=== PATIENT | female | born 1940 | race Caucasian/White ===

== ENCOUNTER 2019-12-18 13:32 | Outpatient (REF) | payer OTHER, SELFPAY ==
--- NOTE | 2019-12-18 13:56 | XR_ITS ---
EXAMINATION: XR HIP, RIGHT CLINICAL INFORMATION: Right hip pain. Unilateral primary osteoarthritis. COMPARISON: Pelvis x-ray September 2019 TECHNIQUE: Two views of the right hip and one view of the pelvis. FINDINGS: There is a superior lateral subluxation of the right femoral head with respect to the acetabulum. The right femoral head and lateral femoral neck appears fragmented. This has progressed compared to September 2019 exam.. There is severe arthritis at the right hip joint with obliteration of the joint space and subchondral cyst formation. There is a left hip replacement. There is a cerclage wire in the left femoral intertrochanteric region. Bones of the pelvis are unremarkable. Soft tissues are unremarkable. IMPRESSION: Superior lateral subluxation of the right femoral head with respect to the femoral neck. Fragmentation of the right lateral femoral head and neck and severe arthritis. These findings have progressed from September 2019 exam.
== END 2019-12-18 13:33 | disposition home or self-care (01) ==
LOC: HO.XRAY 13:32
PROVIDERS: PCP Physician Assistant; Visit Provider Physician Assistant
DX: M16.11 Unilateral primary osteoarthritis, right hip (principal)
CPT/HCPCS: 73502

== ENCOUNTER 2019-12-24 06:54 | Inpatient (IN) | payer OTHER, SELFPAY ==
[2019-12-08 10:55] VITALS: BMI 29.2
--- NOTE | 2019-12-23 10:21 | P.CONAN_ITS ---
Documented by User: Mery Meneses 12/23/19 10:26 HPI - Anesthesia Eval Consult details Narrative: 79yo F for R ROBERT PCP cleared, Cardiac cleared [facility] Past Medical History Medical History Aortic valvular disease Elevated cholesterol HTN (hypertension) Hx of osteomyelitis Iron deficiency anemia Osteoarthritis Thyroid disease Family History Family History Father Myocardial infarction CVD (cardiovascular disease) Mother No problems noted. Surgical History Surgical History History of History of total left hip arthroplasty History of total left knee replacement Hx of colonoscopy Social History Social History Are you a primary behavioral health care coordinator to a significant other at home: No Do you presently have visiting nurse or other home services: No Smoking Status: Never smoker Second Hand Smoke Exposure: No Use of substances other than those prescribed or required for medical reasons: No Have you been hit, kicked, punched, or otherwise hurt by someone within the past year? If so, by whom?: No Advance Directives: No Advance Directives Information Provided: No Advance Directives on File: No Recently lost weight without trying: No Narrative Narrative: No recent illness Activity limited to pain. No CP/SOB with rest. Meds Allergies Allergy/AdvReac Type Severity Reaction Status Date / Time No Known Drug Allergies Allergy Unknown NONE Verified 12/18/19 13:37 [NO KNOWN DRUG ALLERGIES] Home Medications Medication Instructions Recorded Confirmed Type acetaminophen 650 mg PO Q6H PRN 12/08/19 12/08/19 History amlodipine-benazepril 1 cap PO DAILY 12/08/19 12/08/19 History atorvastatin 1 tab PO DAILY 12/08/19 12/08/19 History ferrous sulfate 1 tab PO BID 12/08/19 12/08/19 History hydrochlorothiazide 1 cap PO QAM 12/08/19 12/08/19 History levothyroxine 1 tab PO QAM 12/08/19 12/08/19 History meloxicam 1 tab PO DAILY 12/08/19 12/08/19 History Exam Exam Date and Time: 12/09/19 @ 1309 Height,Weight and Vital Signs: Height 5 ft 3 in Weight 74.843 kg 143/64, 84, 20, 98%RA Pertinent Lab Results Pertinent Lab Results: Laboratory Tests Laboratory Tests 11/20/19 11/20/19 10:35 10:35 WBC 8.0 Hgb 10.7 L Hct 32.7 L Plt Count 415 H Sodium 135 Potassium 4.6 Chloride 100 BUN 25 H Creatinine 0.73 12/09/19 13:30 Blood Type O Positive Antibody Screen NEGATIVE Narrative Narrative: EKG 10/20/19: NSR @ 85 Echo 09/2019: nml LV sys function, LVEF 60-65%, mild LAE, -mod MIBI 10/28/19: likely nml perfusion, gated EF 69%, no transient ischemic dilation Airway Mallampati Class: I TM Dist: >3cm Neck ROM: Full Partial: Upper and Lower Heart: RRR Lungs: CTA bilat Assessment and Plan Assessment Anesthesia Assessment: Anesthesia Plan Discussed and PAT Visit Documented by User: Trenton Toney MD 12/24/19 08:11 PMF Past Medical History Medical History Aortic valvular disease Elevated cholesterol HTN (hypertension) Hx of osteomyelitis Iron deficiency anemia Osteoarthritis Thyroid disease Family History Family History Father Myocardial infarction CVD (cardiovascular disease) Mother No problems noted. Surgical History Surgical History History of History of total left hip arthroplasty History of total left knee replacement Hx of colonoscopy Social History Social History Are you a primary behavioral health care coordinator to a significant other at home: No Do you presently have visiting nurse or other home services: No Smoking Status: Never smoker Second Hand Smoke Exposure: No Use of substances other than those prescribed or required for medical reasons: No Have you been hit, kicked, punched, or otherwise hurt by someone within the past year? If so, by whom?: No Advance Directives: No Advance Directives Information Provided: No Advance Directives on File: No Recently lost weight without trying: No Meds Allergies Allergy/AdvReac Type Severity Reaction Status Date / Time No Known Drug Allergies Allergy Unknown NONE Verified 12/18/19 13:37 [NO KNOWN DRUG ALLERGIES] Home Medications Medication Instructions Recorded Confirmed Type acetaminophen 650 mg PO Q6H PRN 12/08/19 12/08/19 History amlodipine-benazepril 1 cap PO DAILY 12/08/19 12/08/19 History atorvastatin 1 tab PO DAILY 12/08/19 12/08/19 History ferrous sulfate 1 tab PO BID 12/08/19 12/08/19 History hydrochlorothiazide 1 cap PO QAM 12/08/19 12/08/19 History levothyroxine 1 tab PO QAM 12/08/19 12/08/19 History meloxicam 1 tab PO DAILY 12/08/19 12/08/19 History Exam Airway Mallampati Class: II TM Dist: >3cm Neck ROM: Full Loose/Missing/Broken Teeth: No Heart: rrr Lungs: nl Other: ao3 Assessment and Plan Assessment Anesthesia Assessment: Anesthesia Plan Discussed, PAT Visit and Chart Reviewed Final Anesthetic Review NPO: Yes ASA Class: III Final Preanesthetic Review: No Changes in Pt Med Stat, Meds/Allgs Chart Reviewed, Consent Obtained/Reviewed and Anes Risks/Benef Reviewed Patient Risk: Intermediate Procedure Risk: Intermediate Anesthetic Plan Anesthetic Plan: GA Disposition: Standard PACU
[2019-12-24] VITALS (12 sets, daily range): BP systolic 99–141; BP diastolic 43–60; PULSE 75–111; RESP 12–18; TEMP 35.8–36.8; O2SAT 94–100
[2019-12-24] MEDS: Lactated Ringers 1,000 ML 100 ML IVCONT (06:45)
[2019-12-24] MEDS: oxyCODONE HCl ER 10 MG TAB.ER.12H PO (06:57)
[2019-12-24] MEDS: Gabapentin 600 MG TABLET PO (06:58)
[2019-12-24 07:05] LABS: SARS COV2 PCR INHOUSE NEGATIVE (Negative)
[2019-12-24] MEDS: ceFAZolin Sodium/Dextrose,Iso 2 GM/50 ML PIGGYBACK IV ×2 (07:06→13:49)
--- NOTE | 2019-12-24 07:13 | XR_ITS ---
EXAMINATION: XR HIP, RIGHT CLINICAL INFORMATION: Status post right total hip replacement. COMPARISON: Pelvic and right hip x-rays of 12/18/2019 TECHNIQUE: 2 views of the right hip. FINDINGS: Right total hip arthroplasty hardware is in place with 2 acetabular screws. On the submitted AP supine portable views, the more lateral screw appears to be along the edge of the cortex of the iliac bone. Expected postsurgical changes of soft tissue edema and air are seen in the right hip. Cutaneous dionicio are noted on the lateral aspect of the hip. No evidence of associated acute osseous fracture. Left total hip arthroplasty hardware is unchanged in appearance. Symphysis pubis is intact. Degenerative changes are noted in the lower lumbar spine. IMPRESSION: Expected postsurgical changes of right total hip arthroplasty. No evidence of associated acute osseous fracture. The arthroplasty is in satisfactory position with 2 acetabular fixation screws. The more lateral screw appears to be along the edge of the iliac bone on the submitted views.
--- NOTE | 2019-12-24 07:25 | MHC.SHP ---
Pre-Procedural Eval Section A The patient is an INPATIENT: No Changes since office visit: Yes Patient answered all questions; No Cold of Flu in the past 2 weeks, No New Medical Problems and No Changes in Medication The History & Physical has been completed within 30 days and I have reviewed it.: Yes Section B Chief Complaint: osteoarthritis right hip Allergies: Allergies Allergy/AdvReac Type Severity Reaction Status Date / Time No Known Drug Allergies Allergy Unknown NONE Verified 12/18/19 13:37 [NO KNOWN DRUG ALLERGIES] Plan Patient has been examined and remains a candidate for the planned procedure
--- NOTE | 2019-12-24 10:04 | PC.NURSE ---
INTIAL CLOSE TIME OF 940, XRAY INTO OR2 FOR HIP XRAY. MD DECIDED TO REVISE. PT PREPPED, AND DRAPED A SECOND TIME.
--- NOTE | 2019-12-24 10:10 | XR_ITS ---
EXAMINATION: XR PELVIS CLINICAL INFORMATION: Post right hip replacement COMPARISON: Previous x-ray 12/18/2019 TECHNIQUE: AP view of the pelvis. FINDINGS: There is a new right hip replacement. No fracture or dislocation is seen. There is a left hip replacement in satisfactory position. Bones of the pelvis are unremarkable. There are postsurgical changes to the soft tissues over the right hip. IMPRESSION: Satisfactory appearance of right hip replacement.
--- NOTE | 2019-12-24 10:46 | PM.OP ---
Brief Operative Note Date of procedure: 12/24/19 Pre-op diagnosis: right hip OA Post-op diagnosis: same Procedure: right ROBERT Implants: gunner 54/#5/-5 CoCr Surgeon: Miguel Landry MD Anesthesia: GETA and local Reinstatement Clerk: Ivana Alexander Estimated blood loss (mL): 300 IV fluids (mL): 1,200 Pathology: other (femoral head, right) Condition: stable Disposition: PACU
[2019-12-24] MEDS: Dextrose 5 % and 0.45 % NaCl 1,000 ML 80 ML IVCONT (11:56)
[2019-12-24] MEDS: oxyCODONE HCl Immed Release 5 MG TABLET PO (18:56)
[2019-12-24] MEDS: Celecoxib 200 MG CAPSULE PO (21:17)
[2019-12-25] VITALS (7 sets, daily range): BP systolic 107–142; BP diastolic 49–58; PULSE 84–106; RESP 16–20; TEMP 36.3–37; O2SAT 96–98
[2019-12-25] MEDS: Dextrose 5 % and 0.45 % NaCl 1,000 ML 80 ML IVCONT ×2 (01:03→12:39)
[2019-12-25] MEDS: HYDROmorphone HCl 0.5 MG/0.5 ML SYRINGE 0.25 MG IVPUSH ×3 (01:16→10:30)
[2019-12-25] MEDS: oxyCODONE HCl Immed Release 5 MG TABLET PO ×3 (03:59→17:08)
[2019-12-25] MEDS: Acetaminophen 325 MG TABLET 650 MG PO ×3 (04:07→17:10)
[2019-12-25] MEDS: Levothyroxine Sodium 112 MCG TABLET PO (06:21)
[2019-12-25] MEDS: Levothyroxine Sodium 25 MCG TABLET PO (06:21)
[2019-12-25 06:33] LABS: MANUAL DIFF FLAG NO
[2019-12-25 06:54] LABS: Basophils Percent Auto 0.2 % (0-2); Eosinophils Percent Auto 0.1 % (0-4); Hematocrit 23.9 % (37-47); Imm Gran Abs Auto 0.06 X10*3/uL (0.00-0.03); Imm Gran Pct Auto 0.4 % (0.0-0.4); Lymphocytes Absolute Auto 1.9 X10*3/uL (1.2-4.9); Lymphocytes Percent Auto 13.7 % (20-40); Mean Corpuscular HGB Conc 33.5 g/dl (31.0-35.0); Mean Corpuscular Hemoglobin 30.4 pg (27.0-33.0); Mean Corpuscular Volume 90.9 fL (80-98); Mean Platelet Volume 8.3 fL (9.4-12.3); Neutrophils Absolute Auto 10.8 X10*3/uL (2.0-8.3); Neutrophils Percent Auto 78.6 % (45-73); Platelet Count 288 X10*3/uL (160-400); Red Blood Count 2.63 X10*6/uL (4.20-5.50); Red Cell Distribution Width 12.5 % (11.0-16.0); White Blood Count 13.7 X10*3/uL (4.8-10.8)
[2019-12-25 07:10] LABS: Anion Gap 11 (12-20); Blood Urea Nitrogen 30 mg/dL (9-16); Carbon Dioxide 25 mmol/L (22-29); Chloride 103 mmol/L (96-108); Creatinine Clr Calc Pharmacy 59.2; Estimated Glomerular Filt Rate > 60; Glucose Fasting 126 mg/dL (60-99); Potassium 3.5 mmol/l (3.3-5.1); Sodium 135 mmol/L (135-145)
--- NOTE | 2019-12-25 07:21 | HO.POSTANES ---
Post Anesthesia Evaluation Post Anesthesia Evaluation Vital Signs: Vital Signs Temp Pulse Resp BP Pulse Ox 12/25/19 03:00 98.3 F 106 H 16 142/58 H 96 12/24/19 23:00 98.3 F 111 H 16 108/51 L 98 Anesthesia: General Mental Status: Awake Pain Control: Satisfactory Nausea/Vomiting: None Hydration: Adequate Anesthesia-Related Issues: No Anes. Related Issues
[2019-12-25] MEDS: Celecoxib 200 MG CAPSULE PO ×2 (09:03→21:24)
--- NOTE | 2019-12-25 09:31 | P.PNOP_ITS ---
Subjective Subjective Principal diagnosis: status post right total hip arthroplasty Interval history: postop day 1 status post right total hip arthroplasty no overnight events. She is resting in chair. She states she has been up and ambulating with a walker. She has some discomfort in the anterior portion of her thigh. Denies shortness of breath, chest pain, dizziness. Physical Exam Vital Signs: Vital Signs: Vital Signs Temp Pulse Resp BP Pulse Ox 12/25/19 07:00 97.7 F 105 H 19 138/55 L 98 12/25/19 03:00 98.3 F 106 H 16 142/58 H 96 12/24/19 23:00 98.3 F 111 H 16 108/51 L 98 12/24/19 18:56 96.5 F L 100 126/52 L 97 12/24/19 15:09 96.7 F L 79 18 99/55 L 95 12/24/19 11:58 80 17 131/53 L 12/24/19 11:53 97.2 F 76 14 126/60 94 12/24/19 11:43 76 16 115/45 L 98 12/24/19 11:26 78 18 133/50 L 100 12/24/19 11:11 75 16 141/54 H 100 12/24/19 11:06 78 16 121/43 L 100 12/24/19 11:01 75 16 122/48 L 100 12/24/19 10:56 97.4 F 81 12 130/50 L Body Mass Index 29.2 Const: General: cooperative, healthy appearing and no acute distress Resp: Effort & Inspection: normal respiratory effort and able to speak in complete sentences Cardio: Rate: regular rate Peripheral pulses: Peripheral pulses 2+ throughout GI: Inspection: Yes normal to inspection Palpation (GI): Soft to palpation Skin: General skin exam: no rashes or lesions noted Extrem: Other: Right hip bandage clean dry and intact. No drainage. No erythema. Mild tenderness to palpation. Progress Note: A&P Assessment and plan (1) Status post total hip replacement, right: Status: Acute Assessment and Plan: Begin Physical Therapy continue Pain management aspirin and pneumatic devices for DVT prophylaxis Fall Risk Details Current Medications: Current Medications Generic Name Dose Route Start Last Admin Trade Name Freq PRN Reason Stop Dose Admin Acetaminophen 650 mg 12/24/19 11:53 12/25/19 04:07 Acetaminophen 325 Mg Tablet PO 650 mg Q6H PRN Administration Pain, Mild (Pain Scale 1-3) Celecoxib 200 mg 12/24/19 21:00 12/25/19 09:03 Celecoxib 200 Mg Capsule PO 200 mg BID JOE Administration Hydromorphone HCl 0.25 mg 12/24/19 11:53 12/25/19 06:23 Hydromorphone Hcl 0.5 Mg/0.5 Ml Syringe IVPUSH 0.25 mg Q4H PRN Administration Pain, Severe (Pain Scale 7-10) Dextrose/Sodium Chloride 1,000 mls @ 80 mls/hr 12/24/19 11:53 12/25/19 01:03 D51/2ns IVCONT 80 mls/hr .[id number] JOE Administration Cefazolin Sodium/Dextrose 2 gm in 50 mls @ 100 mls/hr 12/24/19 13:30 12/24/19 17:06 Ancef IV Infused ONCE@1330 [facility] Infusion Levothyroxine Sodium 112 mcg 12/25/19 06:00 12/25/19 06:21 Levothyroxine Sodium 112 Mcg Tablet PO 112 mcg DAILY@0600 [facility] Administration Levothyroxine Sodium 25 mcg 12/25/19 06:00 12/25/19 06:21 Levothyroxine Sodium 25 Mcg Tablet PO 25 mcg DAILY@0600 [facility] Administration Naloxone HCl 0.2 mg 12/24/19 11:53 Naloxone Hcl 0.4 Mg/Ml Vial IVPUSH Q2M PRN Excessive sedation or RR < 8 Ondansetron HCl 4 mg 12/24/19 11:53 Ondansetron Hcl 4 Mg/2 Ml Vial IVPUSH Q8H PRN Nausea and Vomiting Oxycodone HCl 5 mg 12/24/19 11:53 12/25/19 09:06 Oxycodone Hcl Immed Release 5 Mg Tablet PO 5 mg Q4H PRN Administration Pain, Moderate (Pain Scale 4-6 Senna 17.2 mg 12/24/19 11:53 Sennosides 8.6 Mg Tablet PO BEDTIME PRN Constipation Sodium Chloride 3 ml 12/24/19 16:00 12/25/19 09:00 0.9 % Sodium Chloride Flush 3 Ml Syringe IVFLUSH Not Given QSHIFT [facility] Time Spent With Patient Time: Total time spent is greater than 50% in coordination of care (as documented) at patient's floor/unit and/or counseling patient: Time with patient: less than 15 minutes
[2019-12-25] MEDS: Aspirin 325 MG TABLET PO ×2 (10:30→21:23)
--- NOTE | 2019-12-25 13:32 | MHC.CM.PN ---
Pt reports she lives alone and her son and daughter in law come by regularly. Pt reports she has no services and is not interested in VNA if recommended. Pt has a walker at home she typically uses. Pt does not have a HCP and declines to complete one today. pt requests a referral to [facility] as she is interested in Meals on Wheels. Referral placed. [facility] delivered current DC plan is home with [facility] referral pts son will transport
--- NOTE | 2019-12-25 13:41 | MHC.CM.PN ---
Pt reported her PCP as Brien Weller, CM contacted [facility] and confirmed pts PCP is Thomas Weller.
--- NOTE | 2019-12-25 16:32 | P.CONIM_ITS ---
History of Present Illness Data of Consult Service Date: 12/25/19 Requesting physician: Ivana Alexander Primary Care Provider: Thomas Weller PA-C [facility] Reason for consult: medical management this is a 79-year-old female with a history of hypertension, hyperlipidemia, hypothyroidism and osteoarthritis who presents for elective right total hip arthroplasty. She underwent surgery yesterday and the hospitalists were asked to see her in consultation for medical management. She has no specific complaints at this time she is tolerating a regular diet, voiding without issue. She denies any chest pain, shortness of breath, fever, chills. She has a history anemia which she states is related to iron deficiency. Her H/H on 11/20/2019 was 10.7/32.7, today it is 8.0/23.9. she states that she required a blood transfusion after her left hip replacement. She denies any shortness of breath, dizziness. Review of Systems Review of Systems: Yes all other systems are reviewed and are negative Constitutional: Constitutional: Denies chills and Denies fever(s) Cardiovascular: Cardiovascular: Denies chest pain Respiratory: Respiratory: Denies cough Gastrointestinal: Gastrointestinal: Denies abdominal pain [facility] Medical History (Updated 12/25/19 @ 09:33 by Ivana Alexander PA-C) Aortic valvular disease Elevated cholesterol HTN (hypertension) Hx of osteomyelitis Hypothyroid Iron deficiency anemia Osteoarthritis Primary osteoarthritis of right hip Thyroid disease Functional capacity: uses cane/walker Family History Father Myocardial infarction CVD (cardiovascular disease) Mother No problems noted. Surgical History (Updated 12/25/19 @ 09:33 by Ivana Alexander PA-C) History of History of total left hip arthroplasty History of total left knee replacement Hx of colonoscopy Social History (Updated 12/25/19 @ 16:38 by SALINA Ruffin) Household Members: None Housing: House Are you a primary career information specialist to a significant other at home: No Do you presently have visiting nurse or other home services: No Smoking Status: Never smoker Second Hand Smoke Exposure: No Use of substances other than those prescribed or required for medical reasons: No Currently Displaying Signs/Symptoms of Drug Intoxication Withdrawal: No Have you been hit, kicked, punched, or otherwise hurt by someone within the past year? If so, by whom?: No Advance Directives: No Advance Directives Information Provided: No Advance Directives on File: No Do you have thoughts of harming others: None Do you have a plan to hurt others: No Plan Recently lost weight without trying: No service: No Current occupational status: retired Meds Allergies Allergy/AdvReac Type Severity Reaction Status Date / Time No Known Drug Allergies Allergy Unknown NONE Verified 12/18/19 13:37 [NO KNOWN DRUG ALLERGIES] Home Medications Medication Instructions Recorded Confirmed Type acetaminophen 650 mg PO Q6H PRN 12/08/19 12/08/19 History amlodipine-benazepril 1 cap PO DAILY 12/08/19 12/08/19 History atorvastatin 1 tab PO DAILY 12/08/19 12/08/19 History ferrous sulfate 1 tab PO BID 12/08/19 12/08/19 History hydrochlorothiazide 1 cap PO QAM 12/08/19 12/08/19 History levothyroxine 1 tab PO QAM 12/08/19 12/08/19 History meloxicam 1 tab PO DAILY 12/08/19 12/08/19 History Physical Exam Vital Signs and Narrative: Vital Signs: Last Vital Signs Temp 98.5 F 12/25/19 15:00 Pulse 92 12/25/19 15:00 Resp 17 12/25/19 15:00 BP 110/49 L 12/25/19 15:00 Pulse Ox 97 12/25/19 15:00 Body Mass Index 29.2 Const: Nutritional Appearance: well nourished Orientation/consciousness: patient oriented x3 HENMT: Head: Yes normocephalic and Yes atraumatic Eyes: Sclerae: sclerae normal Chest: Chest palpation & inspection: normal inspection of the chest Resp: Effort & Inspection: normal respiratory effort and no respiratory distress Auscultation: clear to auscultation bilaterally Cardio: Rate: regular rate Heart sounds: Murmur heart sound present systolic GI: Palpation (GI): Soft to palpation and nontender Skin: General skin exam: no rashes or lesions noted Neuro: General: patient oriented x3 Cranial nerves: Yes CN's II-XII intact bilaterally and Yes Bilaterally intact EOM present Extrem: Other: right hip dressing wihout staing General: Yes normal to inspection Results Labs Labs: Laboratory Tests 12/09/19 12/24/19 12/25/19 13:30 05:43 06:17 WBC 13.7 H RBC 2.63 L Hgb 8.0 L Hct 23.9 L MCV 90.9 MCH 30.4 MCHC 33.5 RDW 12.5 Plt Count 288 MPV 8.3 L Immature Gran % (Auto) 0.4 Neut % (Auto) 78.6 H Lymph % (Auto) 13.7 L Bell % (Auto) 7.0 Eos % (Auto) 0.1 Baso % (Auto) 0.2 Lymph # (Auto) 1.9 Bell # (Auto) 1.0 Eos # (Auto) 0.0 Baso # (Auto) 0.0 Abs Immat Gran (auto) 0.06 H Absolute Neuts (auto) 10.8 H Absolute Nucleated RBC 0.000 Nucleated RBC % (auto) 0.0 Sodium Potassium Chloride Carbon Dioxide Anion Gap BUN Creatinine Estim Creat Clear Calc Estimated GFR Fasting Glucose Calcium Coronavirus (PCR) NEGATIVE Blood Type O Positive Antibody Screen NEGATIVE 12/25/19 06:17 WBC RBC Hgb Hct MCV MCH MCHC RDW Plt Count MPV Immature Gran % (Auto) Neut % (Auto) Lymph % (Auto) Bell % (Auto) Eos % (Auto) Baso % (Auto) Lymph # (Auto) Bell # (Auto) Eos # (Auto) Baso # (Auto) Abs Immat Gran (auto) Absolute Neuts (auto) Absolute Nucleated RBC Nucleated RBC % (auto) Sodium 135 Potassium 3.5 Chloride 103 Carbon Dioxide 25 Anion Gap 11 L BUN 30 H Creatinine 0.77 Estim Creat Clear Calc 59.2 Estimated GFR > 60 Fasting Glucose 126 H Calcium 8.0 L Coronavirus (PCR) Blood Type Antibody Screen Assessment and Plan (1) Status post total hip replacement, right: Status: Acute this is a 79-year-old female with history of hypertension, dyslipidemia, hypothyroidism, anemia, osteoarthritis who presents for elective right total hip arthroplasty. POD #1 s/p R ROBERT Management per orthopedic team acute on chronic anemia asymptomatic h/o iron deficiency per report, although MCV 90 & iron studies wnl in past. r/t blood loss from surgery and dilution from IVF -follow CBC HTN blood pressure on lower side - hold Norvasc, benazepril, HCTZ HLD - continue statin hypothyroidism - continue Synthroid thank you for allowing us to participate in the care of this patient. We will follow along with you. this case was discussed with Dr. Wharton
--- NOTE | 2019-12-25 17:07 | PM.EVENT ---
Event Note Event Note: addendum to consultation by SALINA Leonard 12/25/19 I interviewed and examined the patient I discussed her presentation and management with SALINA Leonard I reviewed her consultation and agree with the documentation with the following additions and changes 79yo F with HTN, HLD, hypothyroidism, OA POD #0 elective R ROBERT Hospitalist consultation for management of comorbid medical conditions Had L ROBERT in past and had transfusion with that Pain well-controlled No chest pain or dyspnea vitals reviewed pt in NAD, pain well-controlled lungs clear CV RRR 2/6 <> at base abd soft/NT ext no C/C/E neuro non focal labs Hb 8 hospital d#2 79yo F POD#1 ROBERT # HTN - hold antihypertensives: amlodipine, benazepril, HCTZ # HLD - continue statin # hypothyroidism - continue LT4 # postop anemia - recheck CBC in am # postop ROBERT - VTE ppx as per orthopedic team
[2019-12-26] VITALS (14 sets, daily range): BP systolic 102–142; BP diastolic 44–61; PULSE 86–114; RESP 18–20; TEMP 36.1–36.8; O2SAT 96–99
[2019-12-26] MEDS: Dextrose 5 % and 0.45 % NaCl 1,000 ML 80 ML IVCONT (00:03)
[2019-12-26] MEDS: Acetaminophen 325 MG TABLET 650 MG PO ×3 (00:07→20:35)
[2019-12-26] MEDS: oxyCODONE HCl Immed Release 5 MG TABLET PO ×3 (00:08→20:32)
[2019-12-26] MEDS: Levothyroxine Sodium 25 MCG TABLET PO (05:50)
[2019-12-26] MEDS: Levothyroxine Sodium 112 MCG TABLET PO (05:50)
[2019-12-26 06:33] LABS: MANUAL DIFF FLAG NO
[2019-12-26 06:51] LABS: Basophils Percent Auto 0.3 % (0-2); Eosinophils Absolute Auto 0.1 X10*3/uL (0.0-0.4); Eosinophils Percent Auto 0.7 % (0-4); Hemoglobin 7.3 g/dl (12.0-16.0); Imm Gran Pct Auto 0.7 % (0.0-0.4); Lymphocytes Absolute Auto 2.4 X10*3/uL (1.2-4.9); Lymphocytes Percent Auto 16.9 % (20-40); Mean Corpuscular HGB Conc 33.2 g/dl (31.0-35.0); Mean Corpuscular Hemoglobin 30.4 pg (27.0-33.0); Mean Corpuscular Volume 91.7 fL (80-98); Mean Platelet Volume 8.6 fL (9.4-12.3); Monocytes Absolute Auto 0.7 X10*3/uL (0.1-1.2); Monocytes Percent Auto 4.7 % (2-11); Neutrophils Absolute Auto 10.8 X10*3/uL (2.0-8.3); Neutrophils Percent Auto 76.7 % (45-73); Platelet Count 281 X10*3/uL (160-400); Red Cell Distribution Width 12.3 % (11.0-16.0); White Blood Count 14.1 X10*3/uL (4.8-10.8)
[2019-12-26 07:22] LABS: Anion Gap 9 (12-20); Blood Urea Nitrogen 29 mg/dL (9-16); Calcium 7.8 mg/dL (8.4-10.2); Carbon Dioxide 24 mmol/L (22-29); Chloride 105 mmol/L (96-108); Creatinine Clr Calc Pharmacy 61.6; Estimated Glomerular Filt Rate > 60; Glucose Fasting 121 mg/dL (60-99); Potassium 3.4 mmol/l (3.3-5.1); Sodium 135 mmol/L (135-145)
[2019-12-26] MEDS: Aspirin 325 MG TABLET PO ×2 (08:49→20:31)
[2019-12-26] MEDS: Atorvastatin Calcium 10 MG TABLET PO (08:49)
[2019-12-26] MEDS: Celecoxib 200 MG CAPSULE PO ×2 (08:49→20:31)
[2019-12-26] MEDS: 0.9 % Sodium Chloride Flush 3 ML SYRINGE IVFLUSH (08:50)
[2019-12-26] MEDS: Sennosides 8.6 MG TABLET 17.2 MG PO (08:56)
--- NOTE | 2019-12-26 09:49 | PM.IMPN ---
Subjective Subjective Date of Service: 12/26/19 Interval History: Postop pain well-controlled Anemic, willing to undergo transfusion Denies fever, chills, lightheadedness, chest pain, or dyspnea Review of Systems Review of Systems: Yes all other systems are reviewed and are negative Physical Exam Vital Signs: Vital Signs: Vital Signs Temp Pulse Resp BP Pulse Ox 12/26/19 07:00 97.3 F 86 18 121/53 L 96 12/26/19 02:47 97.6 F 90 18 131/60 96 12/25/19 23:00 98.6 F 92 20 131/54 L 98 12/25/19 19:00 97.4 F 91 17 107/55 L 96 12/25/19 15:00 98.5 F 92 17 110/49 L 97 12/25/19 11:00 97.3 F 84 18 126/50 L 98 12/25/19 10:30 17 Body Mass Index 29.2 gen- NAD neck- supple lungs- CTAB CV- RRR 2/6 systolic <> murmur at base abd- soft/NT ext- no C/C/E neuro- nonfocal Objective Data Current Medications Generic Name Dose Route Start Last Admin Trade Name Freq PRN Reason Stop Dose Admin Acetaminophen 650 mg 12/24/19 11:53 12/26/19 08:50 Acetaminophen 325 Mg Tablet PO 650 mg Q6H PRN Administration Pain, Mild (Pain Scale 1-3) Aspirin 325 mg 12/25/19 09:35 12/26/19 08:49 Aspirin 325 Mg Tablet PO 325 mg BID JOE Administration Atorvastatin Calcium 10 mg 12/26/19 09:00 12/26/19 08:49 Atorvastatin Calcium 10 Mg Tablet PO 10 mg DAILY JOE Administration Celecoxib 200 mg 12/24/19 21:00 12/26/19 08:49 Celecoxib 200 Mg Capsule PO 200 mg BID JOE Administration Hydromorphone HCl 0.25 mg 12/24/19 11:53 12/25/19 10:30 Hydromorphone Hcl 0.5 Mg/0.5 Ml Syringe IVPUSH 0.25 mg Q4H PRN Administration Pain, Severe (Pain Scale 7-10) Dextrose/Sodium Chloride 1,000 mls @ 80 mls/hr 12/24/19 11:53 12/26/19 00:03 D51/2ns IVCONT 80 mls/hr .[id number] JOE Administration Levothyroxine Sodium 112 mcg 12/25/19 06:00 12/26/19 05:50 Levothyroxine Sodium 112 Mcg Tablet PO 112 mcg DAILY@0600 JOE Administration Levothyroxine Sodium 25 mcg 12/25/19 06:00 12/26/19 05:50 Levothyroxine Sodium 25 Mcg Tablet PO 25 mcg DAILY@0600 [facility] Administration Naloxone HCl 0.2 mg 12/24/19 11:53 Naloxone Hcl 0.4 Mg/Ml Vial IVPUSH Q2M PRN Excessive sedation or RR < 8 Ondansetron HCl 4 mg 12/24/19 11:53 Ondansetron Hcl 4 Mg/2 Ml Vial IVPUSH Q8H PRN Nausea and Vomiting Oxycodone HCl 5 mg 12/24/19 11:53 12/26/19 08:49 Oxycodone Hcl Immed Release 5 Mg Tablet PO 5 mg Q4H PRN Administration Pain, Moderate (Pain Scale 4-6 Senna 17.2 mg 12/24/19 11:53 12/26/19 08:56 Sennosides 8.6 Mg Tablet PO 17.2 mg BEDTIME PRN Administration Constipation Sodium Chloride 3 ml 12/24/19 16:00 12/26/19 08:50 0.9 % Sodium Chloride Flush 3 Ml Syringe IVFLUSH 3 ml QSHIFT [facility] Administration Labs CBC & Chem 7: 12/26/19 06:16 12/26/19 06:16 Labs: Laboratory Results - last 24 hr 12/26/19 12/26/19 12/26/19 06:16 06:16 08:03 MCV 91.7 MCH 30.4 MCHC 33.2 RDW 12.3 Plt Count 281 MPV 8.6 L Immature Gran % (Auto) 0.7 H Neut % (Auto) 76.7 H Lymph % (Auto) 16.9 L [place] % (Auto) 4.7 Eos % (Auto) 0.7 Baso % (Auto) 0.3 Lymph # (Auto) 2.4 [place] # (Auto) 0.7 Eos # (Auto) 0.1 Baso # (Auto) 0.0 Abs Immat Gran (auto) 0.10 H Absolute Neuts (auto) 10.8 H Absolute Nucleated RBC 0.000 Nucleated RBC % (auto) 0.0 Anion Gap 9 L Estim Creat Clear Calc 61.6 Estimated GFR > 60 Fasting Glucose 121 H Calcium 7.8 L Blood Type O Positive Antibody Screen NEGATIVE Progress Note: A&P (1) Status post total hip replacement, right: Status: Acute Assessment and Plan: hospital d#3 79yo F POD#2 ROBERT # HTN - holding antihypertensives for soft BP [amlodipine, benazepril, HCTZ] # HLD - continue statin # hypothyroidism - continue LT4 # postop anemia - recommend transfusing 2u pRBCs and rechecking H+H in am # postop ROBERT - VTE ppx as per orthopedic team
--- NOTE | 2019-12-26 13:52 | MHC.CM.PN ---
DC PLAN CONTINUES TO BE HOME, PT REFUSING ANY VNA SERVICES AND WILL ARRANGE HER OWN TRANSPORT
--- NOTE | 2019-12-26 15:25 | MHC.CM.PN ---
discharge planned for this evening. Home with no services
--- NOTE | 2019-12-26 15:30 | PC.NURSE ---
Addendum entered by Virgen Syed RN 12/26/19 22:30: E-Patient tolerated Blood transfusion well,no reaction noted Original Note: P-patient very anxious and angry ,stating she will refuse second unit of PRBC because she wants to go home and it is taking to long,first unit of PRBC is infusing I-importance of transfusion explained and SALINA Aragon notified,Margo stated patient would have to leave AMA ,explained this to patient E-patient decided to stay and accept 2-nd unit of PRBc
--- NOTE | 2019-12-26 17:05 | P.DS_ITS ---
DS: Providers Provider Date of admission: 12/24/19 06:54 Primary care physician: Unknown Physician Consults: 12/24/19 11:53 Consult to Hospitalist Routine Consulting Provider: Hospitalist Reason for consultation: medical managment DS: Diagnosis Discharge Diagnosis (1) Status post total hip replacement, right: Status: Acute Problem details: Miss St is a 79-year-old female who presented to her office with ongoing right hip pain. She continues to have difficulty with daily activity and ambulation therefore she Consented to move forward with right total hip arthroplasty. DS: Summary Hospital Course Hospital Course: Miss St under when I successful right total hip arthroplasty. She was transferred to PACU and then to the floor wish she recovered. During her stay her vitals wereStable a febrile at 97.9. Labs POD 1 h/h 8.0,23.9. POD 2 they dropped to 7.3, 22.0. She was transfused with 2 Units PRBCs. POD 1 she was started on ASA 325 mg tabs PO bid for dvt ppx and she received PT/OT svs twice a day. Prior to discharge her aquacel dressing was changes, incision clean, dry and intact. New aquacel dressing applied and the plan is to be d/c home. Time Spent with Patient Time attestation: Total time spent providing and/or coordinating discharge services: Physical Exam Vital Signs: Vital Signs: Vital Signs Temp Pulse Resp BP Pulse Ox 12/26/19 16:57 99 12/26/19 16:54 97.9 F 100 20 138/54 L 12/26/19 15:13 93 103/44 L 98 12/26/19 15:00 98.1 F 108 H 19 128/50 L 98 12/26/19 13:52 97.2 F 93 20 103/44 L 12/26/19 13:36 97.0 F 103 H 20 102/61 12/26/19 11:00 98.2 F 97 18 123/51 L 98 12/26/19 09:25 86 121/53 L 96 12/26/19 07:00 97.3 F 86 18 121/53 L 96 12/26/19 02:47 97.6 F 90 18 131/60 96 12/25/19 23:00 98.6 F 92 20 131/54 L 98 12/25/19 19:00 97.4 F 91 17 107/55 L 96 Body Mass Index 29.2 Extrem: Other: Right hip incision c/d/i. No erythema or drainge. Sensation intact DS: Data Data Completed and Pending Pending studies at discharge: Pending at discharge 12/24/19 09:33 Surgical [PTH] Routine Labs on day of discharge: Labs from last 24 hours 12/26/19 12/26/19 12/26/19 08:03 06:16 06:16 WBC 14.1 H RBC 2.40 L Hgb 7.3 L Hct 22.0 L MCV 91.7 MCH 30.4 MCHC 33.2 RDW 12.3 Plt Count 281 MPV 8.6 L Immature Gran % (Auto) 0.7 H Neut % (Auto) 76.7 H Lymph % (Auto) 16.9 L [place] % (Auto) 4.7 Eos % (Auto) 0.7 Baso % (Auto) 0.3 Lymph # (Auto) 2.4 [place] # (Auto) 0.7 Eos # (Auto) 0.1 Baso # (Auto) 0.0 Abs Immat Gran (auto) 0.10 H Absolute Neuts (auto) 10.8 H Absolute Nucleated RBC 0.000 Nucleated RBC % (auto) 0.0 Sodium 135 Potassium 3.4 Chloride 105 Carbon Dioxide 24 Anion Gap 9 L BUN 29 H Creatinine 0.74 Estim Creat Clear Calc 61.6 Estimated GFR > 60 Fasting Glucose 121 H Calcium 7.8 L Blood Type O Positive Antibody Screen NEGATIVE Crossmatch See Detail Discharge Plan Discharge Patient Disposition: Home Health Service Referrals: Physician,Unknown [Primary Care Provider] - Discharge Medications: New acetaminophen 325 mg Tablet 650 mg PO Q6H PRN (Reason: Pain, Mild (Pain Scale 1-3)) 30 Days Qty: 240 RF: 0 aspirin 325 mg Tablet 325 mg PO BID 14 Days Qty: 28 RF: 0 oxycodone 5 mg Tablet 5 mg PO Q4H PRN (Reason: Pain, Moderate (Pain Scale 4-6) 7 Days Qty: 42 RF: 0 Continued levothyroxine 137 mcg tablet 1 tab PO QAM RF: 0 atorvastatin 10 mg tablet 1 tab PO DAILY RF: 0 amlodipine-benazepril 5-20 mg capsule 1 cap PO DAILY RF: 0 ferrous sulfate 325 mg (65 mg iron) tablet 1 tab PO BID RF: 0 hydrochlorothiazide 12.5 mg capsule 1 cap PO QAM RF: 0 Discontinued acetaminophen 325 mg Tablet 650 mg PO Q6H PRN (Reason: Pain) RF: 0 meloxicam 15 mg tablet 1 tab PO DAILY RF: 0 Discharge Orders: Discharge Order (Routine); Ordered 12/26/19 Ordered By: Ivana Alexander Diet: regular diet Activity on Discharge: Use cane or walker Discharge Date/Time: 12/26/19 22:00 Activity Restrictions/Additional Instructions: * Physical Therapy for Total hip arthroplasty: posterior precautions, gait training, ROM, strength * Limit stair climbing * No showering, no tub bath-keep dressing clean, dry and intact * No driving x6 weeks * Continue Lovenox tabs once a day x 4 weeks * Follow up with [facility] in 2 weeks Visit Report Forms: Patient Portal Discharge page Care Plan Goals: Restore function of right hip Health Concerns: None Plan of Treatment: Physical Therapy Pain management DVT prophylaxis
--- NOTE | 2019-12-26 18:26 | PC.NURSE ---
patient refused chair alarm,encouraged to ask for assistance
--- NOTE | 2019-12-26 21:32 | MHC.INPTTRAN ---
Patient alert and oriented,s/p Total Hi psurgery ,surgical drsg intacttolerated 2 units of PRBC ,second unit done at 210,ambulates with walker and assist,steady
--- NOTE | 2019-12-31 11:57 | OP_ITS ---
SURGEON: Miguel Landry MD INDICATIONS: This is a 79-year-old woman with severe osteoarthritis of the right hip, consented to undergo a right hip arthroplasty. PREOPERATIVE DIAGNOSIS: Right hip arthritis. POSTOPERATIVE DIAGNOSIS: Right hip arthritis. PROCEDURE PERFORMED: Right total hip arthroplasty. ESTIMATED BLOOD LOSS: 300 mL. COMPLICATIONS: None. ANESTHESIA: ASSISTANTS: SPECIMENS: FLUIDS: 1200. CONDITION: Stable. PROCEDURE IN DETAIL: The patient was brought to the operating room, placed in the left lateral decubitus position. All bony prominences were well padded. She was prepped and draped in standard sterile fashion. Time-out was called to identify proper site, proper procedure, and proper surgeon. IV antibiotics per weight was administered. I began by making a curvilinear incision over the posterolateral aspect of the greater trochanter. Dissection was taken down to the tensor fascia, which was incised in line with the incision. I placed my Charnley retractor and identified the piriformis. A hockey stick capsulotomy with external rotator layer was developed starting at the piriformis and extending down just proximal to the lesser trochanter. The head was then dislocated, and a neck cut was made 1 cm proximal lesser trochanter. A deformed femoral head was removed, and anterior-posterior acetabular retractors were placed. There was not much of a teres to debride, and we were already down to the medial wall. Therefore, I began to sequentially ream from a 44 to a 54, and a 54 cup was placed in approximately 20 degrees of anteversion and 45 degrees of inclination. At this time, the cup fell stable and a 20-degree posterior lip liner was placed. I then turned my attention to the femur, where a cookie cutter was used to lateralize and I sequentially broached up to a 5. I then trialed a 5, +0 and while locating the hip, I felt the acetabular component . Therefore, I removed all instrumentation from the femur and removed the lip liner. I repositioned the cup in 20 degrees of anteversion and 45 degrees of inclination and then placed 2 screws into the acetabulum. One had excellent purchase. The other less so, but felt that it was in the lateral aspect of the ileum. I then placed a second liner and returned to the femur. I placed my #5 broach and then trialed again with a -2.5 and a -5. I was happiest with a -5. I then placed my final femoral implant and again retrialed and was happiest with -5 and -5 was placed. I then irrigated copiously and performed a layered closure. Sterile dressing was applied, and the back table was kept sterile, and final radiographs revealed one of the screws appeared to be in an extraosseous position just adjacent to the superior acetabulum. Therefore, I repositioned the patient and re-sterilized the leg and under sterile conditions, removed the dionicio and entered the hip joint through the same incision. I then removed the lip liner and removed the screw and repositioned a shorter screw that was just really through the superior wall and would help prevent any rotation. The remaining screw had excellent purchase. The cup was stable at all times. A 10-degree lip liner was then placed, and the hip was located, and I again irrigated copiously and closed in a layered fashion with dionicio on the skin. The patient was placed in sterile dressing. Radiographs were then taken in a supine position, and I was happy with the positioning of the hardware. The patient was then extubated and brought to recovery room in stable condition. There were no known complications. GRAFT OR IMPLANTS: Implants used; Britton 54 cup with a #5 Accolate, 2 femoral implant and -5, 36 cobalt chrome femoral head. MD MARIBEL Osborne/KARON / [id number] MTDD
== END 2019-12-26 22:00 | disposition home health service (06) | DRG 470 ==
LOC: HO.SSSA 06:55 → HO.S3 12:12
PROVIDERS: Physician Assistant; Admitting Provider Orthopaedic Surgery; Visit Provider Family Medicine
PROC: 0SR90JA Replacement of Right Hip Joint with Synthetic Substitute, Uncemented, Open Approach (ICD-10-PCS; CPT 27130; principal; 2019-12-24 07:30)
DX: M16.11 Unilateral primary osteoarthritis, right hip (principal); E03.9 Hypothyroidism, unspecified; E78.5 Hyperlipidemia, unspecified; D64.9 Anemia, unspecified; Z20.828 Contact with and (suspected) exposure to other viral communicable diseases; Z79.890 Hormone replacement therapy; Z79.899 Other long term (current) drug therapy
CPT/HCPCS: 36415; 72170; 73501; 80048; 85025; 86850; 86900; 86901; 86920; 86923; 87635; 88304; 88311; 97110; 97116; 97162; 97166; 97530; 97535; C1713; C1776; J0690; J1170; J2405; J3010; P9016

== ENCOUNTER → 2020-01-09 12:59 | Outpatient (BNVA) | payer OTHER, SELFPAY | PROVIDERS: PCP Physician Assistant; Visit Provider Physician Assistant | DX: Z76.89 Persons encountering health services in other specified circumstances (principal) ==

== ENCOUNTER 2020-02-09 08:43 | Outpatient (REF) | payer OTHER, SELFPAY ==
--- NOTE | 2020-02-09 08:46 | XR_ITS ---
EXAMINATION: XR PELVIS CLINICAL INFORMATION: Hip pain. COMPARISON: AP pelvis 12/24/2019 TECHNIQUE: AP view of the pelvis. FINDINGS: There are bilateral hip prostheses with prosthetic components in satisfactory alignment. No visible fracture seen. The soft tissues are normal. Cross-table lateral view of the right hip reveals no displacement of the right hip prosthesis. The soft tissues are unremarkable. XR/XR pelvis 1-2V IMPRESSION: Total bilateral hip prostheses in satisfactory alignment. No prosthetic loosening seen especially right hip. No acute fracture seen.
== END 2020-02-09 08:44 | disposition home or self-care (01) ==
LOC: HO.HOSX 08:43
PROVIDERS: Visit Provider Orthopaedic Surgery
DX: M25.559 Pain in unspecified hip (principal); Z96.641 Presence of right artificial hip joint
CPT/HCPCS: 72170

== ENCOUNTER → 2020-03-03 11:10 | Outpatient (BNVA) | payer OTHER, SELFPAY | PROVIDERS: PCP Internal Medicine; Referring Provider Internal Medicine; Visit Provider Student in an Organized Health Care Education/Training Program | DX: M17.11 Unilateral primary osteoarthritis, right knee (principal); M19.042 Primary osteoarthritis, left hand; M19.041 Primary osteoarthritis, right hand | CPT/HCPCS: 20610 ==

== ENCOUNTER 2020-03-09 08:00 | Outpatient (RCR) | payer OTHER, SELFPAY ==
[2020-01-16 07:53] VITALS: BP 148/69; PULSE 80; O2SAT 97
--- NOTE | 2020-01-16 09:51 | MHC.PT.EP ---
[facility] [place] Office [place] Office [place] Office [address] Dino Pastor [address] [phone] F: [phone] F: [phone] F: [phone] F: [phone] Physical Therapy Plan of Care Date of Evaluation: 01/16/20 Date of Surgery: 12/24/19 Diagnosis: RIGHT ARTIFICAL HIP JOINT Assessment: 79 YO FEMALE REF TO PT S/P RIGHT THR AT [facility] Dec W DR JONES- SHE WAS D/C'D HOME AND REFUSED VNA SERVICES. Pt RESIDES ALONE IN A 1ST FLOOR APT W 2 CATS AND 2 DOGS- SHE IS MOTIVATED TO IMPROVE HER FUNCTIONAL MOB AND RTW IN MAR 2020. Pt CURRENTLY AMB W A W/WALKER OUTSIDE OF HER HOME AND SHE USES A CANE IN HER APT. SHE HAS A H/O LEFT THR AND LEFT TKR. OBJECTIVELY, Pt HAS DECR STRENGTH IN LEs, ROM DEFICITS IN LEs, FLUCTUATING PAIN/ SORENESS IN RIGHT THIGH. FUNCTIONALLY, Pt IS INDEP W TRANSFERS AND BED MOBILITY- Pt IS AMB W A W/WALKER SHORT DISTANCES, SHE HAS 3 STEPS INTO HER APT W INCR EFFORT, AND HER GOAL IS TO ADV AMB/ DYNAMIC BALANCE TO REDUCE HER NEED FOR A W/WALKER. SHE WOULD BENEFIT FROM PT TO ADDRESS THE ABOVE FUNCTIONAL DEFICITS. Frequency and Duration: The patient will be seen 2x WK x 5 WKS Short Term Goals: Pt'S RIGHT HIP PAIN DECR TO 2/10 W REG ADLs IN 3 WKS Pt DEMON IMPROVED POSTURE AND GAIT MECH ON LEVEL GROUND AND STAIR MGMT IN 3 WKS Correction Goals: Pt RETURN TO REG ADLs AND HER GOAL OF RTW BY MAR 12, 2020, EVIDENT W IMPROVED LEFT SCORE BY 12 POINTS IN 5 WKS Pt INDEP W HEP ADDRESSING STRENGTH AND MOBILITY AND SELF-SX MGMT IN 5 WKS Treatment Plan: Modalities to reduce pain, spasms and effusion. Manual therapy to restore motion and function. Therapeutic exercise to improve strength and flexibility. Neuromuscular re-education for posture and balance. Therapeutic activities to return to functional activities of daily living. Please sign and return to therapist. Thank you for your referral.
--- NOTE | 2020-02-03 09:21 | MHC.PT.PR ---
[facility] [place] Office [place] Office [place] Office [address] Dino Pastor [address] [phone] F: [phone] F: [phone] F: [phone] F: [phone] Physical Therapy Progress Note Diagnosis: RIGHT ARTIFICAL HIP JOINT Date of Surgery: 12/24/19 Date of Evaluation: 01/16/20 Treatments to Date: 6 Cancellations to Date: 0 No Shows to Date: 0 Subjective: Ortho f/u on Sunday. Her knee hurts more than her hip and she has injections scheduled for 03/03. Also reports she feels 'good overall. Pain Score and Location: 3 RIGHT THIGH/ HIP Objective Measures: R AROM in supine: hip abd 18, hip flexion 74 Assessment: Added resistance to standing hip abd/ext as well as initiated step ups-downs to improve stair negotiation. Pt tends to compensate with trunk flexion or extension with seated and standing ther-ex, therefore cues throughout for hip movement only. Pt would like to ambulate without an AD however significant increased forward flexion, B foot flat initial contact, decreased nell, and arms held in slight abduction - with gait training, cues and practice of heel strike, arm swing and step through patterning with minimal carryover. She is making progress with strength and HEP - will focus on more functional strengthening. PT Plan: Continue with PT for 2x/week for 3 weeks Treatment Plan: Therapeutic Exercise, Dynamic Therapeutic Activities, Neuromuscular Re-ed, Manual Therapies, Gait, Home Exercise Program, Patient Education Thank you once again for your referral.
--- NOTE | 2020-03-09 09:22 | MHC.PT.DC ---
[facility] [place] Office [place] Office [place] Office [address] Dino Pastor [address] [phone] F: [phone] F: [phone] F: [phone] F: [phone] Physical Therapy Discharge Report Diagnosis: RIGHT ARTIFICAL HIP JOINT Date of Surgery: 12/24/19 Date of Evaluation: 01/16/20 Date of Discharge: 03/09/20 Treatments to Date: 14 Cancellations to Date: 0 No Shows to Date: 0 Discharge Status: Achieved Goals Improved Function Visit Non-compliance Discharge Summary: 79 YO FEMALE REF TO PT S/P R THR- SHE HAS PROGRESSED WELL IN PT- SHE IS INDEP W HEP, DEMON OVERALL IMRPOVED FUNCT MOB- GAIT W W/WALKER OR CANE INDEP, HOWEVER, Pt'S GOAL IS TO RTW IN MARCH 2020 AND SHE IS NOT ALLOWED TO USE ANY AD IN THE WORKPLACE- SHE CAN AMB W/O AD, HOWEVER, I HAVE STRONGLY URGED AND EDUC HER RE THE IMPROVED MECH W AT LEAST A SPC. Pt MET HER PT GOALS TO MAX POTENTIAL AT THIS TIME- SHE IS MOTIVATED AND INDEP W HEP, 0 PAIN, IMRPOVED STRENGTH , AND IMPROVED DYNAMIC BALANCE W SIMUL ADLs. SHE IS READY FOR D/C FROM PT AT THIS TIME, WITH HER HEP. Electronically signed by: Anabelle Kevin,PT Please sign and return to therapist. Thank you for your referral.
== END 2020-03-09 09:23 | disposition other institution (70) ==
LOC: HO.PT 08:00
PROVIDERS: Visit Provider Physician Assistant
DX: Z47.1 Aftercare following joint replacement surgery (principal); Z96.641 Presence of right artificial hip joint
CPT/HCPCS: 97110; 97112; 97116; 97162; 97530

== ENCOUNTER 2020-03-20 03:39 | Emergency (ER) | payer OTHER, SELFPAY ==
[2020-03-20 05:44] VITALS: BP 165/53; PULSE 75; RESP 15; TEMP 37; O2SAT 98; BMI 28.3
--- NOTE | 2020-03-20 06:45 | ED.EXTPRO ---
HPI - Extremity Problem General Chief complaint: Extremity Problem Stated complaint: ARM PAIN Time Seen by Provider: 03/20/20 06:44 Source: patient Mode of arrival: ambulatory Limitations: no limitations History of Present Illness HPI Narrative: Patient has history of chronic arthritis and right shoulder pain which is getting worse for last 1 week while working today she noticed increased pain especially on lifting up right shoulder. Patient denies any recent trauma to the right shoulder Related Data Previous Rx's Medication Instructions Recorded acetaminophen 650 mg PO Q6H PRN 30 Days #240 tab 12/26/19 hydrochlorothiazide 12.5 mg capsule 12.5 mg PO QAM #30 cap 01/12/20 amlodipine 5 mg-benazepril 20 mg 1 cap PO DAILY #30 cap 01/14/20 capsule atorvastatin 10 mg tablet 10 mg PO DAILY #30 cap 01/14/20 ferrous sulfate 325 mg (65 mg 325 mg PO BID #60 cap 01/14/20 iron) tablet levothyroxine 137 mcg tablet 137 mcg PO QAM #60 cap 03/14/20 tramadol 50 mg PO Q6H PRN #20 tab 03/20/20 Allergies Allergy/AdvReac Type Severity Reaction Status Date / Time No Known Allergies Allergy Verified 03/03/20 11:16 Review of Systems Review of Systems: Yes all other systems are reviewed and are negative PMFSH Past Medical History Medical History Aortic valvular disease Elevated cholesterol HTN (hypertension) Hx of osteomyelitis Hypothyroid Iron deficiency anemia Osteoarthritis Primary osteoarthritis of hands, bilateral Primary osteoarthritis of right hip Primary osteoarthritis of right knee Thyroid disease Surgical History History of History of hip replacement History of total left hip arthroplasty History of total left knee replacement Hx of colonoscopy Family History Family History Father Myocardial infarction CVD (cardiovascular disease) Mother No problems noted. Brother Bladder cancer Daughter Cervical cancer Social History Social History Household Members: None Housing: House Alcohol intake: current Alcohol intake frequency: does not drink Alcohol type: wine Smoking Status: Never smoker Second Hand Smoke Exposure: No Use of substances other than those prescribed or required for medical reasons: No Advance Directives: No service: No Current occupational status: retired Physical Exam Vital Signs: Vital Signs: Last Vital Signs Temp 98.6 F 03/20/20 05:44 Pulse 75 03/20/20 05:44 Resp 15 03/20/20 05:44 BP 165/53 H 03/20/20 05:44 Pulse Ox 98 03/20/20 05:44 Body Mass Index 28.3 Appearance: Alert. Oriented X3. No acute distress. Eyes: Pupils equal, round and reactive to light. ENT: Pharynx normal. Neck: Normal inspection. Neck supple. CVS: Normal heart rate and rhythm. Pulses normal. Respiratory: No respiratory distress. Breath sounds normal. Abdomen: Soft and nontender. Bowel sounds are present, no mass palpable, no CVA tenderness Skin: Skin warm and dry. Normal skin color. Normal skin turgor. Extremities: No lower extremity edema. Right shoulder: Diffuse rotator cuff tenderness especially on abduction of shoulder above 90 degrees and external rotation no deformity neurovascular intact Neuro: Oriented X 3. No motor deficit. No sensory deficit. MDM - Extremity (Nontraumatic) MDM Narrative Medical decision making narrative: Patient with right shoulder pain with chronic arthritis and rotator cuff tendinitis ,x-ray of the shoulder is negative for any acute fracture will advise patient take Tylenol physical therapy follow-up as outpatient Discharge Plan Discharge Clinical Impression: Right rotator cuff tendinitis Patient Disposition: Home, Self-Care Instructions: Rotator Cuff Tendinitis (ED) Additional Instructions: Rest your right shoulder avoid lifting it above the head. Tylenol for pain Tramadol for severe pain Prescriptions: New tramadol 50 mg tablet 50 mg PO Q6H PRN (Reason: pain) Qty: 20 RF: 0 No Action hydrochlorothiazide 12.5 mg capsule 12.5 mg PO QAM Qty: 30 RF: 3 ferrous sulfate 325 mg (65 mg iron) tablet 325 mg PO BID Qty: 60 RF: 5 amlodipine-benazepril 5-20 mg capsule 1 cap PO DAILY Qty: 30 RF: 3 atorvastatin 10 mg tablet 10 mg PO DAILY Qty: 30 RF: 5 levothyroxine 137 mcg tablet 137 mcg PO QAM Qty: 60 RF: 1 acetaminophen 325 mg Tablet 650 mg PO Q6H PRN (Reason: Pain, Mild (Pain Scale 1-3)) 30 Days Qty: 240 RF: 0
--- NOTE | 2020-03-20 06:49 | XR_ITS ---
EXAMINATION: XR SHOULDER, RIGHT CLINICAL INFORMATION: Arthritic pain COMPARISON: May 10, 2015 TECHNIQUE: AP external rotation, Grashey, scapular Y, and axillary views of the right shoulder. FINDINGS: There is no evidence of acute fracture or dislocation of the right shoulder. There is prominent spurring about the glenohumeral joint with some mild joint space narrowing. Subchondral cysts with erosions are seen about the humeral head. Inferior acromial spur is present. There is some narrowing of the acromioclavicular joint with some superior soft tissue calcification. Findings are similar to previous examination of May 10, 2015. XR/XR shoulder RT min 2V IMPRESSION: Moderate degenerative change of the right shoulder without fracture or dislocation as described which is similar to previous examination of May 10, 2015.
== END 2020-03-20 07:57 | disposition home or self-care (01) ==
PROVIDERS: Emergency Provider Internal Medicine; PCP Physician Assistant
DX: M75.81 Other shoulder lesions, right shoulder (principal); I10 Essential (primary) hypertension
CPT/HCPCS: 73030; 99283; 99284

== ENCOUNTER 2020-03-26 07:15 | Outpatient (REF) | payer OTHER, SELFPAY ==
[2020-03-26 08:28] LABS: MANUAL DIFF FLAG NO
[2020-03-26 08:42] LABS: Basophils Absolute Auto 0.1 X10*3/uL (0.0-0.2); Basophils Percent Auto 0.7 % (0-2); Eosinophils Absolute Auto 0.1 X10*3/uL (0.0-0.4); Eosinophils Percent Auto 0.8 % (0-4); Hematocrit 35.2 % (37-47); Hemoglobin 11.6 g/dl (12.0-16.0); Imm Gran Abs Auto 0.03 X10*3/uL (0.00-0.03); Imm Gran Pct Auto 0.3 % (0.0-0.4); Lymphocytes Absolute Auto 2.3 X10*3/uL (1.2-4.9); Lymphocytes Percent Auto 25.4 % (20-40); Mean Corpuscular Hemoglobin 29.9 pg (27.0-33.0); Mean Corpuscular Volume 90.7 fL (80-98); Mean Platelet Volume 8.5 fL (9.4-12.3); Monocytes Absolute Auto 0.5 X10*3/uL (0.1-1.2); Monocytes Percent Auto 5.7 % (2-11); Neutrophils Absolute Auto 6.1 X10*3/uL (2.0-8.3); Neutrophils Percent Auto 67.1 % (45-73); Platelet Count 458 X10*3/uL (160-400); Red Blood Count 3.88 X10*6/uL (4.20-5.50); Red Cell Distribution Width 13.8 % (11.0-16.0); White Blood Count 9.1 X10*3/uL (4.8-10.8)
[2020-03-26 09:04] LABS: Alanine Aminotransferase 18 U/L (0-31); Albumin Level 4.8 g/dL (3.5-5.0); Alkaline Phosphatase 88 U/L (39-117); Anion Gap 18 (12-20); Aspartate Amino Transferase 24 U/L (5-31); Bilirubin Total 0.5 mg/dL (0.0-1.0); Blood Urea Nitrogen 53 mg/dL (9-16); Calcium 9.2 mg/dL (8.4-10.2); Carbon Dioxide 23 mmol/L (22-29); Chloride 104 mmol/L (96-108); Cholesterol 173 mg/dL; Creatinine Urine 224.85 mg/dL; Estimated Glomerular Filt Rate 27; Glucose Fasting 102 mg/dL (60-99); HDL Cholesterol 83 mg/dL; Iron 56 mcg/dL (30-160); LDL Cholesterol Calculated 78 mg/dl; Microalbum/Creatinine Ratio Ur 7.5 ug/mg cr; Percent Iron Saturation 17 % (15-50); Sodium 140 mmol/L (135-145); Total Iron Binding Capacity 326 mcg/dL (228-428); Total Protein 7.6 g/dL (6.5-8.0); Triglycerides 64 mg/dL; Unsaturated Iron Binding 270 ug/dL
== END 2020-03-26 07:16 | disposition home or self-care (01) ==
LOC: HO.LAB 07:15
PROVIDERS: Visit Provider Physician Assistant
DX: E03.9 Hypothyroidism, unspecified (principal); D50.9 Iron deficiency anemia, unspecified; I10 Essential (primary) hypertension; E78.2 Mixed hyperlipidemia
CPT/HCPCS: 36415; 80053; 80061; 82043; 83540; 84443; 85025

== ENCOUNTER 2020-03-30 08:00 | Outpatient (RCR) | payer OTHER, SELFPAY ==
--- NOTE | 2020-04-05 16:28 | MHC.OT.DC ---
[address] [phone] F: [phone] Occupational Therapy Discharge Note Provider: DR NICE Diagnosis: BILATERAL PAIN OA Date of Surgery: Date of Evaluation: 03/09/20 Date of Discharge: Treatments to Date: 4 Cancellations to Date: 0 No Shows to Date: 0 Discharge Status: Patient Elected to Stop Recommend MD Follow-up Discharge Summary: Pt SEEN WITH C/O WORSENING LEFT HAND CONTRACTURE > RIGHT. SHE WAS SEEN 4 TIMES FOR NIGHT SPLINTS FOR DIGIT EXT. A DAY HAND BASED SPLINT MCPJ EXT BLOCK FOR INC PIPJ EXT, PRACTICE WITH SELF ROM AND SKIN CARE. SHE DEMOSTRATES DEC STRENGTH ,JT CONTRACTURES AND DIMINISHED PROTECTIVE SENSATION CONSISTANT WITH A DX OF MEDIAN AND ULNA N. NEUROPATHIES. SHE REPORTS MILD DIFFICULTY WITH DAILY ACTIVITES DUE TO HER HANDS, HOWEVER ON THE FUNCTIONAL DEXTERITY TEST SHE SCORES MINIMALLY FUNCTIONAL ON THE RIGHT AND NON FUNCTIONAL ON THE LEFT SHE HAS SOME DIFFICULTY WITH PROPER DONNING SPLINT AND TECH WITH SELF ROM EX. SHE DEMONSTRATES DIMINISHED PROTECTIVE SENSATION ON BILATERAL HANDS D1-5. Electronically Signed By: SPENCER FERMIN OT CHT CLT Reviewed/agree with student documentation: N/A Therapist: Please Sign and return to therapist, thank you for your referral.
== END 2020-04-05 16:26 | disposition other institution (70) ==
LOC: HO.OT 08:00
PROVIDERS: Visit Provider Student in an Organized Health Care Education/Training Program
DX: M19.041 Primary osteoarthritis, right hand (principal); M19.042 Primary osteoarthritis, left hand
CPT/HCPCS: 29125; 29130; 97110; 97166; 97760

== ENCOUNTER → 2020-05-03 09:59 | Outpatient (BNVA) | payer OTHER, SELFPAY | PROVIDERS: PCP Physician Assistant; Visit Provider Internal Medicine ==

== ENCOUNTER → 2020-08-27 08:13 | Outpatient (REF) | payer OTHER, SELFPAY ==
--- NOTE | 2020-08-27 08:16 | CA_ITS ---
Transthoracic Echocardiogram Patient (Last, First, Middle): MacielAugust, Gender: Female Date of : 1940 Age: 79 Procedure Date: 08/27/2020 Procedure Type: Transthoracic Echocardiogram Location: OP Height: 162.56 cm Weight: 72.58 kg BSA: 1.78 m2 Heart Rate: bpm BP: 162 / 78 mmHg Dulite Machine Bluer: KATHY Referring MD: Tolu Davis MD Symptoms: I35.0 - Nonrheumatic aortic (valve) stenosis Study Quality: Fair ECG Rhythm: Sinus Conclusions: - The left ventricular systolic function is normal. The visually estimated ejection fraction is between 60-65%. - There is moderate aortic valve stenosis. Findings Left Ventricle Normal left ventricular cavity size. There is normal left ventricular wall thickness. The left ventricular systolic function is normal. The visually estimated ejection fraction is between 60-65%. The calculated ejection fraction is 64% by biplane method. There is no evidence of regional wall motion abnormalities. Diastolic function is normal for age. Right Ventricle Normal right ventricular cavity size and systolic function. Atria Both atria are normal in size. Aortic Valve There is moderate calcification of the aortic valve. There is moderate aortic valve stenosis. The peak aortic velocity is 3.24 m/s with a calculated peak gradient of 42 mmHg. The mean gradient is 25 mmHg. The aortic valve area is 1.15 cm2. There is mild aortic valve regurgitation. Mitral Valve The mitral valve appears normal. There is trace mitral valve regurgitation. There is no mitral valve stenosis. Pulmonic Valve The pulmonic valve was not well visualized. Tricuspid Valve Normal tricuspid valve structure. There is mild tricuspid valve regurgitation. The pulmonary artery systolic pressure is normal. Great Vessels The aortic annulus, sinuses of valsalva, asc aorta, and aortic arch are normal in size. Venous The inferior vena cava is normal in size and collapses greater than 50% with inspiration. Pericardium/Pleural There is no evidence of pericardial effusion. Prior Study Comparison No significant change compared to prior study dated: 10/10/2019. Measurements M-Mode Liner Measurements Normals - Women/Men AOV Cusps: 1.40 1.5-2.6 cm/m2 2D Linear Measurements IVSd: 0.75 0.6-0.9/0.6-1.0 cm LVIDd: 4.87 3.9-5.3/4.2-5.9 cm LVIDd Index: 2.74 2.4-3.2/2.2-3.1 cm/m2 LVIDs: 2.78 2.0-3.6 cm LVPWd: 0.99 0.7-1.1 cm Ao Root: 2.90 2.1-3.5 cm LA Diam: 3.30 2.7-3.8/3.0-4.0 cm LAIDs Index: 1.85 1.5-2.3 cm/m2 LV Mass: 180.51 67-162/88-224 g LV Mass Index: 101.41 43-95/49-115 g/m2 LVOT Diam: 2.00 3.0+(-)1.3 cm 2D Systolic Function EF 4C: 64.60 >55% EF 2C: 64.30 >55% EF BiP: 63.60 >55% Mitral Valve MV Pk E: 0.78 MV PK A: 0.74 MV Decel Time: 285.00 E/A: 1.00 E'Lateral: 10.60 E'Medial: 7.07 E/E' Med: 11.00 E/E' Lat: 7.30 PHT: 83.00 MVA PHT: 2.65 Decel Evangeline: 2.73 Aortic Valve AoV Pk Ricky: 3.24 AoV Mn Ricky: 2.32 AoV VTI: 0.83 AoV Pk Grad: 42.00 Aov Mn Grad: 25.00 RENA Cont.VTI: 1.15 AI Pk Ricky: 3.57 AI Evangeline: 1.95 LVOT LVOT Pk Ricky: 1.18 LVOT Mn Ricky: 0.87 LVOT VTI: 0.31 LVOT Pk Grad: 6.00 LVOT Mn Grad: 4.00 LVOT Diam: 2.00 LVOT Area: 3.14 Diastolic Function MV Pk E: 0.78 MV Pk A: 0.74 E/A: 1.00 E'Medial: 7.07 E/E' Med: 11.00 E' Laterial: 10.60 E/E' Lat: 7.30 Tricuspid Valve TR Pk Ricky: 2.35 TR Pk Grad: 22.00 RA Press: 3.00 RVSP: 25.00 Great Vessels Aorta Ao Root-2D: 2.90 2.0-3.7 cm Ao Asc: 2.80 2.1-3.4 cm Ao Arch: 2.60 Pulmonary Valve PV Pk Ricky: 0.99 Peak PV Grad: 4.00 Updated in Other Vendor System with Status of Final Tolu Davis MD electronically signed on 08/28/2020 3:02:00 PM with status of Final
== END ==
LOC: HO.CARD 08:13
PROVIDERS: Visit Provider Internal Medicine
DX: I35.0 Nonrheumatic aortic (valve) stenosis (principal)
CPT/HCPCS: 93306

== ENCOUNTER 2020-10-11 06:45 | Outpatient (REF) | payer OTHER, SELFPAY ==
[2020-10-11 08:26] LABS: Hematocrit 35.4 % (37-47); Hemoglobin 11.5 g/dl (12.0-16.0); Mean Corpuscular HGB Conc 32.5 g/dl (31.0-35.0); Mean Corpuscular Volume 92.4 fL (80-98); Mean Platelet Volume 8.5 fL (9.4-12.3); Platelet Count 396 X10*3/uL (160-400); Red Blood Count 3.83 X10*6/uL (4.20-5.50); Red Cell Distribution Width 12.2 % (11.0-16.0); White Blood Count 8.2 X10*3/uL (4.8-10.8)
[2020-10-11 09:05] LABS: Alanine Aminotransferase 13 U/L (0-31); Albumin Level 4.2 g/dL (3.5-5.0); Alkaline Phosphatase 73 U/L (39-117); Anion Gap 15 (12-20); Aspartate Amino Transferase 20 U/L (5-31); Bilirubin Total 0.4 mg/dL (0.0-1.0); Blood Urea Nitrogen 27 mg/dL (9-16); Calcium 9.3 mg/dL (8.4-10.2); Carbon Dioxide 23 mmol/L (22-29); Chloride 108 mmol/L (96-108); Cholesterol 164 mg/dL; Estimated Glomerular Filt Rate > 60; Glucose Fasting 97 mg/dL (60-99); HDL Cholesterol 64 mg/dL; LDL Cholesterol Calculated 90 mg/dl; Potassium 5.3 mmol/L (3.3-5.1); Sodium 141 mmol/L (135-145); Total Protein 6.9 g/dL (6.5-8.0); Triglycerides 53 mg/dL
[2020-10-11 09:17] LABS: TSH reflex Free T4 0.25 uIU/mL (0.32-4.0)
[2020-10-11 10:20] LABS: Free T4 (Free Thyroxine) 1.04 ng/dL (0.71-1.85)
[2020-10-11 11:08] LABS: Creatinine Urine 34.86 mg/dL; Microalbumin Urine < 5.0 mg/L
== END 2020-10-11 06:46 | disposition home or self-care (01) ==
LOC: HO.LAB 06:45
PROVIDERS: PCP Physician Assistant; Visit Provider Physician Assistant
DX: I10 Essential (primary) hypertension (principal); R79.89 Other specified abnormal findings of blood chemistry
CPT/HCPCS: 36415; 80053; 80061; 82043; 84439; 84443; 85027

== ENCOUNTER → 2020-12-14 12:06 | Outpatient (BNVA) | payer OTHER, SELFPAY | PROVIDERS: PCP Physician Assistant; Referring Provider Physician Assistant; Visit Provider Internal Medicine | DX: I35.0 Nonrheumatic aortic (valve) stenosis (principal); I10 Essential (primary) hypertension; E78.5 Hyperlipidemia, unspecified; E78.00 Pure hypercholesterolemia, unspecified; D50.9 Iron deficiency anemia, unspecified; M19.042 Primary osteoarthritis, left hand; M19.041 Primary osteoarthritis, right hand; M16.11 Unilateral primary osteoarthritis, right hip; M17.11 Unilateral primary osteoarthritis, right knee; Z79.899 Other long term (current) drug therapy | CPT/HCPCS: 93005 ==

== ENCOUNTER 2020-12-29 06:46 | Outpatient (REF) | payer OTHER, SELFPAY ==
[2020-12-29 07:50] LABS: Anion Gap 15 (12-20); Blood Urea Nitrogen 30 mg/dL (9-16); Calcium 9.6 mg/dL (8.4-10.2); Carbon Dioxide 26 mmol/L (22-29); Chloride 107 mmol/L (96-108); Estimated Glomerular Filt Rate 60; Glucose Random 85 mg/dL (60-115); Potassium 4.7 mmol/L (3.3-5.1); Sodium 143 mmol/L (135-145)
[2020-12-29 08:54] LABS: Free T4 (Free Thyroxine) 0.84 ng/dL (0.71-1.85)
== END 2020-12-29 06:47 | disposition home or self-care (01) ==
LOC: HO.LAB 06:46
PROVIDERS: PCP Physician Assistant; Visit Provider Physician Assistant
DX: R07.89 Other chest pain (principal); E03.9 Hypothyroidism, unspecified
CPT/HCPCS: 36415; 80048; 84439; 84443

== ENCOUNTER 2021-01-12 11:29 | Outpatient (REF) | payer OTHER, SELFPAY ==
--- NOTE | ~2021-01-12 | MM_ITS ---
EXAMINATION: MM SCREENING DIGITAL BREAST TOMOSYNTHESIS, BILATERAL CLINICAL INFORMATION: Screening. Asymptomatic. The lifetime risk of breast cancer based on the Tyrer-Cuzick Model is 2%. COMPARISON: Mammography: 03/11/2019, 07/30/2017, 07/27/2016 TECHNIQUE: Digital breast tomosynthesis is performed in both the craniocaudal and mediolateral oblique views along with computer-aided detection (CAD). Synthesized 2D images are generated from the tomosynthesis. Additional exaggerated right CC view is provided. FINDINGS: There are scattered areas of fibroglandular density (ACR BI-RADS breast composition Category b). There are no significant masses, abnormal calcifications, or other abnormalities. MM/MM tomosynthesis screening BI IMPRESSION: There are no significant changes from prior study. ASSESSMENT: BI-RADS 1: Negative RECOMMENDATION: Routine annual mammography screening. This patient's information was entered into a reminder system with a target due date for their next mammogram.
== END 2021-01-12 11:30 | disposition home or self-care (01) ==
LOC: HO.MAMMO 11:29
PROVIDERS: Visit Provider Physician Assistant
DX: Z12.31 Encounter for screening mammogram for malignant neoplasm of breast (principal)
CPT/HCPCS: 77063; 77067

== ENCOUNTER → 2021-06-09 07:27 | Outpatient (REF) | payer OTHER, SELFPAY ==
--- NOTE | 2021-06-09 07:30 | CA_ITS ---
Transthoracic Echocardiogram Patient (Last, First, Middle): MacielAugust, Gender: Female Date of : 1940 Age: 80 Procedure Date: 06/09/2021 Procedure Type: Transthoracic Echocardiogram Location: OP Height: 162.56 cm Weight: 72.58 kg BSA: 1.78 m2 Heart Rate: bpm BP: 140 / 70 mmHg Operator Technician: DAVID Referring MD: Tolu Davis MD Symptoms: I35.0 - Nonrheumatic aortic (valve) stenosis Study Quality: Fair ECG Rhythm: Sinus Conclusions: - The left ventricular systolic function is normal. The calculated ejection fraction is 62% by biplane method. - There is moderate aortic valve stenosis. Findings Left Ventricle Normal left ventricular cavity size. There is mildly increased left ventricular wall thickness. The left ventricular systolic function is normal. The calculated ejection fraction is 62% by biplane method. There is no evidence of regional wall motion abnormalities. Diastolic function is normal for age. Right Ventricle Normal right ventricular cavity size and systolic function. Atria Both atria are normal in size. Aortic Valve There is moderate calcification of the aortic valve. There is moderate aortic valve stenosis. The peak aortic velocity is 3.43 m/s with a calculated peak gradient of 47 mmHg. The mean gradient is 27 mmHg. The aortic valve area is 1.05 cm2. There is trace (trivial) aortic valve regurgitation. Dimensionless index 0.29. Mitral Valve There is mild mitral annular calcification. There is trace mitral valve regurgitation. There is no mitral valve stenosis. Pulmonic Valve The pulmonic valve was not well visualized. Tricuspid Valve Normal tricuspid valve structure. There is mild tricuspid valve regurgitation. The pulmonary artery systolic pressure is normal. Great Vessels The aortic annulus, sinuses of valsalva, asc aorta, and aortic arch are normal in size. Venous The inferior vena cava is normal in size and collapses greater than 50% with inspiration. Pericardium/Pleural There is no evidence of pericardial effusion. Prior Study Comparison No significant change compared to prior study dated: 08/27/2020. Measurements 2D Linear Measurements IVSd: 1.07 0.6-0.9/0.6-1.0 cm LVIDd: 4.44 3.9-5.3/4.2-5.9 cm LVIDd Index: 2.49 2.4-3.2/2.2-3.1 cm/m2 LVIDs: 3.06 2.0-3.6 cm LVPWd: 1.00 0.7-1.1 cm LA Diam: 3.70 2.7-3.8/3.0-4.0 cm LAIDs Index: 2.08 1.5-2.3 cm/m2 LV Mass: 195.90 67-162/88-224 g LV Mass Index: 110.06 43-95/49-115 g/m2 LVOT Diam: 2.00 3.0+(-)1.3 cm 2D Systolic Function EF 4C: 60.50 >55% EF 2C: 62.40 >55% EF BiP: 62.00 >55% Mitral Valve MV Pk E: 0.76 MV PK A: 0.96 MV Decel Time: 312.00 E/A: 0.80 E'Lateral: 7.83 E'Medial: 6.53 E/E' Med: 11.60 E/E' Lat: 9.70 PHT: 91.00 MVA PHT: 2.42 Decel Trigg: 2.43 Aortic Valve AoV Pk Ricky: 3.43 AoV Mn Ricky: 2.39 AoV VTI: 0.80 AoV Pk Grad: 47.00 Aov Mn Grad: 27.00 RENA Cont.VTI: 1.05 AI Pk Ricky: 2.80 AI Trigg: 1.59 LVOT LVOT Pk Ricky: 1.01 LVOT Mn Ircky: 0.70 LVOT VTI: 0.27 LVOT Pk Grad: 4.00 LVOT Mn Grad: 2.00 LVOT Diam: 2.00 LVOT Area: 3.14 Diastolic Function MV Pk E: 0.76 MV Pk A: 0.96 E/A: 0.80 E'Medial: 6.53 E/E' Med: 11.60 E' Laterial: 7.83 E/E' Lat: 9.70 Right Ventricle TAPSE (mm): 20.30 TVS' Ricky: 10.80 Tricuspid Valve TR Pk Ricky: 2.67 TR Pk Grad: 29.00 RA Press: 3.00 RVSP: 32.00 Great Vessels Aorta Sinus of Valsalva: 3.12 2.0-3.[address] [place]: 2.92 1.7-3.4 cm Ao Asc: 3.40 2.1-3.4 cm Ao Arch: 2.60 Updated in Other Vendor System with Status of Final Tolu Davis MD electronically signed on 06/11/2021 1:06:04 PM with status of Final
[2021-06-09 09:28] LABS: Hemoglobin 10.9 g/dl (12.0-16.0); Mean Corpuscular Hemoglobin 29.8 pg (27.0-33.0); Mean Corpuscular Volume 90.2 fL (80.0-98.0); Mean Platelet Volume 8.3 fL (9.4-12.3); Platelet Count 375 X10*3/uL (160-400); Red Blood Count 3.66 X10*6/uL (4.20-5.50); Red Cell Distribution Width 13.1 % (11.0-16.0)
[2021-06-09 09:43] LABS: Estimated Average Glucose 111 mg/dL; Hemoglobin A1c % 5.5 %
[2021-06-09 10:02] LABS: Alanine Aminotransferase 14 U/L (0-31); Albumin Level 4.3 g/dL (3.5-5.0); Alkaline Phosphatase 73 U/L (39-117); Anion Gap 14 (12-20); Aspartate Amino Transferase 21 U/L (5-31); Bilirubin Total 0.4 mg/dL (0.0-1.0); Blood Urea Nitrogen 27 mg/dL (9-16); Calcium 9.6 mg/dL (8.4-10.2); Carbon Dioxide 26 mmol/L (22-29); Chloride 105 mmol/L (96-108); Cholesterol 151 mg/dL; Estimated Glomerular Filt Rate 51; Glucose Fasting 92 mg/dL (60-99); HDL Cholesterol 66 mg/dL; Iron 66 mcg/dL (30-160); LDL Cholesterol Calculated 71 mg/dl; Percent Iron Saturation 25 % (15-50); Potassium 4.3 mmol/L (3.3-5.1); Sodium 141 mmol/L (135-145); Total Iron Binding Capacity 267 mcg/dL (228-428); Total Protein 7.1 g/dL (6.5-8.0); Triglycerides 72 mg/dL; Unsaturated Iron Binding 201 ug/dL
[2021-06-09 10:12] LABS: Creatinine Urine 80.13 mg/dL; Microalbum/Creatinine Ratio Ur 7.4 ug/mg cr
[2021-06-09 10:25] LABS: TSH reflex Free T4 0.31 uIU/mL (0.32-4.0)
[2021-06-09 11:16] LABS: Free T4 (Free Thyroxine) 1.32 ng/dL (0.71-1.85)
== END ==
LOC: HO.CARD 07:27
PROVIDERS: PCP Physician Assistant; Visit Provider Internal Medicine
DX: I35.0 Nonrheumatic aortic (valve) stenosis (principal); I10 Essential (primary) hypertension; D50.9 Iron deficiency anemia, unspecified; E03.9 Hypothyroidism, unspecified; E78.2 Mixed hyperlipidemia
CPT/HCPCS: 36415; 80053; 80061; 82043; 83036; 83540; 84439; 84443; 85027; 93306

== ENCOUNTER 2021-10-14 07:56 | Outpatient (REF) | payer OTHER, SELFPAY ==
[2021-10-14 08:33] LABS: Hematocrit 33.3 % (37.0-47.0); Hemoglobin 11.2 g/dl (12.0-16.0); Mean Corpuscular HGB Conc 33.6 g/dl (31.0-35.0); Mean Corpuscular Hemoglobin 31.1 pg (27.0-33.0); Mean Corpuscular Volume 92.5 fL (80.0-98.0); Mean Platelet Volume 8.1 fL (9.4-12.3); Platelet Count 410 X10*3/uL (160-400); Red Cell Distribution Width 13.1 % (11.0-16.0); White Blood Count 6.8 X10*3/uL (4.8-10.8)
[2021-10-14 09:06] LABS: Rheumatoid Factor < 15.0 IU/mL (<15.0)
[2021-10-14 09:08] LABS: Alanine Aminotransferase 15 U/L (0-31); Albumin Level 4.6 g/dL (3.5-5.0); Alkaline Phosphatase 67 U/L (39-117); Anion Gap 16 (12-20); Aspartate Amino Transferase 21 U/L (5-31); Bilirubin Total 0.5 mg/dL (0.0-1.0); Blood Urea Nitrogen 44 mg/dL (9-16); Carbon Dioxide 25 mmol/L (22-29); Chloride 107 mmol/L (96-108); Cholesterol 167 mg/dL; Estimated Glomerular Filt Rate 33; Glucose Fasting 98 mg/dL (60-99); HDL Cholesterol 72 mg/dL; LDL Cholesterol Calculated 85 mg/dl; Potassium 4.5 mmol/L (3.3-5.1); Sodium 143 mmol/L (135-145); Total Protein 7.4 g/dL (6.5-8.0); Triglycerides 54 mg/dL
[2021-10-14 09:16] LABS: Erythrocyte Sedimentation Rate 30 MM/HR (0-20)
[2021-10-14 09:32] LABS: TSH reflex Free T4 0.35 uIU/mL (0.32-4.0)
[2021-10-21 12:32] LABS: Anti Nuclear Antibody Pattern Nuclear, Homogeneous; Anti Nuclear Antibody Screen POSITIVE (NEGATIVE)
== END 2021-10-14 07:57 | disposition home or self-care (01) ==
LOC: HO.LAB 07:56
PROVIDERS: Absent Provider Psychiatry & Neurology Neurology; PCP Physician Assistant; Visit Provider Physician Assistant
DX: M19.90 Unspecified osteoarthritis, unspecified site (principal); I10 Essential (primary) hypertension
CPT/HCPCS: 36415; 80053; 80061; 84443; 85027; 85652; 86038; 86039; 86431

== ENCOUNTER 2021-10-21 07:44 | Outpatient (REF) | payer OTHER, SELFPAY ==
[2021-10-21 08:22] LABS: Anion Gap 17 (12-20); Blood Urea Nitrogen 29 mg/dL (9-16); Calcium 9.4 mg/dL (8.4-10.2); Carbon Dioxide 23 mmol/L (22-29); Chloride 105 mmol/L (96-108); Estimated Glomerular Filt Rate 44; Glucose Random 97 mg/dL (60-115); Potassium 4.2 mmol/L (3.3-5.1); Sodium 141 mmol/L (135-145)
== END 2021-10-21 07:45 | disposition home or self-care (01) ==
LOC: HO.LAB 07:44
PROVIDERS: PCP Physician Assistant; Visit Provider Physician Assistant
DX: R79.89 Other specified abnormal findings of blood chemistry (principal)
CPT/HCPCS: 36415; 80048

== ENCOUNTER 2021-12-22 09:41 | Outpatient (REF) | payer OTHER, SELFPAY ==
[2021-12-22 10:39] LABS: MANUAL DIFF FLAG NO
[2021-12-22 10:44] LABS: Basophils Absolute Auto 0.1 X10*3/uL (0.0-0.2); Eosinophils Absolute Auto 0.2 X10*3/uL (0.0-0.4); Eosinophils Percent Auto 2.3 % (0-4); Hematocrit 33.1 % (37.0-47.0); Hemoglobin 10.9 g/dl (12.0-16.0); Imm Gran Abs Auto 0.03 X10*3/uL (0.00-0.03); Imm Gran Pct Auto 0.4 % (0.0-0.4); Lymphocytes Absolute Auto 2.9 X10*3/uL (1.2-4.9); Lymphocytes Percent Auto 36.3 % (20-40); Mean Corpuscular HGB Conc 32.9 g/dl (31.0-35.0); Mean Corpuscular Hemoglobin 30.6 pg (27.0-33.0); Mean Platelet Volume 8.3 fL (9.4-12.3); Monocytes Absolute Auto 0.6 X10*3/uL (0.1-1.2); Monocytes Percent Auto 7.1 % (2-11); Neutrophils Absolute Auto 4.2 x10*3/uL (2.0-8.3); Neutrophils Percent Auto 52.9 % (45-73); Platelet Count 405 X10*3/uL (160-400); Red Blood Count 3.56 X10*6/uL (4.20-5.50); Red Cell Distribution Width 12.3 % (11.0-16.0); White Blood Count 7.9 X10*3/uL (4.8-10.8)
[2021-12-22 11:39] LABS: Anion Gap 15 (12-20); Blood Urea Nitrogen 24 mg/dL (9-16); Calcium 9.1 mg/dL (8.4-10.2); Carbon Dioxide 26 mmol/L (22-29); Chloride 105 mmol/L (96-108); Estimated Glomerular Filt Rate > 60; Glucose Random 97 mg/dL (60-115); Potassium 4.4 mmol/L (3.3-5.1); Sodium 142 mmol/L (135-145)
== END 2021-12-22 09:42 | disposition home or self-care (01) ==
LOC: HO.10HDL 09:41
PROVIDERS: Visit Provider Orthopaedic Surgery
DX: Z01.812 Encounter for preprocedural laboratory examination (principal)
CPT/HCPCS: 36415; 80048; 85025

== ENCOUNTER → 2021-12-28 06:55 | Outpatient (REF) | payer OTHER, SELFPAY ==
--- NOTE | 2021-12-28 06:58 | CA_ITS ---
Transthoracic Echocardiogram Patient (Last, First, Middle): MacielAugust, Gender: Female Date of : 1940 Age: 81 Procedure Date: 12/28/2021 Procedure Type: Transthoracic Echocardiogram Location: OP Height: 160.02 cm Weight: 81.65 kg BSA: 1.85 m2 Heart Rate: bpm BP: 140 / 72 mmHg Shipping & Receiving Lead: TO Referring MD: Tolu Davis MD Symptoms: I35.0 - Nonrheumatic aortic (valve) stenosis Study Quality: Fair ECG Rhythm: Sinus Conclusions: - The left ventricular systolic function is normal. The calculated ejection fraction is 56% by biplane method. - There is moderate to severe aortic valve stenosis. Findings Left Ventricle Normal left ventricular cavity size. The left ventricular systolic function is normal. The calculated ejection fraction is 56% by biplane method. There is no evidence of regional wall motion abnormalities. Diastolic function is normal for age. There is mild septal and mild basal asymmetric hypertrophy. Right Ventricle Normal right ventricular cavity size and systolic function. Atria Both atria are normal in size. Aortic Valve There is moderate calcification of the aortic valve. There is moderate to severe aortic valve stenosis. The mean gradient is 27 mmHg. The aortic valve area is 0.88 cm2. There is trace (trivial) aortic valve regurgitation. Dimensionless index 0.28. Stroke volume index 39ml/m2. Mitral Valve The mitral valve appears normal. There is no mitral valve regurgitation. There is no mitral valve stenosis. Pulmonic Valve The pulmonic valve is likely normal. Tricuspid Valve Normal tricuspid valve structure. There is trace tricuspid valve regurgitation. There is no evidence of pulmonary hypertension. Great Vessels The aortic annulus, sinuses of valsalva, and asc aorta are normal in size. Venous The inferior vena cava is normal in size and collapses greater than 50% with inspiration. Pericardium/Pleural There is no evidence of pericardial effusion. Prior Study Comparison Changes noted compared to prior study dated: 06/09/2021. Slight increase in severity of aortic stenosis. Measurements 2D Linear Measurements IVSd: 1.01 0.6-0.9/0.6-1.0 cm LVIDd: 4.07 3.9-5.3/4.2-5.9 cm LVIDd Index: 2.20 2.4-3.2/2.2-3.1 cm/m2 LVIDs: 2.96 2.0-3.6 cm LVPWd: 0.93 0.7-1.1 cm LA Diam: 3.20 2.7-3.8/3.0-4.0 cm LAIDs Index: 1.73 1.5-2.3 cm/m2 LV Mass: 155.54 67-162/88-224 g LV Mass Index: 84.07 43-95/49-115 g/m2 LVOT Diam: 2.00 3.0+(-)1.3 cm 2D Systolic Function EF 4C: 57.80 >55% EF 2C: 57.00 >55% EF BiP: 56.30 >55% Mitral Valve MV Pk E: 0.63 MV PK A: 0.82 MV Decel Time: 255.00 E/A: 0.80 E'Lateral: 8.81 E'Medial: 6.31 E/E' Med: 10.00 E/E' Lat: 7.20 PHT: 75.00 MVA PHT: 2.93 Decel [place]: 2.47 Aortic Valve AoV Pk Ricky: 3.44 AoV Mn Ricky: 2.44 AoV VTI: 0.83 AoV Pk Grad: 47.00 Aov Mn Grad: 27.00 RENA Cont.VTI: 0.88 AI Pk Ricky: 3.74 AI [place]: 3.08 LVOT LVOT Pk Ricky: 0.88 LVOT Mn Ricky: 0.67 LVOT VTI: 0.23 LVOT Pk Grad: 3.00 LVOT Mn Grad: 2.00 LVOT Diam: 2.00 LVOT Area: 3.14 Diastolic Function MV Pk E: 0.63 MV Pk A: 0.82 E/A: 0.80 E'Medial: 6.31 E/E' Med: 10.00 E' Laterial: 8.81 E/E' Lat: 7.20 Right Ventricle TAPSE (mm): 24.00 TVS' Ricky: 11.00 Tricuspid Valve TR Pk Ricky: 2.24 TR Pk Grad: 20.00 RA Press: 3.00 RVSP: 23.00 Great Vessels Aorta Sinus of Valsalva: 3.14 2.0-3.[address] Ridge: 2.35 1.7-3.4 cm Ao Asc: 3.30 2.1-3.4 cm Updated in Other Vendor System with Status of Final Tolu Davis MD electronically signed on 12/28/2021 11:52:20 AM with status of Final
== END ==
LOC: HO.CARD 06:55
PROVIDERS: PCP Physician Assistant; Visit Provider Internal Medicine
DX: I35.0 Nonrheumatic aortic (valve) stenosis (principal)
CPT/HCPCS: 93005; 93306

== ENCOUNTER 2022-01-19 12:29 | Outpatient (REF) | payer OTHER, SELFPAY ==
--- NOTE | ~2022-01-19 | XR_ITS ---
EXAMINATION: CR X-RAY KNEES BILATERAL STANDING, RIGHT KNEE 2 VIEWS CLINICAL INFORMATION: Knee pain. COMPARISON: None TECHNIQUE: Standing bilateral AP views of the knees as well as lateral and axial views of the right knee were obtained. FINDINGS: Moderate to severe tricompartmental degenerative joint changes are seen most pronounced in the medial femoral-tibial compartment. There is no acute fracture dislocation. Small suprapatellar joint effusion. Status post left knee arthroplasty without abnormality. XR/XR knee standing BI IMPRESSION: 1. Moderate to severe tricompartmental degenerative joint changes in the right knee. No overt acute abnormality. 2. No overt left knee hardware abnormality.
--- NOTE | ~2022-01-19 | XR_ITS ---
EXAMINATION: CR X-RAY KNEES BILATERAL STANDING, RIGHT KNEE 2 VIEWS CLINICAL INFORMATION: Knee pain. COMPARISON: None TECHNIQUE: Standing bilateral AP views of the knees as well as lateral and axial views of the right knee were obtained. FINDINGS: Moderate to severe tricompartmental degenerative joint changes are seen most pronounced in the medial femoral-tibial compartment. There is no acute fracture dislocation. Small suprapatellar joint effusion. Status post left knee arthroplasty without abnormality. XR/XR knee RT 2V IMPRESSION: 1. Moderate to severe tricompartmental degenerative joint changes in the right knee. No overt acute abnormality. 2. No overt left knee hardware abnormality.
== END 2022-01-19 12:30 | disposition home or self-care (01) ==
LOC: HO.HOSX 12:29
PROVIDERS: Visit Provider Physician Assistant
DX: M25.561 Pain in right knee (principal); M25.562 Pain in left knee
CPT/HCPCS: 73560; 73565

== ENCOUNTER 2022-01-24 05:57 | Inpatient (IN) | payer OTHER, SELFPAY ==
[2022-01-10 13:05] VITALS: BMI 32.2
[2022-01-10 13:10] VITALS: BP 162/71; PULSE 85; RESP 20; O2SAT 95
--- NOTE | 2022-01-10 13:17 | P.CONAN_ITS ---
Documented by User: Mery Meneses NP 01/23/22 10:12 HPI - Anesthesia Eval Consult details Narrative: 81yo F for Right Knee Replacement Total Mod to Severe Aortic Stenosis. RENA = 0.88. No overt symptoms per cardiac clearance. Pt aware of surgical and anesthetic risks and wants to proceed. 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 (Acute) Preoperative cardiovascular examination (Acute) Other and unspecified hyperlipidemia (Acute) Essential hypertension (Acute) Non-rheumatic aortic stenosis (Acute) Primary osteoarthritis of right knee (Acute) Primary osteoarthritis of hands, bilateral (Acute) HTN (hypertension) (Acute) Hypothyroid (Acute) Past Medical History Medical History Aortic valvular disease Elevated cholesterol Essential hypertension HTN (hypertension) Hx of osteomyelitis Hypothyroid Iron deficiency anemia Non-rheumatic aortic stenosis Osteoarthritis Other and unspecified hyperlipidemia Primary osteoarthritis of hands, bilateral Primary osteoarthritis of right hip Primary osteoarthritis of right knee Thyroid disease Family History Family History Father Myocardial infarction CVD (cardiovascular disease) Mother No problems noted. Brother Bladder cancer Daughter Cervical cancer Son Knee pain Family history of problems with anesthesia: No Surgical History Surgical History Amputation of finger of left hand History of History of hip replacement History of total left hip arthroplasty History of total left knee replacement History of total right hip replacement Hx of colonoscopy Hx of surgical amputation of finger History of Problems with Anesthesia: No Social History Social History Household Members: None Housing: House Are you a primary skin care consultant to a significant other at home: No Do you presently have visiting nurse or other home services: No Unable to assess alcohol history related to: Unknown Alcohol intake: current Alcohol intake frequency: holidays/special occasions only Alcohol type: wine Patient Tobacco Use Status: Never used Tobacco e-Cigarette/Vaping Use: Never Used Second Hand Smoke Exposure: No Use of substances other than those prescribed or required for medical reasons: No Currently Displaying Signs/Symptoms of Drug Intoxication Withdrawal: No Any prior treatment program specific to substance use: No Have you been hit, kicked, punched, or otherwise hurt by someone within the past year? If so, by whom?: No Do you feel safe in your current relationship?: No Current Relationship Is there a partner from a previous relationship who is making you feel unsafe now?: No Are you made to feel afraid or neglected: No Are you DNR?: No Advance Directives: No Advance Directives Information Provided: Yes (Given at PAT appointment) Advance Directives on File: No Do you have thoughts of harming others: None Recently lost weight without trying: No How much weight loss: Not applicable Eating poorly because of decreased appetite: No Nutrition screen score: 0 Nutrition Risks: No Nutritional Risk Patient : No : No Poor oral hygiene: No service: No Current occupational status: retired Cognitive needs: No Hearing needs: Yes (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) Vision needs: Yes Narrative Narrative: No recent illness No chest pain or sob within limits of pain Meds Allergies Allergy/AdvReac Type Severity Reaction Status Date / Time No Known Allergies Allergy Verified 01/19/22 12:45 Exam Exam Date and Time: January 10, 2022 1317 Height,Weight and Vital Signs: Height 5 ft 3 in Weight 82.554 kg Last Vital Signs Pulse 85 01/10/22 13:10 Resp 20 01/10/22 13:10 BP 162/71 H 01/10/22 13:10 Pulse Ox 95 01/10/22 13:10 O2 Del Method 01/10/22 13:10 Pertinent Lab Results Pertinent Lab Results: Laboratory Tests 12/22/21 12/22/21 09:50 09:50 WBC 7.9 Hgb 10.9 L Hct 33.1 L Plt Count 405 H Sodium 142 Potassium 4.4 Chloride 105 Carbon Dioxide 26 BUN 24 H Creatinine 0.81 Narrative Narrative: ECHO 12/2021 Left Ventricle Normal left ventricular cavity size.? The left ventricular systolic function is normal.? The calculated ejection fraction is 56% by biplane method.? There is no evidence of regional wall motion abnormalities.? Diastolic function is normal for age.? There is mild septal and mild basal asymmetric hypertrophy. Right Ventricle Normal right ventricular cavity size and systolic function. Atria Both atria are normal in size. Aortic Valve There is moderate calcification of the aortic valve.? There is moderate to severe aortic valve stenosis.? The mean gradient is 27 mmHg.? The aortic valve area is 0.88 cm2.? There is trace (trivial) aortic valve regurgitation. ?Dimensionless index 0.28. Stroke volume index 39ml/m2. EKG 12/2021 sinus rhythm at 81/Min; no significant ST-T changes and otherwise unremarkable.? Normal ME and corrected QT. Airway Mallampati Class: I TM Dist: >3cm Neck ROM: Full Partial: Upper and Lower Heart: RRR Lungs: CTAB Assessment and Plan Assessment Anesthesia Assessment: Anesthesia Plan Discussed (GA with block. Discussed spinal is not an option d/t aortic stenosis.) and PAT Visit Final Anesthetic Review Family History of Problems with Anesthesia: No History of Problems with Anesthesia: No Documented by User: Fracisco Hernández MD 01/24/22 17:21 [facility] Past Medical History Medical History Aortic valvular disease Elevated cholesterol Essential hypertension HTN (hypertension) Hx of osteomyelitis Hypothyroid Iron deficiency anemia Non-rheumatic aortic stenosis Osteoarthritis Other and unspecified hyperlipidemia Primary osteoarthritis of hands, bilateral Primary osteoarthritis of right hip Primary osteoarthritis of right knee Thyroid disease Functional capacity: uses cane/walker Family History Family History Father Myocardial infarction CVD (cardiovascular disease) Mother No problems noted. Brother Bladder cancer Daughter Cervical cancer Son Knee pain Surgical History Surgical History Amputation of finger of left hand History of History of hip replacement History of total left hip arthroplasty History of total left knee replacement History of total right hip replacement Hx of colonoscopy Hx of surgical amputation of finger Social History Social History Household Members: None Housing: House Are you a primary skin care consultant to a significant other at home: No Do you presently have visiting nurse or other home services: No Unable to assess alcohol history related to: Unknown Alcohol intake: current Alcohol intake frequency: holidays/special occasions only Alcohol type: wine Patient Tobacco Use Status: Never used Tobacco e-Cigarette/Vaping Use: Never Used Second Hand Smoke Exposure: No Use of substances other than those prescribed or required for medical reasons: No Currently Displaying Signs/Symptoms of Drug Intoxication Withdrawal: No Any prior treatment program specific to substance use: No Have you been hit, kicked, punched, or otherwise hurt by someone within the past year? If so, by whom?: No Do you feel safe in your current relationship?: No Current Relationship Is there a partner from a previous relationship who is making you feel unsafe now?: No Are you made to feel afraid or neglected: No Are you DNR?: No Advance Directives: No Advance Directives Information Provided: Yes (Given at PAT appointment) Advance Directives on File: No Do you have thoughts of harming others: None Recently lost weight without trying: No How much weight loss: Not applicable Eating poorly because of decreased appetite: No Nutrition screen score: 0 Nutrition Risks: No Nutritional Risk Patient : No : No Poor oral hygiene: No service: No Current occupational status: retired Cognitive needs: No Hearing needs: Yes (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) Vision needs: Yes Meds Allergies Allergy/AdvReac Type Severity Reaction Status Date / Time No Known Allergies Allergy Verified 01/19/22 12:45 Exam Airway Loose/Missing/Broken Teeth: Yes (Chipped multiple ) Assessment and Plan Final Anesthetic Review NPO: Yes ASA Class: IV Final Preanesthetic Review: Meds/Allgs Chart Reviewed, Consent Obtained/Reviewed and Anes Risks/Benef Reviewed Patient Risk: High Procedure Risk: Intermediate Anesthetic Plan Anesthetic Plan: GA and Regional Block Disposition: Inp. Admit - Standard Bed
[2022-01-10 16:38] LABS: MRSA Nasal PCR NEGATIVE (Negative); SA Nasal PCR NEGATIVE (Negative)
[2022-01-24] VITALS (20 sets, daily range): BP systolic 137–166; BP diastolic 51–78; PULSE 73–109; RESP 12–18; TEMP 36.6–37.2; O2SAT 90–100
--- NOTE | ~2022-01-24 | XR_ITS ---
EXAMINATION: XR KNEE, RIGHT CLINICAL INFORMATION: Post knee replacement COMPARISON: Previous x-ray 01/19/2022 TECHNIQUE: Two views of the right knee. FINDINGS: There is a new 3 component right knee replacement in satisfactory position. No fracture or dislocation. There are postoperative changes to the soft tissues XR/XR knee RT 2V IMPRESSION: Satisfactory appearance of right knee replacement.
[2022-01-24 06:32] LABS: COVID-19 Test Negative (Negative)
[2022-01-24] MEDS: Lactated Ringers 1,000 ML 100 ML IVCONT ×2 (06:58→16:02)
[2022-01-24 07:00] LABS: Hematocrit 34.6 % (37.0-47.0); Hemoglobin 11.5 g/dl (12.0-16.0)
--- NOTE | 2022-01-24 07:34 | MHC.SHP ---
Pre-Procedural Eval Section A Date of Service: 01/24/22 The patient is an INPATIENT: No Changes since office visit: No Cold of Flu in the past 2 weeks, No New Medical Problems, No Changes in Medication and No Patient answered all questions The History & Physical has been completed within 30 days and I have reviewed it.: Yes Section B Chief Complaint: Unilateral primary osteoarthritis; RT TKA Allergies: Allergies Allergy/AdvReac Type Severity Reaction Status Date / Time No Known Allergies Allergy Verified 01/19/22 12:45 Plan I have reviewed the history and physical and performed a pertinent physical examination on my patient. No changes have occurred unless specified.
--- NOTE | 2022-01-24 07:35 | PHA.MEDREC ---
Pharmacy Consult ? Medication Reconciliation Pharmacy has reviewed the medication reconciliation done by Rubi.
[2022-01-24] MEDS: ceFAZolin Sodium/Dextrose,Iso 2 GM/50 ML PIGGYBACK IV ×2 (08:01→14:29)
--- NOTE | 2022-01-24 09:32 | P.BOP_ITS ---
Brief Operative Note Date of Service: 01/24/22 Pre-op diagnosis: Right knee OA Post-op diagnosis: same Procedure: Right TKA Implants: [place] Triathalon press fir posterior stabilized 06/13/13 Surgeon: Miguel Lnadry MD Anesthesia: regional and spinal Was an Crm Dynamics Developer used for this Procedure?: Yes Crm [employer] Developer: Ivana Alexander Estimated blood loss (mL): 150 IV fluids (mL): 1,000 Pathology: other Condition: stable Disposition: PACU
[2022-01-24] MEDS: Midazolam HCl/PF 2 MG/2 ML VIAL 1 MG IVPUSH (10:20)
--- NOTE | 2022-01-24 12:05 | P.OP_ITS ---
Operative Note Operative Note Date of Service: 01/24/22 Narrative: Date of Service: 01/24/22 Pre-op diagnosis: Right knee OA Post-op diagnosis: same Procedure: Right TKA Implants: [place] Triathalon press fir posterior stabilized 06/13/13 Surgeon: Miguel Landry MD Anesthesia: regional and spinal Was an Senior Medical Transcriptionist used for this Procedure?: Yes Senior Medical Transcriptionist: Ivana Alexander Estimated blood loss (mL): 150 IV fluids (mL): 1,000 Pathology: other Condition: stable Disposition: PACU Procedure in detail: The patient was brought to the operating room and prepped and draped in standard sterile fashion. A time-out was called to identify proper site proper procedure proper surgeon and IV antibiotics were administered. 1 g of IV tranexamic acid was administered. I began by making a midline incision to the retinaculum and performed a medial parapatellar arthrotomy. The patella was translated laterally and the knee was flexed up.The medial compartment was severely eburnated. I performed a small medial peel and resected the infrapatellar fat pad. Nickie's line was then used to drill my intramedullary femoral guide and my distal femur cut of 12 mm was made in 5 degrees of valgus while protecting the soft tissues. I then measured a # 4 femur and placed my cutting guide and made my anterior posterior and chamfer cuts protecting the soft tissues at all times. I then made my box but removing the PCL. Once I was satisfied with my cuts I turned my attention to the tibia. I removed the meniscus medially and laterally and , using an external cutting guide, in line with the tibial crest and the third ray, I made my distal tibial cut in 0 deg slope of while protecting the posterior soft tissues at all times. An extension block was used to confirm appropriate amount of bony resection. I then sized a #4 tibia and once I was satisfied that there was complete tibial coverage I placed my trial and with the trial femur in place took the knee through range of motion. I was satisfied with the extension and flexion as well as the stability at 0, 30 and 90 degrees. I then turned my attention to the patella where I removed 1 cm from the undersurface of the patella and then trialed a 32a patellar button. Again the knee was taken through range of motion I was satisfied with the tracking. I then returned to the femur and drilled my femoral lug holes and prepared the tibia. A femoral bone plug was placed and the knee was irrigated copiously. I then press fit the patella, tibia and femur in standard fashion. I trialed different inserts until I selected a #14 insert. The final insert was placed and a 3 minutes iodine soak with local TXA was performed. The knee was then closed with a running Quill suture, a 3 0 Vicryl and dionicio on the skin. Patient was then placed in sterile dressing and brought to recovery room in stable condition there were no known complications.
[2022-01-24] MEDS: HYDROmorphone HCl 0.5 MG/0.5 ML SYRINGE 0.25 MG IVPUSH (13:04)
[2022-01-24] MEDS: Acetaminophen 325 MG TABLET 650 MG PO (16:02)
--- NOTE | 2022-01-24 17:11 | PM.IMCN ---
History of Present Illness Data of Consult Service Date: 01/24/22 Primary Care Provider: Thomas Weller PA-C HPI Reason for consult: htn 81F pmh MATEO, OA, HLD, HTN, hypothyroid, mod-severe , presented for elective right knee arthroplasy. patient is feeling well postoperatively, pain controlled, no chest pain or sob. Review of Systems Review of Systems: Yes all other systems are reviewed and are negative [facility] Medical History Aortic valvular disease Elevated cholesterol Essential hypertension HTN (hypertension) Hx of osteomyelitis Hypothyroid Iron deficiency anemia Non-rheumatic aortic stenosis Osteoarthritis Other and unspecified hyperlipidemia Primary osteoarthritis of hands, bilateral Primary osteoarthritis of right hip Primary osteoarthritis of right knee Thyroid disease Functional capacity: uses cane/walker Family History Father Myocardial infarction CVD (cardiovascular disease) Mother No problems noted. Brother Bladder cancer Daughter Cervical cancer Son Knee pain Surgical History Amputation of finger of left hand History of History of hip replacement History of total left hip arthroplasty History of total left knee replacement History of total right hip replacement Hx of colonoscopy Hx of surgical amputation of finger Social History Household Members: None Housing: House Are you a primary palliative care nurse to a significant other at home: No Do you presently have visiting nurse or other home services: No Unable to assess alcohol history related to: Unknown Alcohol intake: current Alcohol intake frequency: holidays/special occasions only Alcohol type: wine Patient Tobacco Use Status: Never used Tobacco e-Cigarette/Vaping Use: Never Used Second Hand Smoke Exposure: No Use of substances other than those prescribed or required for medical reasons: No Currently Displaying Signs/Symptoms of Drug Intoxication Withdrawal: No Any prior treatment program specific to substance use: No Have you been hit, kicked, punched, or otherwise hurt by someone within the past year? If so, by whom?: No Do you feel safe in your current relationship?: No Current Relationship Is there a partner from a previous relationship who is making you feel unsafe now?: No Are you made to feel afraid or neglected: No Are you DNR?: No Advance Directives: No Advance Directives Information Provided: Yes (Given at PAT appointment) Advance Directives on File: No Do you have thoughts of harming others: None Recently lost weight without trying: No How much weight loss: Not applicable Eating poorly because of decreased appetite: No Nutrition screen score: 0 Nutrition Risks: No Nutritional Risk Patient : No : No Poor oral hygiene: No service: No Current occupational status: retired Cognitive needs: No Hearing needs: Yes (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) Vision needs: Yes Meds Allergies Allergy/AdvReac Type Severity Reaction Status Date / Time No Known Allergies Allergy Verified 01/19/22 12:45 Active Medications: Current Medications Acetaminophen (Acetaminophen 325 Mg Tablet) 650 mg PO Q6H PRN PRN Reason: Pain, Mild (Pain Scale 1-3) Last Admin: 01/24/22 16:02 Dose: 650 mg Aspirin (Aspirin 325 Mg Tablet) 325 mg PO BID [facility] Docusate Sodium (Docusate Sodium 100 Mg Capsule) 100 mg PO BID [facility] Last Admin: 01/24/22 16:02 Dose: Not Given Fentanyl (Fentanyl Citrate/Pf 100 Mcg/2 Ml Vial) 25 mcg IVPUSH Q5M PRN; Protocol PRN Reason: Pain, Moderate (Pain Scale 4-6 Ferrous Sulfate (Ferrous Sulfate 324 Mg Tablet.Dr) 324 mg PO BID [facility] Hydromorphone HCl (Hydromorphone Hcl 0.5 Mg/0.5 Ml Syringe) 0.25 mg IVPUSH Q5M PRN; Protocol PRN Reason: Pain, Severe (Pain Scale 7-10) Last Admin: 01/24/22 13:04 Dose: 0.25 mg Lactated Ringer's (Lr) 1,000 mls @ 100 mls/hr IVCONT .Q10H JOE Stop: 01/25/22 15:45 Last Admin: 01/24/22 16:02 Dose: 100 mls/hr Levothyroxine Sodium (Levothyroxine Sodium 125 Mcg Tablet) 125 mcg PO DAILY@0600 [facility] Non-Formulary Medication (Amlodipine-Benazepril) 1 cap PO DAILY [facility] Ondansetron HCl (Ondansetron Hcl 4 Mg/2 Ml Vial) 4 mg IVPUSH ONCE PRN PRN Reason: Nausea and Vomiting Ondansetron HCl (Ondansetron Hcl 4 Mg/2 Ml Vial) 4 mg IVPUSH Q8H PRN PRN Reason: Nausea and Vomiting Sodium Chloride (0.9 % Sodium Chloride Flush 3 Ml Syringe) 3 ml IVFLUSH QSHIFT JOE Last Admin: 01/24/22 16:03 Dose: Not Given Physical Exam Vital Signs and Narrative: Vital Signs: Last Vital Signs Temp 98.6 F 01/24/22 15:47 Pulse 95 01/24/22 15:47 Resp 18 01/24/22 15:47 BP 162/76 H 01/24/22 15:47 Pulse Ox 97 01/24/22 15:47 O2 Del Method 01/24/22 15:47 O2 Flow Rate 2 01/24/22 14:45 BMI result Body Mass Index 32.2 General: AO X 3, no acute distress Resp: CTA bilateral, no accessory muscles used CVS: S1,S2,RRR GI: soft, non tender, non distended Neuro: motor grossly intact, alert Psych: appropriate affect, appropriate insight Results Labs CBC and Chem 7: 01/24/22 06:28 Labs: Laboratory Results - last 24 hr 01/24/22 06:10 COVID-19 (SUSI) Negative COVID-19 Clin Com See Note Imaging Radiologist's Impressions: Impressions Knee X-Ray 01/24/22 11:08 IMPRESSION: Satisfactory appearance of right knee replacement. Assessment and Plan (1) Iron deficiency anemia: Qualifiers: Iron deficiency anemia type: unspecified iron deficiency Qualified Code(s): D50.9 - Iron deficiency anemia, unspecified Status: Acute Plan 81F pmh [place]ATE[place], OA, HLD, HTN, hypothyroid, mod-severe , presented for elective right knee arthroplasy elective right knee arthroplasty 01/24/22 MATEO continue iron supplements monitor cbc mod-severe asymptomatic, avoid volume overload HTN elevated bps, can restart antihypertensives if elevated hypothyroid synthroid DVT prophylaxis with aspirin 325 b.i.d.
[2022-01-24] MEDS: oxyCODONE HCl Immed Release 5 MG TABLET 10 MG PO ×2 (18:45→23:30)
[2022-01-24] MEDS: Ferrous Sulfate 324 MG TABLET.DR PO (21:27)
[2022-01-24] MEDS: Docusate Sodium 100 MG CAPSULE PO (21:27)
[2022-01-24] MEDS: oxyCODONE HCl ER 10 MG TAB.ER.12H PO (21:27)
[2022-01-24] MEDS: Celecoxib 100 MG CAPSULE PO (21:28)
[2022-01-24] MEDS: 0.9 % Sodium Chloride Flush 3 ML SYRINGE IVFLUSH (21:32)
[2022-01-24] MEDS: traZODone HCL 50 MG TABLET PO (23:31)
[2022-01-25 03:06] VITALS: BP 158/76; PULSE 94; RESP 16; TEMP 36.1; O2SAT 95
[2022-01-25] MEDS: oxyCODONE HCl Immed Release 5 MG TABLET 10 MG PO ×2 (05:54→13:11)
[2022-01-25] MEDS: Levothyroxine Sodium 125 MCG TABLET PO (05:55)
[2022-01-25 07:09] VITALS: BP 128/62; PULSE 93; RESP 19; TEMP 35.5; O2SAT 93
[2022-01-25 07:26] LABS: MANUAL DIFF FLAG NO
--- NOTE | 2022-01-25 07:36 | P.PNOP_ITS ---
Subjective Subjective Date of Service: 01/25/22 Interval history: POD 1 s/p RT TKA No overnight events She is not tolerating pain well, has not been out of bed, no PT yet denies sob, cp, palpitations Physical Exam Vital Signs: Vital Signs: Last Vital Signs Temp 96 F L 01/25/22 07:09 Pulse 93 01/25/22 07:09 Resp 19 01/25/22 07:09 BP 128/62 01/25/22 07:09 Pulse Ox 93 01/25/22 07:09 O2 Del Method 01/25/22 07:09 O2 Flow Rate 2 01/24/22 14:45 BMI result Body Mass Index 32.2 Const: General: cooperative, healthy appearing and no acute distress Resp: Effort & Inspection: normal respiratory effort and able to speak in complete sentences Cardio: Rate: regular rate Peripheral pulses: Peripheral pulses 2+ throughout GI: Palpation (GI): Soft to palpation Skin: General skin exam: no rashes or lesions noted Extrem: Other: bandage clean dry and intact. Toi intact. No erythema or joint effusion. Calf supple nontender. Neurovascularly intact. Procedures Date of Service Date of Service: 01/25/22 Progress Note: A&P Assessment and plan (1) Status post total right knee replacement: Status: Acute Assessment and Plan: * Continue pain mgmnt * Begin Aspirin for dvt ppx * begin PT for RT TKA * Dispo planning-Pending PT eval, pain mgmnt Time Spent With Patient Time: Total time spent is greater than 50% in coordination of care (as documented) at patient's floor/unit and/or counseling patient: Quality Stroke Does the patient have a stroke diagnosis?: No VTE Prior VTE?: No VTE Risk Level:: Surgical - very high VTE Device Contraindication: N/A - Device Ordered VTE Drug Contraindication: N/A - Med Ordered
[2022-01-25 07:47] LABS: Basophils Percent Auto 0.2 % (0-2); Hematocrit 28.7 % (37.0-47.0); Hemoglobin 9.4 g/dl (12.0-16.0); Imm Gran Abs Auto 0.08 X10*3/uL (0.00-0.03); Imm Gran Pct Auto 0.7 % (0.0-0.4); Lymphocytes Absolute Auto 1.2 X10*3/uL (1.2-4.9); Lymphocytes Percent Auto 10.3 % (20-40); Mean Corpuscular HGB Conc 32.8 g/dl (31.0-35.0); Mean Corpuscular Hemoglobin 30.3 pg (27.0-33.0); Mean Corpuscular Volume 92.6 fL (80.0-98.0); Mean Platelet Volume 8.5 fL (9.4-12.3); Monocytes Absolute Auto 1.2 X10*3/uL (0.1-1.2); Monocytes Percent Auto 10.1 % (2-11); Neutrophils Absolute Auto 9.2 x10*3/uL (2.0-8.3); Neutrophils Percent Auto 78.7 % (45-73); Platelet Count 322 X10*3/uL (160-400); Red Cell Distribution Width 12.2 % (11.0-16.0); White Blood Count 11.7 X10*3/uL (4.8-10.8)
[2022-01-25 07:48] LABS: Anion Gap 14 (12-20); Blood Urea Nitrogen 24 mg/dL (9-16); Calcium 8.6 mg/dL (8.4-10.2); Carbon Dioxide 26 mmol/L (22-29); Chloride 102 mmol/L (96-108); Estimated Glomerular Filt Rate > 60; Glucose Fasting 139 mg/dL (60-99); Potassium 4.3 mmol/L (3.3-5.1); Sodium 138 mmol/L (135-145)
[2022-01-25] MEDS: amLODIPine Besylate 5 MG TABLET PO (09:30)
[2022-01-25] MEDS: Celecoxib 100 MG CAPSULE PO ×2 (09:30→20:27)
[2022-01-25] MEDS: oxyCODONE HCl ER 10 MG TAB.ER.12H PO ×2 (09:31→20:27)
[2022-01-25] MEDS: Docusate Sodium 100 MG CAPSULE PO ×2 (09:31→20:28)
[2022-01-25] MEDS: lisinopriL 20 MG TABLET PO (09:31)
[2022-01-25] MEDS: Aspirin 325 MG TABLET PO ×2 (09:31→20:26)
[2022-01-25] MEDS: Ferrous Sulfate 324 MG TABLET.DR PO ×2 (09:31→20:27)
[2022-01-25] MEDS: 0.9 % Sodium Chloride Flush 3 ML SYRINGE IVFLUSH ×3 (09:32→20:26)
--- NOTE | 2022-01-25 10:13 | MHC.CM.PN ---
this chief underwriter meet with patient. She lives alone @ home. No services prior to admission. Plans to return home and declined services. She is still currently working. Declined offer to complete HCP. Vax'd and boosted. Son to transport @ d/c.
[2022-01-25 10:57] VITALS: BP 116/52; PULSE 90; RESP 18; TEMP 36.6; O2SAT 96
--- NOTE | 2022-01-25 11:12 | PC.NURSE ---
Cefazolin IV antibiotics bag was found laying on the patient's bed o 01/25 at 08:00 unclamped and uncapped. The antibiotic bag had been primed with LR IV fluids both unclamped. LR was hanging while the antibiotic bag was laying in bed full of fluids. It is unsure whether the antibiotic or LR had filled the bag from the the backflow.
[2022-01-25 15:43] VITALS: BP 119/57; PULSE 83; RESP 18; TEMP 37; O2SAT 98
--- NOTE | 2022-01-25 16:15 | HO.POSTANES ---
Post Anesthesia Evaluation Post Anesthesia Evaluation Vital Signs: Vital Signs Temp Pulse Resp BP Pulse Ox O2 Del Method 01/25/22 15:43 98.6 F 83 18 119/57 L 98 Room Air 01/25/22 10:57 98 F 90 18 116/52 L 96 Room Air 01/25/22 07:09 96 F L 93 19 128/62 93 Room Air Anesthesia: Nerve Block and General Mental Status: Awake Pain Control: Satisfactory Nausea/Vomiting: None Hydration: Adequate Anesthesia-Related Issues: No Anes. Related Issues
[2022-01-25 19:54] VITALS: BP 128/58; PULSE 91; RESP 18; TEMP 37.1; O2SAT 98
[2022-01-26] VITALS (14 sets, daily range): BP systolic 98–149; BP diastolic 6–72; PULSE 76–110; RESP 16–20; TEMP 36.2–37.1; O2SAT 91–97
[2022-01-26] MEDS: oxyCODONE HCl Immed Release 5 MG TABLET 10 MG PO ×2 (02:52→08:52)
[2022-01-26] MEDS: traZODone HCL 50 MG TABLET PO (02:52)
[2022-01-26] MEDS: Levothyroxine Sodium 125 MCG TABLET PO (06:10)
[2022-01-26 07:07] LABS: MANUAL DIFF FLAG NO
[2022-01-26 07:11] LABS: Basophils Percent Auto 0.2 % (0-2); Eosinophils Percent Auto 0.1 % (0-4); Hematocrit 24.8 % (37.0-47.0); Hemoglobin 8.3 g/dl (12.0-16.0); Imm Gran Abs Auto 0.08 X10*3/uL (0.00-0.03); Imm Gran Pct Auto 0.6 % (0.0-0.4); Lymphocytes Absolute Auto 1.3 X10*3/uL (1.2-4.9); Lymphocytes Percent Auto 8.9 % (20-40); Mean Corpuscular HGB Conc 33.5 g/dl (31.0-35.0); Mean Corpuscular Hemoglobin 31.3 pg (27.0-33.0); Mean Corpuscular Volume 93.6 fL (80.0-98.0); Mean Platelet Volume 8.7 fL (9.4-12.3); Monocytes Absolute Auto 0.9 X10*3/uL (0.1-1.2); Monocytes Percent Auto 6.5 % (2-11); Neutrophils Absolute Auto 12.1 x10*3/uL (2.0-8.3); Neutrophils Percent Auto 83.7 % (45-73); Platelet Count 286 X10*3/uL (160-400); Red Blood Count 2.65 X10*6/uL (4.20-5.50); Red Cell Distribution Width 12.6 % (11.0-16.0); White Blood Count 14.5 X10*3/uL (4.8-10.8)
[2022-01-26 07:29] LABS: Anion Gap 13 (12-20); Blood Urea Nitrogen 38 mg/dL (9-16); Calcium 8.3 mg/dL (8.4-10.2); Carbon Dioxide 26 mmol/L (22-29); Chloride 102 mmol/L (96-108); Creatinine Clr Calc Pharmacy 28.8; Estimated Glomerular Filt Rate 31; Glucose Fasting 112 mg/dL (60-99); Potassium 4.4 mmol/L (3.3-5.1); Sodium 137 mmol/L (135-145)
--- NOTE | 2022-01-26 08:12 | P.PNOP_ITS ---
Subjective Subjective Date of Service: 01/26/22 Interval history: POD 2 s/p RT TKA No overnight events pain is more controlled, denies sob, cp, palpitations Physical Exam Vital Signs: Vital Signs: Last Vital Signs Temp 98.4 F 01/26/22 07:39 Pulse 110 H 01/26/22 07:39 Resp 18 01/26/22 07:39 BP 138/6 L 01/26/22 07:39 Pulse Ox 97 01/26/22 07:39 O2 Del Method 01/26/22 07:39 O2 Flow Rate 2 01/24/22 14:45 BMI result Body Mass Index 32.2 Const: General: cooperative, healthy appearing and no acute distress Resp: Effort & Inspection: normal respiratory effort and able to speak in complete sentences Cardio: Rate: regular rate Peripheral pulses: Peripheral pulses 2+ throughout GI: Palpation (GI): Soft to palpation Skin: General skin exam: no rashes or lesions noted Extrem: Other: bandage clean dry and intact. [place] intact. No erythema or joint effusion. Calf supple nontender. Neurovascularly intact. Procedures Date of Service Date of Service: 01/26/22 Progress Note: A&P Assessment and plan (1) Status post total right knee replacement: Status: Acute Assessment and Plan: * Continue pain mgmnt * continue Aspirin for dvt ppx * continue PT for RT TKA * transfuse 2units prbc's-monitor h/h * Dispo planning-Pending PT eval, pain mgmnt Time Spent With Patient Time: Total time spent is greater than 50% in coordination of care (as documented) at patient's floor/unit and/or counseling patient: Quality Stroke Does the patient have a stroke diagnosis?: No VTE Prior VTE?: No VTE Risk Level:: Surgical - very high VTE Device Contraindication: N/A - Device Ordered VTE Drug Contraindication: N/A - Med Ordered
[2022-01-26] MEDS: oxyCODONE HCl ER 10 MG TAB.ER.12H PO ×2 (08:50→20:11)
[2022-01-26] MEDS: Celecoxib 100 MG CAPSULE PO ×2 (08:51→20:11)
[2022-01-26] MEDS: Docusate Sodium 100 MG CAPSULE PO ×2 (08:51→20:11)
[2022-01-26] MEDS: Aspirin 325 MG TABLET PO ×2 (08:51→20:10)
[2022-01-26] MEDS: Ferrous Sulfate 324 MG TABLET.DR PO ×2 (08:51→20:11)
[2022-01-26] MEDS: lisinopriL 20 MG TABLET PO (08:51)
[2022-01-26] MEDS: 0.9 % Sodium Chloride Flush 3 ML SYRINGE IVFLUSH ×2 (08:52→21:06)
[2022-01-26] MEDS: amLODIPine Besylate 5 MG TABLET PO (08:52)
[2022-01-27 03:35] VITALS: BP 138/72; PULSE 98; RESP 18; TEMP 36.8; O2SAT 96
[2022-01-27] MEDS: Levothyroxine Sodium 125 MCG TABLET PO (05:23)
[2022-01-27 06:01] LABS: MANUAL DIFF FLAG NO
[2022-01-27 06:48] LABS: Basophils Percent Auto 0.2 % (0-2); Eosinophils Absolute Auto 0.1 X10*3/uL (0.0-0.4); Eosinophils Percent Auto 0.4 % (0-4); Hematocrit 27.6 % (37.0-47.0); Hemoglobin 9.3 g/dl (12.0-16.0); Imm Gran Abs Auto 0.07 X10*3/uL (0.00-0.03); Imm Gran Pct Auto 0.5 % (0.0-0.4); Lymphocytes Absolute Auto 1.1 X10*3/uL (1.2-4.9); Lymphocytes Percent Auto 7.9 % (20-40); Mean Corpuscular HGB Conc 33.7 g/dl (31.0-35.0); Mean Corpuscular Hemoglobin 31.2 pg (27.0-33.0); Mean Corpuscular Volume 92.6 fL (80.0-98.0); Mean Platelet Volume 8.7 fL (9.4-12.3); Monocytes Absolute Auto 0.8 X10*3/uL (0.1-1.2); Monocytes Percent Auto 6.3 % (2-11); Neutrophils Absolute Auto 11.2 x10*3/uL (2.0-8.3); Neutrophils Percent Auto 84.7 % (45-73); Platelet Count 262 X10*3/uL (160-400); Red Blood Count 2.98 X10*6/uL (4.20-5.50); White Blood Count 13.3 X10*3/uL (4.8-10.8)
[2022-01-27 06:57] LABS: Anion Gap 17 (12-20); Blood Urea Nitrogen 57 mg/dL (9-16); Carbon Dioxide 21 mmol/L (22-29); Chloride 102 mmol/L (96-108); Creatinine Clr Calc Pharmacy 22.6; Estimated Glomerular Filt Rate 23; Glucose Fasting 122 mg/dL (60-99); Potassium 3.7 mmol/L (3.3-5.1); Sodium 136 mmol/L (135-145)
[2022-01-27] MEDS: Ferrous Sulfate 324 MG TABLET.DR PO (07:31)
[2022-01-27] MEDS: oxyCODONE HCl ER 10 MG TAB.ER.12H PO (07:31)
[2022-01-27] MEDS: amLODIPine Besylate 5 MG TABLET PO (07:31)
[2022-01-27] MEDS: Aspirin 325 MG TABLET PO (07:31)
[2022-01-27] MEDS: Celecoxib 100 MG CAPSULE PO (07:31)
[2022-01-27] MEDS: 0.9 % Sodium Chloride Flush 3 ML SYRINGE IVFLUSH (07:32)
[2022-01-27] MEDS: Docusate Sodium 100 MG CAPSULE PO (07:32)
[2022-01-27] MEDS: lisinopriL 20 MG TABLET PO (07:32)
[2022-01-27 07:40] VITALS: BP 130/80; PULSE 88; RESP 18; TEMP 36.3; O2SAT 98
--- NOTE | 2022-01-27 08:26 | P.DS_ITS ---
DS: Providers Provider Date of Service: 01/27/22 Date of admission: 01/24/22 05:57 Primary care physician: Thomas Weller PA-C Consults: 01/24/22 15:46 Consult to Hospitalist Routine Consulting Provider: Hospitalist Reason For Exam: medical management, htn, h/o transfusions DS: Diagnosis Discharge Diagnosis (1) Status post total right knee replacement: Status: Acute DS: Summary Hospital Course Hospital Course: The patient underwent a successful right total knee arthroplasty, was transferred to PACU and then to the floor to recover. During their stay, their vitals were stable, afebrile at 97.3. Labs were unremarkable, H/H 9.3/27.6. POD 1 she was started on ASA for DVT ppx, they also received PT services twice a day. Prior to discharge, their dressing was change, incision clean dry and i ntact, new Aquacel dressing applied and the plan was to be discharged home with VNA services. Time Spent with Patient Time attestation: Total time spent providing and/or coordinating discharge services: Discharge coordination time: Less than 30 minutes Quality: Safe Use of Opioids Does Pt have an Active Cancer Diagnosis on the Problem List?: No Quality: Stroke Does the patient have a stroke diagnosis?: No Physical Exam Vital Signs: Vital Signs: Last Vital Signs Temp 97.3 F 01/27/22 07:40 Pulse 88 01/27/22 07:40 Resp 18 01/27/22 07:40 BP 130/80 01/27/22 07:40 Pulse Ox 98 01/27/22 07:40 O2 Del Method 01/27/22 07:40 O2 Flow Rate 2 01/24/22 14:45 BMI result Body Mass Index 32.2 Const: General: cooperative, healthy appearing and no acute distress Resp: Effort & Inspection: normal respiratory effort and able to speak in complete sentences Cardio: Rate: regular rate Peripheral pulses: Peripheral pulses 2+ throughout GI: Palpation (GI): Soft to palpation Skin: General skin exam: no rashes or lesions noted Extrem: Other: incision clean dry and intact. [place] intact. No erythema or joint effusion. Calf supple nontender. Neurovascularly intact. DS: Data Data Completed and Pending Completed studies during hospitalization [Text1]: Pending at discharge 01/24/22 09:00 Surgical [PTH] Routine Procedures Replacement of Right Hip Joint with Synthetic Substitute, Uncemented, Open Approach (12/24/19) Transfusion of Nonautologous Red Blood Cells into Peripheral Vein, Percutaneous Approach (12/24/19) Labs on day of discharge: Laboratory Results - last 24 hr 01/26/22 01/27/22 01/27/22 09:20 05:09 05:09 WBC 13.3 H RBC 2.98 L Hgb 9.3 L Hct 27.6 L MCV 92.6 MCH 31.2 MCHC 33.7 RDW 13.0 Plt Count 262 MPV 8.7 L Immature Gran % (Auto) 0.5 H Neut % (Auto) 84.7 H Lymph % (Auto) 7.9 L [place] % (Auto) 6.3 Eos % (Auto) 0.4 Baso % (Auto) 0.2 Lymph # (Auto) 1.1 L [place] # (Auto) 0.8 Eos # (Auto) 0.1 Baso # (Auto) 0.0 Abs Immat Gran (auto) 0.07 H Absolute Neuts (auto) 11.2 H Absolute Nucleated RBC 0.000 Nucleated RBC % (auto) 0.0 Sodium 136 Potassium 3.7 Chloride 102 Carbon Dioxide 21 L Anion Gap 17 BUN 57 H Creatinine 2.05 H Estim Creat Clear Calc 22.6 Estimated GFR 23 Fasting Glucose 122 H Calcium 8.0 L Blood Type O Positive Antibody Screen NEGATIVE Crossmatch See Detail Discharge Plan Discharge Anticipated Discharge Date/Time: 01/27/22 08:20 Patient Disposition: Home Health Service Discharge Diagnosis: RT TKA Referrals: Ivana Alexander PA-C [Physician [employer]] - 2 Weeks (02/09/22 11:30 [facility] [place] [facility] Surgeons Ivana Alexander PA-C) Discharge Medications: New docusate sodium 100 mg Capsule 100 mg PO BID 14 Days Qty: 28 0RF aspirin 325 mg Tablet 325 mg PO BID 42 Days Qty: 84 0RF celecoxib 100 mg Capsule 100 mg PO BID 30 Days Qty: 60 0RF oxycodone 5 mg Tablet 5 mg PO Q6H PRN (Reason: Pain, Moderate (Pain Scale 4-6) 7 Days Qty: 42 0RF Rx Instructions: Partial Fill upon patient request. acetaminophen 325 mg Tablet 650 mg PO Q6H PRN (Reason: Pain, Mild (Pain Scale 1-3)) 30 Days Qty: 240 0RF Continued atorvastatin 10 mg tablet 10 mg PO DAILY Qty: 30 6RF hydrochlorothiazide 12.5 mg capsule 12.5 mg PO QAM Qty: 30 6RF levothyroxine 125 mcg tablet 125 mcg PO DAILY 30 Days Qty: 30 6RF amlodipine-benazepril 5-20 mg capsule 1 cap PO DAILY Qty: 30 6RF ferrous sulfate 325 mg (65 mg iron) tablet 325 mg PO BID Qty: 60 6RF diclofenac sodium [Arthritis Pain (diclofenac)] 1 % gel 2 g topical QID PRN (Reason: pain) Qty: 100 0RF Rx Instructions: apply to single elbow, wrist or hand; for hand includes palm/fingers/back of hand Discontinued acetaminophen 650 mg tablet extended release 650 mg PO Q12H 30 Days Qty: 60 4RF Discharge Orders: Discharge Order (Routine); Ordered 01/27/22 Ordered By: Ivana Alexander Diet: Regular diet Activity on Discharge: Use cane or walker Stand Alone Forms: Patient Portal Discharge page Care Plan Goals: Restore function of joint Health Concerns: none Plan of Treatment: Physical Therapy Pain management DVT prophylaxis Assessment: Physical Therapy for Total knee arthroplasty: WBAT, gait training, ROM 0-12, quad strength * Limit stair climbing * No showering, no tub bath-keep dressing clean, dry and intact * No driving x6 weeks * Continue Aspirin twice a day x 6 weeks * Follow up with [facility] [place] Orthopedics in 2 weeks: * --you will also have your first out patient PT eval on the day of your post op appt-so please plan on being in the office that day for an extended period of time.
--- NOTE | 2022-01-27 09:20 | MHC.CM.PN ---
PATIENT IS DC HOME SHE IS REFUSING ANY SERVICES, SHE PLANS TO RETURN TO WORK. SON TO TRANSPORT. RN AWARE OF PLAN
[2022-01-27 09:52] VITALS: BP 130/80; PULSE 88; O2SAT 98
== END 2022-01-27 11:30 | disposition home or self-care (01) | DRG 470 ==
LOC: HO.SSSA 06:00 → HO.S3 14:46
PROVIDERS: Physician Assistant; Admitting Provider Orthopaedic Surgery; PCP Physician Assistant; Visit Provider Orthopaedic Surgery
PROC: 0SRC0JA Replacement of Right Knee Joint with Synthetic Substitute, Uncemented, Open Approach (ICD-10-PCS; CPT 27447; principal; 2022-01-24 07:30)
DX: M17.11 Unilateral primary osteoarthritis, right knee (principal); I35.0 Nonrheumatic aortic (valve) stenosis; D50.9 Iron deficiency anemia, unspecified; E03.9 Hypothyroidism, unspecified; Z20.822 Contact with and (suspected) exposure to COVID-19; Z96.643 Presence of artificial hip joint, bilateral; Z96.652 Presence of left artificial knee joint; Z79.82 Long term (current) use of aspirin; Z79.890 Hormone replacement therapy; Z79.899 Other long term (current) drug therapy
CPT/HCPCS: 36415; 73560; 80048; 85014; 85018; 85025; 86850; 86900; 86901; 86923; 87635; 87640; 87641; 88305; 88311; 97110; 97116; 97162; 97530; C1776; J0131; J0690; J1100; J1170; J2250; J2370; J2405; J2795; J3010; P9016

== ENCOUNTER 2022-02-27 10:00 | Outpatient (RCR) | payer OTHER, SELFPAY ==
--- NOTE | 2022-04-27 16:50 | MHC.PT.DC ---
[facility] [place] Office [place] Office [place] Office [address] Dino Pastor [address] [phone] F: [phone] F: [phone] F: [phone] F: [phone] Physical Therapy Discharge Report Diagnosis: S/P TKA Date of Surgery: 01/24/22 Date of Evaluation: 02/09/22 Date of Discharge: 04/27/22 Treatments to Date: 5 Cancellations to Date: 5 No Shows to Date: 0 Discharge Status: Discharge Summary: Pt was seen for PT from 02/09/22-02/27/22. Her last attended PT appointment was 02/27/22. She was placed on hold for PT due to inpatient hospitalization from 03/04/22-03/07/22 due to anemia and GI bleed. She was cleared to come back to PT and was scheduled for a re-evaluation however she cancelled that appointment. At this time pt is being D/C from this PT POC as she has not attended in 58 days. She did see ortho today, 04/27/22 and has a new referral to PT. She is scheduled for a new PT evaluation on 05/03/22 and will be evaluated with a new POC at that time. Electronically signed by: Kassie Condon, PT, DPT Please sign and return to therapist. Thank you for your referral.
== END 2022-04-27 16:50 | disposition home or self-care (01) ==
LOC: HO.PT 10:00
PROVIDERS: Visit Provider Orthopaedic Surgery
DX: Z96.651 Presence of right artificial knee joint (principal)
CPT/HCPCS: 97110; 97161

== ENCOUNTER 2022-03-04 19:20 | Inpatient (IN) | payer OTHER, SELFPAY ==
[2022-03-04] VITALS (9 sets, daily range): BP systolic 113–155; BP diastolic 45–68; PULSE 86–103; RESP 12–18; TEMP 36.1–37.1; O2SAT 97–100; BMI 28.3
--- NOTE | 2022-03-04 19:43 | PC.NURSE ---
Pt aox3 with son at the bedside. Pt reports feeling dizzy since Sunday, worsening throughout. Hx of blood transfusion. Last transfused 01/27/2022.
--- NOTE | 2022-03-04 20:36 | ED.DIZZY ---
HPI - Dizziness General Chief Complaint: Dizziness Stated Complaint: dizziness, unable to walk, blood transfusion? Time Seen by Provider: 03/04/22 20:01 Source: patient Mode of arrival: ambulatory Limitations: no limitations History of Present Illness HPI Narrative: Patient has severe osteoarthritis status post right knee replacement and 01/24/22 on iron tablets no history of GI bleed in the past comes here for 1 week of weakness dyspnea on ambulation no chest pain no palpitation feel dizzy lightheaded on standing patient taking iron tablets daily and stool is dark in color as usual Related Data Previous Rx's Medication Instructions Recorded amlodipine 5 mg-benazepril 20 mg 1 cap PO DAILY #30 caps 01/03/22 capsule atorvastatin 10 mg tablet 10 mg PO DAILY #30 tabs 01/03/22 ferrous sulfate 325 mg (65 mg 325 mg PO BID #60 tabs 01/03/22 iron) tablet hydrochlorothiazide 12.5 mg capsule 12.5 mg PO QAM #30 caps 01/03/22 levothyroxine 125 mcg tablet 125 mcg PO DAILY 30 days #30 tabs 01/03/22 acetaminophen 325 mg tablet 650 mg PO Q6H PRN Pain, Mild (Pain 01/27/22 Scale 1-3) 30 days #240 tabs aspirin 325 mg tablet 325 mg PO BID 42 days #84 tabs 01/27/22 celecoxib 100 mg capsule 100 mg PO BID 30 days #60 caps 01/27/22 docusate sodium 100 mg capsule 100 mg PO BID 14 days #28 caps 01/27/22 oxycodone 5 mg tablet 5 mg PO Q6H PRN Pain, Moderate 02/21/22 (Pain Scale 4-6 7 days #42 tabs Allergies Allergy/AdvReac Type Severity Reaction Status Date / Time No Known Allergies Allergy Verified 03/04/22 19:26 Review of Systems Review of Systems: Yes all other systems are reviewed and are negative [facility] Past Medical History Medical History Aortic valvular disease Elevated cholesterol Essential hypertension HTN (hypertension) Hx of osteomyelitis Hypothyroid Iron deficiency anemia Non-rheumatic aortic stenosis Osteoarthritis Other and unspecified hyperlipidemia Primary osteoarthritis of hands, bilateral Primary osteoarthritis of right hip Primary osteoarthritis of right knee Thyroid disease Surgical History Amputation of finger of left hand History of History of hip replacement History of total left hip arthroplasty History of total left knee replacement History of total right hip replacement Hx of colonoscopy Hx of surgical amputation of finger Family History Family History Father Myocardial infarction CVD (cardiovascular disease) Mother No problems noted. Brother Bladder cancer Daughter Cervical cancer Son Knee pain Social History Social History Household Members: None Housing: House Are you a primary special needs child caregiver to a significant other at home: No Do you presently have visiting nurse or other home services: No Unable to assess alcohol history related to: Unknown Alcohol intake: current Alcohol intake frequency: does not drink Alcohol type: wine Patient Tobacco Use Status: Never used Tobacco Smoked in Last 30 Days: No e-Cigarette/Vaping Use: Never Used Second Hand Smoke Exposure: No Use of substances other than those prescribed or required for medical reasons: No Advance Directives: No Advance Directives Information Provided: No service: No Current occupational status: employed Cognitive needs: No Hearing needs: Yes (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 Oriented X3. No acute distress. Eyes: Pallor++ ENT: Pharynx normal. Oral Mucosa moist Neck: Normal inspection. Neck supple. CVS: Normal heart rate and rhythm. Pulses normal. Respiratory: No respiratory distress. Equal air entry bilateral, no wheezing/rales/rhonchi Abdomen: Soft and nontender. Bowel sounds are present, no mass palpable, no CVA tenderness rectal: dark stool Skin: Skin warm and dry. Normal skin color. Normal skin turgor. Extremities: No lower extremity edema. No calf tenderness Neuro: Oriented X 3. No motor deficit. No sensory deficit.No cerebellar signs , cranial nerves II-XII intact Medications Administered Generic Name Dose Route Start Last Admin Trade Name Freq PRN Reason Stop Dose Admin Sodium Chloride 3 ml 03/05/22 00:00 03/05/22 00:26 0.9 % Sodium Chloride Flush 3 Ml Syringe IVFLUSH Not Given QSHIFT JOE Discontinued Medications Generic Name Dose Route Start Last Admin Trade Name Rina PRN Reason Stop Dose Admin Oxycodone HCl 5 mg 03/04/22 23:54 03/05/22 00:17 Oxycodone Hcl Immed Release 5 Mg Tablet PO 03/04/22 23:55 5 mg ONCE ONE Administration Pantoprazole Sodium 40 mg 03/04/22 22:55 03/04/22 23:35 Pantoprazole Sodium 40 Mg/10 Ml Vial IVPUSH 03/04/22 22:56 40 mg ONCE ONE Administration Medical Decision Making Medical Decision Making [facility] Narrative: Patient with significant anemia at H and Hct 4.8/15.2 today previously 01/27 was 9.3/27.6 guaiac is positive MCV 102.7 with normal iron profile slightly low B12 level abdomen soft nontender etiology of significant anemia is not very clear will admit patient for further evaluation started on IV Protonix Lab Data [facility] Lab Attestation statement: I reviewed the patient's lab results. Result Diagrams: 03/04/22 21:07 03/04/22 21:07 Labs: Lab Results 03/04/22 03/04/22 03/04/22 Range/Units 21:06 21:07 21:07 WBC 12.4 H (4.8-10.8) X10*3/uL RBC 1.48 L D (4.20-5.50) X10*6/uL Hgb 4.8 L* D (12.0-16.0) g/dl Hct 15.2 L* D (37.0-47.0) % MCV 102.7 H (80.0-98.0) fL MCH 32.4 (27.0-33.0) pg MCHC 31.6 (31.0-35.0) g/dl RDW 18.4 H (11.0-16.0) % Plt Count 380 D (160-400) X10*3/uL MPV 8.2 L (9.4-12.3) fL Immature Gran % (Auto) 1.5 H (0.0-0.4) % Neut % (Auto) 76.6 H (45-73) % Lymph % (Auto) 15.0 L (20-40) % [place] % (Auto) 5.1 (2-11) % Eos % (Auto) 1.4 (0-4) % Baso % (Auto) 0.4 (0-2) % Lymph # (Auto) 1.9 (1.2-4.9) X10*3/uL [place] # (Auto) 0.6 (0.1-1.2) X10*3/uL Eos # (Auto) 0.2 (0.0-0.4) X10*3/uL Baso # (Auto) 0.1 (0.0-0.2) X10*3/uL Abs Immat Gran (auto) 0.18 H (0.00-0.03) X10*3/uL Absolute Neuts (auto) 9.5 H (2.0-8.3) x10*3/uL Absolute Nucleated RBC 0.040 H (0.0-0.012) X10*3/uL Nucleated RBC % (auto) 0.3 H (0.0-0.2) /100WBC D-Dimer High Sensitivty 1042 NG/ML Sodium (135-145) mmol/L Potassium (3.3-5.1) mmol/L Chloride (96-108) mmol/L Carbon Dioxide (22-29) mmol/L Anion Gap (12-20) BUN (9-16) mg/dL Creatinine (0.5-1.4) mg/dL Estim Creat Clear Calc Estimated GFR Random Glucose (60-115) mg/dL Calcium (8.4-10.2) mg/dL Iron (30-160) mcg/dL TIBC (228-428) mcg/dL % Saturation (15-50) % Unsat Iron Binding ug/dL Total Bilirubin (0.0-1.0) mg/dL AST (5-31) U/L ALT (0-31) U/L Alkaline Phosphatase (39-117) U/L Troponin I High Sens (<3.5-17.0) ng/L B-Natriuretic Peptide (<100) pg/mL Total Protein (6.5-8.0) g/dL Albumin (3.5-5.0) g/dL Vitamin B12 (200-900) pg/mL Folate (> or = 4.0) ng/mL Stool Occult Blood (NEGATIVE) Influenza Type A (PCR) NEGATIVE (Negative) Influenza Type B (PCR) NEGATIVE (Negative) RSV RNA Qual (PCR) NEGATIVE (Negative) SARS-CoV-2 RNA (RT-PCR) NEGATIVE (Negative) Blood Type Antibody Screen Crossmatch 03/04/22 03/04/22 03/04/22 Range/Units 21:07 21:07 21:07 WBC (4.8-10.8) X10*3/uL RBC (4.20-5.50) X10*6/uL Hgb (12.0-16.0) g/dl Hct (37.0-47.0) % MCV (80.0-98.0) fL MCH (27.0-33.0) pg MCHC (31.0-35.0) g/dl RDW (11.0-16.0) % Plt Count (160-400) X10*3/uL MPV (9.4-12.3) fL Immature Gran % (Auto) (0.0-0.4) % Neut % (Auto) (45-73) % Lymph % (Auto) (20-40) % [place] % (Auto) (2-11) % Eos % (Auto) (0-4) % Baso % (Auto) (0-2) % Lymph # (Auto) (1.2-4.9) X10*3/uL [place] # (Auto) (0.1-1.2) X10*3/uL Eos # (Auto) (0.0-0.4) X10*3/uL Baso # (Auto) (0.0-0.2) X10*3/uL Abs Immat Gran (auto) (0.00-0.03) X10*3/uL Absolute Neuts (auto) (2.0-8.3) x10*3/uL Absolute Nucleated RBC (0.0-0.012) X10*3/uL Nucleated RBC % (auto) (0.0-0.2) /100WBC D-Dimer High Sensitivty NG/ML Sodium 140 (135-145) mmol/L Potassium 3.7 (3.3-5.1) mmol/L Chloride 108 (96-108) mmol/L Carbon Dioxide 23 (22-29) mmol/L Anion Gap 13 (12-20) BUN 39 H D (9-16) mg/dL Creatinine 0.83 (0.5-1.4) mg/dL Estim Creat Clear Calc 52.4 Estimated GFR > 60 Random Glucose 142 H (60-115) mg/dL Calcium 8.6 D (8.4-10.2) mg/dL Iron 78 (30-160) mcg/dL TIBC 278 (228-428) mcg/dL % Saturation 28 (15-50) % Unsat Iron Binding 200 ug/dL Total Bilirubin 0.2 (0.0-1.0) mg/dL AST 14 (5-31) U/L ALT 11 (0-31) U/L Alkaline Phosphatase 72 (39-117) U/L Troponin I High Sens 27.5 H (<3.5-17.0) ng/L B-Natriuretic Peptide 110 H (<100) pg/mL Total Protein 5.8 L D (6.5-8.0) g/dL Albumin 3.7 (3.5-5.0) g/dL Vitamin B12 (200-900) pg/mL Folate (> or = 4.0) ng/mL Stool Occult Blood (NEGATIVE) Influenza Type A (PCR) (Negative) Influenza Type B (PCR) (Negative) RSV RNA Qual (PCR) (Negative) SARS-CoV-2 RNA (RT-PCR) (Negative) Blood Type Antibody Screen Crossmatch 03/04/22 03/04/22 03/04/22 Range/Units 21:07 21:45 22:16 WBC (4.8-10.8) X10*3/uL RBC (4.20-5.50) X10*6/uL Hgb (12.0-16.0) g/dl Hct (37.0-47.0) % MCV (80.0-98.0) fL MCH (27.0-33.0) pg MCHC (31.0-35.0) g/dl RDW (11.0-16.0) % Plt Count (160-400) X10*3/uL MPV (9.4-12.3) fL Immature Gran % (Auto) (0.0-0.4) % Neut % (Auto) (45-73) % Lymph % (Auto) (20-40) % [place] % (Auto) (2-11) % Eos % (Auto) (0-4) % Baso % (Auto) (0-2) % Lymph # (Auto) (1.2-4.9) X10*3/uL [place] # (Auto) (0.1-1.2) X10*3/uL Eos # (Auto) (0.0-0.4) X10*3/uL Baso # (Auto) (0.0-0.2) X10*3/uL Abs Immat Gran (auto) (0.00-0.03) X10*3/uL Absolute Neuts (auto) (2.0-8.3) x10*3/uL Absolute Nucleated RBC (0.0-0.012) X10*3/uL Nucleated RBC % (auto) (0.0-0.2) /100WBC D-Dimer High Sensitivty NG/ML Sodium (135-145) mmol/L Potassium (3.3-5.1) mmol/L Chloride (96-108) mmol/L Carbon Dioxide (22-29) mmol/L Anion Gap (12-20) BUN (9-16) mg/dL Creatinine (0.5-1.4) mg/dL Estim Creat Clear Calc Estimated GFR Random Glucose (60-115) mg/dL Calcium (8.4-10.2) mg/dL Iron (30-160) mcg/dL TIBC (228-428) mcg/dL % Saturation (15-50) % Unsat Iron Binding ug/dL Total Bilirubin (0.0-1.0) mg/dL AST (5-31) U/L ALT (0-31) U/L Alkaline Phosphatase (39-117) U/L Troponin I High Sens (<3.5-17.0) ng/L B-Natriuretic Peptide (<100) pg/mL Total Protein (6.5-8.0) g/dL Albumin (3.5-5.0) g/dL Vitamin B12 182 L (200-900) pg/mL Folate 15.8 (> or = 4.0) ng/mL Stool Occult Blood POSITIVE (NEGATIVE) Influenza Type A (PCR) (Negative) Influenza Type B (PCR) (Negative) RSV RNA Qual (PCR) (Negative) SARS-CoV-2 RNA (RT-PCR) (Negative) Blood Type O Positive Antibody Screen NEGATIVE Crossmatch See Detail Independent Interpretation I performed an independent interpretation of an: EKG Interpretation: Normal sinus rhythm heart rate 86 beats per minute normal interval normal axis no acute ST shift no acute ischemia Discharge Plan Discharge Clinical Impression: Severe anemia, GI bleed Patient Disposition: Admitted As Inpatient
--- NOTE | 2022-03-04 21:16 | ECG_ITS ---
Test Reason : DIZZINESS Blood Pressure : / mmHG Vent. Rate : 086 BPM Atrial Rate : 086 BPM P-R Int : 166 ms QRS Dur : 084 ms QT Int : 376 ms P-R-T Axes : 045 031 025 degrees QTc Int : 449 ms Normal sinus rhythm Nonspecific ST abnormality Abnormal ECG No previous ECGs available Referred By: Mac Tapia Electronically Signed By:Jose Young
[2022-03-04 21:18] LABS: MANUAL DIFF FLAG NO
[2022-03-04 21:21] LABS: Basophils Absolute Auto 0.1 X10*3/uL (0.0-0.2); Basophils Percent Auto 0.4 % (0-2); Eosinophils Absolute Auto 0.2 X10*3/uL (0.0-0.4); Eosinophils Percent Auto 1.4 % (0-4); Imm Gran Abs Auto 0.18 X10*3/uL (0.00-0.03); Imm Gran Pct Auto 1.5 % (0.0-0.4); Lymphocytes Absolute Auto 1.9 X10*3/uL (1.2-4.9); Mean Corpuscular HGB Conc 31.6 g/dl (31.0-35.0); Mean Corpuscular Hemoglobin 32.4 pg (27.0-33.0); Mean Corpuscular Volume 102.7 fL (80.0-98.0); Mean Platelet Volume 8.2 fL (9.4-12.3); Monocytes Absolute Auto 0.6 X10*3/uL (0.1-1.2); Monocytes Percent Auto 5.1 % (2-11); NRBC Pct Auto 0.3 /100WBC (0.0-0.2); Neutrophils Absolute Auto 9.5 x10*3/uL (2.0-8.3); Neutrophils Percent Auto 76.6 % (45-73); Platelet Count 380 X10*3/uL (160-400); Red Blood Count 1.48 X10*6/uL (4.20-5.50); Red Cell Distribution Width 18.4 % (11.0-16.0); White Blood Count 12.4 X10*3/uL (4.8-10.8)
[2022-03-04 21:24] LABS: Hematocrit 15.2 % (37.0-47.0); Hemoglobin 4.8 g/dl (12.0-16.0)
[2022-03-04 21:32] LABS: D Dimer High Sensitivity 1042 NG/ML
[2022-03-04 21:40] LABS: Alanine Aminotransferase 11 U/L (0-31); Albumin Level 3.7 g/dL (3.5-5.0); Alkaline Phosphatase 72 U/L (39-117); Anion Gap 13 (12-20); Aspartate Amino Transferase 14 U/L (5-31); Bilirubin Total 0.2 mg/dL (0.0-1.0); Blood Urea Nitrogen 39 mg/dL (9-16); Calcium 8.6 mg/dL (8.4-10.2); Carbon Dioxide 23 mmol/L (22-29); Chloride 108 mmol/L (96-108); Creatinine Clr Calc Pharmacy 52.4; Estimated Glomerular Filt Rate > 60; Glucose Random 142 mg/dL (60-115); Potassium 3.7 mmol/L (3.3-5.1); Sodium 140 mmol/L (135-145); Total Protein 5.8 g/dL (6.5-8.0)
[2022-03-04 21:42] LABS: B Type Natriuretic Peptide 110 pg/mL (<100)
[2022-03-04 21:43] LABS: Troponin-I High Sensitivity 27.5 ng/L (<3.5-17.0)
[2022-03-04 21:57] LABS: Influenza A PCR NEGATIVE (Negative); Influenza B PCR NEGATIVE (Negative); Resp Syncy Virus RNA Qual PCR NEGATIVE (Negative); SARS COV2 PCR INHOUSE NEGATIVE (Negative)
[2022-03-04 22:36] LABS: OBS Int Ctl Valid YES; OBS1 POSITIVE (NEGATIVE)
--- NOTE | 2022-03-04 22:45 | PC.NURSE ---
Pt aox4. Breaths are even and unlabored. NSR on monitor with HR 86.VSS Pt resting at the bedside in no apparent distress. 20G IV line on L AC established. Pending first unit of blood to be transfused. Pt is aware and agrees with plan of care.
[2022-03-04 22:54] LABS: Iron 78 mcg/dL (30-160); Percent Iron Saturation 28 % (15-50); Total Iron Binding Capacity 278 mcg/dL (228-428); Unsaturated Iron Binding 200 ug/dL
--- NOTE | 2022-03-04 23:13 | PC.NURSE ---
Pt aox4. First unit of blood started at 2256. VSS Breaths are even and unlabored. Pt reports no sob or chest pain. No transfusion reactions noted. Pt aware of plan of care. Will continue to monitor.
--- NOTE | 2022-03-04 23:47 | PC.NURSE ---
First unit of RBC transfused. VSS Pt aox4. Breaths are even and unlabored. Pt in no apparent distress. 2nd unit of RBC due. Pt aware of plan of care.
[2022-03-04 23:59] LABS: Folate 15.8 ng/mL (> or = 4.0); Vitamin B12 182 pg/mL (200-900)
[2022-03-05] VITALS (13 sets, daily range): BP systolic 97–155; BP diastolic 42–68; PULSE 69–91; RESP 12–20; TEMP 36.2–37.2; O2SAT 96–100
--- NOTE | 2022-03-05 00:15 | PM.IMHP ---
History of Present Illness Date of Service: 03/05/22 Chief Complaint: dizziness this is a 81-year-old female with past medical history of hypertension, hypothyroidism, aortic valvular disease, hyperlipidemia, hypothyroidism, chronic iron deficiency anemia, presents to the hospital with complaints of dizziness, shortness of breath on exertion. Patient reports that her symptoms worsened over the past 3-4 days. She has significant shortness of breath on exertion, as well as dizziness. Patient denies any chest pain, no palpitations, denies any abdominal pain no nausea or vomiting, no urinary symptoms and no lower extremity edema. Patient reports that she takes iron supplement chronically and her stools are always tarry /black with no new change. On arrival to the ED patient hemodynamically stable with no significant abnormal vitals labs are significant for WBC count of 12.4, hemoglobin of 4.8 which dropped from 9.3 in January 27, medical 15.2, troponin of 27.5, 19.4 on repeat, BNP of 110, UA positive for nitrites but negative for leukocyte Estrace and small amount of WBC Stool occult blood positive Review of Systems Review of Systems: Yes all other systems are reviewed and are negative COUNTS INCLUDE 234 BEDS AT THE [facility] Medical History Aortic valvular disease Elevated cholesterol Essential hypertension HTN (hypertension) Hx of osteomyelitis Hypothyroid Iron deficiency anemia Non-rheumatic aortic stenosis Osteoarthritis Other and unspecified hyperlipidemia Primary osteoarthritis of hands, bilateral Primary osteoarthritis of right hip Primary osteoarthritis of right knee Thyroid disease Family History Father Myocardial infarction CVD (cardiovascular disease) Mother No problems noted. Brother Bladder cancer Daughter Cervical cancer Son Knee pain Surgical History Amputation of finger of left hand History of History of hip replacement History of total left hip arthroplasty History of total left knee replacement History of total right hip replacement Hx of colonoscopy Hx of surgical amputation of finger Social History Household Members: None Housing: Apartment Are you a primary home care giver to a significant other at home: No Do you presently have visiting nurse or other home services: No Unable to assess alcohol history related to: Unknown Alcohol intake: current Alcohol intake frequency: does not drink Alcohol type: wine Patient Tobacco Use Status: Never used Tobacco Smoked in Last 30 Days: No e-Cigarette/Vaping Use: Never Used Second Hand Smoke Exposure: No Use of substances other than those prescribed or required for medical reasons: No Have you been hit, kicked, punched, or otherwise hurt by someone within the past year? If so, by whom?: No Do you feel safe in your current relationship?: No Current Relationship Is there a partner from a previous relationship who is making you feel unsafe now?: No Are you made to feel afraid or neglected: No Advance Directives: No Advance Directives Information Provided: No Do you have thoughts of harming others: None Do you have a plan to hurt others: No Plan Recently lost weight without trying: No Eating poorly because of decreased appetite: No Nutrition Risks: No Nutritional Risk Patient : No : No Poor oral hygiene: No service: No Current occupational status: employed Cognitive needs: No Hearing needs: Yes (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) Vision needs: Yes Meds Allergies Allergy/AdvReac Type Severity Reaction Status Date / Time No Known Allergies Allergy Verified 03/04/22 19:26 Active Medications: Current Medications Acetaminophen (Acetaminophen 325 Mg Tablet) 650 mg PO Q6H PRN PRN Reason: Pain, Mild (Pain Scale 1-3) Docusate Sodium (Docusate Sodium 100 Mg Capsule) 100 mg PO DAILY PRN PRN Reason: Constipation Ondansetron HCl (Ondansetron Hcl 4 Mg/2 Ml Vial) 4 mg IVPUSH Q8H PRN PRN Reason: Nausea and Vomiting Sodium Chloride (0.9 % Sodium Chloride Flush 3 Ml Syringe) 3 ml IVFLUSH QSHIFT [facility] Physical Exam Vital Signs and Narrative: Vital Signs: Last Vital Signs Temp 98.5 F 03/05/22 00:03 Pulse 89 03/05/22 00:03 Resp 12 03/05/22 00:03 BP 155/68 H 03/05/22 00:03 Pulse Ox 99 03/04/22 23:58 O2 Del Method 03/04/22 23:58 BMI result Body Mass Index 28.3 Const: General: cooperative and no acute distress Orientation/consciousness: patient oriented x3 Eyes: General: appearance normal, both eyes and all related structures Resp: Effort & Inspection: normal respiratory effort Auscultation: clear to auscultation bilaterally Cardio: Rate: regular rate Rhythm: regular rhythm GI: Palpation (GI): Soft to palpation Auscultation: normal bowel sounds Skin: General skin exam: no rashes or lesions noted Neuro: General: patient oriented x3 Cognition (Neuro): normal cognition Extrem: General: Yes normal to inspection and Yes no pedal edema Results Labs CBC and Chem 7: 03/04/22 21:07 03/04/22 21:07 Labs: Laboratory Results - last 24 hr 03/04/22 03/04/22 03/04/22 21:06 21:07 21:07 MCV 102.7 H MCH 32.4 MCHC 31.6 RDW 18.4 H Plt Count 380 D MPV 8.2 L Immature Gran % (Auto) 1.5 H Neut % (Auto) 76.6 H Lymph % (Auto) 15.0 L [place] % (Auto) 5.1 Eos % (Auto) 1.4 Baso % (Auto) 0.4 Lymph # (Auto) 1.9 [place] # (Auto) 0.6 Eos # (Auto) 0.2 Baso # (Auto) 0.1 Abs Immat Gran (auto) 0.18 H Absolute Neuts (auto) 9.5 H Absolute Nucleated RBC 0.040 H Nucleated RBC % (auto) 0.3 H D-Dimer High Sensitivty 1042 Anion Gap Estim Creat Clear Calc Estimated GFR Random Glucose Calcium Iron TIBC % Saturation Unsat Iron Binding Total Bilirubin AST ALT Alkaline Phosphatase Troponin I High Sens B-Natriuretic Peptide Total Protein Albumin Vitamin B12 Folate Stool Occult Blood Influenza Type A (PCR) NEGATIVE Influenza Type B (PCR) NEGATIVE RSV RNA Qual (PCR) NEGATIVE SARS-CoV-2 RNA (RT-PCR) NEGATIVE Blood Type Antibody Screen Crossmatch 03/04/22 03/04/22 03/04/22 21:07 21:07 21:07 MCV MCH MCHC RDW Plt Count MPV Immature Gran % (Auto) Neut % (Auto) Lymph % (Auto) [place] % (Auto) Eos % (Auto) Baso % (Auto) Lymph # (Auto) [place] # (Auto) Eos # (Auto) Baso # (Auto) Abs Immat Gran (auto) Absolute Neuts (auto) Absolute Nucleated RBC Nucleated RBC % (auto) D-Dimer High Sensitivty Anion Gap 13 Estim Creat Clear Calc 52.4 Estimated GFR > 60 Random Glucose 142 H Calcium 8.6 D Iron 78 TIBC 278 % Saturation 28 Unsat Iron Binding 200 Total Bilirubin 0.2 AST 14 ALT 11 Alkaline Phosphatase 72 Troponin I High Sens 27.5 H B-Natriuretic Peptide 110 H Total Protein 5.8 L D Albumin 3.7 Vitamin B12 Folate Stool Occult Blood Influenza Type A (PCR) Influenza Type B (PCR) RSV RNA Qual (PCR) SARS-CoV-2 RNA (RT-PCR) Blood Type Antibody Screen Crossmatch 03/04/22 03/04/22 03/04/22 21:07 21:45 22:16 MCV MCH MCHC RDW Plt Count MPV Immature Gran % (Auto) Neut % (Auto) Lymph % (Auto) [place] % (Auto) Eos % (Auto) Baso % (Auto) Lymph # (Auto) [place] # (Auto) Eos # (Auto) Baso # (Auto) Abs Immat Gran (auto) Absolute Neuts (auto) Absolute Nucleated RBC Nucleated RBC % (auto) D-Dimer High Sensitivty Anion Gap Estim Creat Clear Calc Estimated GFR Random Glucose Calcium Iron TIBC % Saturation Unsat Iron Binding Total Bilirubin AST ALT Alkaline Phosphatase Troponin I High Sens B-Natriuretic Peptide Total Protein Albumin Vitamin B12 182 L Folate 15.8 Stool Occult Blood POSITIVE Influenza Type A (PCR) Influenza Type B (PCR) RSV RNA Qual (PCR) SARS-CoV-2 RNA (RT-PCR) Blood Type O Positive Antibody Screen NEGATIVE Crossmatch See Detail Imaging Radiologist's Impressions: Impressions Chest X-Ray 03/04/22 21:39 IMPRESSION: No radiographic evidence of pneumonia or pulmonary edema. No acute pulmonary process. Assessment and Plan (1) Acute on chronic anemia: Status: Acute (2) Symptomatic anemia: Status: Acute (3) GI bleed: Status: Acute Plan this is a 81-year-old female with past medical history of iron deficiency anemia on iron supplement presents to the hospital with dizziness, and dyspnea on exertion found to have acute on chronic anemia # acute on chronic microcytic anemia - hemoglobin dropped from 9.3 in January to 4.8 today with hematocrit 15.2 - likely secondary to GI bleed - positive occult stool - being transfused 2 unit of PRBC - follow H&H post transfusion - GI consulted - clear liquid diet # GI bleed anemia - positive occult stool - denies using [id number] NSAIDs, denies using aspirin although it is on her med list - patient also on Celecoxib - will hold - GI consulted # hyperlipidemia - continue statin # hypertension - BP slightly on the lower end - will hold antihypertensives until BP more stable # hypothyroidism - continue levothyroxine DVT prophylaxis: SCDs Time Spent With Patient Time: Total time managing care of this patient today ____ minutes. Quality Stroke Does the patient have a stroke diagnosis?: No VTE Prior VTE?: No VTE Risk Level:: Medical - moderate - high VTE Device Contraindication: N/A - Device Ordered VTE Drug Contraindication: Treatment Not Indicated
--- NOTE | 2022-03-05 00:22 | PC.NURSE ---
Second unit of RBC started. Pt aox4 in no apparent distress. No reaction noted. Pt denies sob or chest pain. Will continue to monitor.
--- NOTE | 2022-03-05 00:57 | PC.NURSE ---
Second unit of RBC completely transfused. No reactions noted. Pt aox4 in no apparent distress. Denies sob/chest pain. Will continue to monitor.
[2022-03-05 01:14] LABS: Troponin-I High Sensitivity 19.4 ng/L (<3.5-17.0)
[2022-03-05 01:47] LABS: Appearance Urine Clear; Color Urine Yellow; Glucose Urine UA Negative (Negative); Leukocyte Esterase Urine Negative (Negative); Nitrite Urine Positive (Negative); PH 5.5 (5.0-9.0); UMIC TRIGGER UACC YES; Urine Blood Negative (Negative); Urine Ketones Negative (Negative); Urine Protein Negative (Neg-Trace)
[2022-03-05 01:52] LABS: Bacteria Urine 2+ (None Seen); Hyaline Casts Urine 0-2 /LPF (0-2); RBC Urine 0-2 /HPF (0-2); Squamous Epithelial Cell Urine 0-2 /HPF (0-2); UACC Culture Trigger YES; WBC Urine 0-5 /HPF (0-5)
--- NOTE | 2022-03-05 02:39 | PC.NURSE ---
RN to RN report given to HINA Walker. Pt to be transferred to room 46-1. Pt aware of plan.
[2022-03-05 08:03] LABS: MANUAL DIFF FLAG NO
--- NOTE | 2022-03-05 08:05 | MHC.CM.PN ---
CM met with Patient at bedside. Patient lives alone in a 3 family house on the first floor and she uses a cane to assist with mobility. Patient receives outpatient PT here at [facility] and home/resume said services is the goal. CM has initiated and will follow for dc planning. Patient is still working in [employer]. Patient has received Pfizer/CovMediTAP vax x4 and her PCP/HUB LEAD is Thomas Weller.
[2022-03-05 08:19] LABS: Basophils Absolute Auto 0.1 X10*3/uL (0.0-0.2); Basophils Percent Auto 0.5 % (0-2); Eosinophils Absolute Auto 0.3 X10*3/uL (0.0-0.4); Eosinophils Percent Auto 2.3 % (0-4); Hematocrit 21.3 % (37.0-47.0); Imm Gran Abs Auto 0.23 X10*3/uL (0.00-0.03); Imm Gran Pct Auto 1.8 % (0.0-0.4); Lymphocytes Absolute Auto 2.3 X10*3/uL (1.2-4.9); Lymphocytes Percent Auto 18.3 % (20-40); Mean Corpuscular HGB Conc 32.4 g/dl (31.0-35.0); Mean Corpuscular Hemoglobin 31.7 pg (27.0-33.0); Mean Corpuscular Volume 97.7 fL (80.0-98.0); Mean Platelet Volume 8.4 fL (9.4-12.3); Monocytes Absolute Auto 0.8 X10*3/uL (0.1-1.2); Monocytes Percent Auto 6.5 % (2-11); NRBC Pct Auto 0.7 /100WBC (0.0-0.2); Neutrophils Absolute Auto 8.9 x10*3/uL (2.0-8.3); Neutrophils Percent Auto 70.6 % (45-73); Platelet Count 348 X10*3/uL (160-400); Red Blood Count 2.18 X10*6/uL (4.20-5.50); Red Cell Distribution Width 19.6 % (11.0-16.0); White Blood Count 12.5 X10*3/uL (4.8-10.8)
[2022-03-05 08:21] LABS: Hemoglobin 6.9 g/dl (12.0-16.0)
[2022-03-05 08:41] LABS: Anion Gap 12 (12-20); Blood Urea Nitrogen 31 mg/dL (9-16); Calcium 8.4 mg/dL (8.4-10.2); Carbon Dioxide 23 mmol/L (22-29); Chloride 108 mmol/L (96-108); Creatinine Clr Calc Pharmacy 60.4; Estimated Glomerular Filt Rate > 60; Glucose Random 99 mg/dL (60-115); Potassium 3.7 mmol/L (3.3-5.1); Sodium 139 mmol/L (135-145)
[2022-03-05] MEDS: Levothyroxine Sodium 125 MCG TABLET PO (09:20)
[2022-03-05] MEDS: lisinopriL 20 MG TABLET PO (09:20)
[2022-03-05] MEDS: Docusate Sodium 100 MG CAPSULE PO ×2 (09:20→21:17)
[2022-03-05] MEDS: amLODIPine Besylate 5 MG TABLET PO (09:20)
[2022-03-05] MEDS: Ferrous Sulfate 324 MG TABLET.DR PO ×2 (09:20→21:17)
[2022-03-05] MEDS: oxyCODONE HCl Immed Release 5 MG TABLET PO ×3 (09:22→22:44)
--- NOTE | 2022-03-05 10:36 | HO.PM.IMPN ---
Subjective Subjective Date of Service: 03/05/22 Interval History: Seen in follow up for symptomatic anemia with GI bleed Interval history: Denies abd pain, n,v, hematochezia. States stool is always dark d/t iron supplements. Requests to advance diet. H/H improved to 6.9/21.3. No lightheadedness, sob, cp. Feels stronger when ambulating to bathroom with walker. Review of Systems General: No fevers, malaise, unintentional weight loss Cardiovascular: No chest pain, palpitations, or leg edema Respiratory: No shortness of breath, wheezing, cough GI: No abdominal pain, nausea, vomiting, diarrhea, constipation, melena, hematochezia MSK: No myalgia, back pain Neuro: No headaches, weakness, paresthesias Skin: No rashes or lesions Physical Exam Vital Signs: Vital Signs: Last Vital Signs Temp 98.3 F 03/05/22 08:00 Pulse 84 03/05/22 08:00 Resp 16 03/05/22 08:00 BP 125/60 03/05/22 04:00 Pulse Ox 99 03/04/22 23:58 O2 Del Method 03/05/22 08:00 BMI result Body Mass Index 28.3 Constitutional - Awake and Alert, No apparent distress Eyes - PERRLA, EOMI Cardiovascular - S1S2, RRR, No edema Respiratory - Normal lung expansion, Normal respiratory effort, No respiratory distress, CTA bilaterally Gastrointestinal - NT / ND; +BS; No rebound or guarding Extremities - no calf tenderness bilaterally, no swelling Skin - Warm/Dry Neurological - Alert & oriented x3 Psychological - Appropriate affect Objective Data Active Medications Acetaminophen (Acetaminophen 325 Mg Tablet) 650 mg PO Q6H PRN PRN Reason: Pain, Mild (Pain Scale 1-3) Amlodipine Besylate (Amlodipine Besylate 5 Mg Tablet) 5 mg PO DAILY [facility] Last Admin: 03/05/22 09:20 Dose: 5 mg Documented By: KANDY Atorvastatin Calcium (Atorvastatin Calcium 10 Mg Tablet) 10 mg PO BEDTIME [facility] Docusate Sodium (Docusate Sodium 100 Mg Capsule) 100 mg PO DAILY PRN PRN Reason: Constipation Docusate Sodium (Docusate Sodium 100 Mg Capsule) 100 mg PO BID [facility] Last Admin: 03/05/22 09:20 Dose: 100 mg Documented By: KANDY Ferrous Sulfate (Ferrous Sulfate 324 Mg Tablet.) 324 mg PO BID [facility] Last Admin: 03/05/22 09:20 Dose: 324 mg Documented By: KANDY Levothyroxine Sodium (Levothyroxine Sodium 125 Mcg Tablet) 125 mcg PO DAILY@0600 [facility] Last Admin: 03/05/22 09:20 Dose: 125 mcg Documented By: KANDY Lisinopril (Lisinopril 20 Mg Tablet) 20 mg PO DAILY [facility] Last Admin: 03/05/22 09:20 Dose: 20 mg Documented By: KANDY Ondansetron HCl (Ondansetron Hcl 4 Mg/2 Ml Vial) 4 mg IVPUSH Q8H PRN PRN Reason: Nausea and Vomiting Oxycodone HCl (Oxycodone Hcl Immed Release 5 Mg Tablet) 5 mg PO Q6H PRN PRN Reason: Pain, Moderate (Pain Scale 4-6 Last Admin: 03/05/22 09:22 Dose: 5 mg Documented By: KANDY Sodium Chloride (0.9 % Sodium Chloride Flush 3 Ml Syringe) 3 ml IVFLUSH QSHIFT [facility] Last Admin: 03/05/22 09:20 Dose: 3 ml Documented By: KANDY Labs CBC & Chem 7: 03/05/22 07:18 03/05/22 07:18 Labs: Laboratory Results - last 24 hr 03/04/22 03/04/22 03/04/22 21:06 21:07 21:07 MCV 102.7 H MCH 32.4 MCHC 31.6 RDW 18.4 H Plt Count 380 D MPV 8.2 L Immature Gran % (Auto) 1.5 H Neut % (Auto) 76.6 H Lymph % (Auto) 15.0 L [place] % (Auto) 5.1 Eos % (Auto) 1.4 Baso % (Auto) 0.4 Lymph # (Auto) 1.9 [place] # (Auto) 0.6 Eos # (Auto) 0.2 Baso # (Auto) 0.1 Abs Immat Gran (auto) 0.18 H Absolute Neuts (auto) 9.5 H Absolute Nucleated RBC 0.040 H Nucleated RBC % (auto) 0.3 H D-Dimer High Sensitivty 1042 Anion Gap Estim Creat Clear Calc Estimated GFR Random Glucose Calcium Iron TIBC % Saturation Unsat Iron Binding Total Bilirubin AST ALT Alkaline Phosphatase Troponin I High Sens B-Natriuretic Peptide Total Protein Albumin Vitamin B12 Folate Urine Color Urine Appearance Urine pH Ur Specific [place] Urine Protein Urine Glucose (UA) Urine Ketones Urine Blood Urine Nitrite Ur Leukocyte Esterase Urine RBC Urine WBC Ur Squamous Epith Cells Urine Bacteria Hyaline Casts Stool Occult Blood Influenza Type A (PCR) NEGATIVE Influenza Type B (PCR) NEGATIVE RSV RNA Qual (PCR) NEGATIVE SARS-CoV-2 RNA (RT-PCR) NEGATIVE Blood Type Antibody Screen Crossmatch 03/04/22 03/04/22 03/04/22 21:07 21:07 21:07 MCV MCH MCHC RDW Plt Count MPV Immature Gran % (Auto) Neut % (Auto) Lymph % (Auto) [place] % (Auto) Eos % (Auto) Baso % (Auto) Lymph # (Auto) [place] # (Auto) Eos # (Auto) Baso # (Auto) Abs Immat Gran (auto) Absolute Neuts (auto) Absolute Nucleated RBC Nucleated RBC % (auto) D-Dimer High Sensitivty Anion Gap 13 Estim Creat Clear Calc 52.4 Estimated GFR > 60 Random Glucose 142 H Calcium 8.6 D Iron 78 TIBC 278 % Saturation 28 Unsat Iron Binding 200 Total Bilirubin 0.2 AST 14 ALT 11 Alkaline Phosphatase 72 Troponin I High Sens 27.5 H B-Natriuretic Peptide 110 H Total Protein 5.8 L D Albumin 3.7 Vitamin B12 Folate Urine Color Urine Appearance Urine pH Ur Specific [place] Urine Protein Urine Glucose (UA) Urine Ketones Urine Blood Urine Nitrite Ur Leukocyte Esterase Urine RBC Urine WBC Ur Squamous Epith Cells Urine Bacteria Hyaline Casts Stool Occult Blood Influenza Type A (PCR) Influenza Type B (PCR) RSV RNA Qual (PCR) SARS-CoV-2 RNA (RT-PCR) Blood Type Antibody Screen Crossmatch 03/04/22 03/04/22 03/04/22 21:07 21:45 22:16 MCV MCH MCHC RDW Plt Count MPV Immature Gran % (Auto) Neut % (Auto) Lymph % (Auto) [place] % (Auto) Eos % (Auto) Baso % (Auto) Lymph # (Auto) [place] # (Auto) Eos # (Auto) Baso # (Auto) Abs Immat Gran (auto) Absolute Neuts (auto) Absolute Nucleated RBC Nucleated RBC % (auto) D-Dimer High Sensitivty Anion Gap Estim Creat Clear Calc Estimated GFR Random Glucose Calcium Iron TIBC % Saturation Unsat Iron Binding Total Bilirubin AST ALT Alkaline Phosphatase Troponin I High Sens B-Natriuretic Peptide Total Protein Albumin Vitamin B12 182 L Folate 15.8 Urine Color Urine Appearance Urine pH Ur Specific [place] Urine Protein Urine Glucose (UA) Urine Ketones Urine Blood Urine Nitrite Ur Leukocyte Esterase Urine RBC Urine WBC Ur Squamous Epith Cells Urine Bacteria Hyaline Casts Stool Occult Blood POSITIVE Influenza Type A (PCR) Influenza Type B (PCR) RSV RNA Qual (PCR) SARS-CoV-2 RNA (RT-PCR) Blood Type O Positive Antibody Screen NEGATIVE Crossmatch See Detail 03/05/22 03/05/22 03/05/22 00:41 01:26 07:18 MCV 97.7 D MCH 31.7 MCHC 32.4 RDW 19.6 H Plt Count 348 MPV 8.4 L Immature Gran % (Auto) 1.8 H Neut % (Auto) 70.6 Lymph % (Auto) 18.3 L [place] % (Auto) 6.5 Eos % (Auto) 2.3 Baso % (Auto) 0.5 Lymph # (Auto) 2.3 [place] # (Auto) 0.8 Eos # (Auto) 0.3 Baso # (Auto) 0.1 Abs Immat Gran (auto) 0.23 H Absolute Neuts (auto) 8.9 H Absolute Nucleated RBC 0.090 H Nucleated RBC % (auto) 0.7 H D-Dimer High Sensitivty Anion Gap Estim Creat Clear Calc Estimated GFR Random Glucose Calcium Iron TIBC % Saturation Unsat Iron Binding Total Bilirubin AST ALT Alkaline Phosphatase Troponin I High Sens 19.4 H B-Natriuretic Peptide Total Protein Albumin Vitamin B12 Folate Urine Color Yellow Urine Appearance Clear Urine pH 5.5 Ur Specific [place] 1.020 Urine Protein Negative Urine Glucose (UA) Negative Urine Ketones Negative Urine Blood Negative Urine Nitrite Positive H Ur Leukocyte Esterase Negative Urine RBC 0-2 Urine WBC 0-5 Ur Squamous Epith Cells 0-2 Urine Bacteria 2+ Hyaline Casts 0-2 Stool Occult Blood Influenza Type A (PCR) Influenza Type B (PCR) RSV RNA Qual (PCR) SARS-CoV-2 RNA (RT-PCR) Blood Type Antibody Screen Crossmatch 03/05/22 07:18 MCV MCH MCHC RDW Plt Count MPV Immature Gran % (Auto) Neut % (Auto) Lymph % (Auto) [place] % (Auto) Eos % (Auto) Baso % (Auto) Lymph # (Auto) [place] # (Auto) Eos # (Auto) Baso # (Auto) Abs Immat Gran (auto) Absolute Neuts (auto) Absolute Nucleated RBC Nucleated RBC % (auto) D-Dimer High Sensitivty Anion Gap 12 Estim Creat Clear Calc 60.4 Estimated GFR > 60 Random Glucose 99 Calcium 8.4 Iron TIBC % Saturation Unsat Iron Binding Total Bilirubin AST ALT Alkaline Phosphatase Troponin I High Sens B-Natriuretic Peptide Total Protein Albumin Vitamin B12 Folate Urine Color Urine Appearance Urine pH Ur Specific [place] Urine Protein Urine Glucose (UA) Urine Ketones Urine Blood Urine Nitrite Ur Leukocyte Esterase Urine RBC Urine WBC Ur Squamous Epith Cells Urine Bacteria Hyaline Casts Stool Occult Blood Influenza Type A (PCR) Influenza Type B (PCR) RSV RNA Qual (PCR) SARS-CoV-2 RNA (RT-PCR) Blood Type Antibody Screen Crossmatch Assessment and Plan (1) Symptomatic anemia: Status: Acute (2) GI bleed: Status: Acute Plan ?this is a 81-year-old female with past medical history of iron deficiency anemia on iron supplement presents to the hospital with dizziness,? and dyspnea on exertion found to have acute on chronic anemia #? acute on chronic microcytic anemia- symptoms improved -? H/H improved to 6.9/21.3% following 2 units PRBC in ED last night - Transfuse addl 1 unit PRBC - Iron, TIBC normal. Ferritin pending -? likely secondary to GI bleed -? positive occult stool -? GI consulted #? GI bleed anemia -? positive occult stool - Initiate IV PPI- unclear if upper or lower GIB. Reports dark stool chronically states related to iron supplement. Add IV PPI -? denies using [id number] NSAIDs, denies using aspirin? although it is on her med list -? patient also on? Celecoxib -? will hold -? GI consulted #? hyperlipidemia -? continue statin #? hypertension -? BP slightly on the lower end -? will hold antihypertensives until? BP more stable #? hypothyroidism -? continue levothyroxine ?DVT prophylaxis: SCDs Pt requires ongoing inpt stay for management of symptomatic anemia, requiring blood transfusions and close monitoring of blood counts and telemetry that cannot be achieved outpt. Quality Stroke Does the patient have a stroke diagnosis?: No VTE Prior VTE?: No VTE Risk Level:: Medical - moderate - high VTE Device Contraindication: N/A - Device Ordered VTE Drug Contraindication: Treatment Not Indicated
[2022-03-05 11:15] LABS: Ferritin 176 ng/mL (10-250)
--- NOTE | 2022-03-05 11:40 | PM.GICN ---
History of Present Illness Data of Consult Service Date: 03/05/22 Requesting physician: Aman Waters Primary Care Provider: Thomas Weller PA-C HPI Reason for consult: Anemia This is a 81-year-old female past medical history of moderate to severe aortic stenosis, hypothyroidism, hypertension, dyslipidemia, recent R TKA in January who presented to the hospital for symptomatic iron deficiency anemia. History was obtained from the patient, who states that almost 10 days ago, she started noticing increased fatigue, with worsening shortness of breath on exertion, to the point where she could not even go to her bathroom before stopping multiple times to catch her breath. This was also associated with dizziness, especially when walking. Would feel better on lying down. Denies any chest pain, palpitations. Also does not report any abdominal pain, nausea, vomiting, changes in bowel habits, unintentional weight loss. States has always had black stools she insists she has been on iron supplements for many years now. Does not notice any loose stools or maroon stools. Had recent knee surgery, is on high-dose aspirin for dvt prophylaxis and celecoxib + tylenol for pain control. On arrival the hospital, she was noted to be tachycardic in the 100s within normal blood pressure. Labs were significant for hemoglobin 4.8 with a wide MCV. Chem 7 with normal ferritin, albeit checked this morning after the patient had gotten transfusion. Hemoglobin this morning is 6.9 appropriately increased after 2 units of transfusion. Previous endoscopy: Colonoscopy 2012: Mild diverticular disease. Has never had an upper endoscopy per her report. Patient otherwise lives at home by herself, cooks her own food. Son helps her with groceries as she cannot drive for a few weeks after her knee surgery. Review of Systems Review of Systems: Yes all other systems are reviewed and are negative PMFSH Past Medical History Medical History Aortic valvular disease Elevated cholesterol Essential hypertension HTN (hypertension) Hx of osteomyelitis Hypothyroid Iron deficiency anemia Non-rheumatic aortic stenosis Osteoarthritis Other and unspecified hyperlipidemia Primary osteoarthritis of hands, bilateral Primary osteoarthritis of right hip Primary osteoarthritis of right knee Thyroid disease Family History Family History Father Myocardial infarction CVD (cardiovascular disease) Mother No problems noted. Brother Bladder cancer Daughter Cervical cancer Son Knee pain Surgical History Surgical History Amputation of finger of left hand History of History of hip replacement History of total left hip arthroplasty History of total left knee replacement History of total right hip replacement Hx of colonoscopy Hx of surgical amputation of finger Social History Social History Household Members: None Housing: Apartment Are you a primary director of patient care to a significant other at home: No Do you presently have visiting nurse or other home services: No Unable to assess alcohol history related to: Unknown Alcohol intake: current Alcohol intake frequency: does not drink Alcohol type: wine Patient Tobacco Use Status: Never used Tobacco Smoked in Last 30 Days: No e-Cigarette/Vaping Use: Never Used Second Hand Smoke Exposure: No Use of substances other than those prescribed or required for medical reasons: No Have you been hit, kicked, punched, or otherwise hurt by someone within the past year? If so, by whom?: No Do you feel safe in your current relationship?: No Current Relationship Is there a partner from a previous relationship who is making you feel unsafe now?: No Are you made to feel afraid or neglected: No Advance Directives: No Advance Directives Information Provided: No Do you have thoughts of harming others: None Do you have a plan to hurt others: No Plan Recently lost weight without trying: No Eating poorly because of decreased appetite: No Nutrition Risks: No Nutritional Risk Patient : No : No Poor oral hygiene: No service: No Current occupational status: employed Cognitive needs: No Hearing needs: Yes (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) Vision needs: Yes Meds Allergies Allergy/AdvReac Type Severity Reaction Status Date / Time No Known Allergies Allergy Verified 03/04/22 19:26 Active Medications: Current Medications Acetaminophen (Acetaminophen 325 Mg Tablet) 650 mg PO Q6H PRN PRN Reason: Pain, Mild (Pain Scale 1-3) Amlodipine Besylate (Amlodipine Besylate 5 Mg Tablet) 5 mg PO DAILY [facility] Last Admin: 03/05/22 09:20 Dose: 5 mg Atorvastatin Calcium (Atorvastatin Calcium 10 Mg Tablet) 10 mg PO BEDTIME [facility] Docusate Sodium (Docusate Sodium 100 Mg Capsule) 100 mg PO DAILY PRN PRN Reason: Constipation Docusate Sodium (Docusate Sodium 100 Mg Capsule) 100 mg PO BID [facility] Last Admin: 03/05/22 09:20 Dose: 100 mg Ferrous Sulfate (Ferrous Sulfate 324 Mg Tablet.Dr) 324 mg PO BID [facility] Last Admin: 03/05/22 09:20 Dose: 324 mg Levothyroxine Sodium (Levothyroxine Sodium 125 Mcg Tablet) 125 mcg PO DAILY@0600 [facility] Last Admin: 03/05/22 09:20 Dose: 125 mcg Lisinopril (Lisinopril 20 Mg Tablet) 20 mg PO DAILY [facility] Last Admin: 03/05/22 09:20 Dose: 20 mg Ondansetron HCl (Ondansetron Hcl 4 Mg/2 Ml Vial) 4 mg IVPUSH Q8H PRN PRN Reason: Nausea and Vomiting Oxycodone HCl (Oxycodone Hcl Immed Release 5 Mg Tablet) 5 mg PO Q6H PRN PRN Reason: Pain, Moderate (Pain Scale 4-6 Last Admin: 03/05/22 09:22 Dose: 5 mg Pantoprazole Sodium (Pantoprazole Sodium 40 Mg/10 Ml Vial) 40 mg IVPUSH BID@0630,1630 [facility] Sodium Chloride (0.9 % Sodium Chloride Flush 3 Ml Syringe) 3 ml IVFLUSH QSHIFT [facility] Last Admin: 03/05/22 09:20 Dose: 3 ml Physical Exam Vital Signs: Vital Signs: Last Vital Signs Temp 98.3 F 03/05/22 08:00 Pulse 84 03/05/22 08:00 Resp 16 03/05/22 08:00 BP 125/60 03/05/22 04:00 Pulse Ox 99 03/04/22 23:58 O2 Del Method 03/05/22 08:00 BMI result Body Mass Index 28.3 Gen appear: No acute distress, well nourished HEENT: no icterus, no cervical lymphadenopathy Chest: No overt resp distress CVS: S1/S2, systolic murmur Abd: soft, nontender, nondistended Psych: Stable affect, answering questions appropriately Neuro: A/Ox3 noted to move all extremities spontaneously Ext: no peripheral edema Results Labs CBC & Chem 7: 03/05/22 07:18 03/05/22 07:18 Labs: Short CBC 03/04/22 03/05/22 Range/Units 21:07 07:18 WBC 12.4 H 12.5 H (4.8-10.8) X10*3/uL Hgb 4.8 L* D 6.9 L* D (12.0-16.0) g/dl Hct 15.2 L* D 21.3 L D (37.0-47.0) % Plt Count 380 D 348 (160-400) X10*3/uL BMP 03/04/22 03/05/22 21:07 07:18 Sodium 140 139 Potassium 3.7 3.7 Chloride 108 108 Carbon Dioxide 23 23 BUN 39 H D 31 H Creatinine 0.83 0.72 Calcium 8.6 D 8.4 Liver Function 03/04/22 Range/Units 21:07 Total Bilirubin 0.2 (0.0-1.0) mg/dL AST 14 (5-31) U/L ALT 11 (0-31) U/L Alkaline Phosphatase 72 (39-117) U/L Albumin 3.7 (3.5-5.0) g/dL Urine 03/05/22 Range/Units 01:26 Urine Color Yellow Urine Appearance Clear Urine pH 5.5 (5.0-9.0) Ur Specific [place] 1.020 (1.005-1.025) Urine Protein Negative (Neg-Trace) mg/dL Urine Glucose (UA) Negative (Negative) mg/dL Assessment and Plan (1) Severe anemia: Status: Acute (2) GI bleed: Status: Acute (3) Non-rheumatic aortic stenosis: Status: Acute Plan Presents with worsening of her chronic anemia. Differentials include PUD specially with high-dose aspirin use, AVMs specifically as part of Heyde's syndrome given , malignancy. We will schedule her for a bidirectional endoscopy for complete evaluation. If negative, low threshold to proceed small-bowel evaluation through video capsule endoscopy. Will tentatively schedule this for tomorrow. Clear liquid diet today PEG orders placed Was recently seen by Cardiology for preop clearance for knee replacement, have requested primary team to reach out to them again for any further testing needed prior to the endoscopy. Thank you for allowing me to participate in her care. Please do not hesitate to reach out for any questions or concerns Time Spent With Patient Time: Total time managing care of this patient today ____ minutes. Procedures Date of Service Date of Service: 03/05/22
[2022-03-05] MEDS: Pantoprazole Sodium 40 MG/10 ML VIAL IVPUSH (16:09)
[2022-03-05] MEDS: Atorvastatin Calcium 10 MG TABLET PO (21:17)
[2022-03-06] VITALS (9 sets, daily range): BP systolic 90–123; BP diastolic 40–68; PULSE 60–111; RESP 16–20; TEMP 36.3–37.3; O2SAT 92–99
[2022-03-06] MEDS: Acetaminophen 325 MG TABLET 650 MG PO ×2 (03:30→23:39)
[2022-03-06] MEDS: Pantoprazole Sodium 40 MG/10 ML VIAL IVPUSH ×2 (05:19→15:44)
[2022-03-06] MEDS: oxyCODONE HCl Immed Release 5 MG TABLET PO ×3 (05:19→20:31)
[2022-03-06] MEDS: Levothyroxine Sodium 125 MCG TABLET PO (05:19)
[2022-03-06 08:29] LABS: MANUAL DIFF FLAG NO
[2022-03-06 08:36] LABS: Basophils Absolute Auto 0.1 X10*3/uL (0.0-0.2); Basophils Percent Auto 0.5 % (0-2); Eosinophils Absolute Auto 0.2 X10*3/uL (0.0-0.4); Eosinophils Percent Auto 2.2 % (0-4); Hematocrit 22.1 % (37.0-47.0); Hemoglobin 7.4 g/dl (12.0-16.0); Imm Gran Abs Auto 0.13 X10*3/uL (0.00-0.03); Imm Gran Pct Auto 1.3 % (0.0-0.4); Lymphocytes Absolute Auto 1.7 X10*3/uL (1.2-4.9); Lymphocytes Percent Auto 16.4 % (20-40); Mean Corpuscular HGB Conc 33.5 g/dl (31.0-35.0); Mean Corpuscular Hemoglobin 32.5 pg (27.0-33.0); Mean Corpuscular Volume 96.9 fL (80.0-98.0); Mean Platelet Volume 8.3 fL (9.4-12.3); Monocytes Absolute Auto 0.7 X10*3/uL (0.1-1.2); Monocytes Percent Auto 6.5 % (2-11); NRBC Pct Auto 0.2 /100WBC (0.0-0.2); Neutrophils Absolute Auto 7.5 x10*3/uL (2.0-8.3); Neutrophils Percent Auto 73.1 % (45-73); Platelet Count 292 X10*3/uL (160-400); Red Blood Count 2.28 X10*6/uL (4.20-5.50); White Blood Count 10.2 X10*3/uL (4.8-10.8)
[2022-03-06 08:51] LABS: Anion Gap 13 (12-20); Blood Urea Nitrogen 31 mg/dL (9-16); Calcium 8.2 mg/dL (8.4-10.2); Carbon Dioxide 22 mmol/L (22-29); Chloride 108 mmol/L (96-108); Creatinine Clr Calc Pharmacy 55.8; Estimated Glomerular Filt Rate > 60; Glucose Random 96 mg/dL (60-115); Potassium 3.7 mmol/L (3.3-5.1); Sodium 139 mmol/L (135-145)
[2022-03-06] MEDS: lisinopriL 20 MG TABLET PO (09:24)
[2022-03-06] MEDS: Ferrous Sulfate 324 MG TABLET.DR PO ×2 (09:24→20:30)
[2022-03-06] MEDS: amLODIPine Besylate 5 MG TABLET PO (09:24)
[2022-03-06] MEDS: Docusate Sodium 100 MG CAPSULE PO (09:24)
--- NOTE | 2022-03-06 12:30 | MHC.SHP ---
Pre-Procedural Eval Section A Date of Service: 03/06/22 The patient is an INPATIENT: Yes Section B Chief Complaint: Acute symptomatic anemia Details of Present Illness: Initial plan was for upper endoscopy and colonoscopy as noted in previous discussion. However, despite completing the prep, patient continues to have semi-solid opaque stool. Reviewed with the patient the option to repeat colonoscopy prep today and to do EGD/colonoscopy tomorrow versus doing upper endoscopy today and reviewing indication for colonoscopy depending on the findings on EGD. We also reviewed that due to her moderate to severe aortic stenosis, she is at risk for maggie-procedure complications. Both the options of i) prolonged anesthesia once (EGD/colo) vs ii) administering anesthesia twice (EGD today and colo later) have their own set of pros and cons. She verbalises understanding and chooses to proceed with doing an upper endoscopy only today. This discussion was done in presence of the anesthesia provider. Allergies: Allergies Allergy/AdvReac Type Severity Reaction Status Date / Time No Known Allergies Allergy Verified 03/04/22 19:26 Plan Diagnosis/Plan: Change I have reviewed the history and physical and performed a pertinent physical examination on my patient. No changes have occurred unless specified. Time Spent With Patient Time: Total time managing care of this patient today ____ minutes.
--- NOTE | 2022-03-06 12:54 | W.PM.OPN ---
Operative Note Operative Note Date of Service: 03/06/22 Narrative: Procedure: Esophagogastroduodenoscopy Endoscopist: Zee Barksdale MD Indication: Anemia Anesthesia Provider: Dr Trenton Toney Anesthesia Type: MAC ?? EGD Procedure:?? The procedure, indications, preparation and potential complications were reviewed with the patient, who indicated understanding and gave written informed consent to proceed. A physical exam was performed. The endoscope was introduced through the mouth, and advanced to the second part of duodenum. The mucosa was carefully examined on slow withdrawal of the endoscope. The patient tolerated the procedure well. There were no immediate complications.? ? EGD Findings:? Esophagus:?Normal mucosa noted in the entire esophagus. The Z line was at 38 cm and irregular. Small hiatal hernia was noted with the diaphragmatic pinch at 40 cm. Stomach:?Normal mucosa was noted in the stomach. Retroflexion in the cardia confirmed the size and morphology of the hiatal hernia. Duodenum:?Normal mucosa was noted in the whole of the examined duodenum. ? EGD Impressions:? Normal esophagus Normal stomach Normal duodenum ?? Recommendations:?? Normal EGD. Will need a colonoscopy. Will discuss with patient to schedule it tentatively for tomorrow. Continue clear liquid diet.
--- NOTE | 2022-03-06 13:07 | HO.ANESPROP2 ---
HPI - Anesthesia Eval Consult details Narrative: 81Female presenting for upper endoscopy. Patient was originally scheduled for both colonoscopy and upper endoscopy but her bowel prep has been poor. Given severe symptomatic anemia, we will proceed with upper endoscopy today to rule out any ulcerative source. Patient is on board with this plan. I had a discussion with the patient regarding risks of anesthesia In setting of moderate to severe aortic stenosis with a valve area of 0.88. I informed her she is high risk for cardiac complications given symptomatic anemia and severe . Patient understands and is willing to proceed. 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 (Acute) Preoperative cardiovascular examination (Acute) Other and unspecified hyperlipidemia (Acute) Essential hypertension (Acute) Non-rheumatic aortic stenosis (Acute) Primary osteoarthritis of right knee (Acute) Primary osteoarthritis of hands, bilateral (Acute) HTN (hypertension) (Acute) Hypothyroid (Acute) Past Medical History Medical History Aortic valvular disease Elevated cholesterol Essential hypertension HTN (hypertension) Hx of osteomyelitis Hypothyroid Iron deficiency anemia Non-rheumatic aortic stenosis Osteoarthritis Other and unspecified hyperlipidemia Primary osteoarthritis of hands, bilateral Primary osteoarthritis of right hip Primary osteoarthritis of right knee Thyroid disease Family History Family History Father Myocardial infarction CVD (cardiovascular disease) Mother No problems noted. Brother Bladder cancer Daughter Cervical cancer Son Knee pain Family history of problems with anesthesia: No Surgical History Surgical History Amputation of finger of left hand History of History of hip replacement History of total left hip arthroplasty History of total left knee replacement History of total right hip replacement Hx of colonoscopy Hx of surgical amputation of finger History of Problems with Anesthesia: No Social History Social History Household Members: None Housing: Apartment Are you a primary pet caretaker to a significant other at home: No Do you presently have visiting nurse or other home services: No Unable to assess alcohol history related to: Unknown Alcohol intake: current Alcohol intake frequency: does not drink Alcohol type: wine Patient Tobacco Use Status: Never used Tobacco Smoked in Last 30 Days: No e-Cigarette/Vaping Use: Never Used Second Hand Smoke Exposure: No Use of substances other than those prescribed or required for medical reasons: No Currently Displaying Signs/Symptoms of Drug Intoxication Withdrawal: No Have you been hit, kicked, punched, or otherwise hurt by someone within the past year? If so, by whom?: No Do you feel safe in your current relationship?: No Current Relationship Is there a partner from a previous relationship who is making you feel unsafe now?: No Are you made to feel afraid or neglected: No Advance Directives: No Advance Directives Information Provided: No Do you have thoughts of harming others: None Do you have a plan to hurt others: No Plan Recently lost weight without trying: No Eating poorly because of decreased appetite: No Nutrition Risks: No Nutritional Risk Patient : No : No Poor oral hygiene: No service: No Current occupational status: employed Cognitive needs: No Hearing needs: Yes (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) Vision needs: Yes Meds Allergies Allergy/AdvReac Type Severity Reaction Status Date / Time No Known Allergies Allergy Verified 03/04/22 19:26 Active Medications: Current Medications Acetaminophen (Acetaminophen 325 Mg Tablet) 650 mg PO Q6H PRN PRN Reason: Pain, Mild (Pain Scale 1-3) Last Admin: 03/06/22 03:30 Dose: 650 mg Amlodipine Besylate (Amlodipine Besylate 5 Mg Tablet) 5 mg PO DAILY JOE Last Admin: 03/06/22 09:24 Dose: 5 mg Atorvastatin Calcium (Atorvastatin Calcium 10 Mg Tablet) 10 mg PO BEDTIME JOE Last Admin: 03/05/22 21:17 Dose: 10 mg Docusate Sodium (Docusate Sodium 100 Mg Capsule) 100 mg PO DAILY PRN PRN Reason: Constipation Docusate Sodium (Docusate Sodium 100 Mg Capsule) 100 mg PO BID [facility] Last Admin: 03/06/22 09:24 Dose: 100 mg Ferrous Sulfate (Ferrous Sulfate 324 Mg Tablet.Dr) 324 mg PO BID [facility] Last Admin: 03/06/22 09:24 Dose: 324 mg Levothyroxine Sodium (Levothyroxine Sodium 125 Mcg Tablet) 125 mcg PO DAILY@0600 [facility] Last Admin: 03/06/22 05:19 Dose: 125 mcg Lisinopril (Lisinopril 20 Mg Tablet) 20 mg PO DAILY [facility] Last Admin: 03/06/22 09:24 Dose: 20 mg Ondansetron HCl (Ondansetron Hcl 4 Mg/2 Ml Vial) 4 mg IVPUSH Q8H PRN PRN Reason: Nausea and Vomiting Oxycodone HCl (Oxycodone Hcl Immed Release 5 Mg Tablet) 5 mg PO Q6H PRN PRN Reason: Pain, Moderate (Pain Scale 4-6 Last Admin: 03/06/22 05:19 Dose: 5 mg Pantoprazole Sodium (Pantoprazole Sodium 40 Mg/10 Ml Vial) 40 mg IVPUSH BID@0630,1630 [facility] Last Admin: 03/06/22 05:19 Dose: 40 mg Sodium Biphosphate/Sodium Phosphate (Sodium Phosphate,[place]-Dibasic 133 Ml Enema) 133 ml [place] ONCE PRN PRN Reason: Constipation Last Admin: 03/06/22 11:09 Dose: 133 ml Sodium Chloride (0.9 % Sodium Chloride Flush 3 Ml Syringe) 3 ml IVFLUSH QSHIFT [facility] Last Admin: 03/06/22 09:24 Dose: 3 ml Exam Exam Date and Time: March 06, 2022 1307 Height,Weight and Vital Signs: Height 5 ft 3 in Weight 160 lb Last Vital Signs Temp 97.4 F 03/06/22 11:46 Pulse 82 03/06/22 11:46 Resp 18 03/06/22 11:46 BP 123/55 L 03/06/22 11:46 Pulse Ox 99 03/06/22 11:46 O2 Del Method 03/06/22 11:46 Pertinent Lab Results Pertinent Lab Results: Laboratory Tests 03/04/22 03/04/22 03/04/22 21:06 21:07 21:07 WBC 12.4 H RBC 1.48 L D Hgb 4.8 L* D Hct 15.2 L* D MCV 102.7 H MCH 32.4 MCHC 31.6 RDW 18.4 H Plt Count 380 D MPV 8.2 L Immature Gran % (Auto) 1.5 H Neut % (Auto) 76.6 H Lymph % (Auto) 15.0 L [place] % (Auto) 5.1 Eos % (Auto) 1.4 Baso % (Auto) 0.4 Lymph # (Auto) 1.9 [place] # (Auto) 0.6 Eos # (Auto) 0.2 Baso # (Auto) 0.1 Abs Immat Gran (auto) 0.18 H Absolute Neuts (auto) 9.5 H Absolute Nucleated RBC 0.040 H Nucleated RBC % (auto) 0.3 H D-Dimer High Sensitivty 1042 Sodium Potassium Chloride Carbon Dioxide Anion Gap BUN Creatinine Estim Creat Clear Calc Estimated GFR Random Glucose Calcium Iron TIBC % Saturation Unsat Iron Binding Ferritin Total Bilirubin AST ALT Alkaline Phosphatase Troponin I High Sens B-Natriuretic Peptide Total Protein Albumin Vitamin B12 Folate Urine Color Urine Appearance Urine pH Ur Specific [place] Urine Protein Urine Glucose (UA) Urine Ketones Urine Blood Urine Nitrite Ur Leukocyte Esterase Urine RBC Urine WBC Ur Squamous Epith Cells Urine Bacteria Hyaline Casts Stool Occult Blood Influenza Type A (PCR) NEGATIVE Influenza Type B (PCR) NEGATIVE RSV RNA Qual (PCR) NEGATIVE SARS-CoV-2 RNA (RT-PCR) NEGATIVE Blood Type Antibody Screen Crossmatch 03/04/22 03/04/22 03/04/22 21:07 21:07 21:07 WBC RBC Hgb Hct MCV MCH MCHC RDW Plt Count MPV Immature Gran % (Auto) Neut % (Auto) Lymph % (Auto) [place] % (Auto) Eos % (Auto) Baso % (Auto) Lymph # (Auto) [place] # (Auto) Eos # (Auto) Baso # (Auto) Abs Immat Gran (auto) Absolute Neuts (auto) Absolute Nucleated RBC Nucleated RBC % (auto) D-Dimer High Sensitivty Sodium 140 Potassium 3.7 Chloride 108 Carbon Dioxide 23 Anion Gap 13 BUN 39 H D Creatinine 0.83 Estim Creat Clear Calc 52.4 Estimated GFR > 60 Random Glucose 142 H Calcium 8.6 D Iron 78 TIBC 278 % Saturation 28 Unsat Iron Binding 200 Ferritin Total Bilirubin 0.2 AST 14 ALT 11 Alkaline Phosphatase 72 Troponin I High Sens 27.5 H B-Natriuretic Peptide 110 H Total Protein 5.8 L D Albumin 3.7 Vitamin B12 Folate Urine Color Urine Appearance Urine pH Ur Specific [place] Urine Protein Urine Glucose (UA) Urine Ketones Urine Blood Urine Nitrite Ur Leukocyte Esterase Urine RBC Urine WBC Ur Squamous Epith Cells Urine Bacteria Hyaline Casts Stool Occult Blood Influenza Type A (PCR) Influenza Type B (PCR) RSV RNA Qual (PCR) SARS-CoV-2 RNA (RT-PCR) Blood Type Antibody Screen Crossmatch 03/04/22 03/04/22 03/04/22 21:07 21:45 22:16 WBC RBC Hgb Hct MCV MCH MCHC RDW Plt Count MPV Immature Gran % (Auto) Neut % (Auto) Lymph % (Auto) [place] % (Auto) Eos % (Auto) Baso % (Auto) Lymph # (Auto) [place] # (Auto) Eos # (Auto) Baso # (Auto) Abs Immat Gran (auto) Absolute Neuts (auto) Absolute Nucleated RBC Nucleated RBC % (auto) D-Dimer High Sensitivty Sodium Potassium Chloride Carbon Dioxide Anion Gap BUN Creatinine Estim Creat Clear Calc Estimated GFR Random Glucose Calcium Iron TIBC % Saturation Unsat Iron Binding Ferritin Total Bilirubin AST ALT Alkaline Phosphatase Troponin I High Sens B-Natriuretic Peptide Total Protein Albumin Vitamin B12 182 L Folate 15.8 Urine Color Urine Appearance Urine pH Ur Specific [place] Urine Protein Urine Glucose (UA) Urine Ketones Urine Blood Urine Nitrite Ur Leukocyte Esterase Urine RBC Urine WBC Ur Squamous Epith Cells Urine Bacteria Hyaline Casts Stool Occult Blood POSITIVE Influenza Type A (PCR) Influenza Type B (PCR) RSV RNA Qual (PCR) SARS-CoV-2 RNA (RT-PCR) Blood Type O Positive Antibody Screen NEGATIVE Crossmatch See Detail 03/05/22 03/05/22 03/05/22 00:41 01:26 07:18 WBC 12.5 H RBC 2.18 L D Hgb 6.9 L* D Hct 21.3 L D MCV 97.7 D MCH 31.7 MCHC 32.4 RDW 19.6 H Plt Count 348 MPV 8.4 L Immature Gran % (Auto) 1.8 H Neut % (Auto) 70.6 Lymph % (Auto) 18.3 L [place] % (Auto) 6.5 Eos % (Auto) 2.3 Baso % (Auto) 0.5 Lymph # (Auto) 2.3 [place] # (Auto) 0.8 Eos # (Auto) 0.3 Baso # (Auto) 0.1 Abs Immat Gran (auto) 0.23 H Absolute Neuts (auto) 8.9 H Absolute Nucleated RBC 0.090 H Nucleated RBC % (auto) 0.7 H D-Dimer High Sensitivty Sodium Potassium Chloride Carbon Dioxide Anion Gap BUN Creatinine Estim Creat Clear Calc Estimated GFR Random Glucose Calcium Iron TIBC % Saturation Unsat Iron Binding Ferritin Total Bilirubin AST ALT Alkaline Phosphatase Troponin I High Sens 19.4 H B-Natriuretic Peptide Total Protein Albumin Vitamin B12 Folate Urine Color Yellow Urine Appearance Clear Urine pH 5.5 Ur Specific [place] 1.020 Urine Protein Negative Urine Glucose (UA) Negative Urine Ketones Negative Urine Blood Negative Urine Nitrite Positive H Ur Leukocyte Esterase Negative Urine RBC 0-2 Urine WBC 0-5 Ur Squamous Epith Cells 0-2 Urine Bacteria 2+ Hyaline Casts 0-2 Stool Occult Blood Influenza Type A (PCR) Influenza Type B (PCR) RSV RNA Qual (PCR) SARS-CoV-2 RNA (RT-PCR) Blood Type Antibody Screen Crossmatch 03/05/22 03/06/22 03/06/22 07:18 08:11 08:11 WBC 10.2 RBC 2.28 L Hgb 7.4 L Hct 22.1 L MCV 96.9 MCH 32.5 MCHC 33.5 RDW 20.0 H Plt Count 292 MPV 8.3 L Immature Gran % (Auto) 1.3 H Neut % (Auto) 73.1 H Lymph % (Auto) 16.4 L [place] % (Auto) 6.5 Eos % (Auto) 2.2 Baso % (Auto) 0.5 Lymph # (Auto) 1.7 [place] # (Auto) 0.7 Eos # (Auto) 0.2 Baso # (Auto) 0.1 Abs Immat Gran (auto) 0.13 H Absolute Neuts (auto) 7.5 Absolute Nucleated RBC 0.020 H Nucleated RBC % (auto) 0.2 D-Dimer High Sensitivty Sodium 139 139 Potassium 3.7 3.7 Chloride 108 108 Carbon Dioxide 23 22 Anion Gap 12 13 BUN 31 H 31 H Creatinine 0.72 0.78 Estim Creat Clear Calc 60.4 55.8 Estimated GFR > 60 > 60 Random Glucose 99 96 Calcium 8.4 8.2 L Iron TIBC % Saturation Unsat Iron Binding Ferritin 176 Total Bilirubin AST ALT Alkaline Phosphatase Troponin I High Sens B-Natriuretic Peptide Total Protein Albumin Vitamin B12 Folate Urine Color Urine Appearance Urine pH Ur Specific [place] Urine Protein Urine Glucose (UA) Urine Ketones Urine Blood Urine Nitrite Ur Leukocyte Esterase Urine RBC Urine WBC Ur Squamous Epith Cells Urine Bacteria Hyaline Casts Stool Occult Blood Influenza Type A (PCR) Influenza Type B (PCR) RSV RNA Qual (PCR) SARS-CoV-2 RNA (RT-PCR) Blood Type Antibody Screen Crossmatch Airway Mallampati Class: III TM Dist: >3cm Neck ROM: Full Partial: Upper and Lower Loose/Missing/Broken Teeth: Yes Assessment and Plan Assessment Anesthesia Assessment: Anesthesia Plan Discussed and Chart Reviewed Final Anesthetic Review Family History of Problems with Anesthesia: No History of Problems with Anesthesia: No NPO: Yes ASA Class: IV and Emergency Final Preanesthetic Review: No Changes in Pt Med Stat, Meds/Allgs Chart Reviewed, Consent Obtained/Reviewed and Anes Risks/Benef Reviewed Patient Risk: High Procedure Risk: Low Anesthetic Plan Anesthetic Plan: MAC: Disposition: Standard PACU
--- NOTE | 2022-03-06 13:42 | HO.PM.IMPN ---
Subjective Subjective Date of Service: 03/06/22 Interval History: Seen in follow up for symptomatic anemia with GI bleed Interval history: Denies abd pain, n,v, hematochezia. Completed most of colonoscopy prep but still having some loose dark stool. Pt wants to eat. H/H improved to 7.4/22.1%. No lightheadedness, sob, cp. Review of Systems General: No fevers, malaise, unintentional weight loss Cardiovascular: No chest pain, palpitations, or leg edema Respiratory: No shortness of breath, wheezing, cough GI: +dark stool. No abdominal pain, nausea, vomiting, diarrhea, constipation, hematochezia MSK: No myalgia, back pain Neuro: No headaches, weakness, paresthesias Skin: No rashes or lesions Physical Exam Vital Signs: Vital Signs: Last Vital Signs Temp 98.0 F 03/06/22 13:18 Pulse 89 03/06/22 13:18 Resp 16 03/06/22 13:18 BP 112/46 L 03/06/22 13:18 Pulse Ox 99 03/06/22 13:18 O2 Del Method 03/06/22 13:18 BMI result Body Mass Index 28.3 Constitutional - Awake and Alert, No apparent distress Eyes - PERRLA, EOMI Cardiovascular - S1S2, RRR, No edema Respiratory - Normal lung expansion, Normal respiratory effort, No respiratory distress, CTA bilaterally Gastrointestinal - NT / ND; +BS; No rebound or guarding Extremities - no calf tenderness bilaterally, no swelling Skin - Warm/Dry Neurological - Alert & oriented x3 Psychological - Appropriate affect Objective Data Active Medications Acetaminophen (Acetaminophen 325 Mg Tablet) 650 mg PO Q6H PRN PRN Reason: Pain, Mild (Pain Scale 1-3) Last Admin: 03/06/22 03:30 Dose: 650 mg Documented By: RACHEL Amlodipine Besylate (Amlodipine Besylate 5 Mg Tablet) 5 mg PO DAILY [facility] Last Admin: 03/06/22 09:24 Dose: 5 mg Documented By: LUMA Atorvastatin Calcium (Atorvastatin Calcium 10 Mg Tablet) 10 mg PO BEDTIME [facility] Last Admin: 03/05/22 21:17 Dose: 10 mg Documented By: KELL Docusate Sodium (Docusate Sodium 100 Mg Capsule) 100 mg PO DAILY PRN PRN Reason: Constipation Docusate Sodium (Docusate Sodium 100 Mg Capsule) 100 mg PO BID [facility] Last Admin: 03/06/22 09:24 Dose: 100 mg Documented By: LUMA Ferrous Sulfate (Ferrous Sulfate 324 Mg Tablet.) 324 mg PO BID [facility] Last Admin: 03/06/22 09:24 Dose: 324 mg Documented By: LUMA Levothyroxine Sodium (Levothyroxine Sodium 125 Mcg Tablet) 125 mcg PO DAILY@0600 [facility] Last Admin: 03/06/22 05:19 Dose: 125 mcg Documented By: RACHEL Lisinopril (Lisinopril 20 Mg Tablet) 20 mg PO DAILY [facility] Last Admin: 03/06/22 09:24 Dose: 20 mg Documented By: LUMA Ondansetron HCl (Ondansetron Hcl 4 Mg/2 Ml Vial) 4 mg IVPUSH Q8H PRN PRN Reason: Nausea and Vomiting Oxycodone HCl (Oxycodone Hcl Immed Release 5 Mg Tablet) 5 mg PO Q6H PRN PRN Reason: Pain, Moderate (Pain Scale 4-6 Last Admin: 03/06/22 05:19 Dose: 5 mg Documented By: RACHEL Pantoprazole Sodium (Pantoprazole Sodium 40 Mg/10 Ml Vial) 40 mg IVPUSH BID@0630,1630 [facility] Last Admin: 03/06/22 05:19 Dose: 40 mg Documented By: RACHEL Sodium Biphosphate/Sodium Phosphate (Sodium Phosphate,[place]-Dibasic 133 Ml Enema) 133 ml [place] ONCE PRN PRN Reason: Constipation Last Admin: 03/06/22 11:09 Dose: 133 ml Documented By: LUMA Sodium Chloride (0.9 % Sodium Chloride Flush 3 Ml Syringe) 3 ml IVFLUSH QSHIFT [facility] Last Admin: 03/06/22 09:24 Dose: 3 ml Documented By: LUMA Labs CBC & Chem 7: 03/06/22 08:11 03/06/22 08:11 Labs: Laboratory Results - last 24 hr 03/04/22 03/06/22 03/06/22 21:45 08:11 08:11 MCV 96.9 MCH 32.5 MCHC 33.5 RDW 20.0 H Plt Count 292 MPV 8.3 L Immature Gran % (Auto) 1.3 H Neut % (Auto) 73.1 H Lymph % (Auto) 16.4 L [place] % (Auto) 6.5 Eos % (Auto) 2.2 Baso % (Auto) 0.5 Lymph # (Auto) 1.7 [place] # (Auto) 0.7 Eos # (Auto) 0.2 Baso # (Auto) 0.1 Abs Immat Gran (auto) 0.13 H Absolute Neuts (auto) 7.5 Absolute Nucleated RBC 0.020 H Nucleated RBC % (auto) 0.2 Anion Gap 13 Estim Creat Clear Calc 55.8 Estimated GFR > 60 Random Glucose 96 Calcium 8.2 L Crossmatch See Detail Microbiology Microbiology Results: Microbiology 03/05/22 Unknown Urine Culture - Preliminary Urine clean catch - Urine cardoso top Gram negative aston Assessment and Plan (1) Symptomatic anemia: Status: Acute (2) GI bleed: Status: Acute Plan ?this is a 81-year-old female with past medical history of iron deficiency anemia on iron supplement presents to the hospital with dizziness,? and dyspnea on exertion found to have acute on chronic anemia #? acute on chronic microcytic anemia- symptoms improved -? H/H improving, now 7.4/22.1% following 3 transfusions since arrival - Iron, TIBC, ferritin normal -? likely secondary to GI bleed -? positive occult stool -? GI consulted #? GI bleed anemia -? positive occult stool - Continue PPI - Endoscopy today. Completed most colonoscopy prep, but noted to have loose dark stool. Fleet enema ordered -?Hold celebrex -? GI input appreciated #? hyperlipidemia -? continue statin #? hypertension -? BP slightly on the lower end -? will hold antihypertensives until? BP more stable #? hypothyroidism -? continue levothyroxine ?DVT prophylaxis: SCDs Pt requires ongoing inpt stay for management of symptomatic anemia, requiring blood transfusions and close monitoring of blood counts and telemetry that cannot be achieved outpt. Time Spent With Patient Time: Total time managing care of this patient today ____ minutes. Quality Stroke Does the patient have a stroke diagnosis?: No VTE Prior VTE?: No VTE Risk Level:: Medical - moderate - high VTE Device Contraindication: N/A - Device Ordered VTE Drug Contraindication: Treatment Not Indicated
[2022-03-06] MEDS: PEG 3350/Na Sulf,Bicarb,Cl/KCL 4,000 ML SOLN.RECON 4000 ML PO (14:08)
[2022-03-06] MEDS: Atorvastatin Calcium 10 MG TABLET PO (20:30)
[2022-03-07] VITALS (8 sets, daily range): BP systolic 93–141; BP diastolic 44–74; PULSE 75–94; RESP 16–18; TEMP 36.1–37.1; O2SAT 94–99
--- NOTE | 2022-03-07 00:20 | PC.NURSE ---
Pt arrived to the unit in a wheel chair with a LEASING REPRESENTATIVE. Pt is A/O X 4, in no apparent respiratory distress, lung sounds are clear. Bowel sounds positive in all 4 quads; completed go lightly bowel prep, pt having small amounts of liquid stools. Pt verbalized understanding of NPO status. Pt using the bedside commode, denies dizziness or lightheadedness on standing. Pt is resting comfortable, and aware of plan of care.
[2022-03-07] MEDS: Pantoprazole Sodium 40 MG/10 ML VIAL IVPUSH ×2 (05:15→16:21)
[2022-03-07] MEDS: Levothyroxine Sodium 125 MCG TABLET PO (05:15)
[2022-03-07] MEDS: oxyCODONE HCl Immed Release 5 MG TABLET PO ×2 (05:28→12:21)
[2022-03-07] MEDS: Acetaminophen 325 MG TABLET 650 MG PO ×2 (05:29→12:21)
[2022-03-07 07:28] LABS: MANUAL DIFF FLAG NO
[2022-03-07] MEDS: Ferrous Sulfate 324 MG TABLET.DR PO (07:30)
[2022-03-07] MEDS: lisinopriL 20 MG TABLET PO (07:30)
[2022-03-07] MEDS: amLODIPine Besylate 5 MG TABLET PO (07:30)
[2022-03-07 07:37] LABS: Basophils Percent Auto 0.5 % (0-2); Eosinophils Absolute Auto 0.1 X10*3/uL (0.0-0.4); Eosinophils Percent Auto 1.8 % (0-4); Hematocrit 21.5 % (37.0-47.0); Hemoglobin 7.1 g/dl (12.0-16.0); Imm Gran Abs Auto 0.06 X10*3/uL (0.00-0.03); Imm Gran Pct Auto 0.8 % (0.0-0.4); Lymphocytes Absolute Auto 1.1 X10*3/uL (1.2-4.9); Lymphocytes Percent Auto 14.4 % (20-40); Mean Corpuscular Hemoglobin 32.6 pg (27.0-33.0); Mean Corpuscular Volume 98.6 fL (80.0-98.0); Mean Platelet Volume 8.1 fL (9.4-12.3); Monocytes Absolute Auto 0.6 X10*3/uL (0.1-1.2); Monocytes Percent Auto 7.7 % (2-11); Neutrophils Absolute Auto 5.7 x10*3/uL (2.0-8.3); Neutrophils Percent Auto 74.8 % (45-73); Platelet Count 271 X10*3/uL (160-400); Red Blood Count 2.18 X10*6/uL (4.20-5.50); Red Cell Distribution Width 19.9 % (11.0-16.0); White Blood Count 7.6 X10*3/uL (4.8-10.8)
[2022-03-07 07:47] LABS: Anion Gap 11 (12-20); Blood Urea Nitrogen 17 mg/dL (9-16); Carbon Dioxide 24 mmol/L (22-29); Chloride 110 mmol/L (96-108); Creatinine Clr Calc Pharmacy 64.9; Estimated Glomerular Filt Rate > 60; Glucose Random 104 mg/dL (60-115); Potassium 3.4 mmol/L (3.3-5.1); Sodium 142 mmol/L (135-145)
--- NOTE | 2022-03-07 08:36 | P.CDIC_ITS ---
CDI Concurrent Query Documentation Clarification: PHYSICIAN'S DOCUMENTATION REQUEST Date of Query: 03/07/22 0837 Patient Name: Janice St Admit Date: 03/04/22 Dear Doctor, A review of the medical record indicates additional documentation may be needed. Please review below and update the documentation accordingly. Clinical Indicators: Risk Factors/Clinical Indicators/Treatments PN: Symptomatic anemia, GI bleed, positive occult stool, dizziness when walking. H&H improved with Transfusion of 2 units PRBC in ED, additional 1 unit of PRBC. HGB 4.8 HCT 15.2 BP 113/56 L PMH: Iron deficiency anemia Based on the above, could you clarify in the Progress Notes which of the following is the most likely type of anemia you are evaluating, treating, and/or monitoring? * Iron deficiency anemia due to chronic blood loss * Iron deficiency anemia due to acute on chronic blood loss * Other ? please specify * Unable to determine Use of terms such as suspected, likely, concern for, or probable (associated with a specific diagnosis that is being evaluated, monitored, or treated as if it exists) are acceptable and can be coded in the inpatient setting, when documented at the time of discharge. Thank you, Belgica Caceres [facility], CDIS Extension: [phone] Please use your independent medical judgment in providing your response. THIS QUERY IS PART OF THE PERMANENT MEDICAL RECORD Provider Response: Other Other Diagnosis: Acute on chronic iron deficiency anemia, unable to determine cause at this time
--- NOTE | 2022-03-07 10:51 | P.CONAN_ITS ---
Documented by User: Trenton Toney MD 03/07/22 11:20 HPI - Anesthesia Eval Consult details Narrative: 81 F returning for colonoscopy. mod-severe symptomatic anemia PMFSH Past Medical History Medical History Aortic valvular disease Elevated cholesterol Essential hypertension HTN (hypertension) Hx of osteomyelitis Hypothyroid Iron deficiency anemia Non-rheumatic aortic stenosis Osteoarthritis Other and unspecified hyperlipidemia Primary osteoarthritis of hands, bilateral Primary osteoarthritis of right hip Primary osteoarthritis of right knee Thyroid disease Family History Family History Father Myocardial infarction CVD (cardiovascular disease) Mother No problems noted. Brother Bladder cancer Daughter Cervical cancer Son Knee pain Surgical History Surgical History Amputation of finger of left hand History of History of hip replacement History of total left hip arthroplasty History of total left knee replacement History of total right hip replacement Hx of colonoscopy Hx of surgical amputation of finger Social History Social History Household Members: None Housing: Apartment Are you a primary day care director to a significant other at home: No Do you presently have visiting nurse or other home services: No Unable to assess alcohol history related to: Unknown Alcohol intake: current Alcohol intake frequency: does not drink Alcohol type: wine Patient Tobacco Use Status: Never used Tobacco Smoked in Last 30 Days: No e-Cigarette/Vaping Use: Never Used Second Hand Smoke Exposure: No Use of substances other than those prescribed or required for medical reasons: No Currently Displaying Signs/Symptoms of Drug Intoxication Withdrawal: No Have you been hit, kicked, punched, or otherwise hurt by someone within the past year? If so, by whom?: No Do you feel safe in your current relationship?: No Current Relationship Is there a partner from a previous relationship who is making you feel unsafe now?: No Are you made to feel afraid or neglected: No Are you DNR?: No Advance Directives: No Advance Directives Information Provided: No Do you have thoughts of harming others: None Do you have a plan to hurt others: No Plan Recently lost weight without trying: No Eating poorly because of decreased appetite: No Nutrition Risks: No Nutritional Risk Patient : No : No Poor oral hygiene: No service: No Current occupational status: employed Cognitive needs: No Hearing needs: Yes (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) Vision needs: Yes Meds Allergies Allergy/AdvReac Type Severity Reaction Status Date / Time No Known Allergies Allergy Verified 03/04/22 19:26 Exam Airway Mallampati Class: III TM Dist: >3cm Neck ROM: Full Partial: Upper and Lower Loose/Missing/Broken Teeth: Yes Assessment and Plan Assessment Anesthesia Assessment: Anesthesia Plan Discussed and Chart Reviewed Final Anesthetic Review NPO: Yes ASA Class: IV Final Preanesthetic Review: No Changes in Pt Med Stat, Meds/Allgs Chart Reviewed, Consent Obtained/Reviewed and Anes Risks/Benef Reviewed Patient Risk: High Procedure Risk: Low Anesthetic Plan Anesthetic Plan: MAC: and Regional Block Documented by User: Babar Acharya [facility] Active Problems Active Problems: All Active Problems (Updated 03/05/22 @ 07:15 by Aman Waters MD) Symptomatic anemia (Acute) Acute on chronic anemia (Acute) Severe anemia (Acute) GI bleed (Acute) Status post total right knee replacement (Acute) Pre-op evaluation (Acute) Status post total hip replacement, right (Acute) History of total right hip arthroplasty (Acute) HLD (hyperlipidemia) (Acute) Anemia (Acute) Elevated serum creatinine (Acute) Neck pain on left side (Acute) Osteoarthritis, hand (Acute) Contracture, 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 (Acute) Preoperative cardiovascular examination (Acute) Other and unspecified hyperlipidemia (Acute) Essential hypertension (Acute) Non-rheumatic aortic stenosis (Acute) Primary osteoarthritis of right knee (Acute) Primary osteoarthritis of hands, bilateral (Acute) HTN (hypertension) (Acute) Hypothyroid (Acute) Past Medical History Medical History Aortic valvular disease Elevated cholesterol Essential hypertension HTN (hypertension) Hx of osteomyelitis Hypothyroid Iron deficiency anemia Non-rheumatic aortic stenosis Osteoarthritis Other and unspecified hyperlipidemia Primary osteoarthritis of hands, bilateral Primary osteoarthritis of right hip Primary osteoarthritis of right knee Thyroid disease Family History Family History Father Myocardial infarction CVD (cardiovascular disease) Mother No problems noted. Brother Bladder cancer Daughter Cervical cancer Son Knee pain Family history of problems with anesthesia: No Surgical History Surgical History Amputation of finger of left hand History of History of hip replacement History of total left hip arthroplasty History of total left knee replacement History of total right hip replacement Hx of colonoscopy Hx of surgical amputation of finger History of Problems with Anesthesia: No Social History Social History Household Members: None Housing: Apartment Are you a primary day care director to a significant other at home: No Do you presently have visiting nurse or other home services: No Unable to assess alcohol history related to: Unknown Alcohol intake: current Alcohol intake frequency: does not drink Alcohol type: wine Patient Tobacco Use Status: Never used Tobacco Smoked in Last 30 Days: No e-Cigarette/Vaping Use: Never Used Second Hand Smoke Exposure: No Use of substances other than those prescribed or required for medical reasons: No Currently Displaying Signs/Symptoms of Drug Intoxication Withdrawal: No Have you been hit, kicked, punched, or otherwise hurt by someone within the past year? If so, by whom?: No Do you feel safe in your current relationship?: No Current Relationship Is there a partner from a previous relationship who is making you feel unsafe now?: No Are you made to feel afraid or neglected: No Are you DNR?: No Advance Directives: No Advance Directives Information Provided: No Do you have thoughts of harming others: None Do you have a plan to hurt others: No Plan Recently lost weight without trying: No Eating poorly because of decreased appetite: No Nutrition Risks: No Nutritional Risk Patient : No : No Poor oral hygiene: No service: No Current occupational status: employed Cognitive needs: No Hearing needs: Yes (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) Vision needs: Yes Meds Allergies Allergy/AdvReac Type Severity Reaction Status Date / Time No Known Allergies Allergy Verified 03/04/22 19:26 Active Medications: Current Medications Acetaminophen (Acetaminophen 325 Mg Tablet) 650 mg PO Q6H PRN PRN Reason: Pain, Mild (Pain Scale 1-3) Last Admin: 03/07/22 05:29 Dose: 650 mg Amlodipine Besylate (Amlodipine Besylate 5 Mg Tablet) 5 mg PO DAILY [facility] Last Admin: 03/07/22 07:30 Dose: 5 mg Atorvastatin Calcium (Atorvastatin Calcium 10 Mg Tablet) 10 mg PO BEDTIME [facility] Last Admin: 03/06/22 20:30 Dose: 10 mg Docusate Sodium (Docusate Sodium 100 Mg Capsule) 100 mg PO DAILY PRN PRN Reason: Constipation Docusate Sodium (Docusate Sodium 100 Mg Capsule) 100 mg PO BID [facility] Last Admin: 03/07/22 07:32 Dose: Not Given Ferrous Sulfate (Ferrous Sulfate 324 Mg Tablet.Dr) 324 mg PO BID [facility] Last Admin: 03/07/22 07:30 Dose: 324 mg Levothyroxine Sodium (Levothyroxine Sodium 125 Mcg Tablet) 125 mcg PO DAILY@0600 [facility] Last Admin: 03/07/22 05:15 Dose: 125 mcg Lisinopril (Lisinopril 20 Mg Tablet) 20 mg PO DAILY [facility] Last Admin: 03/07/22 07:30 Dose: 20 mg Ondansetron HCl (Ondansetron Hcl 4 Mg/2 Ml Vial) 4 mg IVPUSH Q8H PRN PRN Reason: Nausea and Vomiting Ondansetron HCl (Ondansetron Hcl 4 Mg/2 Ml Vial) 4 mg IVPUSH ONCE PRN PRN Reason: Nausea and Vomiting Oxycodone HCl (Oxycodone Hcl Immed Release 5 Mg Tablet) 5 mg PO Q6H PRN PRN Reason: Pain, Moderate (Pain Scale 4-6 Last Admin: 03/07/22 05:28 Dose: 5 mg Pantoprazole Sodium (Pantoprazole Sodium 40 Mg/10 Ml Vial) 40 mg IVPUSH BID@0630,1630 [facility] Last Admin: 03/07/22 05:15 Dose: 40 mg Sodium Biphosphate/Sodium Phosphate (Sodium Phosphate,[place]-Dibasic 133 Ml Enema) 133 ml MI ONCE PRN PRN Reason: Constipation Last Admin: 03/06/22 11:09 Dose: 133 ml Sodium Chloride (0.9 % Sodium Chloride Flush 3 Ml Syringe) 3 ml IVFLUSH QSHIFT [facility] Last Admin: 03/07/22 07:31 Dose: 3 ml Exam Exam Date and Time: March 07, 2022 1051 Height,Weight and Vital Signs: Height 5 ft 3 in Weight 72.575 kg Last Vital Signs Temp 97 F 03/07/22 07:00 Pulse 76 03/07/22 07:00 Resp 18 03/07/22 07:00 BP 115/66 03/07/22 07:00 Pulse Ox 98 03/07/22 07:00 O2 Del Method 03/07/22 09:36 Pertinent Lab Results Pertinent Lab Results: Laboratory Tests 03/04/22 03/04/22 03/04/22 21:06 21:07 21:07 WBC 12.4 H RBC 1.48 L D Hgb 4.8 L* D Hct 15.2 L* D MCV 102.7 H MCH 32.4 MCHC 31.6 RDW 18.4 H Plt Count 380 D MPV 8.2 L Immature Gran % (Auto) 1.5 H Neut % (Auto) 76.6 H Lymph % (Auto) 15.0 L [place] % (Auto) 5.1 Eos % (Auto) 1.4 Baso % (Auto) 0.4 Lymph # (Auto) 1.9 [place] # (Auto) 0.6 Eos # (Auto) 0.2 Baso # (Auto) 0.1 Abs Immat Gran (auto) 0.18 H Absolute Neuts (auto) 9.5 H Absolute Nucleated RBC 0.040 H Nucleated RBC % (auto) 0.3 H D-Dimer High Sensitivty 1042 Sodium Potassium Chloride Carbon Dioxide Anion Gap BUN Creatinine Estim Creat Clear Calc Estimated GFR Random Glucose Calcium Iron TIBC % Saturation Unsat Iron Binding Ferritin Total Bilirubin AST ALT Alkaline Phosphatase Troponin I High Sens B-Natriuretic Peptide Total Protein Albumin Vitamin B12 Folate Urine Color Urine Appearance Urine pH Ur Specific [place] Urine Protein Urine Glucose (UA) Urine Ketones Urine Blood Urine Nitrite Ur Leukocyte Esterase Urine RBC Urine WBC Ur Squamous Epith Cells Urine Bacteria Hyaline Casts Stool Occult Blood Influenza Type A (PCR) NEGATIVE Influenza Type B (PCR) NEGATIVE RSV RNA Qual (PCR) NEGATIVE SARS-CoV-2 RNA (RT-PCR) NEGATIVE Blood Type Antibody Screen Crossmatch 03/04/22 03/04/22 03/04/22 21:07 21:07 21:07 WBC RBC Hgb Hct MCV MCH MCHC RDW Plt Count MPV Immature Gran % (Auto) Neut % (Auto) Lymph % (Auto) [place] % (Auto) Eos % (Auto) Baso % (Auto) Lymph # (Auto) [place] # (Auto) Eos # (Auto) Baso # (Auto) Abs Immat Gran (auto) Absolute Neuts (auto) Absolute Nucleated RBC Nucleated RBC % (auto) D-Dimer High Sensitivty Sodium 140 Potassium 3.7 Chloride 108 Carbon Dioxide 23 Anion Gap 13 BUN 39 H D Creatinine 0.83 Estim Creat Clear Calc 52.4 Estimated GFR > 60 Random Glucose 142 H Calcium 8.6 D Iron 78 TIBC 278 % Saturation 28 Unsat Iron Binding 200 Ferritin Total Bilirubin 0.2 AST 14 ALT 11 Alkaline Phosphatase 72 Troponin I High Sens 27.5 H B-Natriuretic Peptide 110 H Total Protein 5.8 L D Albumin 3.7 Vitamin B12 Folate Urine Color Urine Appearance Urine pH Ur Specific [place] Urine Protein Urine Glucose (UA) Urine Ketones Urine Blood Urine Nitrite Ur Leukocyte Esterase Urine RBC Urine WBC Ur Squamous Epith Cells Urine Bacteria Hyaline Casts Stool Occult Blood Influenza Type A (PCR) Influenza Type B (PCR) RSV RNA Qual (PCR) SARS-CoV-2 RNA (RT-PCR) Blood Type Antibody Screen Crossmatch 03/04/22 03/04/22 03/04/22 21:07 21:45 22:16 WBC RBC Hgb Hct MCV MCH MCHC RDW Plt Count MPV Immature Gran % (Auto) Neut % (Auto) Lymph % (Auto) [place] % (Auto) Eos % (Auto) Baso % (Auto) Lymph # (Auto) [place] # (Auto) Eos # (Auto) Baso # (Auto) Abs Immat Gran (auto) Absolute Neuts (auto) Absolute Nucleated RBC Nucleated RBC % (auto) D-Dimer High Sensitivty Sodium Potassium Chloride Carbon Dioxide Anion Gap BUN Creatinine Estim Creat Clear Calc Estimated GFR Random Glucose Calcium Iron TIBC % Saturation Unsat Iron Binding Ferritin Total Bilirubin AST ALT Alkaline Phosphatase Troponin I High Sens B-Natriuretic Peptide Total Protein Albumin Vitamin B12 182 L Folate 15.8 Urine Color Urine Appearance Urine pH Ur Specific [place] Urine Protein Urine Glucose (UA) Urine Ketones Urine Blood Urine Nitrite Ur Leukocyte Esterase Urine RBC Urine WBC Ur Squamous Epith Cells Urine Bacteria Hyaline Casts Stool Occult Blood POSITIVE Influenza Type A (PCR) Influenza Type B (PCR) RSV RNA Qual (PCR) SARS-CoV-2 RNA (RT-PCR) Blood Type O Positive Antibody Screen NEGATIVE Crossmatch See Detail 03/05/22 03/05/22 03/05/22 00:41 01:26 07:18 WBC 12.5 H RBC 2.18 L D Hgb 6.9 L* D Hct 21.3 L D MCV 97.7 D MCH 31.7 MCHC 32.4 RDW 19.6 H Plt Count 348 MPV 8.4 L Immature Gran % (Auto) 1.8 H Neut % (Auto) 70.6 Lymph % (Auto) 18.3 L [place] % (Auto) 6.5 Eos % (Auto) 2.3 Baso % (Auto) 0.5 Lymph # (Auto) 2.3 [place] # (Auto) 0.8 Eos # (Auto) 0.3 Baso # (Auto) 0.1 Abs Immat Gran (auto) 0.23 H Absolute Neuts (auto) 8.9 H Absolute Nucleated RBC 0.090 H Nucleated RBC % (auto) 0.7 H D-Dimer High Sensitivty Sodium Potassium Chloride Carbon Dioxide Anion Gap BUN Creatinine Estim Creat Clear Calc Estimated GFR Random Glucose Calcium Iron TIBC % Saturation Unsat Iron Binding Ferritin Total Bilirubin AST ALT Alkaline Phosphatase Troponin I High Sens 19.4 H B-Natriuretic Peptide Total Protein Albumin Vitamin B12 Folate Urine Color Yellow Urine Appearance Clear Urine pH 5.5 Ur Specific [place] 1.020 Urine Protein Negative Urine Glucose (UA) Negative Urine Ketones Negative Urine Blood Negative Urine Nitrite Positive H Ur Leukocyte Esterase Negative Urine RBC 0-2 Urine WBC 0-5 Ur Squamous Epith Cells 0-2 Urine Bacteria 2+ Hyaline Casts 0-2 Stool Occult Blood Influenza Type A (PCR) Influenza Type B (PCR) RSV RNA Qual (PCR) SARS-CoV-2 RNA (RT-PCR) Blood Type Antibody Screen Crossmatch 03/05/22 03/06/22 03/06/22 07:18 08:11 08:11 WBC 10.2 RBC 2.28 L Hgb 7.4 L Hct 22.1 L MCV 96.9 MCH 32.5 MCHC 33.5 RDW 20.0 H Plt Count 292 MPV 8.3 L Immature Gran % (Auto) 1.3 H Neut % (Auto) 73.1 H Lymph % (Auto) 16.4 L [place] % (Auto) 6.5 Eos % (Auto) 2.2 Baso % (Auto) 0.5 Lymph # (Auto) 1.7 [place] # (Auto) 0.7 Eos # (Auto) 0.2 Baso # (Auto) 0.1 Abs Immat Gran (auto) 0.13 H Absolute Neuts (auto) 7.5 Absolute Nucleated RBC 0.020 H Nucleated RBC % (auto) 0.2 D-Dimer High Sensitivty Sodium 139 139 Potassium 3.7 3.7 Chloride 108 108 Carbon Dioxide 23 22 Anion Gap 12 13 BUN 31 H 31 H Creatinine 0.72 0.78 Estim Creat Clear Calc 60.4 55.8 Estimated GFR > 60 > 60 Random Glucose 99 96 Calcium 8.4 8.2 L Iron TIBC % Saturation Unsat Iron Binding Ferritin 176 Total Bilirubin AST ALT Alkaline Phosphatase Troponin I High Sens B-Natriuretic Peptide Total Protein Albumin Vitamin B12 Folate Urine Color Urine Appearance Urine pH Ur Specific [place] Urine Protein Urine Glucose (UA) Urine Ketones Urine Blood Urine Nitrite Ur Leukocyte Esterase Urine RBC Urine WBC Ur Squamous Epith Cells Urine Bacteria Hyaline Casts Stool Occult Blood Influenza Type A (PCR) Influenza Type B (PCR) RSV RNA Qual (PCR) SARS-CoV-2 RNA (RT-PCR) Blood Type Antibody Screen Crossmatch 03/07/22 03/07/22 07:23 07:24 WBC 7.6 RBC 2.18 L Hgb 7.1 L Hct 21.5 L MCV 98.6 H MCH 32.6 MCHC 33.0 RDW 19.9 H Plt Count 271 MPV 8.1 L Immature Gran % (Auto) 0.8 H Neut % (Auto) 74.8 H Lymph % (Auto) 14.4 L [place] % (Auto) 7.7 Eos % (Auto) 1.8 Baso % (Auto) 0.5 Lymph # (Auto) 1.1 L [place] # (Auto) 0.6 Eos # (Auto) 0.1 Baso # (Auto) 0.0 Abs Immat Gran (auto) 0.06 H Absolute Neuts (auto) 5.7 Absolute Nucleated RBC 0.000 Nucleated RBC % (auto) 0.0 D-Dimer High Sensitivty Sodium 142 Potassium 3.4 Chloride 110 H Carbon Dioxide 24 Anion Gap 11 L BUN 17 H Creatinine 0.67 Estim Creat Clear Calc 64.9 Estimated GFR > 60 Random Glucose 104 Calcium 8.0 L Iron TIBC % Saturation Unsat Iron Binding Ferritin Total Bilirubin AST ALT Alkaline Phosphatase Troponin I High Sens B-Natriuretic Peptide Total Protein Albumin Vitamin B12 Folate Urine Color Urine Appearance Urine pH Ur Specific [place] Urine Protein Urine Glucose (UA) Urine Ketones Urine Blood Urine Nitrite Ur Leukocyte Esterase Urine RBC Urine WBC Ur Squamous Epith Cells Urine Bacteria Hyaline Casts Stool Occult Blood Influenza Type A (PCR) Influenza Type B (PCR) RSV RNA Qual (PCR) SARS-CoV-2 RNA (RT-PCR) Blood Type Antibody Screen Crossmatch Assessment and Plan Final Anesthetic Review Family History of Problems with Anesthesia: No History of Problems with Anesthesia: No
--- NOTE | 2022-03-07 11:04 | MHC.SHP ---
Pre-Procedural Eval Section A Date of Service: 03/07/22 The patient is an INPATIENT: Yes Section B Chief Complaint: Acute symptomatic anemia Details of Present Illness: Here for colonoscopy Allergies: Allergies Allergy/AdvReac Type Severity Reaction Status Date / Time No Known Allergies Allergy Verified 03/04/22 19:26 Plan Diagnosis/Plan: Unchanged I have reviewed the history and physical and performed a pertinent physical examination on my patient. No changes have occurred unless specified. Time Spent With Patient Time: Total time managing care of this patient today ____ minutes.
--- NOTE | 2022-03-07 11:06 | P.OP_ITS ---
Operative Note Operative Note Date of Service: 03/07/22 Narrative: Procedure: Colonoscopy Indication: Anemia Endoscopist: Zee Barksdale MD Anesthesia Provider: Dr Babar Acharya Anesthesia type: MAC Instrument: Olympus [id number]-[id number] Consent: Indication, risks vs benefits, and alternatives were discussed with the patient who gave written informed consent to proceed. EKG, pulse, pulse oximetry and blood pressure were monitored throughout the procedure. Please see anesthesia flowsheet. Procedure: The patient was brought to the procedure room and placed in the left lateral decubitus position. IV medications were administered by the anesthesia provider in attendance. A digital rectal exam was performed which was normal. The colonoscope was then inserted through the anus and advanced through the colon to the cecum at 70 cm,and terminal ileum. Ileocecal valve and appendiceal orifice were identified. Mucosa was carefully examined under high definition white light as the instrument was slowly withdrawn in a retrograde panoramic fashion. Retroflexion was performed in ascending colon and rectum. The procedure was not difficult. There were no immediate obvious complications. The quality of the prep was BBPS: 2+2+2 = adequate Withdrawal time 8 minutes. Limitations: No limitations. Findings: Mucosa: Flecks of black/dark green stool were seen throughout the colon as well as the terminal ileum (intubated 10 cm deep). No AVMs, large polyps or mass were noted. Small < 5mm lesions may have been missed due to prep. Protruding lesions: * Medium internal hemorrhoids without stigmata of recent bleeding. Impression: 1. Normal colon and terminal ileum mucosa to the extent visualised 2. Blackish/dark green stool likely from iron supplementation. 3. Internal hemorrhoids Recommendations: - Will arrange for outpatient video capsule endoscopy. - Will request pt to hold iron supplementation for at least 1 week prior to the study to optimize visualization. - Further CRC screening not recommended due to age.
--- NOTE | 2022-03-07 12:26 | MHC.CM.PN ---
NO DC TODAY MAY REQUIRE TRANSFUSION AND P.T. EVALUATION
--- NOTE | 2022-03-07 13:59 | HO.POSTANES ---
Post Anesthesia Evaluation Post Anesthesia Evaluation Vital Signs: Vital Signs Temp Pulse Resp BP Pulse Ox O2 Del Method 03/07/22 12:00 97 F 84 18 123/60 94 Room Air 03/07/22 11:56 97 F 77 16 114/54 L 99 Room Air 03/07/22 11:41 97 F 75 16 93/44 L 99 Room Air 03/07/22 10:52 98.7 F 86 16 132/51 L 96 Room Air 03/07/22 09:36 Room Air 03/07/22 07:00 97 F 76 18 115/66 98 Room Air 03/07/22 04:00 97.6 F 92 17 141/69 H 97 Room Air Anesthesia: Monitored Mental Status: Awake Pain Control: Satisfactory Nausea/Vomiting: None Hydration: Adequate Anesthesia-Related Issues: No Anes. Related Issues
--- NOTE | 2022-03-07 15:31 | PM.DS ---
DS: Providers Provider Date of Service: 03/07/22 Date of admission: 03/04/22 23:57 Date of discharge: 03/07/22 Primary care physician: Thomas Weller PA-C Attending physician on admission: Aman Waters Consults: 03/04/22 23:56 Consult to Gastroenterology Routine Consulting Provider: Zee Barksdale Reason for consultation: GI bleed anemia Has provider been notified: No Attending physician on discharge: Jeffry Spencer Discharging clinician: Leticia Arthur DS: Diagnosis Discharge Diagnosis (1) Symptomatic anemia: Status: Acute (2) GI bleed: Status: Acute DS: Summary Hospital Course Hospital Course: HPI on admission by Dr. Waters 03/05: ?this is a 81-year-old female with past medical history of hypertension, hypothyroidism,? aortic valvular disease, hyperlipidemia, hypothyroidism, chronic iron deficiency anemia, presents to the hospital with complaints of dizziness, shortness of breath on exertion.? Patient reports that her symptoms worsened over the past 3-4 days.? She has significant shortness of breath on exertion, as well as dizziness.? Patient denies any chest pain, no palpitations, denies any abdominal pain no nausea or vomiting, no urinary symptoms and no lower extremity edema.? Patient reports that she takes iron supplement chronically and her stools are always tarry /black with no new change. On arrival to the ED patient hemodynamically stable with no significant abnormal vitals ?labs are significant for WBC count of 12.4, hemoglobin of 4.8 which dropped from 9.3 in? January 27, medical 15.2, troponin of 27.5, 19.4 on repeat, BNP of 110, UA positive for nitrites but negative for leukocyte Estrace and small amount of WBC Stool occult blood positive Hospital Course: Patient admitted for acute symptomatic anemia with suspected GI bleed. She was transfused 3 units in the ED with improvement in H/H to 6.9/21.3 %, stable at 7.4/22.9 % the following morning. Patient was kept NPO and given IV ppi. She did report passing dark stool but attributed this to iron supplementation. She was evaluated by Gastroenterology. Underwent endoscopy which was normal. Colonoscopy showed normal colon and terminal ileum mucosa to the extent visualized as well as internal hemorrhoids that were not bleeding. There is also blackish stool noted likely from iron supplementation. Diet was advanced with good tolerance. Patient denies any bleeding episodes. Gastroenterology is recommending outpatient video capsule endoscopy. H/H on day of discharge 7.1/21.5%. No evidence of active bleeding on endoscopy or colonoscopy patient denies any bleeding episodes. She was evaluated by Physical therapy who is recommending discharge home and she can continue with outpatient physical therapy S/P right TKR. She is advised to follow up soon with her PCP for follow-up CBC within 1 week and also follow up outpatient with Gastroenterology for further evaluation of acute on chronic iron deficiency anemia. Status at Discharge Functional status at discharge: independent ambulation Overall status at discharge: patient is back to baseline Time Spent with Patient Discharge coordination time: Greater than 30 minutes Quality: Safe Use of Opioids Does Pt have an Active Cancer Diagnosis on the Problem List?: No Quality: Stroke Does the patient have a stroke diagnosis?: No Physical Exam Vital Signs: Vital Signs: Last Vital Signs Temp 97.7 F 03/07/22 14:57 Pulse 87 03/07/22 14:57 Resp 18 03/07/22 14:57 BP 99/49 L 03/07/22 14:57 Pulse Ox 94 03/07/22 14:57 O2 Del Method 03/07/22 14:57 BMI result Body Mass Index 28.3 Constitutional - Awake and Alert, No apparent distress Eyes - PERRLA, EOMI Cardiovascular - S1S2, RRR, No edema Respiratory - Normal lung expansion, Normal respiratory effort, No respiratory distress, CTA bilaterally Gastrointestinal - NT / ND; +BS; No rebound or guarding - No CVA tenderness Extremities - no calf tenderness bilaterally, no swelling Skin - Warm/Dry Neurological - Alert & oriented x3 Psychological - Appropriate affect DS: Data Data Completed and Pending Completed studies during hospitalization [Text1]: Procedures Replacement of Right Hip Joint with Synthetic Substitute, Uncemented, Open Approach (12/24/19) Replacement of Right Knee Joint with Synthetic Substitute, Uncemented, Open Approach (01/24/22) Transfusion of Nonautologous Red Blood Cells into Peripheral Vein, Percutaneous Approach (01/24/22) Labs on day of discharge: Laboratory Results - last 24 hr 03/07/22 03/07/22 07:23 07:24 WBC 7.6 RBC 2.18 L Hgb 7.1 L Hct 21.5 L MCV 98.6 H MCH 32.6 MCHC 33.0 RDW 19.9 H Plt Count 271 MPV 8.1 L Immature Gran % (Auto) 0.8 H Neut % (Auto) 74.8 H Lymph % (Auto) 14.4 L [place] % (Auto) 7.7 Eos % (Auto) 1.8 Baso % (Auto) 0.5 Lymph # (Auto) 1.1 L [place] # (Auto) 0.6 Eos # (Auto) 0.1 Baso # (Auto) 0.0 Abs Immat Gran (auto) 0.06 H Absolute Neuts (auto) 5.7 Absolute Nucleated RBC 0.000 Nucleated RBC % (auto) 0.0 Sodium 142 Potassium 3.4 Chloride 110 H Carbon Dioxide 24 Anion Gap 11 L BUN 17 H Creatinine 0.67 Estim Creat Clear Calc 64.9 Estimated GFR > 60 Random Glucose 104 Calcium 8.0 L Discharge Plan Discharge Anticipated Discharge Date/Time: 03/07/22 16:36 Patient Disposition: Home, Self-Care Discharge Diagnosis: Acute on chronic anemia Referrals: Thomas Weller PA-C [Primary Care Provider] - 1 Week Zee Barksdale MD [Physician] - 1 Week (Outpatient video capsule endoscopy) Discharge Medications: Continued atorvastatin 10 mg tablet 10 mg PO DAILY Qty: 30 6RF hydrochlorothiazide 12.5 mg capsule 12.5 mg PO QAM Qty: 30 6RF levothyroxine 125 mcg tablet 125 mcg PO DAILY 30 Days Qty: 30 6RF amlodipine-benazepril 5-20 mg capsule 1 cap PO DAILY Qty: 30 6RF ferrous sulfate 325 mg (65 mg iron) tablet 325 mg PO BID Qty: 60 6RF oxycodone 5 mg tablet 5 mg PO Q6H PRN (Reason: Pain, Moderate (Pain Scale 4-6) 7 Days Qty: 42 0RF Rx Instructions: Partial Fill upon patient request. docusate sodium 100 mg Capsule 100 mg PO BID 14 Days Qty: 28 0RF aspirin 325 mg Tablet 325 mg PO BID 42 Days Qty: 84 0RF celecoxib 100 mg Capsule 100 mg PO BID 30 Days Qty: 60 0RF acetaminophen 325 mg Tablet 650 mg PO Q6H PRN (Reason: Pain, Mild (Pain Scale 1-3)) 30 Days Qty: 240 0RF Discharge Orders: Discharge Order (Routine); Ordered 03/07/22 Ordered By: Leticia Arthur Diet: Regular diet Activity on Discharge: As tolerated Stand Alone Forms: Patient Portal Discharge page Care Plan Goals: Prevent worsening anemia Health Concerns: Acute on chronic anemia Severe aortic stenosis Plan of Treatment: Acute on chronic anemia -You required 3 units of packed red blood cells during your admission to manage your anemia. You are still anemic and should follow-up with your primary care provider to have blood counts assessed in 1 week. -during your admission you had an endoscopy and colonoscopy which did not show any source of active bleeding within the GI tract. There were internal hemorrhoids which can occasionally bleed but were not actively bleeding during this examination -continue ferrous sulfate as prescribed -return to the ED should do develop symptoms such as shortness of breath, lightheadedness, chest pains, severe fatigue, syncopal events Assessment: as above
--- NOTE | 2022-03-07 16:22 | MHC.CM.PN ---
P.T. RECOMMENDS PATIENT RESUME HER OUTPATIENT P.T.
== END 2022-03-07 18:37 | disposition home or self-care (01) | DRG 812 ==
LOC: HO.ED 03-05 00:18 → HO.EDOVER 03-05 00:23 → HO.IMC 03-05 01:52 → HO.S3 03-06 23:31
PROVIDERS: Internal Medicine; Nurse Practitioner Family; Admitting Provider Internal Medicine; Emergency Provider Internal Medicine; PCP Physician Assistant; Visit Provider Physician Assistant
PROC: 0DJ08ZZ Inspection of Upper Intestinal Tract, Via Natural or Artificial Opening Endoscopic (ICD-10-PCS; principal; 2022-03-06 11:30)
PROC: 0DJD8ZZ Inspection of Lower Intestinal Tract, Via Natural or Artificial Opening Endoscopic (ICD-10-PCS; CPT 45378; principal; 2022-03-07 16:50)
DX: D50.9 Iron deficiency anemia, unspecified (principal); K44.9 Diaphragmatic hernia without obstruction or gangrene; I35.0 Nonrheumatic aortic (valve) stenosis; E78.00 Pure hypercholesterolemia, unspecified; K64.8 Other hemorrhoids; I10 Essential (primary) hypertension; E03.9 Hypothyroidism, unspecified; Z20.822 Contact with and (suspected) exposure to COVID-19; Z79.82 Long term (current) use of aspirin; Z79.890 Hormone replacement therapy; Z79.899 Other long term (current) drug therapy
CPT/HCPCS: 0241U; 36415; 71045; 80048; 80053; 81001; 82272; 82607; 82728; 82746; 83540; 83880; 84484; 85025; 85379; 86850; 86900; 86901; 86923; 87086; 87088; 87186; 93005; 97161; 99285; J2370; P9016

== ENCOUNTER 2022-03-15 10:22 | Outpatient (REF) | payer OTHER, SELFPAY ==
--- NOTE | ~2022-03-15 | US_ITS ---
EXAMINATION: US VENOUS ULTRASOUND WITH DOPPLER LOWER EXTREMITY, RIGHT CLINICAL INFORMATION: Right lower extremity swelling. History of knee replacement. COMPARISON: None TECHNIQUE: Ultrasound of the deep veins is performed from the hip to the calf with compression sonography and color and pulse Doppler assessment. Spectral analysis with color-flow imaging is performed. FINDINGS: The common femoral vein is compressible and exhibits a normal phasic waveform; this suggests that the iliac veins are widely patent above. Within the proximal thigh, the visualized profunda femoris vein is normal. The examined greater saphenous vein and saphenofemoral junction are normal. Superficial femoral vein is patent in the proximal, mid and distal thigh. Popliteal vein is normal to the level of the trifurcation. On compression gomez scale and color Doppler images, the visualized deep calf veins are grossly patent. No evidence of Samayoa's cyst. US/US venous duplex LE RT IMPRESSION: No evidence of deep vein thrombosis in the right lower extremity.
[2022-03-15 12:24] LABS: Hematocrit 29.5 % (37.0-47.0); Hemoglobin 9.2 g/dl (12.0-16.0); Mean Corpuscular HGB Conc 31.2 g/dl (31.0-35.0); Mean Corpuscular Hemoglobin 31.4 pg (27.0-33.0); Mean Corpuscular Volume 100.7 fL (80.0-98.0); Mean Platelet Volume 8.1 fL (9.4-12.3); Platelet Count 600 X10*3/uL (160-400); Red Blood Count 2.93 X10*6/uL (4.20-5.50); Red Cell Distribution Width 16.7 % (11.0-16.0)
[2022-03-15 13:01] LABS: Iron 79 mcg/dL (30-160); Percent Iron Saturation 31 % (15-50); Total Iron Binding Capacity 256 mcg/dL (228-428); Unsaturated Iron Binding 177 ug/dL
[2022-03-15 13:12] LABS: Ferritin 183 ng/mL (10-250)
[2022-03-15 13:24] LABS: Folate 13.4 ng/mL (> or = 4.0); Vitamin B12 225 pg/mL (200-900)
== END 2022-03-15 10:23 | disposition home or self-care (01) ==
LOC: HO.US 10:22
PROVIDERS: PCP Physician Assistant; Visit Provider Physician Assistant
DX: R60.0 Localized edema (principal); M79.89 Other specified soft tissue disorders; E53.8 Deficiency of other specified B group vitamins; D50.9 Iron deficiency anemia, unspecified; Z96.651 Presence of right artificial knee joint
CPT/HCPCS: 36415; 82607; 82728; 82746; 83540; 85027; 93971

== ENCOUNTER → 2022-03-24 11:45 | Outpatient (BNVA) | payer OTHER, SELFPAY | PROVIDERS: PCP Physician Assistant; Visit Provider Internal Medicine | DX: Z13.89 Encounter for screening for other disorder (principal) ==

== ENCOUNTER 2022-04-11 12:08 | Outpatient (REF) | payer OTHER, SELFPAY ==
[2022-04-11 13:10] LABS: Hematocrit 34.1 % (37.0-47.0); Hemoglobin 10.9 g/dl (12.0-16.0); Mean Corpuscular Hemoglobin 29.9 pg (27.0-33.0); Mean Corpuscular Volume 93.7 fL (80.0-98.0); Mean Platelet Volume 8.2 fL (9.4-12.3); Platelet Count 466 X10*3/uL (160-400); Red Blood Count 3.64 X10*6/uL (4.20-5.50); Red Cell Distribution Width 14.3 % (11.0-16.0); White Blood Count 9.7 X10*3/uL (4.8-10.8)
== END 2022-04-11 12:09 | disposition home or self-care (01) ==
LOC: HO.LAB 12:08
PROVIDERS: PCP Physician Assistant; Visit Provider Internal Medicine
DX: D64.9 Anemia, unspecified (principal)
CPT/HCPCS: 36415; 85027

== ENCOUNTER 2022-04-27 11:46 | Outpatient (REF) | payer OTHER, SELFPAY ==
--- NOTE | ~2022-04-27 | XR_ITS ---
EXAMINATION: XR AP STANDING VIEW BOTH KNEES. XR KNEE, RIGHT CLINICAL INFORMATION: Right knee pain COMPARISON: Radiographs 01/19/2022 TECHNIQUE: AP standing view both knees. Lateral and sunrise views of the right knee. FINDINGS: The total knee arthroplasty components are in stable position and alignment. No fracture. There has been some erosion/osteolysis at the distal aspect of the patellar prosthesis. Small joint effusion. Stable appearance of the left total hip arthroplasty. XR/XR knee RT 2V IMPRESSION: 1. Small joint effusion. No fracture. 2. Mild erosion/osteolysis at the distal aspect of the patellar prosthesis.
--- NOTE | ~2022-04-27 | XR_ITS ---
EXAMINATION: XR AP STANDING VIEW BOTH KNEES. XR KNEE, RIGHT CLINICAL INFORMATION: Right knee pain COMPARISON: Radiographs 01/19/2022 TECHNIQUE: AP standing view both knees. Lateral and sunrise views of the right knee. FINDINGS: The total knee arthroplasty components are in stable position and alignment. No fracture. There has been some erosion/osteolysis at the distal aspect of the patellar prosthesis. Small joint effusion. Stable appearance of the left total hip arthroplasty. XR/XR knee standing BI IMPRESSION: 1. Small joint effusion. No fracture. 2. Mild erosion/osteolysis at the distal aspect of the patellar prosthesis.
== END 2022-04-27 11:47 | disposition home or self-care (01) ==
LOC: HO.HOSX 11:46
PROVIDERS: Visit Provider Orthopaedic Surgery
DX: M25.561 Pain in right knee (principal); Z96.651 Presence of right artificial knee joint
CPT/HCPCS: 73560; 73565

== ENCOUNTER → 2022-05-08 08:48 | Outpatient (BNVA) | payer OTHER, SELFPAY | PROVIDERS: PCP Physician Assistant; Visit Provider Internal Medicine | DX: Z13.89 Encounter for screening for other disorder (principal) ==

== ENCOUNTER 2022-05-24 08:36 | Outpatient (REF) | payer OTHER, SELFPAY ==
--- NOTE | ~2022-05-24 | MM_ITS ---
EXAMINATION: MM SCREENING DIGITAL BREAST TOMOSYNTHESIS, BILATERAL CLINICAL INFORMATION: Screening. Asymptomatic. Study is limited with patient being unsteady. The lifetime risk of breast cancer based on the Tyrer-Cuzick Model is 1.4%. COMPARISON: Mammography: 01/12/2021 and studies dating back to 07/19/2015. TECHNIQUE: Digital breast tomosynthesis is performed in both the craniocaudal and mediolateral oblique views along with computer-aided detection (CAD). Synthesized 2D images are generated from the tomosynthesis. Images are limited due to positional problems and being unsteady. FINDINGS: There are scattered areas of fibroglandular density (ACR BI-RADS breast composition Category b). There are no new significant masses, abnormal calcifications, or other abnormalities. Question of density in the central aspect of the left breast on mediolateral oblique projection has a similar appearance to study of 07/30/2017. MM/MM tomosynthesis screening BI IMPRESSION: No significant changes from prior exam. ASSESSMENT: BI-RADS 2: Benign. RECOMMENDATION: Routine annual mammography screening. This patient's information was entered into a reminder system with a target due date for their next mammogram.
== END 2022-05-24 08:37 | disposition home or self-care (01) ==
LOC: HO.MAMMO 08:36
PROVIDERS: PCP Physician Assistant; Visit Provider Physician Assistant
DX: Z12.31 Encounter for screening mammogram for malignant neoplasm of breast (principal)
CPT/HCPCS: 77063; 77067

== ENCOUNTER 2022-05-26 08:00 | Outpatient (RCR) | payer OTHER, SELFPAY ==
--- NOTE | 2022-05-03 12:36 | MHC.PT.EP ---
[facility] [place] Office [place] Office [place] Office [address] Dino Pastor [address] [phone] F: [phone] F: [phone] F: [phone] F: [phone] Physical Therapy Plan of Care Date of Evaluation: Date of Surgery: 01/24/22 Diagnosis: R TKA 01/24/22 (RC) Assessment: pt is a 81 y/o female presenting to physical therapy w/ referring diagnosis of Z96.651 presence of right artificial knee joint. pt had R TKA back on 01/24/22. She was hospitalized d/t GI bleed and required clearance before being able to return to outpatient PT. She had some issues w/ attendance earlier in the year so she was D/C'd for non-compliance. She returns now w/ clearance and motivation to improve range and maximize function. She tends to be a bit stubborn which may impact her carryover. Impairments include pain, decreased range of motion, decreased strength, impaired functional mobility, impaired postural awareness, and altered ambulation mechanics. pt is a fair candidate for skilled PT due to age, potential remediation of impairments, typical disease/condition progression and prognosis, comorbidities, and motivation. pt would benefit from skilled PT intervention to provide a tailored strengthening and stretching exercise program, functional training, gait training, postural re-training, neuromuscular re-education, modalities as needed for pain, equipment safety demonstration. Frequency and Duration: The patient will be seen 1x/wk for 4 wks Short Term Goals: pt will be I w/ HEP to promote self-management of post-operative status. pt will improve B quad strength to 5/5 to promote ease in sit<>stand transfer. Group Home Goals: pt will report a statistically significant improvement in self-reported outcome measure, LEFI, to promote return to PLOF. pt will improve B knee flexion to at least 90* to promote ease in navigating stairs. Treatment Plan: Modalities to reduce pain, spasms and effusion. Manual therapy to restore motion and function. Therapeutic exercise to improve strength and flexibility. Neuromuscular re-education for posture and balance. Therapeutic activities to return to functional activities of daily living. Electronically signed by: Edyta Anna PT, DPT Please sign and return to therapist. Thank you for your referral.
--- NOTE | 2022-06-12 16:43 | MHC.PT.DC ---
[facility] [place] Office [place] Office [place] Office [address] Dino Pastor 140 [facility] [phone] F: [phone] F: [phone] F: [phone] F: [phone] Physical Therapy Discharge Report Diagnosis: R TKA 01/24/22 (RC) Date of Surgery: 01/24/22 Date of Evaluation: 05/03/22 Date of Discharge: 06/12/22 Treatments to Date: 3 Cancellations to Date: 1 No Shows to Date: 0 Discharge Status: Visit Non-compliance Discharge Summary: The patient did not want to participate in outpatient physical therapy but was able to be convinced to attend a few visits to review her home exercise program to maximize range and strength. She is back to work and feels she is able to independently manage herself as well as her dogs. She does not believe she has any limitations at this time; however, it has been documented by myself and the physical therapist assistant finance director that she has difficulty with ambulation, functional mobility tasks, and her knee range of motion is poor. She cancelled her last scheduled visit and has not followed-up with any additional visits in 3 weeks. She is discharged from this physical therapy plan of care at this time. Electronically signed by: Edyta Anna PT, DPT Please sign and return to therapist. Thank you for your referral.
== END 2022-06-12 16:44 | disposition home or self-care (01) ==
LOC: HO.PT 08:00
PROVIDERS: PCP Physician Assistant; Visit Provider Orthopaedic Surgery
DX: Z96.651 Presence of right artificial knee joint (principal)
CPT/HCPCS: 97110; 97163; 97530

== ENCOUNTER → 2022-05-30 13:00 | Outpatient (BNV) | payer OTHER, SELFPAY | PROVIDERS: PCP Physician Assistant; Visit Provider Internal Medicine Medical Oncology | DX: D64.9 Anemia, unspecified (principal) | CPT/HCPCS: 99213 ==

== ENCOUNTER → 2022-06-12 08:00 | Outpatient (REF) | payer OTHER, SELFPAY ==
--- NOTE | 2022-06-12 08:03 | CA_ITS ---
Transthoracic Echocardiogram Patient (Last, First, Middle): MacielAugust, Gender: Female Date of : 1940 Age: 81 Procedure Date: 06/12/2022 Procedure Type: Transthoracic Echocardiogram Location: OP Height: 160.02 cm Weight: 86.18 kg BSA: 1.89 m2 Heart Rate: 74 bpm BP: 125 / 60 mmHg Credit Compliance Officer: AKBAR Referring MD: Tolu Davis MD Symptoms: I35.0 - Nonrheumatic aortic (valve) stenosis Study Quality: Adequate ECG Rhythm: Sinus Conclusions: - The left ventricular systolic function is normal. The calculated ejection fraction is 58% by biplane method. - There is discrepancy between aortic valve gradients and calculated valve area. Overall, probable severe aortic stenosis. Findings Left Ventricle Normal left ventricular cavity size. The left ventricular systolic function is normal. The calculated ejection fraction is 58% by biplane method. There is no evidence of regional wall motion abnormalities. Diastolic function is normal for age. There is mild septal and mild basal asymmetric hypertrophy. Right Ventricle Normal right ventricular cavity size and systolic function. Atria Both atria are normal in size. Aortic Valve There is severe calcification of the aortic valve. The peak aortic velocity is 3.61 m/s with a calculated peak gradient of 52 mmHg. The mean gradient is 32 mmHg. The aortic valve area is 0.74 cm2. There is mild aortic valve regurgitation. Dimensionless index 0.23. Stroke volume index 37 mL/m2. There is discrepancy between aortic valve gradients and calculated valve area. Overall, probable severe aortic stenosis. Mitral Valve The mitral valve appears normal. There is trace mitral valve regurgitation. There is no mitral valve stenosis. Pulmonic Valve The pulmonic valve is likely normal. Tricuspid Valve Normal tricuspid valve structure. There is trace tricuspid valve regurgitation. There is no evidence of pulmonary hypertension. Great Vessels The asc aorta is normal in size. Venous The inferior vena cava is normal in size and collapses greater than 50% with inspiration. Pericardium/Pleural There is no evidence of pericardial effusion. Prior Study Comparison Changes noted compared to prior study dated: 12/28/2021. Slight progression of aortic stenosis. Measurements 2D Linear Measurements IVSd: 1.45 0.6-0.9/0.6-1.0 cm LVIDd: 3.84 3.9-5.3/4.2-5.9 cm LVIDd Index: 2.03 2.4-3.2/2.2-3.1 cm/m2 LVIDs: 2.78 2.0-3.6 cm LVPWd: 1.00 0.7-1.1 cm LA Diam: 3.80 2.7-3.8/3.0-4.0 cm LAIDs Index: 2.01 1.5-2.3 cm/m2 LV Mass: 199.55 67-162/88-224 g LV Mass Index: 105.58 43-95/49-115 g/m2 LVOT Diam: 2.10 3.0+(-)1.3 cm 2D Systolic Function EF 4C: 63.00 >55% EF 2C: 54.70 >55% EF BiP: 58.30 >55% Mitral Valve MV Pk E: 0.64 MV PK A: 0.92 MV Decel Time: 323.00 E/A: 0.70 E'Lateral: 8.49 E'Medial: 5.96 E/E' Med: 10.80 E/E' Lat: 7.60 PHT: 94.00 MVA PHT: 2.34 Decel [place]: 1.99 Aortic Valve AoV Pk Ricky: 3.61 AoV Mn Ricky: 2.73 AoV VTI: 0.87 AoV Pk Grad: 52.00 Aov Mn Grad: 32.00 RENA Cont.VTI: 0.74 AI Pk Ricky: 3.80 AI [place]: 2.70 LVOT LVOT Pk Ricky: 0.82 LVOT Mn Ricky: 0.67 LVOT VTI: 0.20 LVOT Pk Grad: 3.00 LVOT Mn Grad: 2.00 LVOT Diam: 2.10 LVOT Area: 3.46 Diastolic Function MV Pk E: 0.64 MV Pk A: 0.92 E/A: 0.70 E'Medial: 5.96 E/E' Med: 10.80 E' Laterial: 8.49 E/E' Lat: 7.60 Right Ventricle TAPSE (mm): 19.40 TVS' Ricky: 10.40 Tricuspid Valve TR Pk Ricky: 1.61 TR Pk Grad: 10.00 RA Press: 8.00 RVSP: 18.00 Great Vessels Aorta Sinus of Valsalva: 3.10 2.0-3.5 cm Ao Asc: 3.40 2.1-3.4 cm Pulmonary Valve PV Pk Ricky: 0.87 Peak PV Grad: 3.00 Updated in Other Vendor System with Status of Final Tolu Davis MD electronically signed on 06/12/2022 11:30:18 AM with status of Final
== END ==
LOC: HO.CARD 08:00
PROVIDERS: PCP Physician Assistant; Visit Provider Internal Medicine
DX: I35.0 Nonrheumatic aortic (valve) stenosis (principal)
CPT/HCPCS: 93306

== ENCOUNTER → 2022-07-04 09:49 | Outpatient (BNVA) | payer OTHER, SELFPAY | PROVIDERS: PCP Physician Assistant; Referring Provider Physician Assistant; Visit Provider Internal Medicine | DX: Z13.89 Encounter for screening for other disorder (principal) ==

== ENCOUNTER 2022-09-15 10:36 | Outpatient (REF) | payer OTHER, SELFPAY ==
[2022-09-15 11:57] LABS: Hematocrit 33.9 % (37.0-47.0); Hemoglobin 11.1 g/dl (12.0-16.0); Mean Corpuscular HGB Conc 32.7 g/dl (31.0-35.0); Mean Corpuscular Hemoglobin 29.8 pg (27.0-33.0); Mean Corpuscular Volume 90.9 fL (80.0-98.0); Mean Platelet Volume 9.3 fL (9.4-12.3); Platelet Count 375 X10*3/uL (160-400); Red Blood Count 3.73 X10*6/uL (4.20-5.50); Red Cell Distribution Width 13.5 % (11.0-16.0); White Blood Count 9.2 X10*3/uL (4.8-10.8)
[2022-09-15 13:06] LABS: Alanine Aminotransferase 14 U/L (0-31); Albumin Level 4.2 g/dL (3.5-5.0); Alkaline Phosphatase 83 U/L (39-117); Anion Gap 17 (12-20); Aspartate Amino Transferase 23 U/L (5-31); Bilirubin Total 0.4 mg/dL (0.0-1.0); Blood Urea Nitrogen 28 mg/dL (9-16); Calcium 9.7 mg/dL (8.4-10.2); Carbon Dioxide 20 mmol/L (22-29); Chloride 109 mmol/L (96-108); Cholesterol 139 mg/dL; Estimated Glomerular Filt Rate > 60; Glucose Fasting 86 mg/dL (60-99); HDL Cholesterol 53 mg/dL; Iron 59 mcg/dL (30-160); LDL Cholesterol Calculated 73 mg/dl; Percent Iron Saturation 25 % (15-50); Potassium 4.3 mmol/L (3.3-5.1); Sodium 142 mmol/L (135-145); TSH reflex Free T4 0.47 uIU/mL (0.32-4.0); Total Iron Binding Capacity 237 mcg/dL (228-428); Total Protein 7.5 g/dL (6.5-8.0); Triglycerides 68 mg/dL; Unsaturated Iron Binding 178 ug/dL
== END 2022-09-15 10:37 | disposition home or self-care (01) ==
LOC: HO.LAB 10:36
PROVIDERS: PCP Physician Assistant; Visit Provider Internal Medicine
DX: D50.9 Iron deficiency anemia, unspecified (principal); E03.9 Hypothyroidism, unspecified; E78.2 Mixed hyperlipidemia; I10 Essential (primary) hypertension
CPT/HCPCS: 36415; 80053; 80061; 82043; 82728; 83540; 84443; 85027

== ENCOUNTER → 2022-12-29 07:42 | Outpatient (REF) | payer OTHER, SELFPAY ==
--- NOTE | 2022-12-29 07:43 | CA_ITS ---
Transthoracic Echocardiogram Patient (Last, First, Middle): MacielAugust, Gender: Female Date of : 1940 Age: 82 Procedure Date: 12/29/2022 Procedure Type: Transthoracic Echocardiogram Location: OP Height: 160.02 cm Weight: 81.65 kg BSA: 1.85 m2 Heart Rate: 69 bpm BP: 148 / 70 mmHg Boat Crew Deck Hand: SALU/ESTEFANIA Referring MD: Tolu Davis MD Symptoms: I35.0 - Nonrheumatic aortic (valve) stenosis Study Quality: Adequate ECG Rhythm: Sinus Conclusions: - The left ventricular systolic function is normal. The calculated ejection fraction is 65% by biplane method. - There is moderate to severe aortic valve stenosis. Findings Left Ventricle Normal left ventricular cavity size. There is normal left ventricular wall thickness. The left ventricular systolic function is normal. The calculated ejection fraction is 65% by biplane method. There is no evidence of regional wall motion abnormalities. Evidence suggests grade I (mild) diastolic dysfunction. Right Ventricle Normal right ventricular cavity size and systolic function. Atria Both atria are normal in size. Aortic Valve There is moderate calcification of the aortic valve. There is moderate to severe aortic valve stenosis. The peak aortic velocity is 3.31 m/s with a calculated peak gradient of 44 mmHg. The mean gradient is 27 mmHg. The aortic valve area is 0.85 cm2. There is mild aortic valve regurgitation. Dimensionless index 0.25. Stroke volume index 38ml/m2. Mitral Valve The mitral valve appears normal. There is mild mitral annular calcification. There is no mitral valve regurgitation. There is no mitral valve stenosis. Pulmonic Valve The pulmonic valve is likely normal. Tricuspid Valve Normal tricuspid valve structure. There is trace tricuspid valve regurgitation. There is no evidence of pulmonary hypertension. Great Vessels The asc aorta is normal in size. Venous The inferior vena cava is normal in size and collapses greater than 50% with inspiration. Pericardium/Pleural There is no evidence of pericardial effusion. Prior Study Comparison No significant change compared to prior study dated: 06/12/2022. Measurements 2D Linear Measurements IVSd: 1.00 0.6-0.9/0.6-1.0 cm LVIDd: 4.40 3.9-5.3/4.2-5.9 cm LVIDd Index: 2.38 2.4-3.2/2.2-3.1 cm/m2 LVIDs: 3.20 2.0-3.6 cm LVPWd: 1.00 0.7-1.1 cm Ao Root: 2.70 2.1-3.5 cm LA Diam: 3.70 2.7-3.8/3.0-4.0 cm LAIDs Index: 2.00 1.5-2.3 cm/m2 LV Mass: 184.04 67-162/88-224 g LV Mass Index: 99.48 43-95/49-115 g/m2 LVOT Diam: 2.10 3.0+(-)1.3 cm 2D Systolic Function EF 4C: 67.50 >55% EF 2C: 61.60 >55% EF BiP: 64.60 >55% Mitral Valve MV Pk E: 0.72 MV PK A: 0.96 MV Decel Time: 184.00 E/A: 0.80 E'Lateral: 6.53 E'Medial: 4.46 E/E' Med: 16.20 E/E' Lat: 11.10 PHT: 54.00 MVA PHT: 4.07 Decel [place]: 3.93 Aortic Valve AoV Pk Ricky: 3.31 AoV Mn Ricky: 2.49 AoV VTI: 0.83 AoV Pk Grad: 44.00 Aov Mn Grad: 27.00 RENA Cont.VTI: 0.85 AI Pk Ricky: 3.54 AI VTI: 1.53 AI [place]: 2.07 LVOT LVOT Pk Ricky: 0.83 LVOT Mn Ricky: 0.60 LVOT VTI: 0.20 LVOT Pk Grad: 3.00 LVOT Mn Grad: 2.00 LVOT Diam: 2.10 LVOT Area: 3.46 Diastolic Function MV Pk E: 0.72 MV Pk A: 0.96 E/A: 0.80 E'Medial: 4.46 E/E' Med: 16.20 E' Laterial: 6.53 E/E' Lat: 11.10 Right Ventricle TAPSE (mm): 20.30 TVS' Ricky: 10.30 Tricuspid Valve TR Pk Ricky: 2.31 TR Pk Grad: 21.00 RA Press: 3.00 RVSP: 24.00 Great Vessels Aorta Ao Root-2D: 2.70 2.0-3.7 cm Sinus of Valsalva: 2.70 2.0-3.5 cm Ao Asc: 3.50 2.1-3.4 cm Pulmonary Valve PV Pk Ricky: 0.71 Peak PV Grad: 2.00 Updated in Other Vendor System with Status of Final Tolu Davis MD electronically signed on 12/30/2022 1:10:03 PM with status of Final
== END ==
LOC: HO.CARD 07:42
PROVIDERS: PCP Physician Assistant; Visit Provider Internal Medicine
DX: I35.0 Nonrheumatic aortic (valve) stenosis (principal)
CPT/HCPCS: 93306

== ENCOUNTER → 2022-12-29 07:43 | Outpatient (BNV) | payer OTHER, SELFPAY | PROVIDERS: PCP Physician Assistant; Visit Provider Internal Medicine | DX: I35.0 Nonrheumatic aortic (valve) stenosis (principal) | CPT/HCPCS: 93306 ==

== ENCOUNTER 2023-01-08 08:20 | Outpatient (AMB) | payer OTHER, SELFPAY ==
--- NOTE | 2023-01-08 08:33 | MHC.PC.OV ---
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 Accompanied by: Self / Same As Patient Allergies No Known Allergies Allergy (Verified 01/08/23 08:41) Medication List - Last Reconciled 01/08/23 by Thomas Weller PA-C acetaminophen 650 mg (2 x 325 mg) PO Q6H PRN 30 days amlodipine-benazepril 5-20 mg 1 cap PO DAILY atorvastatin 10 mg PO DAILY celecoxib (Celebrex) 100 mg PO BID ferrous sulfate 325 mg PO BID folic acid 1 mg PO DAILY hydrochlorothiazide 12.5 mg PO QAM levothyroxine 125 mcg PO DAILY 30 days vitamin X13-ryxwncg B1 100-1 mg/mL 1 mL IM .once a month Tobacco use date assessed: 03/15/22 Fall risk assessment: No Falls in past year Last assessed Fall Risk: 01/08/23 Dental Screening Dental Screen Date: 01/08/23 Did you have a dental visit in the last 12 months?: Yes Did you have a dental problem in the last 6 months where you did not have access to dental care?: No Was dental information given to patient?: Patient has dentist HPI f/u HTN/ HLD/ Anemia HPI Details Patient is a 82-year-old female here today for a follow-up visit. ?. Patient has a past medical history significant for essential hypertension, hypothyroidism, arthritis aortic stenosis. Concerns--> no concerns today .. Anemia: Followed by Hematology, most recent CBC showing improved red blood cell and hemoglobin. Continues to get B12 injections on a monthly basis with Hematology. . ? .. ? Aortic stenosis: Patient is followed by Cardiology by Bian[facility]ually.? Recent echocardiogram showing moderate-severe aortic stenosis. ?No reports of chest discomforts or overt signs of Congestive heart failure. .. Hypothyroid:?? Most recent TSH stable.? Will continue her current dose of levothyroxine 125mcg.? Has been clinically stable. ? .. ? Hypertension:? Patient's blood pressure slightly elevated today in office. ? She reports she does know monitor blood pressure at home.? She denies any chest discomfort, palpitations headaches or dizziness.? Advised her to comments home blood pressure monitoring to assure her blood pressures have been normal.? Laboratory Tests 09/15/22 10:50 RBC 3.73 L Hgb 11.1 L BUN 28 H Cholesterol 139 LDL Cholesterol, C alc 73 PFSH Medical History Other and unspecified hyperlipidemia Essential hypertension Non-rheumatic aortic stenosis Primary osteoarthritis of right knee Primary osteoarthritis of hands, bilateral Primary osteoarthritis of right hip Hypothyroid Hx of osteomyelitis Osteoarthritis Thyroid disease Iron deficiency anemia Elevated cholesterol Aortic valvular disease HTN (hypertension) Surgical History History of total right knee replacement Hx of surgical amputation of finger History of total right hip replacement Amputation of finger of left hand History of hip replacement History of History of total left hip arthroplasty History of total left knee replacement Hx of colonoscopy Family History Father Myocardial infarction CVD (cardiovascular disease) Mother No problems noted. Brother Bladder cancer Daughter Cervical cancer Son Knee pain Social History Household Members: None Housing: Apartment Are you a primary wound care coordinator to a significant other at home: No Do you presently have visiting nurse or other home services: No Alcohol intake: current Alcohol intake frequency: holidays/special occasions only Alcohol type: wine Patient Tobacco Use Status: Never used Tobacco e-Cigarette/Vaping Use: Never Used Second Hand Smoke Exposure: No service: No Current occupational status: employed Cognitive needs: No Hearing needs: Yes (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) Vision needs: Yes Questionnaire Thrive Questionnaire Date Thrive assessed: 03/15/22 SHIMA-7 AMB Questionnaire SHIMA-7 Date SHIMA - 7 assessed: 03/15/22 Source: Developed by Drs. Adal Johnston, Tabatha Dawson, Odin Lambert and colleagues, with an educational marbin from [employer]. Review of Systems Const Denies headache(s) Eyes Denies loss of vision ENT Denies vertigo, Denies dizziness, Denies headache(s) and Denies sore throat Card Denies chest pain, Denies leg edema and Denies lightheadedness Resp Denies cough, Denies hemoptysis and Denies wheezing GI Denies abdominal pain, Denies melena, Denies constipation, Denies diarrhea and Denies vomiting Denies urinary frequency, Denies dysuria and Denies urinary urgency Musc Denies arthralgias, Denies joint swelling, Denies numbness and Denies tingling Neuro Denies Abnormal speech present, Denies behavioral changes, Denies vertigo, Denies dizziness, Denies headache(s), Denies loss of vision, Denies memory loss, Denies numbness and Denies tingling Psych Denies anxiety, Denies behavioral changes, Denies depression, Denies memory loss and Denies panic attacks Jose/Lymph Denies easy bleeding and Denies easy bruising Aller/Immun Denies wheezing Physical exam (Primary Care) Vital Signs: Last Vital Signs Pulse 84 01/08/23 08:34 BP 142/68 H 01/08/23 08:34 Pulse Ox 95 01/08/23 08:34 Oxygen Delivery Method Room Air 01/08/23 08:34 BMI result Body Mass Index 33.3 Tobacco/Smoking Status: Tobacco use Status Tobacco use date assessed 03/15/22 01/08/23 08:39 Patient Tobacco Use Status Never used Tobacco 01/08/23 08:39 e-Cigarette/Vaping Use Never Used 01/08/23 08:39 Thrive Assessment: Date of Thrive Assessment Date Thrive assessed 03/15/22 01/08/23 08:39 Const General: healthy appearing, no acute distress, alert and awake Nutritional Appearance: well nourished Orientation/consciousness: oriented to person, oriented to place and oriented to time HENMT Ears: TM's normal bilaterally General nose exam: Normal nasal mucous membranes and turbinates present Eyes Conjunctivae: conjunctivae normal Sclerae: sclerae normal Pupils: Equal, round and reactive pupils present Neck Neck: Yes no lymphadenopathy and Yes no JVD Thyroid: Thyroid normal Carotids: no bruits Resp Effort & Inspection: normal respiratory effort and not tachypneic Auscultation: no crackles, no rales, no rhonchi and no wheezes Cardio Rate: regular rate Rhythm: regular rhythm Heart sounds: no murmurs and normal S1 and S2 GI Palpation (GI): Soft to palpation, nontender, no hepatomegaly and no splenomegaly Auscultation: normal bowel sounds Skin General skin exam: no rashes or lesions noted and dry skin Neuro General: oriented to person, oriented to place and oriented to time Cranial nerves: Yes Equal, round and reactive pupils present Speech: No Abnormal speech present Gait exam (Neuro): Normal gait present Motor exam (neuro): no tremor noted Extrem Right upper extremity: full ROM Left upper extremity: full ROM Right lower extremity: full ROM; no edema Left lower extremity: full ROM; no edema Psych Mental Status: mental status grossly normal Speech and movement: Normal speech and movement present Affect: normal affect Attitude: cooperative Thought process: Normal thought process present Assessment and Plan Assessment & Plan (1) HTN (hypertension): Code(s): I10 - Essential (primary) hypertension Qualifiers: Hypertension type: essential hypertension Qualified Code(s): I10 - Essential (primary) hypertension Plan: Patient's blood pressure today slightly elevated. She does not regularly check her blood pressures at home. She otherwise denies any headaches, chest pain, vision issues or dizziness.. Will continue current dose of antihypertensive medication with goal blood pressure to be below 140/90. (2) HLD (hyperlipidemia): Code(s): E78.5 - Hyperlipidemia, unspecified Qualifiers: Hyperlipidemia type: mixed hyperlipidemia Qualified Code(s): E78.2 - Mixed hyperlipidemia Plan: Patient continues on statin therapy without side effect. Most recent fasting lipid panel showing acceptable LDL and total cholesterol. Goal LDL to be below 130 (3) Anemia: Code(s): D64.9 - Anemia, unspecified Qualifiers: Anemia type: iron deficiency Iron deficiency anemia type: unspecified iron deficiency Qualified Code(s): D50.9 - Iron deficiency anemia, unspecified Plan: Patient continues follow hematology , she does get B12 injections on a monthly basis.. Most recent CBC showing improved hemoglobin and red blood cell count. Patient denies any further fatigue, shortness of breath on exertion. (4) Hypothyroid: Code(s): E03.9 - Hypothyroidism, unspecified Qualifiers: Hypothyroidism type: unspecified Qualified Code(s): E03.9 - Hypothyroidism, unspecified Plan: Patient's most recent labs showing acceptable TSH. Has been clinically and chemically euthyroid with current dose of levothyroxine at 125 mcg daily. (5) Non-rheumatic aortic stenosis: Code(s): I35.0 - Nonrheumatic aortic (valve) stenosis Plan: Continues to follow cardiology. Most recent echocardiogram showing moderate to severe aortic stenosis. Otherwise no overt signs of Congestive heart failure Orders: Orders Microalbumin, Random (w Creat) Today I10 - Essential (primary) hypertension TSH reflex Free T4 Today E03.9 - Hypothyroidism, unspecified Lipid Panel Today E78.5 - Hyperlipidemia, unspecified Vitamin B12 and Folate Today D64.9 - Anemia, unspecified, E53.8 - Deficiency of other specified B group vitamins Comprehensive [place]. Panel Fast Today I10 - Essential (primary) hypertension Medications: Changed From atorvastatin 10 mg PO DAILY 30 tabs 6RF E78.5 - Hyperlipidemia, unspecified To atorvastatin 10 mg PO DAILY 90 days 90 tabs 2RF E78.5 - Hyperlipidemia, unspecified From amlodipine-benazepril 5-20 mg 1 cap PO DAILY 30 caps 6RF E03.9 - Hypothyroidism, unspecified To amlodipine-benazepril 5-20 mg 1 cap PO DAILY 90 days 90 caps 2RF E03.9 - Hypothyroidism, unspecified From hydrochlorothiazide 12.5 mg PO QAM 30 caps 6RF I10 - Essential (primary) hypertension To hydrochlorothiazide 12.5 mg PO QAM 90 days 90 caps 2RF I10 - Essential (primary) hypertension From levothyroxine 125 mcg PO DAILY 30 days 30 tabs 6RF E03.9 - Hypothyroidism, unspecified To levothyroxine 125 mcg PO DAILY 90 days 90 tabs 2RF E03.9 - Hypothyroidism, unspecified From ferrous sulfate 325 mg PO BID 60 tabs 6RF To ferrous sulfate 325 mg PO BID 90 days 180 tabs 2RF Refilled acetaminophen 650 mg (2 x 325 mg) PO Q6H 30 days PRN 240 tabs 0RF Pain, Mild (Pain Scale 1-3) M17.11 - Unilateral primary osteoarthritis, right knee Coding Level of Care Code Est Pt Level 4 (74628) Diagnoses Essential hypertension I10 Hypertension type: essential hypertension Mixed hyperlipidemia E78.2 Hyperlipidemia type: mixed hyperlipidemia Iron deficiency anemia, unspecified iron deficiency anemia type D50.9 Anemia type: iron deficiency Iron deficiency anemia type: unspecified iron deficiency Hypothyroidism, unspecified type E03.9 Hypothyroidism type: unspecified Non-rheumatic aortic stenosis I35.0
[2023-01-08 08:34] VITALS: BP 142/68; PULSE 84; O2SAT 95; BMI 33.3
== END 2023-01-08 08:54 | disposition home or self-care (01) ==
PROVIDERS: Visit Provider Physician Assistant
DX: I10 Essential (primary) hypertension (principal); E78.2 Mixed hyperlipidemia; D50.9 Iron deficiency anemia, unspecified; E03.9 Hypothyroidism, unspecified; I35.0 Nonrheumatic aortic (valve) stenosis
CPT/HCPCS: 99214

== ENCOUNTER 2023-01-11 08:25 | Outpatient (AMB) | payer OTHER, SELFPAY ==
[2023-01-11 08:27] VITALS: BP 134/62; PULSE 89; BMI 32.8
--- NOTE | 2023-01-11 08:27 | A.OFFVIS_ITS ---
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: No Allergies No Known Allergies Allergy (Verified 01/11/23 08:30) Medication List - Last Reconciled 01/11/23 by Paulina Lawrence NP-C acetaminophen 650 mg (2 x 325 mg) PO Q6H PRN 30 days amlodipine-benazepril 5-20 mg 1 cap PO DAILY 90 days atorvastatin 10 mg PO DAILY 90 days celecoxib (Celebrex) 100 mg PO BID ferrous sulfate 325 mg PO BID 90 days folic acid 1 mg PO DAILY hydrochlorothiazide 12.5 mg PO QAM 90 days levothyroxine 125 mcg PO DAILY 90 days vitamin C19-kbbtwwa B1 100-1 mg/mL 1 mL IM .once a month HPI 6 mth fu after echo HPI Details Janice is an 82-year-old female with past medical history of hypertension, hyperlipidemia, mild obesity, aortic stenosis who presents for follow-up after recent echocardiogram. Today she reports that she has been noticing some heaviness in her chest with shortness of breath when she is at work. 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 She says this is a new symptom for her that has started since her last visit. She does not notice shortness of breath or chest discomfort with normal ADLs. No palpitations, presyncope, syncope, PND, orthopnea or edema. She takes her medications as directed. [facility], [facility] Medical History Other and unspecified hyperlipidemia Essential hypertension Non-rheumatic aortic stenosis Primary osteoarthritis of right knee Primary osteoarthritis of hands, bilateral Primary osteoarthritis of right hip Hypothyroid Hx of osteomyelitis Osteoarthritis Thyroid disease Iron deficiency anemia Elevated cholesterol Aortic valvular disease HTN (hypertension) Surgical History History of total right knee replacement Hx of surgical amputation of finger History of total right hip replacement Amputation of finger of left hand History of hip replacement History of History of total left hip arthroplasty History of total left knee replacement Hx of colonoscopy Family History Father Myocardial infarction CVD (cardiovascular disease) Mother No problems noted. Brother Bladder cancer Daughter Cervical cancer Son Knee pain Social History Household Members: None Housing: Apartment Are you a primary hearing care practitioner to a significant other at home: No Do you presently have visiting nurse or other home services: No Alcohol intake: current Alcohol intake frequency: holidays/special occasions only Alcohol type: wine Patient Tobacco Use Status: Never used Tobacco e-Cigarette/Vaping Use: Never Used Second Hand Smoke Exposure: No service: No Current occupational status: employed Cognitive needs: No Hearing needs: Yes (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) Vision needs: Yes Review of Systems Const All systems reviewed & are unremarkable except as noted in HPI and below ENT Denies dizziness Card Denies chest pain, Denies chest pain at rest, Denies chest pain with activity, Denies rapid heart rate, Denies pedal edema, Denies edema, Denies leg edema, Denies lightheadedness, Denies palpitations, Denies dyspnea, Reports dyspnea on exertion (with chest heaviness when at work) and Denies orthopnea Resp Denies cough, Denies dyspnea and Reports dyspnea on exertion (with chest heaviness when at work) GI Denies hematochezia and Denies change in stool character Musc Reports abnormal gait, Denies limited range of motion, Denies muscle cramps, Denies muscle weakness, Denies numbness, Denies radiating pain into limb, Denies stiffness and Denies tingling Neuro Reports abnormal gait, Denies dizziness, Denies numbness and Denies tingling Endo Denies palpitations Physical Exam Vital Signs: Last Vital Signs Pulse 89 01/11/23 08:27 BP 134/62 01/11/23 08:27 BMI result Body Mass Index 32.8 Const General: cooperative, healthy appearing, comfortable and no acute distress Orientation/consciousness: patient oriented x3 Neck Neck: Yes normal visual inspection Resp Effort & Inspection: normal respiratory effort Auscultation: clear to auscultation bilaterally, no crackles, no rales, no rhonchi and no wheezes Cardio Jugular venous distension: no JVD Rate: regular rate Rhythm: regular rhythm Heart sounds: S1 normal heart sound present, S2 normal heart sound present, Murmur heart sound present (systolic 2/6 right sternal border) and no rubs Neuro General: patient oriented x3 Extrem General: Yes normal to inspection, No no pedal edema and No calf tenderness Psych Appearance: grossly normal Mental Status: mental status grossly normal Speech and movement: Normal speech and movement present Office Procedures EKG Details: Today, read by me, normal sinus rhythm, no acute ST or T-wave abnormalities, QTC 428 milliseconds, rate 85 [id number], Complete Assessment & Plan Assessment & Plan (1) Non-rheumatic aortic stenosis: Code(s): I35.0 - Nonrheumatic aortic (valve) stenosis Plan: History of aortic stenosis. Last echo 12/29/2022 shows EF 65%, moderate to severe aortic stenosis with mean gradient 27 mmHg, aortic valve area 0.85 centimeter sq, grade 1 diastolic dysfunction, overall no change from 06/12/2022. Today she reports that she is noticing new shortness of breath and chest heaviness when she is at work. 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 No lightheadedness, presyncope, syncope. She is now reporting new symptoms which can be related to her aortic stenosis. Reviewed with Dr. Davis. Will order diagnostic cardiac catheterization to assess for coronary artery disease as part evaluation for TAVR. Risks of the procedure reviewed with her. She is agreeable to this plan. Diagnostic cardiac catheterization and preprocedure labs ordered. Cardiology follow-up will be 2 weeks post catheterization. (2) HTN (hypertension): Code(s): I10 - Essential (primary) hypertension Qualifiers: Hypertension type: essential hypertension Qualified Code(s): I10 - Essential (primary) hypertension Plan: Good at present time. No med changes made (3) Shortness of breath: Code(s): R06.02 - Shortness of breath Plan: New shortness of breath with chest heaviness well at work, starting in the last few months. Orders: Orders Basic Metabolic Panel Today I35.0 - Nonrheumatic aortic (valve) stenosis Complete Blood Count Auto Diff Today I35.0 - Nonrheumatic aortic (valve) stenosis Prothrombin Time INR Today I35.0 - Nonrheumatic aortic (valve) stenosis Cardiac Cath LT Diagnostic Today I35.0 - Nonrheumatic aortic (valve) stenosis Coding Level of Care Code Est Pt Level 4 (87251) Diagnoses Non-rheumatic aortic stenosis I35.0 Essential hypertension I10 Hypertension type: essential hypertension Shortness of breath R06.02 CPT Codes EKG - CPT: 18031-[id number], Complete ([id number]) Time Spent (min) 30
== END 2023-01-11 09:04 | disposition home or self-care (01) ==
PROVIDERS: PCP Physician Assistant; Visit Provider Nurse Practitioner Family
DX: I35.0 Nonrheumatic aortic (valve) stenosis (principal); I10 Essential (primary) hypertension; R06.02 Shortness of breath
CPT/HCPCS: 93010; 99214

== ENCOUNTER → 2023-01-11 08:25 | Outpatient (BNVA) | payer OTHER, SELFPAY | PROVIDERS: PCP Physician Assistant; Visit Provider Nurse Practitioner Family | DX: I35.0 Nonrheumatic aortic (valve) stenosis (principal); I10 Essential (primary) hypertension; R06.02 Shortness of breath | CPT/HCPCS: 93005 ==

== ENCOUNTER 2023-01-13 07:49 | Outpatient (REF) | payer OTHER, SELFPAY ==
[2023-01-13 08:07] LABS: MANUAL DIFF FLAG NO
[2023-01-13 08:49] LABS: Basophils Absolute Auto 0.1 X10*3/uL (0.0-0.2); Basophils Percent Auto 1.1 % (0-2); Eosinophils Absolute Auto 0.2 X10*3/uL (0.0-0.4); Eosinophils Percent Auto 2.8 % (0-4); Hematocrit 35.7 % (37.0-47.0); Hemoglobin 11.8 g/dl (12.0-16.0); Imm Gran Abs Auto 0.03 X10*3/uL (0.00-0.03); Imm Gran Pct Auto 0.5 % (0.0-0.4); Lymphocytes Absolute Auto 1.9 X10*3/uL (1.2-4.9); Lymphocytes Percent Auto 29.2 % (20-40); Mean Corpuscular HGB Conc 33.1 g/dl (31.0-35.0); Mean Corpuscular Hemoglobin 29.9 pg (27.0-33.0); Mean Corpuscular Volume 90.6 fL (80.0-98.0); Mean Platelet Volume 8.2 fL (9.4-12.3); Monocytes Absolute Auto 0.5 X10*3/uL (0.1-1.2); Monocytes Percent Auto 8.1 % (2-11); Neutrophils Absolute Auto 3.8 x10*3/uL (2.0-8.3); Neutrophils Percent Auto 58.3 % (45-73); Platelet Count 371 X10*3/uL (160-400); Red Blood Count 3.94 X10*6/uL (4.20-5.50); White Blood Count 6.5 X10*3/uL (4.8-10.8)
[2023-01-13 08:54] LABS: INTERNATIONAL NORM RATIO 0.9 (0.9-1.1); Prothrombin Time 11.1 SEC (11.1-13.3)
[2023-01-13 09:22] LABS: Anion Gap 13 (12-20); Blood Urea Nitrogen 27 mg/dL (9-16); Calcium 9.3 mg/dL (8.4-10.2); Carbon Dioxide 24 mmol/L (22-29); Chloride 106 mmol/L (96-108); Estimated Glomerular Filt Rate > 60; Glucose Random 101 mg/dL (60-115); Potassium 4.2 mmol/L (3.3-5.1); Sodium 139 mmol/L (135-145)
== END 2023-01-13 07:50 | disposition home or self-care (01) ==
LOC: HO.LAB 07:49
PROVIDERS: PCP Physician Assistant; Visit Provider Nurse Practitioner Family
DX: I35.0 Nonrheumatic aortic (valve) stenosis (principal)
CPT/HCPCS: 36415; 80048; 85025; 85610

== ENCOUNTER → 2023-01-16 23:59 | Outpatient (BNV) | payer OTHER, SELFPAY | PROVIDERS: PCP Physician Assistant; Visit Provider Internal Medicine Cardiovascular Disease | DX: I35.0 Nonrheumatic aortic (valve) stenosis (principal); I20.89 Other forms of angina pectoris | CPT/HCPCS: 93460; 99152 ==

== ENCOUNTER 2023-01-29 14:13 | Outpatient (AMB) | payer OTHER, SELFPAY ==
--- NOTE | 2023-01-29 14:20 | A.OFFVIS_ITS ---
Intake Vital Signs 01/29/23 14:22 Height 5 ft 4 in Weight 194 lb 0.108 oz BMI 33.3 BP 130/72 Blood Pressure Location Lt brachial Position Sitting Pulse 68 Intake Visit Reasons: Post cath fu/ ?TAVR (w/ KM- Aortic stenosis) Intake Note: Follow-up post cath ? 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 and diagnosis of severe aortic valve stenosis. She was taken for cardiac catheterization recently for moderate to severe aortic valve stenosis by echocardiography. She was in dosing some chest pains off and on mostly exertional. No dyspnea or syncope in the past. She has been fatigued and feels that her energy levels are lower than before. Cardiac catheterization did not show any coronary disease but did show that her valve area was 0.4 and cardiac index was low. Subsequent to that she was referred to [facility] for urgent intervention cardiology consult and will be seeing Dr. Karl Banda on Sunday. She will also have a CT TAVR protocol performed after her appointment. She continues to get chest discomfort. She also is feeling fatigued as before. [facility]LY [facility] Medical History Other and unspecified hyperlipidemia Essential hypertension Non-rheumatic aortic stenosis Primary osteoarthritis of right knee Primary osteoarthritis of hands, bilateral Primary osteoarthritis of right hip Hypothyroid Hx of osteomyelitis Osteoarthritis Thyroid disease Iron deficiency anemia Elevated cholesterol Aortic valvular disease HTN (hypertension) Surgical History History of total right knee replacement Hx of surgical amputation of finger History of total right hip replacement Amputation of finger of left hand History of hip replacement History of History of total left hip arthroplasty History of total left knee replacement Hx of colonoscopy Family History Father Myocardial infarction CVD (cardiovascular disease) Mother No problems noted. Brother Bladder cancer Daughter Cervical cancer Son Knee pain Social History Household Members: None Housing: Apartment Are you a primary progressive care nurse to a significant other at home: No Do you presently have visiting nurse or other home services: No Alcohol intake: current Alcohol intake frequency: holidays/special occasions only Alcohol type: wine Patient Tobacco Use Status: Never used Tobacco e-Cigarette/Vaping Use: Never Used Second Hand Smoke Exposure: No service: No Current occupational status: employed Cognitive needs: No Hearing needs: Yes (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) Vision needs: Yes Review of Systems Const Denies chills, Denies fatigue, Denies fever(s), Denies frequent falls, Denies weakness, Denies weight gain and Denies weight loss ENT Denies dizziness Card Denies chest pain, Denies leg edema, Denies lightheadedness, Denies palpitations, Denies dyspnea, Denies dyspnea on exertion, Denies orthopnea and Denies other (loss of consciousness) Resp Denies cough, Denies dyspnea and Denies dyspnea on exertion GI Denies hematochezia and Denies change in stool character Musc Denies abnormal gait, Denies muscle weakness, Denies numbness, Denies radiating pain into limb and Denies tingling Neuro Denies abnormal gait, Denies dizziness, Denies frequent falls, Denies numbness, Denies tingling and Denies weakness Endo Denies fatigue and Denies palpitations Physical Exam Vital Signs: Last Vital Signs Pulse 68 01/29/23 14:22 BP 130/72 01/29/23 14:22 BMI result Body Mass Index 33.3 GENERAL APPEARANCE: in no acute distress, pleasant. NECK: no carotid bruit, no jugular venous distention. SKIN: no suspicious lesions, warm and dry. HEART: Ejection systolic murmur aortic area, regular rate and rhythm. LUNGS: clear to auscultation bilaterally. ABDOMEN: soft, nontender. EXTREMITIES: no edema. PERIPHERAL PULSES: equal. NEUROLOGIC: No gross deficits, AAO X 3 Assessment & Plan Assessment & Plan (1) Essential hypertension: Code(s): I10 - Essential (primary) hypertension (2) Aortic valve stenosis: Code(s): I35.0 - Nonrheumatic aortic (valve) stenosis Plan Pleasant 82-year-old female who is here for severe aortic valve stenosis. She was taken for cardiac catheterization where no coronary disease was noticed. By echo she had moderate-severe aortic valve stenosis but by cardiac catheterization she had severe aortic valve stenosis as well as low-flow state. She has been referred to [facility] and will be seeing Interventional Cardiology there on Sunday. We discussed in detail about transcatheter aortic valve replacement and I think she would be a good candidate for that. Obviously once we have TAVR protocol CT performed and if we saw some high risk features which are prohibitive towards doing transcatheter aortic valve replacement then we will consider surgical treatment and regardless she will see a cardiothoracic surgeon which is required for transcatheter aortic valve replacement too. Overall she is currently stable. Blood pressure control is good. She will be going for further assessment with [facility] and will follow-up with us after TAVR. Thank you for allowing me to participate in the care of your patient. Please feel free to contact me if you have any questions. Coding Level of Care Code Est Pt Level 5 (79247) Diagnoses Essential hypertension I10 Aortic valve stenosis I35.0
[2023-01-29 14:22] VITALS: BP 130/72; PULSE 68; BMI 33.3
== END 2023-01-29 15:07 | disposition home or self-care (01) ==
PROVIDERS: PCP Physician Assistant; Visit Provider Internal Medicine Cardiovascular Disease
DX: I10 Essential (primary) hypertension (principal); I35.0 Nonrheumatic aortic (valve) stenosis
CPT/HCPCS: 99214

== ENCOUNTER → 2023-01-29 14:13 | Outpatient (BNVA) | payer OTHER, SELFPAY | PROVIDERS: PCP Physician Assistant; Visit Provider Internal Medicine Cardiovascular Disease ==

== ENCOUNTER → 2023-03-28 08:09 | Outpatient (REF) | payer OTHER, SELFPAY ==
--- NOTE | 2023-03-28 08:11 | CA_ITS ---
Transthoracic Echocardiogram Patient (Last, First, Middle): MacielAugust, Gender: Female Date of : 1940 Age: 82 Procedure Date: 03/28/2023 Procedure Type: Transthoracic Echocardiogram Location: OP Height: 162.56 cm Weight: 88.03 kg BSA: 1.93 m2 Heart Rate: 80 bpm BP: 132 / 76 mmHg Packing Room Inspector: SB Referring MD: Tolu Davis MD Symptoms: I35.0 - Nonrheumatic aortic (valve) stenosis Study Quality: Fair but adequate ECG Rhythm: Sinus Conclusions: - The left ventricular systolic function is normal. The calculated ejection fraction is 63% by biplane method. - A bioprosthetic aortic valve is present. The prosthetic aortic valve appears to be functioning normally. Findings Procedure Information The quality of the study was technically difficult. The study quality is limited by patients body habitus. Left Ventricle Normal left ventricular cavity size. The left ventricular systolic function is normal. The calculated ejection fraction is 63% by biplane method. There is no evidence of regional wall motion abnormalities. Diastolic function is normal for age. There is moderate septal asymmetric hypertrophy. Right Ventricle Normal right ventricular cavity size and systolic function. Atria Both atria are normal in size. Aortic Valve A bioprosthetic aortic valve is present. The prosthetic aortic valve appears to be functioning normally. There is no aortic valve regurgitation. Mitral Valve The mitral valve appears normal. There is no mitral valve regurgitation. There is no mitral valve stenosis. Pulmonic Valve The pulmonic valve is likely normal. Tricuspid Valve There is trace tricuspid valve regurgitation. There is no evidence of pulmonary hypertension. Great Vessels The asc aorta is normal in size. Venous The inferior vena cava was not well visualized. Pericardium/Pleural There is no evidence of pericardial effusion. Prior Study Comparison Changes noted compared to prior study dated: 12/29/2022. s/p TAVR. Measurements 2D Linear Measurements IVSd: 1.56 0.6-0.9/0.6-1.0 cm LVIDd: 3.45 3.9-5.3/4.2-5.9 cm LVIDd Index: 1.79 2.4-3.2/2.2-3.1 cm/m2 LVIDs: 2.59 2.0-3.6 cm LVPWd: 0.90 0.7-1.1 cm LA Diam: 3.70 2.7-3.8/3.0-4.0 cm LAIDs Index: 1.92 1.5-2.3 cm/m2 LV Mass: 171.43 67-162/88-224 g LV Mass Index: 88.82 43-95/49-115 g/m2 LVOT Diam: 2.20 3.0+(-)1.3 cm 2D Systolic Function EF 4C: 59.10 >55% EF 2C: 66.90 >55% EF BiP: 63.30 >55% Mitral Valve MV Pk E: 0.63 MV PK A: 1.06 MV Decel Time: 174.00 E/A: 0.60 E'Lateral: 6.64 E'Medial: 4.79 E/E' Med: 13.20 E/E' Lat: 9.50 PHT: 51.00 MVA PHT: 4.31 Decel [place]: 3.65 Aortic Valve AoV Pk Ricky: 2.00 AoV Mn Ricky: 1.40 AoV VTI: 0.39 AoV Pk Grad: 16.00 Aov Mn Grad: 9.00 RENA Cont.VTI: 1.76 LVOT LVOT Pk Ricky: 0.95 LVOT Mn Ricky: 0.69 LVOT VTI: 0.18 LVOT Pk Grad: 4.00 LVOT Mn Grad: 2.00 LVOT Diam: 2.20 LVOT Area: 3.80 Diastolic Function MV Pk E: 0.63 MV Pk A: 1.06 E/A: 0.60 E'Medial: 4.79 E/E' Med: 13.20 E' Laterial: 6.64 E/E' Lat: 9.50 Right Ventricle TAPSE (mm): 21.40 TVS' Ricky: 10.90 Tricuspid Valve TR Pk Ricky: 2.22 TR Pk Grad: 20.00 RA Press: 3.00 RVSP: 23.00 Great Vessels Aorta Ao Asc: 3.40 2.1-3.4 cm Pulmonary Valve PV Pk Ricky: 0.89 Peak PV Grad: 3.00 Updated in Other Vendor System with Status of Final Tolu Davis MD electronically signed on 03/30/2023 1:40:22 PM with status of Final
== END ==
LOC: HO.CARD 08:09
PROVIDERS: PCP Physician Assistant; Visit Provider Internal Medicine
DX: I35.0 Nonrheumatic aortic (valve) stenosis (principal); Z95.4 Presence of other heart-valve replacement
CPT/HCPCS: 93306

== ENCOUNTER → 2023-03-28 08:11 | Outpatient (BNV) | payer OTHER, SELFPAY | PROVIDERS: PCP Physician Assistant; Visit Provider Internal Medicine | DX: I35.0 Nonrheumatic aortic (valve) stenosis (principal); Z95.2 Presence of prosthetic heart valve | CPT/HCPCS: 93306 ==

== ENCOUNTER 2023-04-03 13:07 | Outpatient (AMB) | payer OTHER, SELFPAY ==
--- NOTE | 2023-04-03 13:12 | A.OFFVIS_ITS ---
Intake Vital Signs 04/03/23 13:13 Height 5 ft 4 in Weight 194 lb 14.218 oz BMI 33.4 BP 140/60 H Blood Pressure Location Lt brachial Position Sitting Pulse 99 Pulse Source Pulse Oximeter Intake Visit Reasons: 2 mth f/up km Intake Note: 2 mnth f/up/ pt its its feeling fine. 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: No Accompanied by: Self / Same As Patient Allergies No Known Allergies Allergy (Verified 01/11/23 08:30) Medication List - Last Reconciled 04/03/23 by Paulina Lawrence NP-C acetaminophen 650 mg (2 x 325 mg) PO Q6H PRN 30 days amlodipine-benazepril 5-20 mg 1 cap PO DAILY 90 days atorvastatin 10 mg PO DAILY 90 days celecoxib (Celebrex) 100 mg PO BID ferrous sulfate 325 mg PO BID 90 days folic acid 1 mg PO DAILY hydrochlorothiazide 12.5 mg PO QAM 90 days levothyroxine 125 mcg PO DAILY 90 days vitamin F09-ifffcal B1 100-1 mg/mL 1 mL IM .once a month HPI 2 mth f/up km HPI Details Janice is an 82-year-old female past medical history of hypertension, hyperlipidemia, obesity, severe aortic stenosis who recently underwent TAVR procedure and now presents for follow-up. Today she reports that she does not feel any different after having the TAVR procedure. She continues to have some mild shortness of breath with over exertion. 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 She went right back to work days after her procedure. She has had follow-up with Dr. Banda and tells me there something going on with her heart rhythm. She is currently wearing a monitoring and evaluation advisor. She denies having any lightheadedness, heart palpitations, presyncope, syncope, falls. No chest discomfort at rest or with activity. No PND, orthopnea or edema. She is taking all meds as directed. [facility] Medical History Other and unspecified hyperlipidemia Essential hypertension Non-rheumatic aortic stenosis Primary osteoarthritis of right knee Primary osteoarthritis of hands, bilateral Primary osteoarthritis of right hip Hypothyroid Hx of osteomyelitis Osteoarthritis Thyroid disease Iron deficiency anemia Elevated cholesterol Aortic valvular disease HTN (hypertension) Surgical History History of total right knee replacement Hx of surgical amputation of finger History of total right hip replacement Amputation of finger of left hand History of hip replacement History of History of total left hip arthroplasty History of total left knee replacement Hx of colonoscopy Family History Father Myocardial infarction CVD (cardiovascular disease) Mother No problems noted. Brother Bladder cancer Daughter Cervical cancer Son Knee pain Social History Household Members: None Housing: Apartment Are you a primary director of health care marketing to a significant other at home: No Do you presently have visiting nurse or other home services: No Alcohol intake: current Alcohol intake frequency: holidays/special occasions only Alcohol type: wine Comment: asleep Patient Tobacco Use Status: Never used Tobacco e-Cigarette/Vaping Use: Never Used Second Hand Smoke Exposure: No service: No Current occupational status: employed Cognitive needs: No Hearing needs: Yes (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) Vision needs: Yes Review of Systems Const All systems reviewed & are unremarkable except as noted in HPI and below Denies chills, Denies fatigue, Denies fever(s), Denies frequent falls, Reports weakness, Denies weight gain and Denies weight loss ENT Denies dizziness Card Denies chest pain, Denies leg edema, Denies lightheadedness, Denies palpitations, Denies dyspnea and Denies dyspnea on exertion Resp Denies cough, Denies dyspnea and Denies dyspnea on exertion GI Denies hematochezia Musc Details: rib, pelvic Reports abnormal gait, Denies limited range of motion, Denies muscle weakness and Denies numbness Neuro Reports abnormal gait, Denies dizziness, Denies frequent falls, Denies numbness and Reports weakness Endo Denies fatigue and Denies palpitations Physical Exam Vital Signs: Last Vital Signs Pulse 99 04/03/23 13:13 BP 140/60 H 04/03/23 13:13 BMI result Body Mass Index 33.4 Const General: cooperative, healthy appearing, comfortable and no acute distress Orientation/consciousness: patient oriented x3 HEENT Head: No normal to inspection Eyes Sclerae: sclerae normal Neck Neck: Yes normal visual inspection and Yes no JVD Carotids: normal carotid upstroke Resp Effort & Inspection: normal respiratory effort Auscultation: clear to auscultation bilaterally, no crackles, no rales, no rhonchi and no wheezes Cardio Jugular venous distension: no JVD Rate: regular rate Rhythm: regular rhythm Heart sounds: S1 normal heart sound present, S2 normal heart sound present, no gallops, no murmurs and no rubs Peripheral pulses: Peripheral pulses 2+ throughout GI Inspection: Yes normal to inspection Skin General skin exam: no rashes or lesions noted Neuro General: patient oriented x3 Extrem General: Yes normal to inspection, No no pedal edema and No calf tenderness Psych Appearance: grossly normal Mental Status: mental status grossly normal Speech and movement: Normal speech and movement present Assessment & Plan Assessment & Plan (1) Non-rheumatic aortic stenosis: Code(s): I35.0 - Nonrheumatic aortic (valve) stenosis Plan: History of aortic stenosis. Last echo 12/29/2022 shows EF 65%, moderate to severe aortic stenosis with mean gradient 27 mmHg, aortic valve area 0.85 centimeter sq, grade 1 diastolic dysfunction, overall no change from 06/12/2022. On last visit she reported new shortness of breath and chest heaviness when she is at work. 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 No lightheadedness, presyncope, syncope. She underwent a diagnostic cardiac catheterization on 01/16/2023 showing only minimal luminal irregularities of the left circumflex, aortic valve area found to be 0.42 cm, mean gradient 32 mmHg. She referred to TAVR team for evaluation. She then underwent TAVR procedure on 03/01/[address] Banda. At this time she reports no significant change in how she feels postprocedure. At this time though she is not complaining of any concerning shortness of breath or chest heaviness. An echocardiogram done 03/28/2023 showed EF 63%, bioprosthetic aortic valve functioning normally. She tells me she has follow-up with Dr. Banda later this week. She is currently wearing a monitoring and evaluation advisor that he ordered. Meds reviewed and no changes. Anticipate that Dr. Banda will order next echocardiogram for post TAVR eval. Cardiology follow-up here in 3-4 months, sooner if needed. (2) HTN (hypertension): Code(s): I10 - Essential (primary) hypertension Qualifiers: Hypertension type: essential hypertension Qualified Code(s): I10 - Essential (primary) hypertension Plan: Mild blood pressure elevation today. Readings at prior visits in normal range. Will continue on current med management at this time. (3) S/P TAVR (transcatheter aortic valve replacement): Comment: 03/01/2023 Dr. Banda, [facility] [facility] [place] Code(s): Z95.2 - Presence of prosthetic heart valve Plan: As above Plan Time spent on chart review, documentation, interview and assessment Coding Level of Care Code Est Pt Level 4 (48474) Diagnoses Non-rheumatic aortic stenosis I35.0 Essential hypertension I10 Hypertension type: essential hypertension S/P TAVR (transcatheter aortic valve replacement) Z95.2 Time Spent (min) 28
[2023-04-03 13:13] VITALS: BP 140/60; PULSE 99; BMI 33.4
== END 2023-04-03 13:51 | disposition home or self-care (01) ==
PROVIDERS: PCP Physician Assistant; Visit Provider Nurse Practitioner Family
DX: I35.0 Nonrheumatic aortic (valve) stenosis (principal); I10 Essential (primary) hypertension; Z95.2 Presence of prosthetic heart valve
CPT/HCPCS: 99214

== ENCOUNTER → 2023-04-03 13:07 | Outpatient (BNVA) | payer OTHER, SELFPAY | PROVIDERS: PCP Physician Assistant; Visit Provider Nurse Practitioner Family ==

== ENCOUNTER 2023-06-21 10:44 | Outpatient (REF) | payer OTHER, SELFPAY | END 2023-06-21 10:45 | disposition home or self-care (01) | LOC: HO.MAMMO 10:44 | PROVIDERS: PCP Physician Assistant; Visit Provider Physician Assistant | DX: Z13.89 Encounter for screening for other disorder (principal) ==

== ENCOUNTER 2023-07-11 08:14 | Outpatient (AMB) | payer OTHER, SELFPAY ==
[2023-07-11 08:20] VITALS: BP 136/62; PULSE 78; O2SAT 97; BMI 33.0
--- NOTE | 2023-07-11 08:20 | A.OFFPC_ITS ---
Vital Signs 07/11/23 08:20 Height 5 ft 4 in Weight 192 lb BMI 33.0 BP 136/62 Blood Pressure Location Lt brachial Position Sitting Pulse 78 Pulse Source Pulse Oximeter Pulse Oximetry (%) 97 Oxygen Delivery Method Room Air Intake Visit Reasons: 6mth f/u Allergies No Known Allergies Allergy (Verified 07/11/23 08:32) Medication List - Last Reconciled 07/11/23 by Thomas Weller PA-C acetaminophen 650 mg (2 x 325 mg) PO Q6H PRN 30 days amlodipine-benazepril 5-20 mg 1 cap PO DAILY 90 days atorvastatin 10 mg PO DAILY 90 days celecoxib (Celebrex) 100 mg PO BID ferrous sulfate 325 mg PO BID 90 days folic acid 1 mg PO DAILY hydrochlorothiazide 12.5 mg PO QAM 90 days levothyroxine 125 mcg PO DAILY 90 days vitamin V04-fqviumm B1 100-1 mg/mL 1 mL IM .once a month Tobacco use date assessed: 07/11/23 Fall risk assessment: No Falls in past year Last assessed Fall Risk: 07/11/23 Dental Screening Dental Screen Date: 07/11/23 Did you have a dental visit in the last 12 months?: Yes Did you have a dental problem in the last 6 months where you did not have access to dental care?: No Was dental information given to patient?: Patient has dentist HPI 6m f/u HPI Details atient is a 82-year-old female here today for a follow-up visit. ?. Patient has a past medical history significant for essential hypertension, hypothyroidism, arthritis aortic stenosis. Concerns--> Having onycomycosis over several toenails. Having hard time clipping her toenails. Would like to see a carbon coating machine operator. .. Anemia: Followed by Hematology, most recent CBC showing improved red blood cell and hemoglobin. Continues to get B12 injections on a monthly basis with Hematology. . ? .. ? Aortic stenosis: Patient is followed by Cardiology by Biannually.? Patient is status post aortic valve replacement. ?No reports of chest discomforts, shortness of breath or overt signs of Congestive heart failure. .. Hypothyroid:?? Most recent TSH stable.? Will continue her current dose of levothyroxine 125mcg.? Has been clinically stable. ? .. ? Hypertension:? Patient's blood pressure acceptable today in office ? She reports she does know monitor blood pressure at home.? She denies any chest discomfort, palpitations headaches or dizziness.? Advised her to comments home blood pressure monitoring to assure her blood pressures have been normal.? Laboratory Tests 03/29/23 09:10 RBC 3.70 L Hgb 11.4 L BUN 40 H Creatinine 1.21 PFSH Medical History Other and unspecified hyperlipidemia Essential hypertension Non-rheumatic aortic stenosis Primary osteoarthritis of right knee Primary osteoarthritis of hands, bilateral Primary osteoarthritis of right hip Hypothyroid Hx of osteomyelitis Osteoarthritis Thyroid disease Iron deficiency anemia Elevated cholesterol Aortic valvular disease HTN (hypertension) Surgical History History of total right knee replacement Hx of surgical amputation of finger History of total right hip replacement Amputation of finger of left hand History of hip replacement History of History of total left hip arthroplasty History of total left knee replacement Hx of colonoscopy Family History Father Myocardial infarction CVD (cardiovascular disease) Mother No problems noted. Brother Bladder cancer Daughter Cervical cancer Son Knee pain Social History Household Members: None Housing: Apartment Are you a primary chronic care nurse to a significant other at home: No Do you presently have visiting nurse or other home services: No Alcohol intake: current Alcohol intake frequency: holidays/special occasions only Alcohol type: wine Comment: asleep Patient Tobacco Use Status: Never used Tobacco e-Cigarette/Vaping Use: Never Used Second Hand Smoke Exposure: No service: No Current occupational status: employed Cognitive needs: No Hearing needs: Yes (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) Vision needs: Yes Questionnaire PHQ-9 Over the last 2 weeks, how often have you been bothered by any of the following problems? 1. Little interest or pleasure in doing things: not at all 2. Feeling down, depressed, or hopeless: not at all 3. Trouble falling or staying asleep, or sleeping too much: not at all 4. Feeling tired or having little energy: not at all 5. Poor appetite or overeating: not at all 6. Feeling bad about yourself - or that you are a failure or have let yourself or your family down: not at all 7. Trouble concentrating on things, such as reading the newspaper or watching television: not at all 8. Moving or speaking so slowly that other people could have noticed. Or the opposite - being so fidgety or restless that you have been moving around a lot more than usual: not at all 9. Thoughts that you would be better off or of hurting yourself in some way: not at all Total score: 0 Depression Screening Interpretation: Negative Depression Screening Done: Yes 83944 - PHQ-9 Billing: Yes Source: Developed by Drs. Adal Johnston, Tabatha Dawson, Odin Lambert and colleagues, with an educational marbin from [employer]. Thrive Questionnaire Date Thrive assessed: 07/11/23 I am a: Patient What is your living situation today?: I have a steady place to live Within the past 12 months, did the food you bought not last and you didn't have the money to get more?: Never true Within the past 12 months, did you worry whether your food would run out before you got money to buy more?: Never true Do you have trouble paying for medicines?: No Do you have trouble getting transportation to medical appointments?: No Do you have trouble paying your heating and electricity bill?: No Do you have trouble taking care of your child, family member or friend?: No Do you have trouble with day-to-day activities such as bathing, preparing meals, shopping, managing finances, etc.?: No Are you currently unemployed and looking for a job?: No Are you interested in more education?: No Currently or been in a relationship where the following occur: no concerns reported THRIVE Score: 0 AUDIT C Alcohol Use Questionnaire (AUDIT-C) 1. How often do you have a drink containing alcohol?: Never 3. How often do you have six or more drinks on one occasion?: Never Total Score: 0 SHIMA-7 AMB Questionnaire SHIMA-7 Date SHIMA - 7 assessed: 07/11/23 Feeling nervous, anxious, or on edge: 0 = Not at all Not being able to stop or control worryin = Not at all Worrying too much about different things: 0 = Not at all Trouble relaxin = Not at all Being so restless that it is hard to sit still: 0 = Not at all Becoming easily annoyed or irritable: 0 = Not at all Feeling afraid as if something awful might happen: 0 = Not at all Total SHIMA-7 score (0-4 normal; 5-9 mild; 10-14 moderate; 15-21 severe): 0 Source: Developed by Drs. Adal Johnston, Tabatha Dawson, Odin Lambert and colleagues, with an educational marbin from [employer]. SHIMA-7 Assessment Billing SHIMA-7 Assessment Tool: SHIMA-7 Assessment 47677 Review of Systems Const Denies headache(s) Eyes Denies loss of vision ENT Denies vertigo, Denies dizziness, Denies headache(s) and Denies sore throat Card Denies chest pain, Denies leg edema and Denies lightheadedness Resp Denies cough, Denies hemoptysis and Denies wheezing GI Denies abdominal pain, Denies melena, Denies constipation, Denies diarrhea and Denies vomiting Denies urinary frequency, Denies dysuria and Denies urinary urgency Musc Denies arthralgias, Denies joint swelling, Denies numbness and Denies tingling Neuro Denies Abnormal speech present, Denies behavioral changes, Denies vertigo, Denies dizziness, Denies headache(s), Denies loss of vision, Denies memory loss, Denies numbness and Denies tingling Psych Denies anxiety, Denies behavioral changes, Denies depression, Denies memory loss and Denies panic attacks Jose/Lymph Denies easy bleeding and Denies easy bruising Aller/Immun Denies wheezing Physical exam (Primary Care) Vital Signs: Last Vital Signs Pulse 78 07/11/23 08:20 BP 136/62 07/11/23 08:20 Pulse Ox 97 07/11/23 08:20 Oxygen Delivery Method Room Air 07/11/23 08:20 BMI result Body Mass Index 33.0 Tobacco/Smoking Status: Tobacco use Status Tobacco use date assessed 07/11/23 07/11/23 08:23 Patient Tobacco Use Status Never used Tobacco 07/11/23 08:23 e-Cigarette/Vaping Use Never Used 07/11/23 08:23 PHQ-9: PHQ-9 Score PHQ-9: Total score 0 07/11/23 08:23 Depression Screening Interpretation: Negative Thrive Assessment: Date of Thrive Assessment Date Thrive assessed 07/11/23 07/11/23 08:23 Currently or been in a relationship where the following occur: no concerns reported Const General: healthy appearing, no acute distress, alert and awake Nutritional Appearance: well nourished Orientation/consciousness: oriented to person, oriented to place and oriented to time HENMT Ears: TM's normal bilaterally General nose exam: Normal nasal mucous membranes and turbinates present Eyes Conjunctivae: conjunctivae normal Sclerae: sclerae normal Pupils: Equal, round and reactive pupils present Neck Neck: Yes no lymphadenopathy and Yes no JVD Thyroid: Thyroid normal Carotids: no bruits Resp Effort & Inspection: normal respiratory effort and not tachypneic Auscultation: no crackles, no rales, no rhonchi and no wheezes Cardio Rate: regular rate Rhythm: regular rhythm Heart sounds: no murmurs and normal S1 and S2 GI Palpation (GI): Soft to palpation, nontender, no hepatomegaly and no splenomegaly Auscultation: normal bowel sounds Skin General skin exam: no rashes or lesions noted and dry skin Neuro General: oriented to person, oriented to place and oriented to time Cranial nerves: Yes Equal, round and reactive pupils present Speech: No Abnormal speech present Gait exam (Neuro): Normal gait present Motor exam (neuro): no tremor noted Extrem Right upper extremity: full ROM Left upper extremity: full ROM Right lower extremity: full ROM; no edema Left lower extremity: full ROM; no edema Psych Mental Status: mental status grossly normal Speech and movement: Normal speech and movement present Affect: normal affect Attitude: cooperative Thought process: Normal thought process present Assessment and Plan Assessment & Plan (1) S/P TAVR (transcatheter aortic valve replacement): Comment: 03/01/2023 [place] [facility] [place](s): Z95.2 - Presence of prosthetic heart valve Plan: Patient is status post aortic valve replacement. Been feeling well. No overt signs of Congestive heart failure. Continues to follow with Cardiology. (2) HTN (hypertension): Code(s): I10 - Essential (primary) hypertension Qualifiers: Hypertension type: essential hypertension Qualified Code(s): I10 - Essential (primary) hypertension Plan: Patient's blood pressure today slightly elevated. She does not regularly check her blood pressures at home. She otherwise denies any headaches, chest pain, vision issues or dizziness.. Will continue current dose of antihypertensive medication with goal blood pressure to be below 140/90. (3) HLD (hyperlipidemia): Code(s): E78.5 - Hyperlipidemia, unspecified Qualifiers: Hyperlipidemia type: mixed hyperlipidemia Qualified Code(s): E78.2 - Mixed hyperlipidemia Plan: Patient continues on statin therapy without side effect. Most recent fasting lipid panel showing acceptable LDL and total cholesterol. Goal LDL to be below 130 (4) Anemia: Code(s): D64.9 - Anemia, unspecified Qualifiers: Anemia type: iron deficiency Iron deficiency anemia type: unspecified iron deficiency Qualified Code(s): D50.9 - Iron deficiency anemia, unspecified Plan: Patient continues follow hematology , she does get B12 injections on a monthly basis.. Most recent CBC showing improved hemoglobin and red blood cell count. Patient denies any further fatigue, shortness of breath on exertion. (5) Hypothyroid: Code(s): E03.9 - Hypothyroidism, unspecified Qualifiers: Hypothyroidism type: unspecified Qualified Code(s): E03.9 - Hypothyroidism, unspecified Plan: Patient's most recent labs showing acceptable TSH. Has been clinically and chemically euthyroid with current dose of levothyroxine at 125 mcg daily. (6) Angélica onychomycosis: Code(s): B37.2 - Candidiasis of skin and nail Plan: Has dealing with fungal nails. Would like to see a carbon coating machine operator for nail grooming as she has having a hard time clipping her to nails. Orders: Referrals Podiatry Referral B37.2 - Candidiasis of skin and nail Patient Instructions: Goal: Blood pressure remain below 140/90 Barrier: Adherence to physical activity and healthy eating habits. Coding Level of Care Code Est Pt Level 4 (57736) Diagnoses S/P TAVR (transcatheter aortic valve replacement) Z95.2 Essential hypertension I10 Hypertension type: essential hypertension Mixed hyperlipidemia E78.2 Hyperlipidemia type: mixed hyperlipidemia Iron deficiency anemia, unspecified iron deficiency anemia type D50.9 Anemia type: iron deficiency Iron deficiency anemia type: unspecified iron deficiency Hypothyroidism, unspecified type E03.9 Hypothyroidism type: unspecified Angélica onychomycosis B37.2 Additional Codes SHIMA-7 Assessment Billing - SHIMA-7 Assessment Tool: SHIMA-7 Assessment [id number] ([id number])
== END 2023-07-11 08:45 | disposition home or self-care (01) ==
PROVIDERS: PCP Physician Assistant; Visit Provider Physician Assistant
DX: Z95.2 Presence of prosthetic heart valve (principal); I10 Essential (primary) hypertension; E78.2 Mixed hyperlipidemia; D50.9 Iron deficiency anemia, unspecified; E03.9 Hypothyroidism, unspecified; B37.2 Candidiasis of skin and nail
CPT/HCPCS: 99214

== ENCOUNTER 2023-07-24 09:23 | Outpatient (AMB) | payer OTHER, SELFPAY ==
[2023-07-24 09:25] VITALS: BP 132/60; PULSE 77; O2SAT 98; BMI 32.9
--- NOTE | 2023-07-24 09:25 | MHC.OFFVIS ---
Vital Signs 07/24/23 09:25 Height 5 ft 4 in Weight 191 lb 12.835 oz BMI 32.9 BP 132/60 Blood Pressure Location Rt brachial Position Sitting Pulse 77 Pulse Source Pulse Oximeter Pulse Oximetry (%) 98 Intake Visit Reasons: 4 mth f/up Nurse General Duty Required: No Accompanied by: Self / Same As Patient Allergies No Known Allergies Allergy (Verified 07/11/23 08:32) Medication List - Last Reconciled 07/24/23 by Tolu Davis MD acetaminophen 650 mg (2 x 325 mg) PO Q6H PRN 30 days amlodipine-benazepril 5-20 mg 1 cap PO DAILY 90 days aspirin (Adult Aspirin Regimen) 81 mg PO DAILY atorvastatin 10 mg PO DAILY 90 days celecoxib (Celebrex) 100 mg PO BID ferrous sulfate 325 mg PO BID 90 days folic acid 1 mg PO DAILY hydrochlorothiazide 12.5 mg PO QAM 90 days levothyroxine 125 mcg PO DAILY 90 days vitamin M73-maoiuzy B1 100-1 mg/mL 1 mL IM .once a month HPI Comments Details: August returns for follow-up. She underwent TAVR in 02/2023. Overall, feeling good. No clear-cut cardiac symptoms. Getting along well. [facility] Medical History Other and unspecified hyperlipidemia Essential hypertension Non-rheumatic aortic stenosis Primary osteoarthritis of right knee Primary osteoarthritis of hands, bilateral Primary osteoarthritis of right hip Hypothyroid Hx of osteomyelitis Osteoarthritis Thyroid disease Iron deficiency anemia Elevated cholesterol Aortic valvular disease HTN (hypertension) Surgical History History of total right knee replacement Hx of surgical amputation of finger History of total right hip replacement Amputation of finger of left hand History of hip replacement History of History of total left hip arthroplasty History of total left knee replacement Hx of colonoscopy Family History Father Myocardial infarction CVD (cardiovascular disease) Mother No problems noted. Brother Bladder cancer Daughter Cervical cancer Son Knee pain Social History Household Members: None Housing: Apartment Are you a primary housekeeper caregiver to a significant other at home: No Do you presently have visiting nurse or other home services: No Alcohol intake: current Alcohol intake frequency: holidays/special occasions only Alcohol type: wine Comment: asleep Patient Tobacco Use Status: Never used Tobacco e-Cigarette/Vaping Use: Never Used Second Hand Smoke Exposure: No service: No Current occupational status: employed Cognitive needs: No Hearing needs: Yes (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) Vision needs: Yes Review of Systems Const Denies chills, Denies fatigue, Denies fever(s), Denies frequent falls, Denies weakness, Denies weight gain and Denies weight loss ENT Denies dizziness Card Denies chest pain, Denies leg edema, Denies lightheadedness, Denies palpitations, Denies dyspnea and Denies dyspnea on exertion Resp Denies cough, Denies dyspnea and Denies dyspnea on exertion GI Denies hematochezia Musc Denies abnormal gait, Denies muscle weakness, Denies numbness, Denies radiating pain into limb and Denies tingling Neuro Denies abnormal gait, Denies dizziness, Denies frequent falls, Denies numbness, Denies tingling and Denies weakness Endo Denies fatigue and Denies palpitations Physical Exam Vital Signs: Last Vital Signs Pulse 77 07/24/23 09:25 BP 132/60 07/24/23 09:25 Pulse Ox 98 07/24/23 09:25 BMI result Body Mass Index 32.9 Const General: comfortable and no acute distress Orientation/consciousness: patient oriented x3 HEENT Other: Unremarkable Head: Yes normal to inspection Neck Neck: Yes normal visual inspection Chest Chest palpation & inspection: normal inspection of the chest Resp Auscultation: clear to auscultation bilaterally Cardio Palpation: normal PMI Heart sounds: S1 normal heart sound present, S2 normal heart sound present, no gallops, Murmur heart sound present systolic II/ and at the right sternal border and no rubs GI Palpation (GI): Soft to palpation Back/Spine/Pelvis Other: unremarkable Skin General skin exam: no rashes or lesions noted Neuro General: patient oriented x3 Extrem General: Yes normal to inspection Psych Mental Status: mental status grossly normal Office Procedures EKG Details: EKG with sinus rhythm and left bundle-branch block pattern. [id number], Complete Assessment & Plan Assessment & Plan (1) S/P TAVR (transcatheter aortic valve replacement): Code(s): Z95.2 - Presence of prosthetic heart valve Category: Surgical Plan: Cardiac catheterization data reviewed from 02/2023. Minimal irregularities in circumflex but otherwise normal coronary arteries. In the most recent echocardiogram, LVEF 63%. Normally functioning bioprosthetic aortic valve. Continue long-term aspirin. Infective endocarditis prophylaxis per protocol. (2) Essential hypertension: Code(s): I10 - Essential (primary) hypertension Category: Medical Plan: Stable on current meds. Listed to be on amlodipine/benazepril/hydrochlorothiazide. (3) LBBB (left bundle branch block): Code(s): I44.7 - Left bundle-branch block, unspecified Category: Medical Plan: Post TAVR finding. Can be followed on EKGs. Orders: Orders CA echo transthoracic complete 02/11/24 Z95.2 - Presence of prosthetic heart valve Coding Level of Care Code Est Pt Level 4 (81803) Diagnoses S/P TAVR (transcatheter aortic valve replacement) Z95.2 Essential hypertension I10 LBBB (left bundle branch block) I44.7 CPT Codes EKG - CPT: 34417-[id number], Complete ([id number])
== END 2023-07-24 09:50 | disposition home or self-care (01) ==
PROVIDERS: PCP Physician Assistant; Visit Provider Internal Medicine
DX: Z95.2 Presence of prosthetic heart valve (principal); I10 Essential (primary) hypertension; I44.7 Left bundle-branch block, unspecified
CPT/HCPCS: 93010; 99214

== ENCOUNTER → 2023-07-24 09:23 | Outpatient (BNVA) | payer OTHER, SELFPAY | PROVIDERS: PCP Physician Assistant; Visit Provider Internal Medicine | DX: I44.7 Left bundle-branch block, unspecified (principal); I10 Essential (primary) hypertension; Z95.2 Presence of prosthetic heart valve; Z79.82 Long term (current) use of aspirin | CPT/HCPCS: 93005 ==

== ENCOUNTER 2023-10-04 08:00 | Outpatient (REF) | payer OTHER, SELFPAY ==
[2023-10-04 08:15] LABS: MANUAL DIFF FLAG NO
[2023-10-04 08:55] LABS: Basophils Absolute Auto 0.1 X10*3/uL (0.0-0.2); Basophils Percent Auto 1.1 % (0-2); Eosinophils Absolute Auto 0.3 X10*3/uL (0.0-0.4); Hematocrit 34.3 % (37.0-47.0); Hemoglobin 11.4 g/dl (12.0-16.0); Imm Gran Abs Auto 0.02 X10*3/uL (0.00-0.03); Imm Gran Pct Auto 0.2 % (0.0-0.4); Lymphocytes Absolute Auto 3.1 X10*3/uL (1.2-4.9); Lymphocytes Percent Auto 38.2 % (20-40); Mean Corpuscular HGB Conc 33.2 g/dl (31.0-35.0); Mean Corpuscular Hemoglobin 29.8 pg (27.0-33.0); Mean Corpuscular Volume 89.6 fL (80.0-98.0); Mean Platelet Volume 8.3 fL (9.4-12.3); Monocytes Absolute Auto 0.5 X10*3/uL (0.1-1.2); Monocytes Percent Auto 6.6 % (2-11); Neutrophils Percent Auto 49.9 % (45-73); Platelet Count 360 X10*3/uL (160-400); Red Blood Count 3.83 X10*6/uL (4.20-5.50); Red Cell Distribution Width 12.9 % (11.0-16.0)
[2023-10-04 09:26] LABS: Creatinine Urine 31.75 mg/dL; Microalbum/Creatinine Ratio Ur 40.9 ug/mg cr (<30)
[2023-10-04 09:26] LABS: Alanine Aminotransferase 12 U/L (0-31); Albumin Level 4.1 g/dL (3.5-5.0); Alkaline Phosphatase 91 U/L (39-117); Anion Gap 15 (12-20); Aspartate Amino Transferase 18 U/L (5-31); Bilirubin Total 0.5 mg/dL (0.0-1.0); Blood Urea Nitrogen 27 mg/dL (9-16); Calcium 9.1 mg/dL (8.4-10.2); Carbon Dioxide 22 mmol/L (22-29); Chloride 108 mmol/L (96-108); Cholesterol 147 mg/dL (<200); Estimated Glomerular Filt Rate > 60; Glucose Fasting 95 mg/dL (60-99); Glucose Random 94 mg/dL (60-115); HDL Cholesterol 54 mg/dL (>40); LDL Cholesterol Calculated 81 mg/dL (<100); Sodium 141 mmol/L (135-145); Total Protein 7.2 g/dL (6.5-8.0); Triglycerides 60 mg/dL (<150)
[2023-10-04 09:37] LABS: Ferritin 258 ng/mL (10-250)
[2023-10-04 09:43] LABS: TSH reflex Free T4 0.82 uIU/mL (0.32-4.0)
[2023-10-04 11:11] LABS: Folate 15.2 ng/mL (> or = 4.0); Vitamin B12 444 pg/mL (200-900)
== END 2023-10-04 08:01 | disposition home or self-care (01) ==
LOC: HO.LAB 08:00
PROVIDERS: Internal Medicine Medical Oncology; PCP Physician Assistant; Visit Provider Physician Assistant
DX: D64.9 Anemia, unspecified (principal); I10 Essential (primary) hypertension; E03.9 Hypothyroidism, unspecified; E78.5 Hyperlipidemia, unspecified; E53.8 Deficiency of other specified B group vitamins
CPT/HCPCS: 36415; 80053; 80061; 82043; 82570; 82607; 82728; 82746; 84443; 85025

== ENCOUNTER 2024-01-14 08:22 | Outpatient (AMB) | payer OTHER, SELFPAY ==
--- NOTE | 2024-01-14 08:39 | MHC.PC.OV ---
Vital Signs 01/14/24 08:40 Height 5 ft 4 in Weight 194 lb 6 oz BMI 33.4 BP 130/70 Blood Pressure Location Lt brachial Position Sitting Pulse 88 Pulse Source Pulse Oximeter Pulse Oximetry (%) 96 Oxygen Delivery Method Room Air Intake Visit Reasons: f/u HTN / anemia Intake Note: Patient is here to follow up on HTN, Anemia. Airdox Fitter Required: No Bending Frame Operator: Not Required per policy Accompanied by: Self / Same As Patient Allergies No Known Allergies Allergy (Verified 01/14/24 08:50) Medication List - Last Reconciled 01/14/24 by Thomas Weller PA-C acetaminophen 650 mg (2 x 325 mg) PO Q6H PRN 30 days amlodipine-benazepril 5-20 mg 1 cap PO DAILY 90 days aspirin (Adult Aspirin Regimen) 81 mg PO DAILY atorvastatin 10 mg PO DAILY 90 days celecoxib (Celebrex) 100 mg PO BID ferrous sulfate 325 mg PO BID 90 days folic acid 1 mg PO DAILY hydrochlorothiazide 12.5 mg PO QAM 90 days levothyroxine 125 mcg PO DAILY 90 days vitamin C18-azifiyk B1 100-1 mg/mL 1 mL IM .once a month Tobacco use date assessed: 01/14/24 Fall risk assessment: No Falls in past year Last assessed Fall Risk: 01/14/24 Dental Screening Dental Screen Date: 07/11/23 HPI f/u HTN / anemia HPI Details atient is a 83-year-old female here today for a follow-up visit. ?. Patient has a past medical history significant for essential hypertension, hypothyroidism, arthritis aortic stenosis. Concerns--> .. Anemia: Followed by Hematology, most recent CBC showing improved red blood cell and hemoglobin. Continues to get B12 injections on a monthly basis with Hematology. . ? .. ? Aortic stenosis: Patient is followed by Cardiology by Biannually.? Patient is status post aortic valve replacement. ?No reports of chest discomforts, shortness of breath or overt signs of Congestive heart failure. .. Hypothyroid:?? Most recent TSH stable.? Will continue her current dose of levothyroxine 125mcg.? Has been clinically stable. ? .. ? Hypertension:? Patient's blood pressure acceptable today in office ? She reports she does know monitor blood pressure at home.? She denies any chest discomfort, palpitations headaches or dizziness.? Advised her to comments home blood pressure monitoring to assure her blood pressures have been normal.? Laboratory Tests 10/04/23 10/04/23 08:13 Unknown RBC 3.83 L Hgb 11.4 L Creatinine 0.86 TSH 0.82 Urine Microalbumin 13.0 [facility] Medical History (Updated 01/14/24 @ 08:59 by Thomas Weller PA-C) Other and unspecified hyperlipidemia Non-rheumatic aortic stenosis Primary osteoarthritis of right knee Primary osteoarthritis of hands, bilateral Primary osteoarthritis of right hip Hypothyroid Hx of osteomyelitis Osteoarthritis Thyroid disease Iron deficiency anemia Elevated cholesterol Aortic valvular disease HTN (hypertension) Surgical History (Updated 01/14/24 @ 08:59 by Thomas Weller PA-C) Status post total right knee replacement History of total right knee replacement Hx of surgical amputation of finger History of total right hip replacement Amputation of finger of left hand History of hip replacement History of History of total left hip arthroplasty History of total left knee replacement Hx of colonoscopy Family History Father Myocardial infarction CVD (cardiovascular disease) Mother No problems noted. Brother Bladder cancer Daughter Cervical cancer Son Knee pain Social History Household Members: None Housing: Apartment Are you a primary workforce investment act career manager to a significant other at home: No Do you presently have visiting nurse or other home services: No Alcohol intake: current Alcohol intake frequency: holidays/special occasions only Alcohol type: wine Comment: asleep Patient Tobacco Use Status: Never used Tobacco e-Cigarette/Vaping Use: Never Used Second Hand Smoke Exposure: No service: No Current occupational status: employed Cognitive needs: No Hearing needs: Yes (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) Vision needs: Yes Questionnaire Thrive Questionnaire Date Thrive assessed: 07/11/23 SHIMA-7 AMB Questionnaire SHIMA-7 Date SHIMA - 7 assessed: 07/11/23 Source: Developed by Drs. Adal Johnston, Tabatha Dawson, Odin Lambert and colleagues, with an educational marbin from [employer]. Review of Systems Const Denies headache(s) Eyes Denies loss of vision ENT Denies vertigo, Denies dizziness, Denies headache(s) and Denies sore throat Card Denies chest pain, Denies leg edema and Denies lightheadedness Resp Denies cough, Denies hemoptysis and Denies wheezing GI Denies abdominal pain, Denies melena, Denies constipation, Denies diarrhea and Denies vomiting Denies urinary frequency, Denies dysuria and Denies urinary urgency Musc Denies arthralgias, Denies joint swelling, Denies numbness and Denies tingling Neuro Denies Abnormal speech present, Denies behavioral changes, Denies vertigo, Denies dizziness, Denies headache(s), Denies loss of vision, Denies memory loss, Denies numbness and Denies tingling Psych Denies anxiety, Denies behavioral changes, Denies depression, Denies memory loss and Denies panic attacks Jose/Lymph Denies easy bleeding and Denies easy bruising Aller/Immun Denies wheezing Physical exam (Primary Care) Vital Signs: Last Vital Signs Pulse 88 01/14/24 08:40 BP 130/70 01/14/24 08:40 Pulse Ox 96 01/14/24 08:40 Oxygen Delivery Method Room Air 01/14/24 08:40 BMI result Body Mass Index 33.4 Tobacco/Smoking Status: Tobacco use Status Tobacco use date assessed 01/14/24 01/14/24 08:43 Patient Tobacco Use Status Never used Tobacco 01/14/24 08:43 e-Cigarette/Vaping Use Never Used 01/14/24 08:43 Thrive Assessment: Date of Thrive Assessment Date Thrive assessed 07/11/23 01/14/24 08:43 Const General: healthy appearing, no acute distress, alert and awake Nutritional Appearance: well nourished Orientation/consciousness: oriented to person, oriented to place and oriented to time [facility] Ears: TM's normal bilaterally General nose exam: Normal nasal mucous membranes and turbinates present Eyes Conjunctivae: conjunctivae normal Sclerae: sclerae normal Pupils: Equal, round and reactive pupils present Neck Neck: Yes no lymphadenopathy and Yes no JVD Thyroid: Thyroid normal Carotids: no bruits Resp Effort & Inspection: normal respiratory effort and not tachypneic Auscultation: no crackles, no rales, no rhonchi and no wheezes Cardio Rate: regular rate Rhythm: regular rhythm Heart sounds: no murmurs and normal S1 and S2 GI Palpation (GI): Soft to palpation, nontender, no hepatomegaly and no splenomegaly Auscultation: normal bowel sounds Skin General skin exam: no rashes or lesions noted and dry skin Neuro General: oriented to person, oriented to place and oriented to time Cranial nerves: Yes Equal, round and reactive pupils present Speech: No Abnormal speech present Gait exam (Neuro): Normal gait present Motor exam (neuro): no tremor noted Extrem Right upper extremity: full ROM Left upper extremity: full ROM Right lower extremity: full ROM; no edema Left lower extremity: full ROM; no edema Psych Mental Status: mental status grossly normal Speech and movement: Normal speech and movement present Affect: normal affect Attitude: cooperative Thought process: Normal thought process present Coding Level of Care Code Est Pt Level 4 (19587) Diagnoses Essential hypertension I10 Hypertension type: essential hypertension S/P TAVR (transcatheter aortic valve replacement) Z95.2 Hypothyroidism, unspecified type E03.9 Hypothyroidism type: unspecified Iron deficiency anemia, unspecified iron deficiency anemia type D50.9 Anemia type: iron deficiency Iron deficiency anemia type: unspecified iron deficiency Mixed hyperlipidemia E78.2 Hyperlipidemia type: mixed hyperlipidemia Assessment & Plan Assessment & Plan (1) HTN (hypertension): Code(s): I10 - Essential (primary) hypertension Category: Medical Qualifiers: Hypertension type: essential hypertension Qualified Code(s): I10 - Essential (primary) hypertension Plan: Patient's blood pressure today in office acceptable. Will continue her current dose of hydrochlorothiazide, amlodipine and benazepril. Goal blood pressures to remain below 140/90 (2) S/P TAVR (transcatheter aortic valve replacement): Code(s): Z95.2 - Presence of prosthetic heart valve Category: Surgical Plan: Patient continues to follow [facility]. She has no overt signs of Congestive heart failure. (3) Hypothyroid: Code(s): E03.9 - Hypothyroidism, unspecified Category: Medical Qualifiers: Hypothyroidism type: unspecified Qualified Code(s): E03.9 - Hypothyroidism, unspecified Plan: Patient's most recent TSH stable. Will continue her current dose of levothyroxine at 125 mcg. Will continue to follow TSH to assure normal. (4) Anemia: Code(s): D64.9 - Anemia, unspecified Category: Medical Qualifiers: Anemia type: iron deficiency Iron deficiency anemia type: unspecified iron deficiency Qualified Code(s): D50.9 - Iron deficiency anemia, unspecified Plan: Patient's most recent CBC stable. Continues to follow Hematology. Most recent B12 and folate levels stable. She does report feeling tired though attributes this to age. (5) HLD (hyperlipidemia): Code(s): E78.5 - Hyperlipidemia, unspecified Category: Medical Qualifiers: Hyperlipidemia type: mixed hyperlipidemia Qualified Code(s): E78.2 - Mixed hyperlipidemia Plan: Patient's most recent fasting cholesterol panel showing excellent control over total cholesterol and LDL. Will continue current dose of atorvastatin with goal LDL to remain below 100 Orders: Orders Complete Blood Count no Diff 6 Months D50.9 - Iron deficiency anemia, unspecified Lipid Panel 6 Months E78.2 - Mixed hyperlipidemia Comprehensive [place]. Panel Fast 6 Months I10 - Essential (primary) hypertension TSH reflex Free T4 6 Months E03.9 - Hypothyroidism, unspecified Microalbumin, Random (w Creat) 6 Months I10 - Essential (primary) hypertension Patient Instructions: Goal: Blood pressure to remain below 140/90, LDL to remain below 100 Barriers: Adherence to physical activity and healthy eating habits
[2024-01-14 08:40] VITALS: BP 130/70; PULSE 88; O2SAT 96; BMI 33.4
== END 2024-01-14 09:00 | disposition home or self-care (01) ==
LOC: HO.HMCH 08:22
PROVIDERS: PCP Physician Assistant; Visit Provider Physician Assistant
DX: I10 Essential (primary) hypertension (principal); Z95.2 Presence of prosthetic heart valve; E03.9 Hypothyroidism, unspecified; D50.9 Iron deficiency anemia, unspecified; E78.2 Mixed hyperlipidemia

== ENCOUNTER → 2024-01-14 08:22 | Outpatient (BNVA) | payer OTHER, SELFPAY | PROVIDERS: PCP Physician Assistant; Visit Provider Physician Assistant ==

== ENCOUNTER → 2024-01-31 08:05 | Outpatient (REF) | payer OTHER, SELFPAY ==
--- NOTE | 2024-01-31 08:08 | CA_ITS ---
Transthoracic Echocardiogram Patient (Last, First, Middle): MacielAugust, Gender: Female Date of : 1940 Age: 83 Procedure Date: 01/31/2024 Procedure Type: Transthoracic Echocardiogram Location: OP Height: 160.02 cm Weight: 86.18 kg BSA: 1.89 m2 Heart Rate: bpm BP: 130 / 70 mmHg Meter Changes Records Clerk: ADILENE Referring MD: Tolu Davis MD Video Game Repair Technician: Brad Aldridge MD Symptoms: Z95.2 - Presence of prosthetic heart valve Study Quality: Fair ECG Rhythm: Sinus Conclusions: - 1. Normal LV ejection fraction of 60 65% with impaired relaxation filling pattern 2. Normally function bioprosthetic aortic valve with mean gradient of 12 mm Hg 3. Normal RV systolic pressure 4. No gross pericardial effusion Findings Left Ventricle Normal left ventricular size, thickness, and systolic function. The visually estimated ejection fraction is between 60-65%. Regional wall motion abnormalities can not be excluded due to suboptimal endocardial definition. There is paradoxical septal motion consistent with a left bundle branch block. Spectral Doppler is indicative of an impaired relaxation filling pattern. E/E prime ratio is between 8 and 15 consistent with indeterminate filling pressures. Right Ventricle Normal right ventricular cavity size and systolic function. Atria Both atria are normal in size. There is no evidence of interatrial shunt. Aortic Valve A bioprosthetic aortic valve is present. The prosthetic aortic valve appears to be functioning normally. The mean gradient is 12 mmHg. Mitral Valve There is mild anterior and moderate posterior mitral leaflet thickening. There is moderate mitral annular calcification. There is trace mitral valve regurgitation. There is no mitral valve stenosis. Pulmonic Valve The pulmonic valve is likely normal. Tricuspid Valve Normal tricuspid valve structure. There is mild tricuspid valve regurgitation. The right ventricular systolic pressure is normal. The right ventricular systolic pressure is 29 mmHg. Normal right atrial pressure. There is no evidence of pulmonary hypertension. Great Vessels All visible segments of the aorta are normal in size. The pulmonary artery was not well visualized. There is no dilatation of the ascending aorta measuring 3.40 cm. Venous The inferior vena cava is normal in size and collapses greater than 50% with inspiration. Pericardium/Pleural There is no evidence of pericardial effusion. Prior Study Comparison No significant change compared to prior study dated: 03/28/2023. Measurements 2D Linear Measurements IVSd: 1.06 0.6-0.9/0.6-1.0 cm LVIDd: 4.28 3.9-5.3/4.2-5.9 cm LVIDd Index: 2.26 2.4-3.2/2.2-3.1 cm/m2 LVIDs: 2.62 2.0-3.6 cm LVPWd: 1.04 0.7-1.1 cm LA Diam: 3.80 2.7-3.8/3.0-4.0 cm LAIDs Index: 2.01 1.5-2.3 cm/m2 LV Mass: 210.85 67-162/88-224 g LV Mass Index: 111.56 43-95/49-115 g/m2 LVOT Diam: 2.00 3.0+(-)1.3 cm 2D Systolic Function EF 4C: 60.60 >55% EF 2C: 63.50 >55% EF BiP: 61.60 >55% Mitral Valve MV Pk E: 0.62 MV PK A: 1.04 MV Decel Time: 236.00 E/A: 0.60 E'Lateral: 7.18 E'Medial: 5.55 E/E' Med: 11.10 E/E' Lat: 8.60 PHT: 69.00 MVA PHT: 3.19 Decel Wilkin: 2.61 Aortic Valve AoV Pk Ricky: 2.11 AoV Mn Ricky: 1.69 AoV VTI: 0.47 AoV Pk Grad: 18.00 Aov Mn Grad: 12.00 RENA Cont.VTI: 1.39 LVOT LVOT Pk Ricky: 1.02 LVOT Mn Ricky: 0.75 LVOT VTI: 0.21 LVOT Pk Grad: 4.00 LVOT Mn Grad: 3.00 LVOT Diam: 2.00 LVOT Area: 3.14 Diastolic Function MV Pk E: 0.62 MV Pk A: 1.04 E/A: 0.60 E'Medial: 5.55 E/E' Med: 11.10 E' Laterial: 7.18 E/E' Lat: 8.60 Right Ventricle TAPSE (mm): 18.90 TVS' Ricky: 9.46 Tricuspid Valve TR Pk Ricky: 2.55 TR Pk Grad: 26.00 RA Press: 3.00 RVSP: 29.00 Great Vessels Aorta Ao Asc: 3.40 2.1-3.4 cm Updated in Other Vendor System with Status of Final Brad Aldridge MD electronically signed on 02/01/2024 12:38:16 PM with status of Final
== END ==
LOC: HO.CARD 08:05
PROVIDERS: PCP Physician Assistant; Visit Provider Internal Medicine
DX: Z95.2 Presence of prosthetic heart valve (principal)
CPT/HCPCS: 93306

== ENCOUNTER → 2024-01-31 08:08 | Outpatient (BNV) | payer OTHER, SELFPAY | PROVIDERS: PCP Physician Assistant; Visit Provider Internal Medicine Cardiovascular Disease | DX: I36.1 Nonrheumatic tricuspid (valve) insufficiency (principal); Z95.2 Presence of prosthetic heart valve | CPT/HCPCS: 93306 ==

== ENCOUNTER 2024-02-11 09:47 | Outpatient (AMB) | payer OTHER, SELFPAY ==
--- NOTE | 2024-02-11 09:49 | MHC.OFFVIS ---
Vital Signs 02/11/24 09:50 Height 5 ft 4 in Weight 196 lb 3.382 oz BMI 33.7 BP 134/54 L Blood Pressure Location Lt brachial Position Sitting Pulse 80 Pulse Source Pulse Oximeter Intake Visit Reasons: 6m follow up Senior Clinician Required: No Accompanied by: Self / Same As Patient Allergies No Known Allergies Allergy (Verified 01/14/24 08:50) Medication List - Last Reconciled 02/11/24 by Tolu Davis MD acetaminophen 650 mg (2 x 325 mg) PO Q6H PRN 30 days amlodipine-benazepril 5-20 mg 1 cap PO DAILY 90 days aspirin (Adult Aspirin Regimen) 81 mg PO DAILY atorvastatin 10 mg PO DAILY 90 days celecoxib (Celebrex) 100 mg PO BID ferrous sulfate 325 mg PO BID 90 days folic acid 1 mg PO DAILY hydrochlorothiazide 12.5 mg PO QAM 90 days levothyroxine 125 mcg PO DAILY 90 days vitamin P91-idcroph B1 100-1 mg/mL 1 mL IM .once a month HPI Comments Details: Janice returns for follow-up. She underwent TAVR in 02/2023. Since last seen, she states she is feeling good. No specific complaints. No angina or shortness of breath or in fact anything cardiac sounding. Getting along okay. [facility] Medical History (Updated 01/14/24 @ 08:59 by Thomas Weller PA-C) Other and unspecified hyperlipidemia Non-rheumatic aortic stenosis Primary osteoarthritis of right knee Primary osteoarthritis of hands, bilateral Primary osteoarthritis of right hip Hypothyroid Hx of osteomyelitis Osteoarthritis Thyroid disease Iron deficiency anemia Elevated cholesterol Aortic valvular disease HTN (hypertension) Surgical History Status post total right knee replacement History of total right knee replacement Hx of surgical amputation of finger History of total right hip replacement Amputation of finger of left hand History of hip replacement History of History of total left hip arthroplasty History of total left knee replacement Hx of colonoscopy Family History Father Myocardial infarction CVD (cardiovascular disease) Mother No problems noted. Brother Bladder cancer Daughter Cervical cancer Son Knee pain Social History Household Members: None Housing: Apartment Are you a primary critical care registered nurse to a significant other at home: No Do you presently have visiting nurse or other home services: No Alcohol intake: current Alcohol intake frequency: holidays/special occasions only Alcohol type: wine Comment: asleep Patient Tobacco Use Status: Never used Tobacco e-Cigarette/Vaping Use: Never Used Second Hand Smoke Exposure: No service: No Current occupational status: employed Cognitive needs: No Hearing needs: Yes (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) Vision needs: Yes Review of Systems Const Denies chills, Denies fatigue, Denies fever(s), Denies weight gain and Denies weight loss ENT Denies dizziness Card Denies chest pain, Denies leg edema, Denies lightheadedness, Denies palpitations, Denies dyspnea on exertion, Denies orthopnea and Denies other Resp Denies cough and Denies dyspnea on exertion GI Denies hematochezia and Denies change in stool character Musc Denies abnormal gait, Denies muscle weakness, Denies numbness, Denies radiating pain into limb and Denies tingling Neuro Denies abnormal gait, Denies dizziness, Denies numbness and Denies tingling Endo Denies fatigue and Denies palpitations Physical Exam Vital Signs: Last Vital Signs Pulse 80 02/11/24 09:50 BP 134/54 L 02/11/24 09:50 BMI result Body Mass Index 33.7 Const General: comfortable and no acute distress Orientation/consciousness: patient oriented x3 HEENT Other: Unremarkable Head: Yes normal to inspection Neck Neck: Yes normal visual inspection Chest Chest palpation & inspection: normal inspection of the chest Resp Auscultation: clear to auscultation bilaterally Cardio Palpation: normal PMI Heart sounds: S1 normal heart sound present, S2 normal heart sound present, no gallops, no murmurs and no rubs GI Palpation (GI): Soft to palpation Back/Spine/Pelvis Other: unremarkable Skin General skin exam: no rashes or lesions noted Neuro General: patient oriented x3 Extrem General: Yes normal to inspection Psych Mental Status: mental status grossly normal Assessment & Plan Assessment & Plan (1) S/P TAVR (transcatheter aortic valve replacement): Code(s): Z95.2 - Presence of prosthetic heart valve Category: Surgical Plan: Cardiac catheterization data reviewed from 02/2023. Minimal irregularities in circumflex but otherwise normal coronary arteries. In the recent echocardiogram from this month, LVEF 60-65%. Normally functioning bioprosthetic aortic valve with a mean gradient of 12 mm Hg. Otherwise unremarkable. Continue long-term aspirin. Infective endocarditis prophylaxis per protocol. (2) LBBB (left bundle branch block): Code(s): I44.7 - Left bundle-branch block, unspecified Category: Medical Plan: Post TAVR finding. Last EKG from July shows a left bundle-branch block pattern. Can be followed on EKGs. Plan Otherwise, stable cardiac status. Coding Level of Care Code Est Pt Level 4 (91116) Diagnoses S/P TAVR (transcatheter aortic valve replacement) Z95.2 LBBB (left bundle branch block) I44.7
[2024-02-11 09:50] VITALS: BP 134/54; PULSE 80; BMI 33.7
== END 2024-02-11 10:16 | disposition home or self-care (01) ==
PROVIDERS: PCP Physician Assistant; Visit Provider Internal Medicine
DX: Z95.2 Presence of prosthetic heart valve (principal); I44.7 Left bundle-branch block, unspecified
CPT/HCPCS: 99214

== ENCOUNTER → 2024-02-11 09:47 | Outpatient (BNVA) | payer OTHER, SELFPAY | PROVIDERS: PCP Physician Assistant; Visit Provider Internal Medicine ==

== ENCOUNTER 2024-07-14 08:20 | Outpatient (AMB) | payer BC, SELFPAY ==
--- NOTE | 2024-07-14 08:26 | MHC.PC.OV ---
Vital Signs 07/14/24 08:28 07/14/24 08:54 Height 5 ft 4 in Weight 195 lb 2 oz BMI 33.5 BP 140/60 H 130/60 Blood Pressure Location Lt brachial Position Sitting Pulse 84 Pulse Source Pulse Oximeter Temp 97.1 F Temp Source Temporal Artery Scan Pulse Oximetry (%) 95 Oxygen Delivery Method Room Air Intake Visit Reasons: 6mth f/u Intake Note: Patient is here to follow up on HTN, OA, HLD, Hypothyroid. Renal Dialysis Rn Required: No Counter Tacker: Not Required per policy Accompanied by: Self / Same As Patient Allergies No Known Allergies Allergy (Verified 07/14/24 08:44) Medication List - Last Reconciled 07/14/24 by Thomas Weller PA-C acetaminophen 650 mg (2 x 325 mg) PO Q6H PRN 30 days amlodipine-benazepril 5-20 mg 1 cap PO DAILY 90 days aspirin (Adult Aspirin Regimen) 81 mg PO DAILY atorvastatin 10 mg PO DAILY 90 days celecoxib (Celebrex) 100 mg PO BID ferrous sulfate 325 mg PO BID 90 days folic acid 1 mg PO DAILY hydrochlorothiazide 12.5 mg PO QAM 90 days levothyroxine 125 mcg PO DAILY 90 days vitamin D46-scwhcqf B1 100-1 mg/mL 1 mL IM .once a month Tobacco use date assessed: 07/14/24 Fall risk assessment: 1 Fall in past year Last assessed Fall Risk: 07/14/24 Dental Screening Dental Screen Date: 07/14/24 Did you have a dental visit in the last 12 months?: Yes Did you have a dental problem in the last 6 months where you did not have access to dental care?: No Was dental information given to patient?: Patient has dentist HPI 6mth f/u HPI Details Patient is a 83-year-old female here today for a follow-up visit. ?. Patient has a past medical history significant for essential hypertension, hypothyroidism, arthritis aortic stenosis. Concerns--> followed by [facility] for a right hand contracture and ? Carpal tunnel syndrome. She has an upcoming nerve testing in her right upper extremity. PATIENT CONTINUES TO WORK FULL-TIME. .. Anemia: Followed by Hematology, most recent CBC showing improved red blood cell and hemoglobin. Continues to get B12 injections on a monthly basis with Hematology. . ? .. ? Aortic stenosis: Patient is followed by Cardiology by Biannually.? Patient is status post aortic valve replacement. ?No reports of chest discomforts, shortness of breath or overt signs of Congestive heart failure. .. Hypothyroid:?? Most recent TSH stable.? Will continue her current dose of levothyroxine 125mcg.? Has been clinically stable. ? .. ? Hypertension:? Patient's blood pressure acceptable today in office. ? She reports she does know monitor blood pressure at home.? She denies any chest discomfort, palpitations headaches or dizziness.? Advised her to comments home blood pressure monitoring to assure her blood pressures have been normal [facility] Medical History (Updated 07/14/24 @ 08:48 by Thomas Weller PA-C) Other and unspecified hyperlipidemia Non-rheumatic aortic stenosis Primary osteoarthritis of right knee Primary osteoarthritis of hands, bilateral Primary osteoarthritis of right hip Hypothyroid Hx of osteomyelitis Osteoarthritis Thyroid disease Iron deficiency anemia Elevated cholesterol Aortic valvular disease HTN (hypertension) Surgical History Status post total right knee replacement History of total right knee replacement Hx of surgical amputation of finger History of total right hip replacement Amputation of finger of left hand History of hip replacement History of History of total left hip arthroplasty History of total left knee replacement Hx of colonoscopy Family History Father Myocardial infarction CVD (cardiovascular disease) Mother No problems noted. Brother Bladder cancer Daughter Cervical cancer Son Knee pain Social History Household Members: None Housing: Apartment Are you a primary hearing care practitioner to a significant other at home: No Do you presently have visiting nurse or other home services: No Alcohol intake: current Alcohol intake frequency: holidays/special occasions only Alcohol type: wine Comment: asleep Patient Tobacco Use Status: Never used Tobacco e-Cigarette/Vaping Use: Never Used Second Hand Smoke Exposure: No service: No Current occupational status: employed Cognitive needs: No Hearing needs: Yes (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) Vision needs: Yes Questionnaire PHQ-9 Over the last 2 weeks, how often have you been bothered by any of the following problems? 1. Little interest or pleasure in doing things: not at all 2. Feeling down, depressed, or hopeless: not at all 3. Trouble falling or staying asleep, or sleeping too much: not at all 4. Feeling tired or having little energy: not at all 5. Poor appetite or overeating: not at all 6. Feeling bad about yourself - or that you are a failure or have let yourself or your family down: not at all 7. Trouble concentrating on things, such as reading the newspaper or watching television: not at all 8. Moving or speaking so slowly that other people could have noticed. Or the opposite - being so fidgety or restless that you have been moving around a lot more than usual: not at all 9. Thoughts that you would be better off or of hurting yourself in some way: not at all Total score: 0 Depression Screening Interpretation: Negative Depression Screening Done: Yes 78364 - PHQ-9 Billing: Yes Source: Developed by Drs. Adal Johnston, Tabatha Dawson, Odin Lambert and colleagues, with an educational marbin from [employer]. Thrive Questionnaire Date Thrive assessed: 07/14/24 I am a: Patient What is your living situation today?: I have a steady place to live Within the past 12 months, did the food you bought not last and you didn't have the money to get more?: Never true Within the past 12 months, did you worry whether your food would run out before you got money to buy more?: Never true Do you have trouble paying for medicines?: No Do you have trouble getting transportation to medical appointments?: No Do you have trouble paying your heating and electricity bill?: No Do you have trouble taking care of your child, family member or friend?: No Do you have trouble with day-to-day activities such as bathing, preparing meals, shopping, managing finances, etc.?: No Are you currently unemployed and looking for a job?: No Are you interested in more education?: No Please select the resources that you would like help with: None Currently or been in a relationship where the following occur: No concerns reported THRIVE Score: 0 AUDIT C Alcohol Use Questionnaire (AUDIT-C) 1. How often do you have a drink containing alcohol?: Monthly or less 2. How many drinks containing alcohol do you have on a typical day when you are drinking?: 1 or 2 3. How often do you have six or more drinks on one occasion?: Monthly Total Score: 3 SHIMA-7 AMB Questionnaire SHIMA-7 Date SHIMA - 7 assessed: 07/14/24 Feeling nervous, anxious, or on edge: 0 = Not at all Not being able to stop or control worryin = Not at all Worrying too much about different things: 0 = Not at all Trouble relaxin = Not at all Being so restless that it is hard to sit still: 0 = Not at all Becoming easily annoyed or irritable: 0 = Not at all Feeling afraid as if something awful might happen: 0 = Not at all Total SHIMA-7 score (0-4 normal; 5-9 mild; 10-14 moderate; 15-21 severe): 0 Source: Developed by Drs. Adal Johnston, Tabatha Dawson, Odin Lambert and colleagues, with an educational marbin from [employer]. SHIMA-7 Assessment Billing SHIMA-7 Assessment Tool: SHIMA-7 Assessment 87557 Review of Systems Const Denies headache(s) Eyes Denies loss of vision ENT Denies vertigo, Denies dizziness, Denies headache(s) and Denies sore throat Card Denies chest pain, Denies leg edema and Denies lightheadedness Resp Denies cough, Denies hemoptysis and Denies wheezing GI Denies abdominal pain, Denies melena, Denies constipation, Denies diarrhea and Denies vomiting Denies urinary frequency, Denies dysuria and Denies urinary urgency Musc Denies arthralgias, Denies joint swelling, Denies numbness and Denies tingling Neuro Denies Abnormal speech present, Denies behavioral changes, Denies vertigo, Denies dizziness, Denies headache(s), Denies loss of vision, Denies memory loss, Denies numbness and Denies tingling Psych Denies anxiety, Denies behavioral changes, Denies depression, Denies memory loss and Denies panic attacks Jose/Lymph Denies easy bleeding and Denies easy bruising Aller/Immun Denies wheezing Physical exam (Primary Care) Vital Signs: Last Vital Signs Temp 97.1 F 07/14/24 08:28 Pulse 84 05/05/25 08:28 BP 140/60 H 05/05/25 08:28 Pulse Ox 95 07/14/24 08:28 Oxygen Delivery Method Room Air 07/14/24 08:28 BMI result Body Mass Index 33.5 Tobacco/Smoking Status: Tobacco use Status Tobacco use date assessed 07/14/24 07/14/24 08:41 Patient Tobacco Use Status Never used Tobacco 07/14/24 08:41 e-Cigarette/Vaping Use Never Used 07/14/24 08:41 PHQ-9: PHQ-9 Score PHQ-9: Total score 0 07/14/24 08:41 Depression Screening Interpretation: Negative Thrive Assessment: Date of Thrive Assessment Date Thrive assessed 07/14/24 07/14/24 08:41 Currently or been in a relationship where the following occur: No concerns reported Const General: healthy appearing, no acute distress, alert and awake Nutritional Appearance: well nourished Orientation/consciousness: oriented to person, oriented to place and oriented to time HENMT Ears: TM's normal bilaterally General nose exam: Normal nasal mucous membranes and turbinates present Eyes Conjunctivae: conjunctivae normal Sclerae: sclerae normal Pupils: Equal, round and reactive pupils present Neck Neck: Yes no lymphadenopathy and Yes no JVD Thyroid: Thyroid normal Carotids: no bruits Resp Effort & Inspection: normal respiratory effort and not tachypneic Auscultation: no crackles, no rales, no rhonchi and no wheezes Cardio Rate: regular rate Rhythm: regular rhythm Heart sounds: no murmurs and normal S1 and S2 GI Palpation (GI): Soft to palpation, nontender, no hepatomegaly and no splenomegaly Auscultation: normal bowel sounds Skin General skin exam: no rashes or lesions noted and dry skin Neuro General: oriented to person, oriented to place and oriented to time Cranial nerves: Yes Equal, round and reactive pupils present Speech: No Abnormal speech present Gait exam (Neuro): Normal gait present Motor exam (neuro): no tremor noted Extrem Other: LEFT HAND: SEVERE CONTRACTURE Right upper extremity: full ROM Left upper extremity: full ROM Right lower extremity: full ROM; no edema Left lower extremity: full ROM; no edema Psych Mental Status: mental status grossly normal Speech and movement: Normal speech and movement present Affect: normal affect Attitude: cooperative Thought process: Normal thought process present Coding Level of Care Code Est Pt Level 4 (32827) Diagnoses Essential hypertension I10 Hypertension type: essential hypertension S/P TAVR (transcatheter aortic valve replacement) Z95.2 Hypothyroidism, unspecified type E03.9 Hypothyroidism type: unspecified Iron deficiency anemia, unspecified iron deficiency anemia type D50.9 Anemia type: iron deficiency Iron deficiency anemia type: unspecified iron deficiency Mixed hyperlipidemia E78.2 Hyperlipidemia type: mixed hyperlipidemia Carpal tunnel syndrome, right G56.01 Additional Codes PHQ-9 - 16642 - PHQ-9 Billing: Yes ([id number]) SHIMA-7 Assessment Billing - SHIMA-7 Assessment Tool: SHIMA-7 Assessment 45066 ([id number]) Assessment & Plan Assessment & Plan (1) HTN (hypertension): Code(s): I10 - Essential (primary) hypertension Category: Medical Qualifiers: Hypertension type: essential hypertension Qualified Code(s): I10 - Essential (primary) hypertension Plan: Patient's blood pressure today in office acceptable. Will continue her current dose of hydrochlorothiazide, amlodipine and benazepril. Goal blood pressures to remain below 140/90 (2) S/P TAVR (transcatheter aortic valve replacement): Code(s): Z95.2 - Presence of prosthetic heart valve Category: Surgical Plan: Patient continues to follow [facility]. She has no overt signs of Congestive heart failure. She is due repeat echocardiogram to evaluate function. Has upcoming appointment with [facility] in August of 2024 (3) Hypothyroid: Code(s): E03.9 - Hypothyroidism, unspecified Category: Medical Qualifiers: Hypothyroidism type: unspecified Qualified Code(s): E03.9 - Hypothyroidism, unspecified Plan: Patient's most recent TSH stable. Will continue her current dose of levothyroxine at 125 mcg. Will continue to follow TSH to assure normal. (4) Anemia: Code(s): D64.9 - Anemia, unspecified Category: Medical Qualifiers: Anemia type: iron deficiency Iron deficiency anemia type: unspecified iron deficiency Qualified Code(s): D50.9 - Iron deficiency anemia, unspecified Plan: Patient's most recent CBC stable. Continues to follow Hematology. Most recent B12 and folate levels stable. She does report feeling tired though attributes this to age. (5) HLD (hyperlipidemia): Code(s): E78.5 - Hyperlipidemia, unspecified Category: Medical Qualifiers: Hyperlipidemia type: mixed hyperlipidemia Qualified Code(s): E78.2 - Mixed hyperlipidemia Plan: Patient's most recent fasting cholesterol panel showing excellent control over total cholesterol and LDL. Will continue current dose of atorvastatin with goal LDL to remain below 100 (6) Carpal tunnel syndrome, right: Code(s): G56.01 - Carpal tunnel syndrome, right upper limb Category: Medical Plan: As per HPI patient [facility] for her right hand issue. She is due for EMG testing to evaluate for median nerve neuropathy.
[2024-07-14 08:28] VITALS: BP 140/60; PULSE 84; TEMP 36.2; O2SAT 95; BMI 33.5
--- OUTSIDE RECORDS SUMMARY | 2024-07-14 08:37 | XMS_ITS ---
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 Generated for Printi ng/Faalethag/eTransmitting on:?07/14/2024 08:37 AM EDT
--- OUTSIDE RECORDS SUMMARY | 2024-07-14 08:37 | XMS_ITS ---
Author Organization [facility] Parul tejas Bello Address [address] [place] [address] Care Team Providers Care Spot Facer Name Role Phone Thomas Weller Primary Care Provider Unavailab Austen Xiong Unavailable [phone] Allergies No Known Allergies REASON FOR VISIT At Risk Footcare, Painful Nail(s) aggravated by shoes and causing difficulty standing/walking., Skin problem(s) Medications Medication SIG (Take, Route, Frequency, Duration) Notes Start Date End Date Status Atorvastatin Calcium 10 MG TAKE 1 TABLET BY MOUTH EVERY DAY Oral for 90 Days Active Ferrous Sulfate 325 (65 Fe) MG TAKE 1 TA BLET BY MOUTH TWICE A DAY Oral for 90 Days Active hydroCHLOROthiazide 12.5 MG Oral for 90 Days Active Levothyroxine Sodium 125 MCG Oral for 90 Days Active Folic Acid 1 MG Oral for 90 Days Active Aspir-Low Active Acetaminophen 325 MG Oral for 30 Days Active amLODIPine Besy-Benazepril H Cl 5-20 MG TAKE 1 CAPSULE BY MOUTH EVERY DAY Oral for 90 Days Active Ammonium Lactate 12 % 1 application Externally to affected areas of dry skin to feet except for between the toes Twice a day for 30 days Active Tylenol Active Social History Tobacco Use: Social History Observation Description Date Details (start date - stop date) Never Smoker NA - NA Tobacco use other than smoking: Question Answer Notes Are you an other tobacco user? No Tobacco Control (Standard) Question Answer Notes Tobacco use: Nonsmoker Additional Findings: Tobacco non-user Current no nsmoker AUDIT-C (Standard) Question Answer Notes Did you have a drink containing alcohol in the p ast year? No Points 0 Interpretation Negative Vital Signs Height 5 ft 4 in in 05/27/2024 Weight 190 lbs 05/27/2024 BMI 32.61 kg/m2 05/27/2024 Blood pressure systolic 130 mm Hg 05/28/19 25 Blood pressure diastolic 70 mm Hg 025 Procedures Procedure Date Ordered Date Performed Result Body Sit e 72851-LWQTBNR NAIL, 6 OR MORE 05/27/2024 N/A 06431-JFGG SKIN LESIONS, OVER 4 05/27/2024 N/A Encounters Encounter Location Date Provider Diagnosis [facility] [place] [address] [place] [address] 05/27/2024 Austen cMknight Atherosclerosis of comanche artery of both lower extremities, with unspecified presence of clinical manifestation I70.203 ; Tinea unguium B35.1 ; Pain in right toe(s) M79.674 ; Pain in left toe(s) M79.675 and Xerosis of skin L85.3 Assessments Encounter Date Diagnosis (ICD Code) Assessment Notes Treatment Notes Treatment Clinical Notes Section Notes 05/27/2024 Atherosclerosis of comanche artery of both lower extremities, with unspecified presence of clinical manifestation (ICD-10 - I70.203) Q7(A), Q8(2B), Q9(1B,2C) 05/27/2024 Tinea unguium (ICD-10 - B35.1) 05/27/2024 Pain in right toe(s) (ICD-10 - M79.674) 05/27/2024 Pain in left toe(s) (ICD-10 - M79.675) 05/27/2024 Xerosis of skin (ICD-10 - L85.3) Plan Of Treatment Medication Medication Name Sig Start Date Stop Date Notes Ammonium Lactate 12 % 1 application Exte rnally to affected areas of dry skin to feet except for between the toes Twice a day for 30 days Pending Test Test Name Order Date 25135-NHSZXTU NAIL, 6 OR MORE 05/27/2024 98559-QGPG SKIN LESIONS, OVER 4 05/28/19 25 Next Appt Details Follow Up: prn, Reason: Provider Name:Austen Mcknight , 08/22/2024 09:30:00 AM, [address] [place] [address], [phone], Procedure Notes * Category Sub-Category Detail Notes Debride Nail 6-10 Nail debridement Due to the cl inical pathology outlined in the exam findings, performance of this nail treatment is medically necessary as its management by an unskilled/untrained nonprofessional would put this patients foot and overall health at risk. Therefore, debridement to affected nail(s), as described in exam ( TA, T1, T2, T4, T5, T6, T7, T9 ), was performed exclusively by the physician of record to reduce/remove overall nail length, girth, thickness, subungual debris, and necrotic tissue, by manual and/or electrical means through the use of a nail nipper and/or dremel-type color grinder, to a more viable healthy nail plate or bed tissue 6-10 nails in total. Silver nitrate was used for any petechial bleeding as necessary. Definitive antifungal treatment options, both pharmaceutical and surgical, have been reviewed and discussed with the patient. The patient solely prefers the use of intermittent/as needed professional debridement services for their nail condition and understands the need for additional periodic treatments to maintain effectiveness in symptomatic relief - 05490 Keratoma Treatment Parring or Cutting o f Benign Hyperkeratotic Lesion(s) (-57) More than 4 Lesions - Due to the at risk nature of the patients medical condition as documented in the exam findings, performance of this keratoderma treatment is medically necessary as its management by an unskilled/untrained nonprofessional would put this patients foot and overall health at risk. Therefore, the benign hyperkeratotic lesions, ( 8 ) in total, locations as stated and described in the exam ( SUB MTH (s), 2, B/L, SUB MTH 3, B/L, SUB MTH 5, B/L, Plantar, Heels, B/L ), were pared, and/or cut utilizing a sterile 15 blade, tissue nippers, and/or power dremel instrumentation by the physician of record - 31066, Q8 Progress Notes * MERLINAIMEEAugust EDOB: [birth year] (83 yo F)Acc No.[id number]:05/27/2024 Progress Note Patient:?TANA August Provider:?Austen Mcknight DPM :1940???Age:83 Y???Sex:Female D ate:05/27/2024 Address:[address] [place] [address] Pcp:Thomas Weller Subjective: * Chief Complaints: * ???At Risk FootcarePainful N ail(s) aggravated by shoes and causing difficulty standing/walking.Skin problem(s) * HPI: ???At Risk footcare:?Pt States Last PCP Visit:?Date?02/28/2024 ???Skin problems:?Nature:?dryness , scaling.?Location:?B/L .?Duration:?several days.?Course:?worse.? * ROS:?General/Constitutional:?Nausea?denies.?Vomiting?denies.?Hunger Thirst?denies.?Loss appetite?denies.?Chills?denies.?Fatigue?denies.?Fever?denies.?Night Sweats?denies.?Unexplained weight loss?denies.?Unexplained weight gain?denies.?HEENTM:?Dentures?admits.?Dizziness?denies.?Glasses/contacts?denies.?Retinopathy?de nies.?Blurred/double vision?denies.?TMJ?denies.?Discharge/drainage?denies.?Implants?denies.?Sore throat?denies.?Dental implants?denies.?Hard of hearing ?admits.?Difficulty chewing/swallowing/speaking?denies.?Nose bleeds?denies.?Sore mouth?denies.?Respiratory:?On Oxygen?denies.?Pneumonia/pleurisy?denies.?Bronchitis?denies.?Emphysema?denies.?C oughing?denies.?Cough blood?denies.?Shortness of breath?denies.?Wheezing?denies.?Cardiovascular:?Pacemaker?denies.?MVP?denies.?WPW?denies.?CHF?denies.?Heart attack?denies.?Septal defect?denies.?Rapid beat?denies.?Chest pain ?denies.?Atrial Fib.?denies.?Murmur/Palpitations?admits.?Gastrointestinal:?Hemorrhoids?denies.?Stomach/Abdominal pain?denies.?Dark blood stool?denies.?Irritable bowel ?denies.?Constipation?denies.?Diarrhea?denies.?Hematology:?Swelling?admits.?Clots?denies.?Varicose Veins?denies.?Bruising?admits, on aspirin.?Bleeding problem?admits, on anticoagulants.?Genitourinary:?Blood urine?denies.?Frequent/Painfu/urination/bladder control?denies.?Kidney stones?denies.?Infection (UTI)?denies.?Nephropathy?denies.?sex trans dis (STD)?denies.?Prostate?denies.?Musculoskeletal:?Hammertoes?admits.?Bunions?denies.?Back Pain?denies.?Muscle Cramps/ Resting?admits.?Muscle cramps / walking?admits.?Generalized aches and pains?admits.?Weakness?denies.?Integ.:?Funk?denies.?Scars?admits.?Corns/calluses?admits.?Ingrown nails?admits.?Painful nails?admits.?Open Sores?denies.?Rashes?denies.?Neurologic:?Difficulty sleeping?denies.?Brain disorder?denies.?Numbness?denies.?Balance trouble?denies.?Confusion?denies.?Fainting/blackouts?denies.?Tingling?denies.?Tr emors?denies.? * Medical History:? * Surgical History:?2 hip repl acement 2 knee replacement * Hospitalization/Major Diagno stic Procedure:?Denies Past Hospitalization * Family History:?Mother: dece ased, diagnosed with Unspecified heart disease.?Father: .?Children: defects / Son.? * Social History:?Tobacco Use:?Tobacco use other than smoking?Are you an other tobacco user??No ?Tobacco Control (Standard)?Tobacco use:?Nonsmoker ?Additional Findings: Tobacco non-user?Current nonsmoker ???Drugs/Alcohol:?Drugs?Have you used drugs other than those for medical reasons in the past 12 months??No ???Miscellaneous:?Caffeine: yes, frequency:. ?Children: yes, 4. ?Exercise: no. ?Marital status: . 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 ???Drug/Alcohol:?AUDIT-C (Standard)?Did you have a drink containing alcohol in the past year??No ?Points?0 ?Interpretation?Negative * Medications:?TakingTylenol A spir-Low Acetaminophen 325 MG Tablet Oral amLODIPine Besy-Benazepril HCl 5-20 MG Capsule TAKE 1 CAPSULE BY MOUTH EVERY DAY Oral Atorvastatin Calcium 10 MG Tablet TAKE 1 TABLET BY MOUTH EVERY DAY Oral Ferrous Sulfate 325 (65 Fe) MG Tablet TAKE 1 TABLET BY MOUTH TWICE A DAY Oral hydroCHLOROthiazide 12.5 MG Capsule Oral Levothyroxine Sodium 125 MCG Tablet Oral Folic Acid 1 MG Tablet Oral Medication List reviewed and reconciled with the patientTaking Tylenol Taking Aspir-Low Taking Acetaminophen 325 MG Tablet Oral Taking amLODIPine Besy-Benazepril HCl 5-20 MG Capsule TAKE 1 CAPSULE BY MOUTH EVERY DAY Oral Taking Atorvastatin Calcium 10 MG Tablet TAKE 1 TABLET BY MOUTH EVERY DAY Oral Taking Ferrous Sulfate 325 (65 Fe) MG Tablet TAKE 1 TABLET BY MOUTH TWICE A DAY Oral Taking hydroCHLOROthiazide 12.5 MG Capsule Oral Taking Levothyroxine Sodium 125 MCG Tablet Oral Taking Folic Acid 1 MG Tablet Oral Medication List reviewed and reconciled with the patient * Allergies:?N.K.D.A.yes[Aller gies Verified] Objective: * Vitals:?Ht: 5 ft 4 in, Wt:19 0, BMI: 32.61, Shoe size:10, BP:130/70mm Hg, Ht-cm: 162.56 cm, Wt-k.18 kg. * Examination: ???Vascular: ?DP PULSES (B):? 0/4, B/L.?PT PULSES (B):?0/4, B/L.?CAPILLARY FILL TIME:? delayed, all digits, B/L.?TROPHIC CONDITION-TEXTURE/ELASTICITY/TURGOR/HAIR GROWTH (B):? decreased, fragile, thin, shiny, with sparse to absent hair growth, B/L.?TEMPERTURE GRADIENT (C):? decreased, cool to cool, proximal to distal, B/L.?PIGMENTATION:?mottled.?EDEMA (C):?1/4, non-pitting.?CLAUDICATION (C):?denies, B/L.?REST PAIN:?denies, B/L.?PARESTHESIA (C):?absent, B/L.?BURNING (C):?absent, B/L.?Nails: ?NAILS are:?Elongated, overgrown, dystrophic, lytic, greater than 3mm thick, discolored and friable with crumbly malodorous subungual debris, with pain on palpation, TA, T1, T2, T4, T5, T6, T7, T9, all other nails not described with characteristics as possessing mycosis are elongated, overgrown, and dystrophic.?Dermatologic: ?SKIN FINDINGS:?Skin exam reveals Keratotic lesion(s) located at, SUB MTH (s), 2, B/L, SUB MTH 3, B/L, SUB MTH 5, B/L, Plantar, Heels, B/L , Skin shows sign(s) of, dryness, scaling, in a stocking fashion, no fissure(s) present, B/L.? Assessment: * Assessment: 1.?Tinea unguium - B35.1???2 .?Atherosclerosis of comanche artery of both lower extremities, with unspecified presence of clinical manifestation - I70.203 (Primary)???Specify :Q8???Notes :Q7(A), Q8(2B), Q9(1B,2C)???3.?Pain in right toe(s) - M79.674???4.?Pain in left toe(s) - M79.675???5.?Xerosis of skin - L85.3???Specify :Acute problem, Uncomplicated (3),Rx Management (4)??? Plan: * Treatment: 2.?Tinea unguium?Procedure: 00982-CQLZCVB NAIL, 6 OR MORE 3.?Xerosis of skin? Start Ammonium Lactate Cream, 12 %, 1 application, Externally to affected areas of dry skin to feet except for between the toes, Twice a day, 30 days, 280, Refills 3.?? * Procedures:?Debride Nail 6-10:?Nail debridement?Due to the clinical pathology outlined in the exam findings, performance of this nail treatment is medically necessary as its management by an unskilled/untrained nonprofessional would put this patients foot and overall health at risk. Therefore, debridement to affected nail(s), as described in exam (?TA, T1,?T2,?T4,?T5,?T6,?T7,?T9?), was performed exclusively by the physician of record to reduce/remove overall nail length, girth, thickness, subungual debris, and necrotic tissue, by manual and/or electrical means through the use of a nail nipper and/or dremel-type color grinder, to a more viable healthy nail plate or bed tissue 6-10 nails in total. Silver nitrate was used for any petechial bleeding as necessary. Definitive antifungal treatment options, both pharmaceutical and surgical, have been reviewed and discussed with the patient. The patient solely prefers the use of intermittent/as needed professional debridement services for their nail condition and understands the need for additional periodic treatments to maintain effectiveness in symptomatic relief - 75394.?Keratoma Treatment:?Parring or Cutting of Benign Hyperkeratotic Lesion(s)?(-57) More than 4 Lesions - Due to the at risk nature of the patients medical condition as documented in the exam findings, performance of this keratoderma treatment is medically necessary as its management by an unskilled/untrained nonprofessional would put this patients foot and overall health at risk. Therefore, the benign hyperkeratotic lesions, ( 8 ) in total, locations as stated and described in the exam (?SUB MTH (s),?2, B/L, SUB MTH 3, B/L, SUB MTH 5, B/L,?Plantar,?Heels, B/L?), were pared, and/or cut utilizing a sterile 15 blade, tissue nippers, and/or power dremel instrumentation by the physician of record - 13004, Q8.? * Procedure Codes:?77434 DEBRI DE NAIL, 6 OR MORE, Modifiers: XS 32462 TRIM SKIN LESIONS, OVER 4, Modifiers: XS , Q8 * Preventive Medicine:? ??Counseling:?Discussion:?-13: Office or other outpatient visit for the evaluation and management of an established patient, which required a medically appropriate history and/or examination and LOW level of DECISION MAKING for: 1 STABLE ACUTE UNCOMPLICATED PROBLEM, 2 OR MORE MINOR PROBLEMS, OR 1 STABLE CHRONIC PROBLEM, THAT POSE(S) A LOW RISK FOR MORBIDITY/MORTALITY. The visit on the day of the encounter encompassed interpreting the data and educating the patient as to the nature of their condition, treatment options available according to their individual PMH, meds, allergies, and overall health/living conditions, as well as any potential risks or complications that may occur from a failure to adhere to, and participate in, the recommended course of therapy. The discussion included a complete verbal, and/or written explanation of the examination results, any x-rays taken, the proposed diagnosis, and outline of the treatment plan. A schedule for future care needs was also explained. The patient verbalized an understanding of the instructions at this time and agreed to be an active participant in their treatment. If the patient should think of any questions or concerns after the visit, I have encouraged the patient to call the office.?Xerosis:?The patient was counseled on the diagnosis, potential etiologies, and treatment options for their skin condition. We discussed the risks and benefits of each option from performing no treatment, to utilizing OTC topical skin creams/ointments, to utilizing prescription topical creams/ointments, to utilizing customized compounded topical medications and use of nocturnal occlusion with any/all previously detailed therapies. We discussed the advantages and disadvantages of each possible treatment and importance for adherence to all the recommended therapies for optimum success and avoid potential complications such as open sore/infection/possible hospitalization. We discussed the potential effectiveness of each topical preparation as well as each ones possible side effects and/or patient medication interactions. Patient questions re: use, dosage, successful outcomes, and application consistency were reviewed and the patient verbalized that all answers were clearly understood. The patient has decided to apply Rx skin creams to their feet save the interspaces while paying special attention to the heels. Such was sent to their pharmacy at the time of visit.? ??Screening/Special Tests:?Fall Risk?Screening:?No falls in the past year ?FALLS: Screening for Future Fall Risk?Have you had any falls with injury in the past year??No * Follow Up:?prn * Images: * Sign off status: Completed true * Provider:?Austen Mcknight DPM Date:?2024 Generated for Trevor romero/Te/Marvasmitting on:?07/14/2024 08:37 AM EDT History and Physical Notes * HPI (History of Present Illness) Category Sub-Category Detail Notes Category Not es Skin problems Nature: dryness , scaling Location: B/L Duration: several days Course: worse At Risk footcare Pt States Last PCP Visit: Date: 4 Examination Category Sub-Category Detail Notes Category Not es Dermatologic SKIN FINDINGS: Skin exam reveal s Keratotic lesion(s) located at, SUB MTH (s), 2, B/L, SUB MTH 3, B/L, SUB MTH 5, B/L, Plantar, Heels, B/L , Skin shows sign(s) of, dryness, scaling, in a stocking fashion, no fissure(s) present, B/L Vascular DP PULSES (B): 0/4, B/L PT PULSES (B): 0/4, B/L CAPILLARY FILL TIME: delayed, all digits , B/L TEMPERTURE GRADIENT (C): decreased, cool to cool, proximal to distal, B/L TROPHIC CONDITION-TEXTURE/ELASTICITY/TURGOR/HAIR GROWTH (B): decreased, fragile, thin, shiny, with sp arse to absent hair growth, B/L EDEMA (C): 1/4, non-pitting CLAUDICATION (C): denies, B/L REST PAIN: denies, B/L PIGMENTATION: mottled PARESTHESIA (C): absent, B/L BURNING (C): absent, B/L Nails NAILS are: Elongated, overg rown, dystrophic, lytic, greater than 3mm thick, discolored and friable with crumbly malodorous subungual debris, with pain on palpation, TA, T1, T2, T4, T5, T6, T7, T9, all other nails not described with characteristics as possessing mycosis are elongated, overgrown, and dystrophic
--- OUTSIDE RECORDS SUMMARY | 2024-07-14 08:37 | XMS_ITS | Patient Health Record ---
Author Organization [facility] Parul tejas Bello Address [address] [place] [address] Care Team Providers Care Baggage And Mail Agent Name Role Phone Thomas Weller Primary Care Provider Unavailab Austen Xiong Unavailable [phone] Allergies No Known Allergies Reason For Referral No Information Medications Medication SIG (Take, Route, Frequency, Duration) Notes Start Date End Date Status Aspir-Low Active Acetaminophen 325 MG Oral for 30 Days Active amLODIPine Besy-Benazepril H Cl 5-20 MG TAKE 1 CAPSULE BY MOUTH EVERY DAY Oral for 90 Days Active Atorvastatin Calcium 10 MG TAKE 1 TABLET BY MOUTH EVERY DAY Oral for 90 Days Active Ferrous Sulfate 325 (65 Fe) MG TAKE 1 TA BLET BY MOUTH TWICE A DAY Oral for 90 Days Active hydroCHLOROthiazide 12.5 MG Oral for 90 Days Active Levothyroxine Sodium 125 MCG Oral for 90 Days Active Folic Acid 1 MG Oral for 90 Days Active Ammonium Lactate [...] ast year? No Points 0 Interpretation Negative Problems Problem Type SNOMED Code ICD Code Onset Dates Problem Status W/U Status Risk Notes Problem Atherosclerosis of pilot station arteries of the extremities ([id number]) Atherosclerosis of pilot station artery of both lower extremities, with unspecified presence of clinical manifestation (I70.203) Active confirmed Q7(A), Q8(2B), Q9(1B,2 C) Vital Signs Blood pressure diastolic 70 mm Hg 05/27/2024 Height 5 ft 4 in in 05/27/2024 Blood pressure systolic 130 mm Hg 05/27/2024 Weight 190 lbs 05/27/2024 BMI 32.61 kg/m2 05/27/2024 Procedures Procedure Date Ordered Date Performed Result Body Sit e 13292-GQYERSY NAIL, 6 OR MORE 11/23/2023 N/A 88614-RZDY SKIN LESIONS, OVER 4 11/23/2023 N/A 41581-TUPKVAR NAIL, 6 OR MORE 05/27/2024 N/A 65896-EMYE SKIN LESIONS, OVER 4 05/27/2024 N/A Encounters Encounter [facility] Date [facility] [address] [facility]/23/[facility]23 Austen Mcknight Atherosclerosis of pilot station artery of both lower extremities, with unspecified presence of clinical manifestation I70.203 ; Tinea unguium B35.1 ; Pain in right toe(s) M79.674 ; Pain in left toe(s) M79.675 ; Other hammer toe(s) (acquired), right foot M20.41 ; Arthritis of joint of lesser toe, right M19.071 ; Other hammer toe(s) (acquired), left foot M20.42 and Arthritis of joint of lesser toe, left M19.[address] [address] 05/27/2024 Austen Mcknight Atherosclerosis of pilot station artery of both lower extremities, with unspecified presence of clinical manifestation I70.203 ; Tinea unguium B35.1 ; Pain in right toe(s) M79.674 ; Pain in left toe(s) M79.675 and Xerosis of skin L85.3 [facility] [address] [address] 02/28/2024 Austen Mcknight Assessments Encounter Date Diagnosis (ICD Code) Assessment Notes Treatment Notes Treatment Clinical Notes Section Notes 11/23/2023 Tinea unguium (ICD-10 - B35.1) 11/23/2023 Atherosclerosis of pilot station artery of both lower extremities, with unspecified presence of clinical manifestation (ICD-10 - I70.203) Q7(A), Q8(2B), Q9(1B,2C) 05/27/2024 Tinea unguium (ICD-10 - B35.1) 05/27/2024 Atherosclerosis of pilot station artery of both lower extremities, with unspecified presence of clinical manifestation (ICD-10 - I70.203) Q7(A), Q8(2B), Q9(1B,2C) 05/27/2024 Pain in right toe(s) (ICD-10 - M79.674) 11/23/2023 Pain in right toe(s) (ICD-10 - M79.674) 11/23/2023 Pain in left toe(s) (ICD-10 - M79.675) 05/27/2024 Pain in left toe(s) (ICD-10 - M79.675) 11/23/2023 Other hammer toe(s) (acquired), right foot (ICD-10 - M20.41) 11/23/2023 Arthritis of joint of lesser toe, right (ICD-10 - M19.071) 05/27/2024 Xerosis of skin (ICD-10 - L85.3) 11/23/2023 Other hammer toe(s) (acquired), left foot (ICD-10 - M20.42) 11/23/2023 Arthritis of joint of lesser toe, left (ICD-10 - M19.072) Plan Of Treatment Pending Test Test Name Order Date 89951-QEJFIHW NAIL, 6 OR MORE 11/23/2023 85946-ZQZMKJT NAIL, 6 OR MORE 05/27/2024 35536-ANLH SKIN LESIONS, OVER 4 05/28/19 25 65243-HECY SKIN LESIONS, OVER 4 11/23/19 24 Next Appt Details Provider Name:Austen Mcknight , 08/22/2024 09:30:00 AM, [address] [facility], [place], [address], Insurance Providers Payer Name Payer Address Payer Phone Subscriber Number Group Number Insured Name Patient Relationship to Insured Coverage Start Date Coverage End Date [facility] [address] [place] [address] [phone] [id number] A1 August Self - patient is the insured Medical (General) History Medical History History ICD Code Arthritis Hypertension thyroid Measles Chicken pox Heart valve conditions/replacement Transfusions Hypercholesterolemia Surgical History Surgery Date(Month/Year) 2 hip replacement 2 knee replacement
--- OUTSIDE RECORDS SUMMARY | 2024-07-14 08:37 | XMS_ITS ---
Author Organization [facility] Address [address] [place] [address] Care Team Providers Care Liquor Inspector Name Role Phone Thomas Weller Primary Care Provider Unavailab Austen Xiong Unavailable [phone] Encounters Encounter Location Date Provider Diagnosis [address] [address] 02/29/2024 Austen Mcknight Plan Of Treatment Next Appt Details Provider Name:Austen Mcknight , 08/22/2024 09:30:00 AM, [address] [place] [address], [address], Progress Notes * LEONELAugust EDOB: [birth year] (83 yo F)Acc No.[id number]:02/29/2024 Progress Note Patient:KINGSTON August Provider:?Austen Mcknight DPM :1940???Age:83 Y???Sex:Female D ate:02/29/2024 Address:[address] [place] [address] Pcp:Thomas Weller Subjective: * Chief Complaints: * ??? * Medical History:? Objective: * Vitals:? Assessment: Plan: * Treatment: * Images: * The named appointment provid er may or may not be the originator of this progress note, and it is not deemed complete until electronically signed by the appointment provider. Sign off status: Pending * Provider:El Mcknight DPM Date:?2023 Generated for Trevor romero/Te/Leslieitting on:?07/14/2024 08:37 AM EDT
[2024-07-14 08:54] VITALS: BP 130/60
== END 2024-07-14 08:56 | disposition home or self-care (01) ==
PROVIDERS: PCP Physician Assistant; Visit Provider Physician Assistant
DX: I10 Essential (primary) hypertension (principal); Z95.2 Presence of prosthetic heart valve; E03.9 Hypothyroidism, unspecified; D50.9 Iron deficiency anemia, unspecified; E78.2 Mixed hyperlipidemia; G56.01 Carpal tunnel syndrome, right upper limb

== ENCOUNTER → 2024-07-14 08:20 | Outpatient (BNVA) | payer BC, SELFPAY | PROVIDERS: PCP Physician Assistant; Visit Provider Physician Assistant | DX: I10 Essential (primary) hypertension (principal); E03.9 Hypothyroidism, unspecified; D50.9 Iron deficiency anemia, unspecified; E78.2 Mixed hyperlipidemia; G56.01 Carpal tunnel syndrome, right upper limb; Z79.899 Other long term (current) drug therapy; Z95.2 Presence of prosthetic heart valve | CPT/HCPCS: 96127 ==

== ENCOUNTER 2024-07-18 08:08 | Outpatient (REF) | payer BC, SELFPAY ==
--- OUTSIDE RECORDS SUMMARY | 2024-07-18 08:12 | XMS_ITS | Patient Health Record ---
Author Organization [facility] Parul tejas Bello Address [address] [place] [address] Care Team Providers Care Junior Accountant Name Role Phone Thomas Weller Primary Care Provider Unavailab Austen Xiong Unavailable [phone] Allergies No Known Allergies Reason For Referral [...] W/U Status Risk Notes Problem Atherosclerosis of [place] arteries of the extremities ([id number]) Atherosclerosis of [place] artery of both lower extremities, with unspecified presence of clinical manifestation (I70.203) Active confirmed Q7(A), Q8(2B), Q9(1B,2 C) Vital Signs Blood pressure diastolic 70 mm Hg 05/27/2024 Height 5 ft 4 in in 05/27/2024 Blood pressure systolic 130 mm Hg 05/27/2024 Weight 190 lbs 05/27/2024 BMI 32.61 kg/m2 05/27/2024 Procedures Procedure Date Ordered Date Performed Result Body Sit e 07318-KGYRFEZ NAIL, 6 OR MORE 11/23/2023 N/A 29851-PQOS SKIN LESIONS, OVER 4 11/23/2023 N/A 23697-TVVAUQO NAIL, 6 OR MORE 05/27/2024 N/A 82498-FWVI SKIN LESIONS, OVER 4 05/27/2024 N/A Encounters Encounter [facility] Date [facility] [address] [facility]/23/[facility]23 Austen Mcknight Atherosclerosis of [place] artery of both lower extremities, with unspecified presence of clinical manifestation I70.203 ; Tinea unguium B35.1 ; Pain in right toe(s) M79.674 ; Pain in left toe(s) M79.675 ; Other hammer toe(s) (acquired), right foot M20.41 ; Arthritis of joint of lesser toe, right M19.071 ; Other hammer toe(s) (acquired), left foot M20.42 and Arthritis of joint of lesser toe, left M19.[address] [address] 05/27/2024 Austen Mcknight Atherosclerosis of [place] artery of both lower extremities, with unspecified presence of clinical manifestation I70.203 ; Tinea unguium B35.1 ; Pain in right toe(s) M79.674 ; Pain in left toe(s) M79.675 and Xerosis of skin L85.3 [facility] [address] [address] 02/28/2024 Austen Mcknight Assessments Encounter Date Diagnosis (ICD Code) Assessment Notes Treatment Notes Treatment Clinical Notes Section Notes 11/23/2023 Tinea unguium (ICD-10 - B35.1) 11/23/2023 Atherosclerosis of [place] artery of both lower extremities, with unspecified presence of clinical manifestation (ICD-10 - I70.203) Q7(A), Q8(2B), Q9(1B,2C) 05/27/2024 Tinea unguium (ICD-10 - B35.1) 05/27/2024 Atherosclerosis of [place] artery of both lower extremities, with unspecified [...] Treatment Pending Test Test Name Order Date 01391-THJDYKJ NAIL, 6 OR MORE 11/23/2023 65230-ZSTKHMP NAIL, 6 OR MORE 05/27/2024 81101-LPOZ SKIN LESIONS, OVER 4 05/28/19 25 14682-DGQD SKIN LESIONS, OVER 4 11/23/19 24 Next Appt Details Provider Name:Austen Mcknight , 08/22/2024 09:30:00 AM, [address] [facility], [place], [address], Insurance Providers Payer Name Payer Address Payer Phone Subscriber Number Group Number Insured Name Patient Relationship to Insured Coverage Start Date Coverage End Date [facility] [address] [place] [address] [id number] A1 August Self - patient is the insured Medical (General) History Medical History History ICD Code Arthritis Hypertension thyroid Measles Chicken pox Heart valve conditions/replacement Transfusions Hypercholesterolemia Surgical History Surgery Date(Month/Year) 2 hip replacement 2 knee replacement
--- OUTSIDE RECORDS SUMMARY | 2024-07-18 08:12 | XMS_ITS ---
Author Organization [facility] Parul tejas Bello Address [address] [place] [address] Care Team Providers Care Switchgear Repairer Name Role Phone Thomas Weller Primary Care Provider Unavailab Austen Xiong Unavailable [phone] Allergies No Known Allergies REASON FOR VISIT [...] Ordered Date Performed Result Body Sit e 32070-WKXJCOZ NAIL, 6 OR MORE 05/27/2024 N/A 00685-MHAK SKIN LESIONS, OVER 4 05/27/2024 N/A Encounters Encounter Location Date Provider Diagnosis [facility] [place] [address] [place] [address] 05/27/2024 Austen Mcknight Atherosclerosis of [place] artery of both lower extremities, with unspecified presence of clinical manifestation I70.203 ; Tinea unguium B35.1 ; Pain in right toe(s) M79.674 ; Pain in left toe(s) M79.675 and Xerosis of skin L85.3 Assessments Encounter Date Diagnosis (ICD Code) Assessment Notes Treatment Notes Treatment Clinical Notes Section Notes 05/27/2024 Atherosclerosis of [place] artery of both lower extremities, with unspecified [...] days Pending Test Test Name Order Date 18821-DPNUAKR NAIL, 6 OR MORE 05/27/2024 32966-FKDP SKIN LESIONS, OVER 4 05/28/19 25 Next Appt Details Follow Up: prn, Reason: Provider Name:Austen Mcknight , 08/22/2024 09:30:00 AM, [address] [place] [address], [address], Procedure Notes * Category Sub-Category Detail Notes [...] use of a nail nipper and/or dremel-type grinder hand, to a more viable healthy nail plate [...] to maintain effectiveness in symptomatic relief - 60551 Keratoma Treatment Parring or Cutting o f [...] instrumentation by the physician of record - 05974, Q8 Progress Notes * MERLINAIMEEAugust EDOB: [birth year] (83 yo F)Acc No.[id number]:05/27/2024 Progress Note Patient:?TANA August Provider:?Austen Mcknight DPM :1940???Age:83 Y???Sex:Female D ate:05/27/2024 Address:[address] [place] [address] Pcp:Thomas Weller Subjective: * Chief Complaints: * [...] no. ?Marital status: . 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 ???Drug/Alcohol:?AUDIT-C (Standard)?Did you have a drink containing [...] Assessment: 1.?Tinea unguium - B35.1???2 .?Atherosclerosis of [place] artery of both lower extremities, with unspecified presence of clinical manifestation - I70.203 (Primary)???Specify :Q8???Notes :Q7(A), Q8(2B), Q9(1B,2C)???3.?Pain in right toe(s) - M79.674???4.?Pain in left toe(s) - M79.675???5.?Xerosis of skin - L85.3???Specify :Acute problem, Uncomplicated (3),Rx Management (4)??? Plan: * Treatment: 2.?Tinea unguium?Procedure: 42287-RJBSDLS NAIL, 6 OR MORE 3.?Xerosis of skin? [...] use of a nail nipper and/or dremel-type grinder hand, to a more viable healthy nail plate [...] to maintain effectiveness in symptomatic relief - 51917.?Keratoma Treatment:?Parring or Cutting of Benign Hyperkeratotic Lesion(s)?(-57) [...] instrumentation by the physician of record - 21972, Q8.? * Procedure Codes:?58817 DEBRI DE NAIL, 6 OR MORE, Modifiers: XS 15417 TRIM SKIN LESIONS, OVER 4, Modifiers: XS [...] Mcknight DPM Date:?2024 Generated for Trevor romero/Te/Marvasmitting on:?07/18/2024 08:12 AM EDT History and Physical Notes * [...]
--- OUTSIDE RECORDS SUMMARY | 2024-07-18 08:12 | XMS_ITS ---
Author Organization [facility] Address [address] [place] [address] Care Team Providers Care Java Jsf Developer Name Role Phone Thomas Weller Primary Care Provider Unavailab Austen Xiong Unavailable [phone] REASON FOR VISIT 02/29/24 appt Encounters Encounter Location Date Provider Diagnosis [facility] [address] 02/28/2024 Austen Mcknight Plan Of Treatment Next Appt Details Provider Name:Austen Mcknight , 08/22/2024 09:30:00 AM, [address] [place] [address], [address], Progress Notes * TANAAugust EDOB: [birth year] (83 yo F)Acc No.[id number]:02/28/2024 Patient:?TANA August :1940???Age:83 Y???Sex:Female Address:[address] [place] [address], [address] * true * Date:? Generated for Printi ng/Faalethag/eTransmitting on:?07/18/2024 08:12 AM EDT
--- OUTSIDE RECORDS SUMMARY | 2024-07-18 08:12 | XMS_ITS ---
Author Organization [facility] Address [address] [place] [address] Care Team Providers Care Bioprocessing Manufacturing Technician Name Role Phone Thomas Weller Primary Care Provider Unavailab Austen Xiong Unavailable [phone] Encounters Encounter Location Date Provider Diagnosis [address] [address] 02/29/2024 Austen Mcknight Plan Of Treatment Next Appt Details Provider Name:Austen Mcknight , 08/22/2024 09:30:00 AM, [address] [place] [address], [phone], Progress Notes * LEONELAugust EDOB: [birth year] (83 yo F)Acc No.[id number]:02/29/2024 Progress Note Patient:KINGSTON August Provider:?Austen Mcknight DPM :1940???Age:83 Y???Sex:Female D ate:02/29/2024 Address:[address] [place] [address] Pcp:Thomas Weller Subjective: * Chief Complaints: * ??? * Medical History:? Objective: * Vitals:? Assessment: Plan: * Treatment: * Images: * The named appointment provid er may or may not be the originator of this progress note, and it is not deemed complete until electronically signed by the appointment provider. Sign off status: Pending * Provider:El Mcknight DPM Date:?2023 Generated for Trevor romero/Te/Leslieitting on:?07/18/2024 08:12 AM EDT
[2024-07-18 08:47] LABS: Hematocrit 34.1 % (37.0-47.0); Hemoglobin 11.7 g/dl (12.0-16.0); Mean Corpuscular HGB Conc 34.3 g/dl (31.0-35.0); Mean Corpuscular Hemoglobin 31.2 pg (27.0-33.0); Mean Corpuscular Volume 90.9 fL (80.0-98.0); Mean Platelet Volume 8.1 fL (9.4-12.3); Platelet Count 345 X10*3/uL (160-400); Red Blood Count 3.75 X10*6/uL (4.20-5.50); Red Cell Distribution Width 12.6 % (11.0-16.0)
[2024-07-18 09:32] LABS: Alanine Aminotransferase 20 U/L (0-31); Albumin Level 4.3 g/dL (3.5-5.0); Alkaline Phosphatase 77 U/L (39-117); Anion Gap 14 (12-20); Aspartate Amino Transferase 29 U/L (5-31); Bilirubin Total 0.4 mg/dL (0.0-1.0); Blood Urea Nitrogen 28 mg/dL (9-16); Calcium 9.7 mg/dL (8.4-10.2); Carbon Dioxide 23 mmol/L (22-29); Chloride 108 mmol/L (96-108); Cholesterol 158 mg/dL (<200); Estimated Glomerular Filt Rate 59; Glucose Fasting 93 mg/dL (60-99); HDL Cholesterol 62 mg/dL (>40); LDL Cholesterol Calculated 83 mg/dL (<100); Potassium 3.8 mmol/L (3.3-5.1); Sodium 141 mmol/L (135-145); Total Protein 7.4 g/dL (6.5-8.0); Triglycerides 69 mg/dL (<150)
[2024-07-18 09:49] LABS: TSH reflex Free T4 2.27 uIU/mL (0.32-4.0)
[2024-07-18 10:06] LABS: Creatinine Urine 227.39 mg/dL; Microalbum/Creatinine Ratio Ur 23.3 ug/mg cr (<30)
== END 2024-07-18 08:09 | disposition home or self-care (01) ==
LOC: HO.LAB 08:08
PROVIDERS: PCP Physician Assistant; Visit Provider Physician Assistant
DX: D50.9 Iron deficiency anemia, unspecified (principal); E78.2 Mixed hyperlipidemia; I10 Essential (primary) hypertension; E03.9 Hypothyroidism, unspecified
CPT/HCPCS: 36415; 80053; 80061; 82043; 82570; 84443; 85027

== ENCOUNTER 2024-12-18 09:34 | Outpatient (AMB) | payer BC, SELFPAY ==
--- NOTE | 2024-12-18 09:41 | MHC.OFFVIS ---
Vital Signs 12/18/24 09:43 Height 5 ft 4 in Weight 193 lb 1.999 oz BMI 33.1 BP 142/76 H Blood Pressure Location Rt brachial Position Sitting Pulse 81 Pulse Source Monitor Intake Visit Reasons: 6 month f/up Caul Dresser Required: No Accompanied by: Self / Same As Patient Allergies No Known Allergies Allergy (Verified 12/18/24 09:47) Medication List - Last Reconciled 12/18/24 by Tolu Davis MD acetaminophen 650 mg (2 x 325 mg) PO Q6H PRN 30 days amlodipine-benazepril 5-20 mg 1 cap PO DAILY 90 days aspirin (Adult Aspirin Regimen) 81 mg PO DAILY atorvastatin 10 mg PO DAILY 90 days celecoxib (Celebrex) 100 mg PO BID ferrous sulfate 325 mg PO BID 90 days folic acid 1 mg PO DAILY hydrochlorothiazide 12.5 mg PO QAM 90 days levothyroxine 125 mcg PO DAILY 90 days vitamin T45-uanfand B1 100-1 mg/mL 1 mL IM .once a month HPI Comments Details: Janice returns for follow-up. She underwent TAVR in 02/2023. Overall, she is getting along fine. Frailty from age but otherwise okay. She states she still works. [facility] Medical History Other and unspecified hyperlipidemia Non-rheumatic aortic stenosis Primary osteoarthritis of right knee Primary osteoarthritis of hands, bilateral Primary osteoarthritis of right hip Hypothyroid Hx of osteomyelitis Osteoarthritis Thyroid disease Iron deficiency anemia Elevated cholesterol Aortic valvular disease HTN (hypertension) Surgical History Status post total right knee replacement History of total right knee replacement Hx of surgical amputation of finger History of total right hip replacement Amputation of finger of left hand History of hip replacement History of History of total left hip arthroplasty History of total left knee replacement Hx of colonoscopy Family History Father Myocardial infarction CVD (cardiovascular disease) Mother No problems noted. Brother Bladder cancer Daughter Cervical cancer Son Knee pain Social History Household Members: None Housing: Apartment Are you a primary health care specialist to a significant other at home: No Do you presently have visiting nurse or other home services: No Alcohol intake: current Alcohol intake frequency: holidays/special occasions only Alcohol type: wine Comment: asleep Patient Tobacco Use Status: Never used Tobacco e-Cigarette/Vaping Use: Never Used Second Hand Smoke Exposure: No service: No Current occupational status: employed Cognitive needs: No Hearing needs: Yes (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) Vision needs: Yes Review of Systems Const Denies daytime sleepiness, Denies difficulty sleeping, Denies snoring, Denies stops breathing during sleep and Denies weakness Card Denies chest pain, Denies rapid heart rate, Denies irregular heart rhythm, Denies claudication, Denies leg edema, Denies lightheadedness, Denies palpitations, Denies dyspnea, Denies dyspnea on exertion, Denies orthopnea, Denies paroxysmal nocturnal dyspnea and Denies slow heart rate Resp Denies cough, Denies dyspnea, Denies dyspnea on exertion and Denies snoring GI Reports no additional complaints, Denies hematochezia, Denies change in stool character and Denies dyspepsia Musc Denies abnormal gait, Denies muscle weakness and Denies numbness Neuro Denies abnormal gait, Denies numbness and Denies weakness Endo Denies palpitations Physical Exam Vital Signs: Last Vital Signs Pulse 81 12/18/24 09:43 BP 142/76 H 12/18/24 09:43 BMI result Body Mass Index 33.1 Const General: comfortable and no acute distress Orientation/consciousness: patient oriented x3 HEENT Other: Unremarkable Head: Yes normal to inspection Neck Neck: Yes normal visual inspection Chest Chest palpation & inspection: normal inspection of the chest Resp Auscultation: clear to auscultation bilaterally Cardio Palpation: normal PMI Heart sounds: S1 normal heart sound present, S2 normal heart sound present, no gallops, Murmur heart sound present systolic II/ and at the right sternal border and no rubs GI Palpation (GI): Soft to palpation Back/Spine/Pelvis Other: unremarkable Skin General skin exam: no rashes or lesions noted Neuro General: patient oriented x3 Extrem General: Yes normal to inspection Psych Mental Status: mental status grossly normal Office Procedures EKG Details: EKG with sinus rhythm at 81/Min; left bundle-branch block pattern. 94923-Ehbapghghnuermigz, Complete Assessment & Plan Assessment & Plan (1) S/P TAVR (transcatheter aortic valve replacement): Code(s): Z95.2 - Presence of prosthetic heart valve Category: Surgical Plan: Cardiac catheterization data- Minimal irregularities in circumflex but otherwise normal coronary arteries. Last echocardiogram- LVEF 60-65%. Normally functioning bioprosthetic aortic valve with a mean gradient of 12 mm Hg. Otherwise unremarkable. Continue long-term aspirin. Infective endocarditis prophylaxis per protocol. (2) LBBB (left bundle branch block): Code(s): I44.7 - Left bundle-branch block, unspecified Category: Medical Plan: Post TAVR finding. Can be followed on EKGs. (3) HTN (hypertension): Code(s): I10 - Essential (primary) hypertension Category: Medical Qualifiers: Hypertension type: essential hypertension Qualified Code(s): I10 - Essential (primary) hypertension Plan: Listed to be on amlodipine, benazepril, hydrochlorothiazide. Blood pressure is slightly high today. May need adjustments. Orders: Orders CA echo transthoracic complete 6 Months Z95.2 - Presence of prosthetic heart valve Coding Level of Care Code Est Pt Level 4 (42070) Complex EM visit Add On G2211 Diagnoses S/P TAVR (transcatheter aortic valve replacement) Z95.2 LBBB (left bundle branch block) I44.7 Essential hypertension I10 Hypertension type: essential hypertension CPT Codes EKG - CPT: 76086-Ghtdfkdqmativfcdi, Complete ([id number])
[2024-12-18 09:43] VITALS: BP 142/76; PULSE 81; BMI 33.1
== END 2024-12-18 10:04 | disposition home or self-care (01) ==
LOC: HO.HCS 09:35
PROVIDERS: PCP Physician Assistant; Visit Provider Internal Medicine
DX: Z95.2 Presence of prosthetic heart valve (principal); I44.7 Left bundle-branch block, unspecified; I10 Essential (primary) hypertension
CPT/HCPCS: 93010; 99214

== ENCOUNTER → 2024-12-18 09:34 | Outpatient (BNVA) | payer BC, SELFPAY | PROVIDERS: PCP Physician Assistant; Visit Provider Internal Medicine | DX: I10 Essential (primary) hypertension (principal); I44.7 Left bundle-branch block, unspecified; R94.31 Abnormal electrocardiogram [ECG] [EKG]; Z95.2 Presence of prosthetic heart valve | CPT/HCPCS: 93005 ==

== ENCOUNTER 2025-01-14 07:58 | Outpatient (AMB) | payer BC, SELFPAY ==
--- OUTSIDE RECORDS SUMMARY | 2024-02-29 04:15 | XMS_ITS ---
Author Organization [facility] Address [address] [place] [address] Care Team Providers Care Alteration Inspector Name Role Phone Thomas Weller Primary Care Provider Unavailab Austen Xiong Unavailable [phone] Encounters Encounter Location Date Provider Diagnosis [facility] [address] [place] [address] 02/29/2024 Austen Mcknight Plan Of Treatment No Information Progress Notes * FRANCHESKAAugust EDOB: [birth year] (84 yo F)Acc No.[id number]:02/29/2024 Progress Note Patient: Jeni KENDRICKAugust Provider: Nidhi Mcknight DPM :1940 A ge:83 Y S ex:Female Date:02/29/2024 Address:[address] [place], [place] [id number] Pcp:Thomas Weller Subjective: * Chief Complaints: * * Medical History: Objective: * Vitals: Assessment: Plan: * Treatment: * Images: * The named appointment provid er may or may not be the originator of this progress note, and it is not deemed complete until electronically signed by the appointment provider. Sign off status: Pending * Provider: Nidhi Mcknight DPM Date: 05/01/2023 Generated for Trevor romero/Te/Marvasmitting on: 03/16/2024 08:01 AM EST
--- OUTSIDE RECORDS SUMMARY | 2024-08-22 04:30 | XMS_ITS ---
Author Organization [facility] Address [address] [place] [address] Care Team Providers Care Grocery Buyer Name Role Phone Thomas Weller Primary Care Provider Unavailab Austen Xiong Unavailable [phone] Encounters Encounter Location Date Provider Diagnosis [facility] [address] [place] [address] 08/22/2024 Austen Mcknight Plan Of Treatment No Information Progress Notes * FRANCHESKAAugust EDOB: [birth year] (84 yo F)Acc No.[id number]:08/22/2024 Progress Note Patient: Jeni KENDRICKAugust Provider: Nidhi Mcknight DPM :1940 A ge:83 Y S ex:Female Date:08/22/2024 Address:[address] [place], [place] [id number] Pcp:Thomas Weller Subjective: * Chief Complaints: * * Medical History: Objective: * Vitals: Assessment: Plan: * Treatment: * Images: * The named appointment provid er may or may not be the originator of this progress note, and it is not deemed complete until electronically signed by the appointment provider. Sign off status: Pending * Provider: Nidhi Mcknight DPM Date: 0 08/22/2024 Generated for Trevor romero/Te/Leslieitting on: 03/16/2024 08:02 AM EST
--- OUTSIDE RECORDS SUMMARY | 2025-01-14 08:02 | XMS_ITS | Patient Health Record ---
Author Organization [facility] Parul tejas Bello Address [address] [place] [address] Care Team Providers Care Rivet Hole Puncher Name Role Phone Thomas Weller Primary Care Provider Unavailab Austen Xiong Unavailable [phone] Allergies No Known Allergies Reason For Referral No Information Medications Medication SIG (Take, Route, Frequency, Duration) Notes Start Date End Date Status Aspir-Low Active Acetaminophen 325 MG Oral; Duration: 30 Days Active amLODIPine Besy-Benazepril H Cl 5-20 MG TAKE 1 CAPSULE BY MOUTH EVERY DAY Oral; Duration: 90 Days Active Atorvastatin Calcium 10 MG TAKE 1 TABLET BY MOUTH EVERY DAY Oral; Duration: 90 Days Active Ferrous Sulfate 325 (65 Fe) MG TAKE 1 TA BLET BY MOUTH TWICE A DAY Oral; Duration: 90 Days Active hydroCHLOROthiazide 12.5 MG Oral; Durati on: 90 Days Active Levothyroxine Sodium 125 MCG Oral; Durat ion: 90 Days Active Folic Acid 1 MG Oral; Duration: 90 Days Active Ammonium Lactate 12 % 1 application Externally to affected areas of dry skin to feet except for between the toes Twice a day; Duration: 30 days Active Tylenol Active Social History [...] Problem Status W/U Status Risk Notes Problem Bilateral atherosclerosis of arteries of lower limbs (disorder) ([id number] ) Atherosclerosis of [place] artery of both lower extremities, with unspecified presence of clinical manifestation (I70.203) Active confirmed Q7(A), Q8(2B), Q9(1B,2 C) Vital Signs Blood pressure diastolic 70 mm Hg 05/27/2024 Height 5 ft 4 in in 05/27/2024 Blood pressure systolic 130 mm Hg 05/27/2024 Weight 190 lbs 05/27/2024 BMI 32.61 kg/m2 05/27/2024 Procedures Procedure Date Ordered Date Performed Result Body Sit e 45837-WJNDLCA NAIL, 6 OR MORE 05/27/2024 N/A 76660-KJSY SKIN LESIONS, OVER 4 05/27/2024 N/A Encounters Encounter Location Date Provider Diagnosis [address] [address] 05/27/2024 Austen Mcknight Atherosclerosis of [place] artery of both lower extremities, with unspecified presence of clinical manifestation I70.203 ; Tinea unguium B35.1 ; Pain in right toe(s) M79.674 ; Pain in left toe(s) M79.675 and Xerosis of skin L85.3 [facility] [address] [address] 02/28/2024 Austen Mcknight [address] [address] 08/21/2024 Austen Mcknight Assessments Encounter Date Diagnosis (ICD Code) Assessment Notes Treatment Notes Treatment Clinical Notes Section Notes 05/27/2024 Tinea unguium (ICD-10 - B35.1) 05/27/2024 Atherosclerosis of [place] artery of both lower extremities, with unspecified presence of clinical manifestation (ICD-10 - I70.203) Q7(A), Q8(2B), Q9(1B,2C) 05/27/2024 Pain in right toe(s) (ICD-10 - M79.674) 05/27/2024 Pain in left toe(s) (ICD-10 - M79.675) 05/27/2024 Xerosis of skin (ICD-10 - L85.3) Plan Of Treatment Pending Test Test Name Order Date 73714-ULPFATH NAIL, 6 OR MORE 11/23/2023 93770-UFZRFKQ NAIL, 6 OR MORE 05/27/2024 07410-KBSM SKIN LESIONS, OVER 4 05/28/19 25 43062-QNMQ SKIN LESIONS, OVER 4 11/23/19 24 Insurance Providers Payer Name Payer Address Payer Phone Subscriber Number Group Number Insured Name Patient Relationship to Insured Coverage Start Date Coverage End Date Kenan Schwartz [address] [place] [address] [id number] A1 August Self - patient is the insured Medical (General) History Medical History History ICD Code Arthritis Hypertension thyroid Measles Chicken pox Heart valve conditions/replacement Transfusions Hypercholesterolemia Surgical History Surgery Date(Month/Year) 2 hip replacement 2 knee replacement
--- NOTE | 2025-01-14 08:20 | A.OFFPC_ITS ---
Vital Signs 01/14/25 08:22 Height 5 ft 4 in Weight 190 lb 6 oz BMI 32.7 BP 150/70 H Blood Pressure Location Lt brachial Position Sitting Pulse 81 Pulse Source Pulse Oximeter Temp 97.3 F Temp Source Temporal Artery Scan Pulse Oximetry (%) 97 Oxygen Delivery Method Room Air Intake Visit Reasons: f/u HTN Intake Note: Patient is here to follow up on HTN. 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 per policy Accompanied by: Self / Same As Patient Allergies No Known Allergies Allergy (Verified 01/14/25 08:31) Medication List - Last Reconciled 01/14/25 by Thomas Weller PA-C acetaminophen 650 mg (2 x 325 mg) PO Q6H PRN 30 days amlodipine-benazepril 5-20 mg 1 cap PO DAILY 90 days aspirin (Adult Aspirin Regimen) 81 mg PO DAILY atorvastatin 10 mg PO DAILY 90 days celecoxib (Celebrex) 100 mg PO BID ferrous sulfate 325 mg PO BID 90 days folic acid 1 mg PO DAILY hydrochlorothiazide 12.5 mg PO QAM 90 days levothyroxine 125 mcg PO DAILY 90 days vitamin [id number] B1 100-1 mg/mL 1 mL IM .once a month Tobacco use date assessed: 01/14/25 Fall risk assessment: No Falls in past year Last assessed Fall Risk: 01/14/25 Dental Screening Dental Screen Date: 07/14/24 HPI f/u HTN HPI Details Patient is a 84-year-old female here today for a follow-up visit. ?. Patient has a past medical history significant for essential hypertension, hypothyroidism, arthritis aortic stenosis. Concerns--> followed by counts include 234 beds at the [facility] for a right hand contracture and ? Carpal tunnel syndrome. She has an upcoming nerve testing in her right upper extremity. PATIENT CONTINUES TO WORK FULL-TIME. .. Anemia: Followed by Hematology, most recent CBC showing improved red blood cell and hemoglobin. Continues to get B12 injections on a monthly basis with Hematology. . ? .. ? Aortic stenosis: Patient is followed by Cardiology by Bian[facility]ually.? Patient is status post aortic valve replacement. ?No reports of chest discomforts, shortness of breath or overt signs of Congestive heart failure. .. Hypothyroid:?? Most recent TSH stable.? Will continue her current dose of levothyroxine 125mcg.? Has been clinically stable. ? .. ? Hypertension:? Patient's blood pressure slightly elevated today in office. She reports being under some stress at work today. She continues on 3 different antihypertensives and we did discuss perhaps going up on dose of her hydrochlorothiazide if blood pressure remains above 140/90 ? She reports she does know monitor blood pressure at home.? She denies any chest discomfort, palpitations headaches or dizziness.? Advised her to comments home blood pressure monitoring to assure her blood pressures have been normal. Laboratory Tests 10/04/23 07/18/24 09/22/24 Unknown 08:21 09:44 Hgb 11.3 L Creatinine 0.97 Ferritin 351 H Urine Microalbumin 13.0 53.0 PFSH Medical History Other and unspecified hyperlipidemia Non-rheumatic aortic stenosis Primary osteoarthritis of right knee Primary osteoarthritis of hands, bilateral Primary osteoarthritis of right hip Hypothyroid Hx of osteomyelitis Osteoarthritis Thyroid disease Iron deficiency anemia Elevated cholesterol Aortic valvular disease HTN (hypertension) Surgical History History of carpal tunnel surgery of right wrist Status post total right knee replacement History of total right knee replacement Hx of surgical amputation of finger History of total right hip replacement Amputation of finger of left hand History of hip replacement History of History of total left hip arthroplasty History of total left knee replacement Hx of colonoscopy Family History Father Myocardial infarction CVD (cardiovascular disease) Mother No problems noted. 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) Vision needs: Yes Questionnaire Thrive Questionnaire Date Thrive assessed: 07/14/24 I am a: Patient What is your living situation today?: I have a steady place to live Within the past 12 months, did the food you bought not last and you didn't have the money to get more?: Never true Within the past 12 months, did you worry whether your food would run out before you got money to buy more?: Never true Do you have trouble paying for medicines?: No Do you have trouble getting transportation to medical appointments?: No Do you have trouble paying your heating and electricity bill?: No Do you have trouble taking care of your child, family member or friend?: No Do you have trouble with day-to-day activities such as bathing, preparing meals, shopping, managing finances, etc.?: No Are you currently unemployed and looking for a job?: No Are you interested in more education?: No Please select the resources that you would like help with: None Currently or been in a relationship where the following occur: No concerns reported THRIVE Score: 0 SHIMA-7 AMB Questionnaire SHIMA-7 Date SHIMA - 7 assessed: 07/14/24 Source: Developed by Drs. Adal Johnston, Tabatha Dawson, Odin Lambert and colleagues, with an educational marbin from [employer]. Review of Systems Const Denies headache(s) Eyes Denies loss of vision ENT Denies vertigo, Denies dizziness, Denies headache(s) and Denies sore throat Card Denies chest pain, Denies leg edema and Denies lightheadedness Resp Denies cough, Denies hemoptysis and Denies wheezing GI Denies abdominal pain, Denies melena, Denies constipation, Denies diarrhea and Denies vomiting Denies urinary frequency, Denies dysuria and Denies urinary urgency Musc Denies arthralgias, Denies joint swelling, Denies numbness and Denies tingling Neuro Denies Abnormal speech present, Denies behavioral changes, Denies vertigo, Denies dizziness, Denies headache(s), Denies loss of vision, Denies memory loss, Denies numbness and Denies tingling Psych Denies anxiety, Denies behavioral changes, Denies depression, Denies memory loss and Denies panic attacks Jose/Lymph Denies easy bleeding and Denies easy bruising Aller/Immun Denies wheezing Physical exam (Primary Care) Vital Signs: Last Vital Signs Temp 97.3 F 01/14/25 08:22 Pulse 81 01/14/25 08:22 BP 150/70 H 01/14/25 08:22 Pulse Ox 97 01/14/25 08:22 Oxygen Delivery Method Room Air 01/14/25 08:22 Care Plan Goal for BP management: Continue current antihypertensives Next steps: Continue to monitor blood pressure- with goal blood pressure to be below 130/80 BMI result Body Mass Index 32.7 BMI Assessment/Plan discussion: High BMI High, discussed plan: lifestyle, weight reduction, dietary and physical activity Tobacco/Smoking Status: Tobacco use Status Tobacco use date assessed 01/14/25 01/14/25 08:27 Patient Tobacco Use Status Never used Tobacco 01/14/25 08:27 e-Cigarette/Vaping Use Never Used 01/14/25 08:27 Thrive Assessment: Date of Thrive Assessment Date Thrive assessed 07/14/24 01/14/25 08:27 Currently or been in a relationship where the following occur: No concerns reported Const General: healthy appearing, no acute distress, alert and awake Nutritional Appearance: well nourished Orientation/consciousness: oriented to person, oriented to place and oriented to time HENMT Ears: TM's normal bilaterally General nose exam: Normal nasal mucous membranes and turbinates present Eyes Conjunctivae: conjunctivae normal Sclerae: sclerae normal Pupils: Equal, round and reactive pupils present Neck Neck: Yes no lymphadenopathy and Yes no JVD Thyroid: Thyroid normal Carotids: no bruits Resp Effort & Inspection: normal respiratory effort and not tachypneic Auscultation: no crackles, no rales, no rhonchi and no wheezes Cardio Rate: regular rate Rhythm: regular rhythm Heart sounds: no murmurs and normal S1 and S2 GI Palpation (GI): Soft to palpation, nontender, no hepatomegaly and no splenomegaly Auscultation: normal bowel sounds Skin General skin exam: no rashes or lesions noted and dry skin Neuro General: oriented to person, oriented to place and oriented to time Cranial nerves: Yes Equal, round and reactive pupils present Speech: No Abnormal speech present Gait exam (Neuro): Normal gait present Motor exam (neuro): no tremor noted Extrem Right upper extremity: full ROM Left upper extremity: full ROM Right lower extremity: full ROM; no edema Left lower extremity: full ROM; no edema Psych Mental Status: mental status grossly normal Speech and movement: Normal speech and movement present Affect: normal affect Attitude: cooperative Thought process: Normal thought process present Coding Level of Care Code Est Pt Level 4 (28092) Diagnoses Essential hypertension I10 Hypertension type: essential hypertension S/P TAVR (transcatheter aortic valve replacement) Z95.2 Hypothyroidism, unspecified type E03.9 Hypothyroidism type: unspecified Iron deficiency anemia, unspecified iron deficiency anemia type D50.9 Anemia type: iron deficiency Iron deficiency anemia type: unspecified iron deficiency Mixed hyperlipidemia E78.2 Hyperlipidemia type: mixed hyperlipidemia Assessment & Plan Assessment & Plan (1) HTN (hypertension): Code(s): I10 - Essential (primary) hypertension Category: Medical Qualifiers: Hypertension type: essential hypertension Qualified Code(s): I10 - Essential (primary) hypertension Plan: Patient's blood pressure today in office slightly elevated, she reports she has been under some stress at work she does not normally check her blood pressures at home and promises to start doing so.. Will continue her current dose of hyd rochlorothiazide, amlodipine and benazepril. Goal blood pressures to remain below 140/90 (2) S/P TAVR (transcatheter aortic valve replacement): Code(s): Z95.2 - Presence of prosthetic heart valve Category: Surgical Plan: Patient continues to follow [facility]. She has no overt signs of Congestive heart failure. She is due repeat echocardiogram to evaluate function. Has upcoming appointment with [facility] in August of 2024 (3) Hypothyroid: Code(s): E03.9 - Hypothyroidism, unspecified Category: Medical Qualifiers: Hypothyroidism type: unspecified Qualified Code(s): E03.9 - Hypothyroidism, unspecified Plan: Patient's most recent TSH stable. Will continue her current dose of levothyroxine at 125 mcg. Will continue to follow TSH to assure normal. (4) Anemia: Code(s): D64.9 - Anemia, unspecified Category: Medical Qualifiers: Anemia type: iron deficiency Iron deficiency anemia type: unspecified iron deficiency Qualified Code(s): D50.9 - Iron deficiency anemia, unspecified Plan: Patient's most recent CBC stable. Continues to follow Hematology. Most recent B12 and folate levels stable. She does report feeling tired though attributes this to age. (5) HLD (hyperlipidemia): Code(s): E78.5 - Hyperlipidemia, unspecified Category: Medical Qualifiers: Hyperlipidemia type: mixed hyperlipidemia Qualified Code(s): E78.2 - Mixed hyperlipidemia Plan: Patient's most recent fasting cholesterol panel showing excellent control over total cholesterol and LDL. Will continue current dose of atorvastatin with goal LDL to remain below 100
[2025-01-14 08:22] VITALS: BP 150/70; PULSE 81; TEMP 36.3; O2SAT 97; BMI 32.7
== END 2025-01-14 08:41 | disposition home or self-care (01) ==
LOC: HO.HMCH 07:59
PROVIDERS: PCP Physician Assistant; Visit Provider Physician Assistant
DX: I10 Essential (primary) hypertension (principal); Z95.2 Presence of prosthetic heart valve; E03.9 Hypothyroidism, unspecified; D50.9 Iron deficiency anemia, unspecified; E78.2 Mixed hyperlipidemia